=== PATIENT | female | born 1955 | race Asian ===

== ENCOUNTER 2020-06-01 07:44 | Outpatient (REF) | payer MEDICARE, SELFPAY ==
[2020-06-01 11:29] LABS: Estimated Average Glucose 146 mg/dL; Hemoglobin A1c % 6.7 %
[2020-06-01 11:39] LABS: Alanine Aminotransferase 44 U/L (0-31); Albumin Level 4.5 g/dL (3.5-5.0); Alkaline Phosphatase 105 U/L (39-117); Anion Gap 15 (12-20); Aspartate Amino Transferase 24 U/L (5-31); Bilirubin Total 0.3 mg/dL (0.0-1.0); Blood Urea Nitrogen 15 mg/dL (9-16); Calcium 9.4 mg/dL (8.4-10.2); Carbon Dioxide 27 mmol/L (22-29); Chloride 105 mmol/L (96-108); Cholesterol 184 mg/dL; Estimated Glomerular Filt Rate 59; Glucose Fasting 129 mg/dL (60-99); HDL Cholesterol 48 mg/dL; LDL Cholesterol Calculated 110 mg/dl; Potassium 4.4 mmol/l (3.3-5.1); Sodium 143 mmol/L (135-145); Total Protein 7.3 g/dL (6.5-8.0); Triglycerides 131 mg/dL
[2020-06-01 12:01] LABS: Vitamin D 25-OH Total 56.2 ng/mL (>30)
== END 2020-06-01 07:45 | disposition home or self-care (01) ==
LOC: HO.HMGCLDS 07:44
PROVIDERS: PCP Internal Medicine; Visit Provider Internal Medicine
DX: E11.9 Type 2 diabetes mellitus without complications (principal); E78.5 Hyperlipidemia, unspecified; I10 Essential (primary) hypertension; Z12.39 Encounter for other screening for malignant neoplasm of breast; Z86.73 Personal history of transient ischemic attack (TIA), and cerebral infarction without residual deficits
CPT/HCPCS: 36415; 80053; 80061; 82306; 83036

== ENCOUNTER 2020-07-05 08:23 | Outpatient (REF) | payer MEDICARE, SELFPAY ==
--- NOTE | 2020-07-05 08:29 | MM_ITS ---
EXAMINATION: MM SCREENING DIGITAL BREAST TOMOSYNTHESIS, BILATERAL CLINICAL INFORMATION: Screening. Asymptomatic. The lifetime risk of breast cancer based on the Tyrer-Cuzick Model is 5.3%. COMPARISON: Mammography: June 02, 2018 and studies dating back to March 31, 2013 TECHNIQUE: Digital breast tomosynthesis is performed in both the craniocaudal and mediolateral oblique views along with computer-aided detection (CAD). Synthesized 2D images are generated from the tomosynthesis. FINDINGS: There are scattered areas of fibroglandular density (ACR BI-RADS breast composition Category b). There are no significant masses, abnormal calcifications, or other abnormalities. MM/MM tomosynthesis screening BI IMPRESSION: There are no significant changes from prior study. ASSESSMENT: BI-RADS 1: Negative RECOMMENDATION: Routine annual mammography screening. This patient's information was entered into a reminder system with a target due date for their next mammogram.
--- NOTE | 2020-07-05 08:29 | MM_ITS ---
EXAMINATION: BONE DENSITOMETRY CLINICAL INDICATION: Menopause. COMPARISON: Previous BD dated 05/16/2017 and baseline BD dated 01/31/2015. TECHNIQUE: Using a [employer] DXA System (software version: 13.1) manufactured by [employer], dual-energy x-ray absorptiometry was performed of the lumbar spine and left hip. The images are of good technical quality. Summary results are attached. FINDINGS: AP SPINE L1-L4: Current: BMD 1.260 g/cm2, Z-score 2.7, T-score 0.7, normal, 1.8% increase from previous, 4.3% increase from baseline (<5% change is not significant). Prior: BMD 1.238 g/cm2. Baseline: BMD 1.208 g/cm2. LEFT FEMUR, NECK: Current: BMD 0.720 g/cm2, Z-score -0.5, T-score -2.3, osteopenia. Prior: BMD 0.779 g/cm2. Baseline: BMD 0.791 g/cm2. LEFT FEMUR, TOTAL: Current: BMD 0.881 g/cm2, Z-score 0.6, T-score -1.0, normal, 4.6% decrease from previous, 7.3% decrease from baseline (<5% change is not significant). Prior: BMD 0.923 g/cm2. Baseline: BMD 0.950 g/cm2. IDENTIFIED RISK FACTORS: Menopause. HISTORY OF FRACTURE: None listed. MEDICATIONS: Vitamin D. MM/XR DEXA axial skeleton IMPRESSION: 1. DIAGNOSIS: Osteopenia based on the lowest T-score value of -2.3 in the femoral neck applying World Health Organization criteria. 2. 10-YEAR FRACTURE RISK PREDICTION, FRAX: Major osteoporotic fracture (clinical spine, forearm, hip or shoulder) 7.0%. Hip fracture 1.4%. 3. Treatment Recommendations: NOF guidelines recommend consideration for treatment in postmenopausal women and men age 50 and older presenting with the following: -A hip or vertebral (clinical or morphometric) fracture. -T-score less than or equal to -2.5 at the femoral neck or spine after appropriate evaluation to exclude secondary causes. -Low bone mass at the hip or spine and a 10-year fracture probability by FRAX of greater than or equal to 3% for hip fracture or greater than or equal to 20% for major osteoporotic fracture based on the [place] adapted WHO algorithm. 4. Other Recommendations: All treatment decisions require clinical judgment and consideration of individual patient factors, including patient preferences, comorbidities, previous drug use, risk factors not captured in the FRAX model (e.g. frailty, falls, vitamin D deficiency, increased bone turnover, interval significant decline in bone density) and possible under or overestimation of fracture risk by FRAX. Additional medical evaluation for secondary cause of low bone mineral density may be appropriate. FUTURE SCAN RECOMMENDATION: People with diagnosed cases of osteoporosis or at high risk for fracture should have regular bone mineral density tests. For patients eligible for Medicare, routine testing is allowed once every 2 years. The testing frequency can be increased to one year for patients who have rapidly progressing disease, those who are receiving or discontinuing medical therapy to restore bone mass, or have additional risk factors.
== END 2020-07-05 08:24 | disposition home or self-care (01) ==
LOC: HO.MAMMO 08:23
PROVIDERS: PCP Internal Medicine; Visit Provider Internal Medicine
DX: Z12.31 Encounter for screening mammogram for malignant neoplasm of breast (principal); Z13.820 Encounter for screening for osteoporosis; Z78.0 Asymptomatic menopausal state
CPT/HCPCS: 77063; 77067; 77080

== ENCOUNTER 2020-09-12 07:26 | Outpatient (REF) | payer MEDICARE, SELFPAY ==
[2020-09-12 11:46] LABS: Estimated Average Glucose 157 mg/dL; Hemoglobin A1c % 7.1 %
[2020-09-12 12:01] LABS: Creatinine Urine 94.65 mg/dL; Microalbum/Creatinine Ratio Ur 48.6 ug/mg cr
[2020-09-12 12:06] LABS: Alanine Aminotransferase 57 U/L (0-31); Anion Gap 16 (12-20); Aspartate Amino Transferase 31 U/L (5-31); Blood Urea Nitrogen 15 mg/dL (9-16); Calcium 9.6 mg/dL (8.4-10.2); Carbon Dioxide 27 mmol/L (22-29); Chloride 103 mmol/L (96-108); Cholesterol 160 mg/dL; Estimated Glomerular Filt Rate > 60; Glucose Fasting 132 mg/dL (60-99); HDL Cholesterol 49 mg/dL; LDL Cholesterol Calculated 84 mg/dl; Potassium 4.4 mmol/l (3.3-5.1); Sodium 142 mmol/L (135-145); Triglycerides 139 mg/dL
[2020-09-12 12:10] LABS: Vitamin D 25-OH Total 70.5 ng/mL (>30)
== END 2020-09-12 07:27 | disposition home or self-care (01) ==
LOC: HO.HMGCLDS 07:26
PROVIDERS: PCP Internal Medicine; Visit Provider Internal Medicine
DX: I10 Essential (primary) hypertension (principal); M85.852 Other specified disorders of bone density and structure, left thigh; E78.5 Hyperlipidemia, unspecified; E11.9 Type 2 diabetes mellitus without complications
CPT/HCPCS: 36415; 80048; 80061; 82043; 82306; 83036; 84450; 84460

== ENCOUNTER 2020-12-21 07:32 | Outpatient (REF) | payer MEDICARE, SELFPAY ==
[2020-12-21 11:46] LABS: Alanine Aminotransferase 57 U/L (0-31); Aspartate Amino Transferase 28 U/L (5-31); Cholesterol 159 mg/dL; HDL Cholesterol 45 mg/dL; LDL Cholesterol Calculated 84 mg/dl; Triglycerides 150 mg/dL
[2020-12-21 12:24] LABS: Creatinine Urine 25.18 mg/dL; Microalbum/Creatinine Ratio Ur 23.8 ug/mg cr
[2020-12-21 13:10] LABS: Estimated Average Glucose 143 mg/dL; Hemoglobin A1c % 6.6 %
== END 2020-12-21 07:33 | disposition home or self-care (01) ==
LOC: HO.HMGCLDS 07:32
PROVIDERS: PCP Internal Medicine; Visit Provider Internal Medicine
DX: E11.65 Type 2 diabetes mellitus with hyperglycemia (principal); I10 Essential (primary) hypertension; E78.5 Hyperlipidemia, unspecified
CPT/HCPCS: 36415; 80061; 82043; 83036; 84450; 84460

== ENCOUNTER 2021-06-28 07:20 | Outpatient (REF) | payer MEDICARE, SELFPAY ==
[2021-06-28 11:37] LABS: Estimated Average Glucose 140 mg/dL; Hemoglobin A1c % 6.5 %
[2021-06-28 11:52] LABS: Alanine Aminotransferase 37 U/L (0-31); Anion Gap 12 (12-20); Aspartate Amino Transferase 22 U/L (5-31); Blood Urea Nitrogen 10 mg/dL (9-16); Calcium 9.3 mg/dL (8.4-10.2); Carbon Dioxide 27 mmol/L (22-29); Chloride 106 mmol/L (96-108); Cholesterol 156 mg/dL; Estimated Glomerular Filt Rate > 60; Glucose Fasting 124 mg/dL (60-99); HDL Cholesterol 43 mg/dL; LDL Cholesterol Calculated 88 mg/dl; Potassium 4.3 mmol/L (3.3-5.1); Sodium 141 mmol/L (135-145); Triglycerides 129 mg/dL
[2021-06-28 11:59] LABS: Vitamin D 25-OH Total 79.1 ng/mL (>30)
[2021-06-28 12:12] LABS: Creatinine Urine 26.43 mg/dL
== END 2021-06-28 07:21 | disposition home or self-care (01) ==
LOC: HO.HMGCLDS 07:20
PROVIDERS: PCP Internal Medicine; Visit Provider Internal Medicine
DX: E11.9 Type 2 diabetes mellitus without complications (principal); E78.5 Hyperlipidemia, unspecified; I10 Essential (primary) hypertension; M85.852 Other specified disorders of bone density and structure, left thigh; Z78.0 Asymptomatic menopausal state
CPT/HCPCS: 36415; 80048; 80061; 82043; 82306; 83036; 84450; 84460

== ENCOUNTER 2021-07-18 10:06 | Outpatient (REF) | payer MEDICARE, SELFPAY ==
--- NOTE | ~2021-07-18 | MM_ITS ---
EXAMINATION: MM SCREENING DIGITAL BREAST TOMOSYNTHESIS, BILATERAL CLINICAL INFORMATION: Screening. Asymptomatic. The lifetime risk of breast cancer based on the Tyrer-Cuzick Model is 5%. COMPARISON: Mammography: 07/05/2020, 06/02/2018, 05/23/2017, 05/16/2017 03/29/2016 TECHNIQUE: Digital breast tomosynthesis is performed in both the craniocaudal and mediolateral oblique views along with computer-aided detection (CAD). Synthesized 2D images are generated from the tomosynthesis. Additional right MLO view is provided. FINDINGS: There are scattered areas of fibroglandular density (ACR BI-RADS breast composition Category b). Parenchymal pattern is similar to prior studies. There are scattered stable minor asymmetries similar to prior studies. No developing density. No architectural abnormality or abnormal calcifications. The axilla and skin contours are unremarkable. MM/MM tomosynthesis screening BI IMPRESSION: There are no significant changes from prior exams. ASSESSMENT: BI-RADS 2: Benign RECOMMENDATION: Routine annual mammography screening. This patient's information was entered into a reminder system with a target due date for their next mammogram.
== END 2021-07-18 10:07 | disposition home or self-care (01) ==
LOC: HO.MAMMO 10:06
PROVIDERS: Visit Provider Internal Medicine
DX: Z12.31 Encounter for screening mammogram for malignant neoplasm of breast (principal)
CPT/HCPCS: 77063; 77067

== ENCOUNTER 2021-12-10 07:16 | Outpatient (REF) | payer MEDICARE, SELFPAY ==
[2021-12-10 11:09] LABS: MANUAL DIFF FLAG NO
[2021-12-10 11:25] LABS: Basophils Absolute Auto 0.1 X10*3/uL (0.0-0.2); Basophils Percent Auto 1.4 % (0-2); Eosinophils Absolute Auto 0.3 X10*3/uL (0.0-0.4); Eosinophils Percent Auto 3.9 % (0-4); Hematocrit 39.1 % (37.0-47.0); Hemoglobin 13.1 g/dl (12.0-16.0); Imm Gran Abs Auto 0.02 X10*3/uL (0.00-0.03); Imm Gran Pct Auto 0.2 % (0.0-0.4); Lymphocytes Absolute Auto 2.3 X10*3/uL (1.2-4.9); Lymphocytes Percent Auto 28.7 % (20-40); Mean Corpuscular HGB Conc 33.5 g/dl (31.0-35.0); Mean Corpuscular Hemoglobin 30.3 pg (27.0-33.0); Mean Corpuscular Volume 90.3 fL (80.0-98.0); Mean Platelet Volume 10.6 fL (9.4-12.3); Monocytes Absolute Auto 0.6 X10*3/uL (0.1-1.2); Monocytes Percent Auto 7.3 % (2-11); Neutrophils Absolute Auto 4.8 x10*3/uL (2.0-8.3); Neutrophils Percent Auto 58.5 % (45-73); Platelet Count 382 X10*3/uL (160-400); Red Blood Count 4.33 X10*6/uL (4.20-5.50); Red Cell Distribution Width 12.6 % (11.0-16.0); White Blood Count 8.1 X10*3/uL (4.8-10.8)
[2021-12-10 11:36] LABS: Alanine Aminotransferase 40 U/L (0-31); Anion Gap 13 (12-20); Aspartate Amino Transferase 22 U/L (5-31); Blood Urea Nitrogen 14 mg/dL (9-16); Calcium 9.7 mg/dL (8.4-10.2); Carbon Dioxide 27 mmol/L (22-29); Chloride 108 mmol/L (96-108); Cholesterol 157 mg/dL; Estimated Glomerular Filt Rate > 60; Glucose Fasting 122 mg/dL (60-99); HDL Cholesterol 44 mg/dL; LDL Cholesterol Calculated 86 mg/dl; Potassium 4.3 mmol/L (3.3-5.1); Sodium 144 mmol/L (135-145); Triglycerides 136 mg/dL
[2021-12-10 11:59] LABS: Vitamin D 25-OH Total 84.3 ng/mL (>30)
[2021-12-10 12:02] LABS: Estimated Average Glucose 137 mg/dL; Hemoglobin A1c % 6.4 %
[2021-12-10 12:12] LABS: Creatinine Urine 183.96 mg/dL; Microalbum/Creatinine Ratio Ur 23.9 ug/mg cr
== END 2021-12-10 07:17 | disposition home or self-care (01) ==
LOC: HO.HMGCLDS 07:16
PROVIDERS: Visit Provider Internal Medicine
DX: E11.9 Type 2 diabetes mellitus without complications (principal); I10 Essential (primary) hypertension; M85.852 Other specified disorders of bone density and structure, left thigh; E78.5 Hyperlipidemia, unspecified; Z78.0 Asymptomatic menopausal state
CPT/HCPCS: 36415; 80048; 80061; 82043; 82306; 83036; 84450; 84460; 85025

== ENCOUNTER 2022-03-01 07:31 | Outpatient (REF) | payer MEDICARE, SELFPAY ==
[2022-03-01 12:03] LABS: Alanine Aminotransferase 40 U/L (0-31); Anion Gap 14 (12-20); Aspartate Amino Transferase 24 U/L (5-31); Blood Urea Nitrogen 16 mg/dL (9-16); Calcium 9.6 mg/dL (8.4-10.2); Carbon Dioxide 26 mmol/L (22-29); Chloride 108 mmol/L (96-108); Cholesterol 149 mg/dL; Estimated Glomerular Filt Rate 59; Glucose Fasting 131 mg/dL (60-99); HDL Cholesterol 44 mg/dL; LDL Cholesterol Calculated 80 mg/dl; Potassium 4.5 mmol/L (3.3-5.1); Sodium 143 mmol/L (135-145); Triglycerides 127 mg/dL
[2022-03-01 12:09] LABS: Vitamin D 25-OH Total 73.8 ng/mL (>30)
[2022-03-01 12:14] LABS: Estimated Average Glucose 143 mg/dL; Hemoglobin A1C 171.3357 umol/L; Hemoglobin A1c % 6.6 %
== END 2022-03-01 07:32 | disposition home or self-care (01) ==
LOC: HO.HMGCLDS 07:31
PROVIDERS: Visit Provider Internal Medicine
DX: E11.9 Type 2 diabetes mellitus without complications (principal); E78.5 Hyperlipidemia, unspecified; I10 Essential (primary) hypertension; M85.852 Other specified disorders of bone density and structure, left thigh
CPT/HCPCS: 36415; 80048; 80061; 82306; 83036; 84450; 84460

== ENCOUNTER 2022-07-20 07:56 | Outpatient (REF) | payer MEDICARE, SELFPAY ==
[2022-07-20 11:36] LABS: Estimated Average Glucose 151 mg/dL; Hemoglobin A1c % 6.9 %
[2022-07-20 11:58] LABS: Alanine Aminotransferase 72 U/L (0-31); Albumin Level 4.6 g/dL (3.5-5.0); Alkaline Phosphatase 98 U/L (39-117); Anion Gap 13 (12-20); Aspartate Amino Transferase 39 U/L (5-31); Bilirubin Total 0.5 mg/dL (0.0-1.0); Blood Urea Nitrogen 14 mg/dL (9-16); Calcium 9.7 mg/dL (8.4-10.2); Carbon Dioxide 28 mmol/L (22-29); Chloride 104 mmol/L (96-108); Cholesterol 177 mg/dL; Estimated Glomerular Filt Rate > 60; Glucose Fasting 114 mg/dL (60-99); HDL Cholesterol 50 mg/dL; LDL Cholesterol Calculated 103 mg/dl; Sodium 141 mmol/L (135-145); Total Protein 7.6 g/dL (6.5-8.0); Triglycerides 121 mg/dL; Vitamin D 25-OH Total 73.8 ng/mL (>30)
[2022-07-20 12:22] LABS: Creatinine Urine 13.63 mg/dL
== END 2022-07-20 07:57 | disposition home or self-care (01) ==
LOC: HO.HMGCLDS 07:56
PROVIDERS: PCP Internal Medicine; Visit Provider Internal Medicine
DX: E78.5 Hyperlipidemia, unspecified (principal); I10 Essential (primary) hypertension; I65.21 Occlusion and stenosis of right carotid artery; M85.852 Other specified disorders of bone density and structure, left thigh; E11.9 Type 2 diabetes mellitus without complications
CPT/HCPCS: 36415; 80053; 80061; 82043; 82306; 83036

== ENCOUNTER 2022-07-24 09:56 | Outpatient (REF) | payer MEDICARE, SELFPAY ==
--- NOTE | ~2022-07-24 | MM_ITS ---
EXAMINATION: MM SCREENING DIGITAL BREAST TOMOSYNTHESIS, BILATERAL CLINICAL INFORMATION: Screening. Asymptomatic. The lifetime risk of breast cancer based on the Tyrer-Cuzick Model is 5%. COMPARISON: Mammography: 07/18/2021, 07/05/2020, 06/02/2018 TECHNIQUE: Digital breast tomosynthesis is performed in both the craniocaudal and mediolateral oblique views along with computer-aided detection (CAD). Synthesized 2D images are generated from the tomosynthesis. FINDINGS: There are scattered areas of fibroglandular density (ACR BI-RADS breast composition Category b). There are no significant masses, abnormal calcifications, or other abnormalities. Parenchymal pattern is similar to prior studies. Minor asymmetries are similar to prior studies. There is no developing density or architectural abnormality. The axilla and skin contours are unremarkable. MM/MM tomosynthesis screening BI IMPRESSION: No mammographic evidence of malignancy. ASSESSMENT: BI-RADS 2: Benign RECOMMENDATION: Routine annual mammography screening. This patient's information was entered into a reminder system with a target due date for their next mammogram.
== END 2022-07-24 09:57 | disposition home or self-care (01) ==
LOC: HO.MAMMO 09:56
PROVIDERS: PCP Internal Medicine; Visit Provider Internal Medicine
DX: Z12.31 Encounter for screening mammogram for malignant neoplasm of breast (principal)
CPT/HCPCS: 77063; 77067

== ENCOUNTER 2022-11-20 07:18 | Outpatient (REF) | payer MEDICARE, SELFPAY ==
[2022-11-20 12:11] LABS: Creatinine Urine 67.27 mg/dL
[2022-11-20 12:13] LABS: Microalbum/Creatinine Ratio Ur 86.2 ug/mg cr
[2022-11-20 12:53] LABS: Estimated Average Glucose 151 mg/dL; Hemoglobin A1c % 6.9 %
[2022-11-20 12:57] LABS: Alanine Aminotransferase 43 U/L (0-31); Albumin Level 4.4 g/dL (3.5-5.0); Alkaline Phosphatase 88 U/L (39-117); Anion Gap 14 (12-20); Aspartate Amino Transferase 30 U/L (5-31); Bilirubin Total 0.9 mg/dL (0.0-1.0); Blood Urea Nitrogen 14 mg/dL (9-16); Calcium 9.3 mg/dL (8.4-10.2); Carbon Dioxide 27 mmol/L (22-29); Chloride 105 mmol/L (96-108); Cholesterol 173 mg/dL; Estimated Glomerular Filt Rate > 60; Glucose Fasting 141 mg/dL (60-99); HDL Cholesterol 45 mg/dL; LDL Cholesterol Calculated 95 mg/dl; Potassium 4.3 mmol/L (3.3-5.1); Sodium 142 mmol/L (135-145); Total Protein 7.2 g/dL (6.5-8.0); Triglycerides 169 mg/dL
[2022-11-20 13:21] LABS: Vitamin D 25-OH Total 86.2 ng/mL (>30)
== END 2022-11-20 07:19 | disposition home or self-care (01) ==
LOC: HO.HMGCLDS 07:18
PROVIDERS: PCP Internal Medicine; Visit Provider Internal Medicine
DX: E11.29 Type 2 diabetes mellitus with other diabetic kidney complication (principal); E78.5 Hyperlipidemia, unspecified; I10 Essential (primary) hypertension; M85.852 Other specified disorders of bone density and structure, left thigh; N95.9 Unspecified menopausal and perimenopausal disorder; R80.9 Proteinuria, unspecified; Z86.73 Personal history of transient ischemic attack (TIA), and cerebral infarction without residual deficits
CPT/HCPCS: 36415; 80053; 80061; 82043; 82306; 83036

== ENCOUNTER 2023-02-27 08:18 | Outpatient (REF) | payer MEDICARE, SELFPAY ==
[2023-02-27 11:30] LABS: Estimated Average Glucose 131 mg/dL; Hemoglobin A1c % 6.2 %
[2023-02-27 11:35] LABS: Alanine Aminotransferase 43 U/L (0-31); Anion Gap 11 (12-20); Aspartate Amino Transferase 25 U/L (5-31); Blood Urea Nitrogen 15 mg/dL (9-16); Calcium 9.4 mg/dL (8.4-10.2); Carbon Dioxide 27 mmol/L (22-29); Chloride 107 mmol/L (96-108); Cholesterol 142 mg/dL; Estimated Glomerular Filt Rate > 60; Glucose Fasting 119 mg/dL (60-99); HDL Cholesterol 40 mg/dL; LDL Cholesterol Calculated 80 mg/dl; Potassium 4.2 mmol/L (3.3-5.1); Sodium 141 mmol/L (135-145); Triglycerides 110 mg/dL
== END 2023-02-27 08:19 | disposition home or self-care (01) ==
LOC: HO.HMGCLDS 08:18
PROVIDERS: PCP Internal Medicine; Visit Provider Internal Medicine
DX: E11.29 Type 2 diabetes mellitus with other diabetic kidney complication (principal); E78.5 Hyperlipidemia, unspecified; I10 Essential (primary) hypertension; I65.21 Occlusion and stenosis of right carotid artery; R80.9 Proteinuria, unspecified; Z86.73 Personal history of transient ischemic attack (TIA), and cerebral infarction without residual deficits
CPT/HCPCS: 36415; 80048; 80061; 83036; 84450; 84460

== ENCOUNTER 2023-03-17 15:00 | Outpatient (RCR) | payer MEDICARE, SELFPAY ==
[2023-03-11 10:01] VITALS: BP 134/61; PULSE 81
--- NOTE | 2023-03-11 10:56 | MHC.PT.EP ---
[facility] [place] Office [place] Office [place] Office [address] Jamshid Pinzon [address] [phone] F: [phone] F: [phone] F: [phone] F: [phone] Physical Therapy Plan of Care Date of Evaluation: Date of Surgery: Diagnosis: Epidemic vertigo Assessment: 68 y/o female referred to PT with epidemic vertigo. Dizziness described as spinning that last a few seconds with rolling in bed, bending, and showering. She does also report occasional lightheadedness and feels offbalance. Examination shows normal oculomotor, (-) VBI, and (+) for L upbeating torsional nystagmus with sx of dizziness. Treated pt with Mariah crowderever x2 and negative on re-test. Sx consistent with BPPV. Recommend PT 2x/week for 4 weeks to address impairments, implement HEP, and optimize functional mobility. Frequency and Duration: The patient will be seen 2x/weeks for 4 weeks Short Term Goals: Will reassess all canals and balance Detention Goals: Pt will be (-) for nystagmus of reports of vertigo in all diagnostic directions B to resolutions of BPPV in 4 weeks Tolerate position changes without complaints vertigo to improve safety and return to pre-onset level Pt to be able to functionally move in all planes without provocation of dizziness and return to PLOF in 4 weeks Pt to be educated on sx and indications to return to therapy when needed in 4 weeks Treatment Plan: Modalities to reduce pain, spasms and effusion. Manual therapy to restore motion and function. Therapeutic exercise to improve strength and flexibility. Neuromuscular re-education for posture and balance. Therapeutic activities to return to functional activities of daily living. Electronically signed by: Saida Trivedi PT Please sign and return to therapist. Thank you for your referral.
--- NOTE | 2023-04-22 08:48 | MHC.PT.DC ---
[facility] [place] Office [place] Office [place] Office [address] Jamshid Pinzon [address] [phone] F: [phone] F: [phone] F: [phone] F: [phone] Physical Therapy Discharge Report Diagnosis: Epidemic vertigo Date of Surgery: Date of Evaluation: 03/11/23 Date of Discharge: 04/22/23 Treatments to Date: 3 Cancellations to Date: 0 No Shows to Date: 0 Discharge Status: Achieved Goals Improved Function Discharge Summary: Paula arrived stating she is feeling good. She denies having any dizziness. Re-assessed her for BPPV in all positions and she was negative for nystagmus and vertigo. She does not present with any symptoms of vestibular hypofunction. No PT indicated at this time. She was advised to return to PT in case of return of symptoms. Electronically signed by: Saida Trivedi PT Please sign and return to therapist. Thank you for your referral.
== END 2023-04-22 08:48 | disposition home or self-care (01) ==
LOC: HO.PT 15:00
PROVIDERS: PCP Internal Medicine; Visit Provider Internal Medicine
DX: A88.1 Epidemic vertigo (principal)
CPT/HCPCS: 95992; 97112; 97161; 97162

== ENCOUNTER 2023-07-29 06:17 | Outpatient (REF) | payer MEDICARE, SELFPAY ==
--- NOTE | ~2023-07-29 | MM_ITS ---
EXAMINATION: BONE DENSITOMETRY CLINICAL INDICATION: Other specified disorders of bone density and structure, left thigh. COMPARISON: Previous BD dated 07/05/2020 and baseline BD dated 01/31/2015. TECHNIQUE: Using a [employer] DXA System (software version: 13.1) manufactured by [employer], dual-energy x-ray absorptiometry was performed of the lumbar spine and left hip. The images are of good technical quality. Summary results are attached. FINDINGS: AP SPINE L1-L4: Current: BMD 1.305 g/cm2, Z-score 3.1, T-score 1.0, normal, 3.6% increase from previous, 8.0% increase from baseline (<5% change is not significant). Prior: BMD 1.260 g/cm2. Baseline: BMD 1.208 g/cm2. LEFT FEMUR, NECK: Current: BMD 0.800 g/cm2, Z-score 0.2, T-score -1.7, osteopenia. Prior: BMD 0.720 g/cm2. Baseline: BMD 0.791 g/cm2. LEFT FEMUR, TOTAL: Current: BMD 0.892 g/cm2, Z-score 0.8, T-score -0.9, normal, 1.2% increase from previous, 6.1% decrease from baseline (<5% change is not significant). Prior: BMD 0.881 g/cm2. Baseline: BMD 0.950 g/cm2. IDENTIFIED RISK FACTORS: Menopause. HISTORY OF FRACTURE: None listed. MEDICATIONS: Calcium supplement and/or multivitamin. Vitamin D. MM/XR DEXA axial skeleton IMPRESSION: 1. DIAGNOSIS: Osteopenia based on the lowest T-score value of -1.7 in the femoral neck applying World Health Organization criteria. 2. 10-YEAR FRACTURE RISK PREDICTION, FRAX: Major osteoporotic fracture (clinical spine, forearm, hip or shoulder) 5.8%. Hip fracture 1.0%. 3. Treatment Recommendations: NOF guidelines recommend consideration for treatment in postmenopausal women and men age 50 and older presenting with the following: -A hip or vertebral (clinical or morphometric) fracture. -T-score less than or equal to -2.5 at the femoral neck or spine after appropriate evaluation to exclude secondary causes. -Low bone mass at the hip or spine and a 10-year fracture probability by FRAX of greater than or equal to 3% for hip fracture or greater than or equal to 20% for major osteoporotic fracture based on the [place] adapted WHO algorithm. 4. Other Recommendations: All treatment decisions require clinical judgment and consideration of individual patient factors, including patient preferences, comorbidities, previous drug use, risk factors not captured in the FRAX model (e.g. frailty, falls, vitamin D deficiency, increased bone turnover, interval significant decline in bone density) and possible under or overestimation of fracture risk by FRAX. Additional medical evaluation for secondary cause of low bone mineral density may be appropriate. FUTURE SCAN RECOMMENDATION: People with diagnosed cases of osteoporosis or at high risk for fracture should have regular bone mineral density tests. For patients eligible for Medicare, routine testing is allowed once every 2 years. The testing frequency can be increased to one year for patients who have rapidly progressing disease, those who are receiving or discontinuing medical therapy to restore bone mass, or have additional risk factors.
[2023-07-29 11:39] LABS: Alanine Aminotransferase 40 U/L (0-31); Anion Gap 11 (12-20); Aspartate Amino Transferase 30 U/L (5-31); Blood Urea Nitrogen 13 mg/dL (9-16); Calcium 8.9 mg/dL (8.4-10.2); Carbon Dioxide 27 mmol/L (22-29); Chloride 108 mmol/L (96-108); Cholesterol 128 mg/dL (<200); Estimated Glomerular Filt Rate > 60; Glucose Fasting 132 mg/dL (60-99); HDL Cholesterol 39 mg/dL (>40); LDL Cholesterol Calculated 70 mg/dL (<100); Potassium 3.7 mmol/L (3.3-5.1); Sodium 142 mmol/L (135-145); Triglycerides 95 mg/dL (<150)
[2023-07-29 11:44] LABS: Estimated Average Glucose 143 mg/dL; Hemoglobin A1c % 6.6 % (<6.0)
== END 2023-07-29 06:18 | disposition home or self-care (01) ==
LOC: HO.MAMMO 06:17
PROVIDERS: PCP Internal Medicine; Visit Provider Internal Medicine
DX: E78.5 Hyperlipidemia, unspecified (principal); I10 Essential (primary) hypertension; E11.29 Type 2 diabetes mellitus with other diabetic kidney complication; R80.9 Proteinuria, unspecified; M85.852 Other specified disorders of bone density and structure, left thigh; Z78.0 Asymptomatic menopausal state; Z12.31 Encounter for screening mammogram for malignant neoplasm of breast
CPT/HCPCS: 36415; 77063; 77067; 77080; 80048; 80061; 83036; 84450; 84460

== ENCOUNTER → 2023-07-29 13:00 | Outpatient (BNV) | payer MEDICARE, SELFPAY | PROVIDERS: PCP Internal Medicine; Visit Provider Radiology Diagnostic Radiology | DX: Z12.31 Encounter for screening mammogram for malignant neoplasm of breast (principal) | CPT/HCPCS: 77063; 77067 ==

== ENCOUNTER 2023-07-31 10:40 | Outpatient (AMB) | payer MEDICARE, SELFPAY ==
[2023-07-31 10:54] VITALS: BP 132/70; PULSE 82; O2SAT 98; BMI 23.2
--- NOTE | 2023-07-31 10:54 | A.OFFPC_ITS ---
Vital Signs 07/31/23 10:54 Height 4 ft 11 in Weight 115 lb 2 oz BMI 23.2 BP 132/70 Blood Pressure Location Rt brachial Position Sitting Pulse 82 Pulse Source Pulse Oximeter Pulse Oximetry (%) 98 Oxygen Delivery Method Room Air Intake Visit Reasons: follow up DM, HTN, lipids Intake Note: Pt is here to follow up for her lab results Allergies metronidazole [From FLAGYL] Allergy (Mild, Verified 07/31/23 11:27) METALLIC TASTE/RASH Sulfa (Sulfonamide Antibiotics) [SULFA (SULFONAMIDE ANTIBIOTICS)] Allergy (Mild, Verified 07/31/23 11:27) RASH, rash, SOB Medication List - Last Reconciled 07/31/23 by Татьяна Mancuso MD amlodipine 5 mg PO DAILY 90 days atorvastatin 80 mg PO DAILY cholecalciferol (vitamin D3) 50 mcg PO DAILY fluticasone propionate 50 mcg/actuation (Flonase Allergy Relief) 1 spray intranasal DAILY PRN losartan 25 mg PO DAILY 90 days metformin take 1000 mg ( 2 tabs) in am and 500 mg (1 tab) in pm with meals 3 months multivitamin 1 tab PO DAILY mupirocin 2% 1 appl topical BID 5 days Tobacco use date assessed: 07/31/23 Fall risk assessment: No Falls in past year Last assessed Fall Risk: 07/31/23 Dental Screening Dental Screen Date: 07/31/23 Did you have a dental visit in the last 12 months?: Yes Did you have a dental problem in the last 6 months where you did not have access to dental care?: No Was dental information given to patient?: Patient has dentist HPI follow up DM, HTN, lipids HPI Details 68-year-old lady with diabetes mellitus, hyperlipidemia hypertension, here today for follow-up. She has been taking her medications as directed, but admits to not following recommended diet. Has been eating a lot of foods and sweets lately. Hemoglobin A1c today is at 6.6% higher than last check, but lipids are within normal limits and blood pressure stable and controlled on present treatment. She has an appointment for her diabetes retinopathy is check with Dr. Mora in September 2023. [facility] Medical History (Updated 07/31/23 @ 12:44 by Татьяна Mancuso MD) Positional lightheadedness Postoperative keloid scar Type 2 diabetes mellitus with microalbuminuria, without long-term current use of insulin Stenosis of right carotid artery Hypertension History of CVA (cerebrovascular accident) Osteopenia of left hip Dyslipidemia Cyst of right breast Surgical History History of cholecystectomy History of dilation and curettage Family History Father No problems noted. Mother No problems noted. Social History Housing: House Alcohol intake: current Patient Tobacco Use Status: Former Tobacco user Quit Date: 2012 e-Cigarette/Vaping Use: Never Used Second Hand Smoke Exposure: No Current occupational status: retired Cognitive needs: No Hearing needs: No Vision needs: Yes Questionnaire PHQ-9 Over the last 2 weeks, how often have you been bothered by any of the following problems? 1. Little interest or pleasure in doing things: not at all 2. Feeling down, depressed, or hopeless: not at all 3. Trouble falling or staying asleep, or sleeping too much: not at all 4. Feeling tired or having little energy: not at all 5. Poor appetite or overeating: not at all 6. Feeling bad about yourself - or that you are a failure or have let yourself or your family down: not at all 7. Trouble concentrating on things, such as reading the newspaper or watching television: not at all 8. Moving or speaking so slowly that other people could have noticed. Or the opposite - being so fidgety or restless that you have been moving around a lot more than usual: not at all 9. Thoughts that you would be better off or of hurting yourself in some way: not at all Total score: 0 Depression Screening Interpretation: Negative Depression Screening Done: Yes 40689 - PHQ-9 Billing: Yes Source: Developed by Drs. Fuentes [place], Miriam Wiley, Jr Joseph and colleagues, with an educational sylvia from [employer]. Thrive Questionnaire Date Thrive assessed: 07/31/23 I am a: Patient What is your living situation today?: I have a steady place to live Within the past 12 months, did the food you bought not last and you didn't have the money to get more?: Never true Within the past 12 months, did you worry whether your food would run out before you got money to buy more?: Never true Do you have trouble paying for medicines?: No Do you have trouble getting transportation to medical appointments?: No Do you have trouble paying your heating and electricity bill?: No Do you have trouble taking care of your child, family member or friend?: No Do you have trouble with day-to-day activities such as bathing, preparing meals, shopping, managing finances, etc.?: No Are you currently unemployed and looking for a job?: No Are you interested in more education?: No TOÑA-7 AMB Questionnaire TOÑA-7 Date TOÑA - 7 assessed: 07/31/23 Feeling nervous, anxious, or on edge: 0 = Not at all Not being able to stop or control worryin = Not at all Worrying too much about different things: 0 = Not at all Trouble relaxin = Not at all Being so restless that it is hard to sit still: 0 = Not at all Becoming easily annoyed or irritable: 0 = Not at all Feeling afraid as if something awful might happen: 0 = Not at all Total TOÑA-7 score (0-4 normal; 5-9 mild; 10-14 moderate; 15-21 severe): 0 Source: Developed by Drs. Fuentes [place], Miriam Wiley, Jr Joseph and colleagues, with an educational slyvia from [employer]. TOÑA-7 Assessment Billing TOÑA-7 Assessment Tool: TOÑA-7 Assessment 13912 Review of Systems Const Denies body aches, Denies fatigue, Denies fever(s), Denies headache(s) and Denies weakness Eyes Details: Up-to-date with her diabetes retinopathy exam, done August 2022 Denies change in vision ENT Denies dizziness, Denies headache(s), Denies nasal congestion, Denies nasal discharge and Denies sore throat Card Denies chest pain, Denies lightheadedness, Denies palpitations and Denies dyspnea Resp Denies chest congestion, Denies cough, Denies dyspnea and Denies wheezing GI Denies abdominal pain, Denies change in bowel habits and Denies heartburn Denies urinary frequency, Denies dysuria and Denies urinary urgency Musc Reports no additional complaints Neuro Denies dizziness, Denies headache(s) and Denies weakness Psych Reports no additional complaints Endo Denies fatigue, Denies polydipsia, Denies polyuria and Denies palpitations Aller/Immun Denies seasonal rhinorrhea and Denies wheezing Physical exam (Primary Care) Vital Signs: Last Vital Signs Pulse 82 07/31/23 10:54 BP 132/70 07/31/23 10:54 Pulse Ox 98 07/31/23 10:54 Oxygen Delivery Method Room Air 07/31/23 10:54 BMI result Body Mass Index 23.2 Tobacco/Smoking Status: Tobacco use Status Tobacco use date assessed 07/31/23 07/31/23 10:59 Patient Tobacco Use Status Former Tobacco user 07/31/23 10:55 e-Cigarette/Vaping Use Never Used 07/31/23 10:55 PHQ-9: PHQ-9 Score PHQ-9: Total score 0 07/31/23 12:45 Depression Screening Interpretation: Negative Thrive Assessment: Date of Thrive Assessment Date Thrive assessed 07/31/23 07/31/23 11:45 Const General: comfortable and no acute distress Nutritional Appearance: average body habitus Orientation/consciousness: patient oriented x3 HENMT Head: Yes normocephalic and Yes atraumatic Ears: hearing grossly normal bilaterally and external ears normal General nose exam: Normal external nose present Face and sinus: Yes face symmetric Mouth: Normal oral and palatal mucosa present, oropharynx normal and moist mucous membranes Eyes General: appearance normal, both eyes and all related structures Neck Neck: Yes full ROM, Yes no lymphadenopathy and Yes supple Chest Chest palpation & inspection: other (Large keloid noted on lower end of sternun) Resp Effort & Inspection: normal respiratory effort and able to speak in complete sentences Auscultation: clear to auscultation bilaterally Cardio Rate: regular rate Rhythm: regular rhythm Heart sounds: S1 normal heart sound present and S2 normal heart sound present GI Inspection: Yes normal to inspection Palpation (GI): Soft to palpation, nontender, no guarding and no masses Auscultation: normal bowel sounds General: Yes no CVA tenderness Back/Spine/Pelvis Back: no CVA tenderness and No back tenderness Skin Other: keloid on lower part of sternum Lesions: other (Large keloid noted on lower end of sternum) Neuro General: patient oriented x3, gait normal, tone normal, moves all extremities, Normal light touch and pain sensation, no focal motor deficits and CN's II-XI intact bilaterally Cognition (Neuro): normal cognition Extrem General: Yes full ROM, Yes no joint enlargement, Yes no clubbing, cyanosis or edema and Yes normal gait Psych Appearance: grossly normal and well kempt Mental Status: mental status grossly normal Speech and movement: Normal speech and movement present Affect: normal affect Attitude: cooperative Thought process: Normal thought process present Thought content: Normal thought content present Results Reviewed Results Reviewed: PEC : [id number] TREV: 07/29/23 STATUS: COMP REQ : [id number] RECD: 07/29/[address]: Татьяна Mancuso MD COMP: 07/29/23 ENTERED: 07/29/[address]: ORDERED: Met Prof Fast, AST, ALT, Lipid Panel Test Result Flag Reference Site Sodium 142 135-145 mmol/L Potassium 3.7 3.3-5.1 mmol/L CL 108 96-108 mmol/L CO2 27 22-29 mmol/L Gap 11 L 12-20 BUN 13 9-16 mg/dL Creat 0.82 0.5-1.4 mg/dL EGFR > 60 NOTE: For -[place] individuals, multiply the result by 1.210. Chronic Kidney Disease: Estimated GFR < 60 mL/min/1.73m2 Severe Kidney Disease: Estimated GFR < 15 mL/min/1.73m2 FBS 132 H 60-99 mg/dL A fasting glucose of 126 mg/dl or greater on more than one occasion is considered diagnostic of diabetes. CA 8.9 8.4-10.2 mg/dL AST (GOT) 30 5-31 U/L ALT (GPT) 40 H 0-31 U/L Triglyceride 95 <150 mg/dL Desirable Triglyceride: less than 150 mg/dL Borderline High Triglyceride 150-199 mg/dL High Triglyceride: 200-499 mg/dL Very High Triglyceride: greater than or equal to 5OO mg/dL Cholesterol 128 <200 mg/dL Desirable Cholesterol: less than 200 mg/dL Borderline High Cholesterol: 200-239 mg/dL High Cholesterol: greater than 239 mg/dL LDL Calculated 70 <100 mg/dL Desirable LDL: less than 100 mg/dL Near Optimal/Above Optimal LDL: 110-129 mg/dL Borderline High LDL: 130-159 mg/dL High LDL: 160-189 mg/dL Very High LDL: greater than or equal to 190 mg/dL HDL 39 L >40 mg/dL Desirable HDL: greater than 40 mg/dL Note: This HDL assay may give artificially low results in patients with liver disease. Laboratory Tests 07/29/23 06:33 Estimat Average Glucose 143 Hemoglobin A1c % 6.6 H Assessment and Plan Assessment & Plan (1) Type 2 diabetes mellitus with microalbuminuria, without long-term current use of insulin: Code(s): E11.29 - Type 2 diabetes mellitus with other diabetic kidney complication; R80.9 - Proteinuria, unspecified Plan: Recent lab results reviewed with patient, with sugar and hemoglobin A1c higher than last check at 6.6%. Continue with metformin a 1000 mg in the morning and 500 mg at night with supper, continue to check fasting blood sugar at home, maintain log and bring to next appointment for review. Reinforced diabetic diet and regular exercise with patient. Counseled regarding importance of yearly diabetes retinopathy screening, has an appointment with Dr. Mora already scheduled for September 2023. Patient advised to inspect feet daily, for any signs of injury, callus or infection. Compliance with diet and regular exercise again stressed. Blood pressure goal is less than 130/80, goal LDL is less than 100 and goal hemoglobin A1c is less than 7% follow-up appointment made in December 2023, after fasting labs done. (2) Dyslipidemia: Code(s): E78.5 - Hyperlipidemia, unspecified Plan: Reviewed recent fasting lipid profile with patient with levels within normal limit . Continue with atorvastatin 80 mg daily , in addition to adherence to low-cholesterol diet and regular exercise, at least 30 minutes 3 to 4 times a week. Advised patient to make healthy food choices, eat more fruits, vegetables, whole grains, wild caught fish and low-fat dairy. Limit amount of meat and fried or fatty food products, as well as processed foods and fast foods. Follow-up scheduled with repeat fasting lipid panel in December 2023. (3) Hypertension: Code(s): I10 - Essential (primary) hypertension Qualifiers: Hypertension type: primary hypertension Qualified Code(s): I10 - Essential (primary) hypertension Plan: Blood pressure at goal of less than 130/80. Continue with losartan and amlodipine. Reinforced importance of following a low sodium diet, getting regular exercise, and lowering stress levels. Medications: Refilled amlodipine 5 mg PO DAILY 90 tabs 3RF 90 days I10 - Essential (primary) hypertension atorvastatin 80 mg PO DAILY 90 tabs 3RF losartan 25 mg PO DAILY 90 tabs 3RF 90 days I10 - Essential (primary) hypertension metformin take 1000 mg ( 2 tabs) in am and 500 mg (1 tab) in pm with meals 270 tabs 3RF 3 months E11.65 - Type 2 diabetes mellitus with hyperglycemia Coding Level of Care Code Est Pt Level 4 (67212) Diagnoses Type 2 diabetes mellitus with microalbuminuria, without long-term current use of insulin E11.29; R80.9 Dyslipidemia E78.5 Primary hypertension I10 Hypertension type: primary hypertension Additional Codes TOÑA-7 Assessment Billing - TOÑA-7 Assessment Tool: TOÑA-7 Assessment 50785 ([id number])
== END 2023-07-31 11:42 | disposition home or self-care (01) ==
PROVIDERS: PCP Internal Medicine; Visit Provider Internal Medicine
DX: E11.29 Type 2 diabetes mellitus with other diabetic kidney complication (principal); R80.9 Proteinuria, unspecified; E78.5 Hyperlipidemia, unspecified; I10 Essential (primary) hypertension
CPT/HCPCS: 99214

== ENCOUNTER 2023-10-23 08:03 | Outpatient (AMB) | payer MEDICARE, SELFPAY ==
--- NOTE | 2023-10-23 08:23 | AM.OFFWIN_ITS ---
Intake Vital Signs 3 10/23/23 08:24 Height 4 ft 11 in Weight 117 lb BMI 23.6 BP 136/72 Blood Pressure Location Lt brachial Position Sitting Pulse 76 Pulse Source Pulse Oximeter Temp 98.9 F Temp Source Oral Pulse Oximetry (%) 100 Oxygen Delivery Method Room Air Intake Visit Reasons: EP LT Leg pain Intake Note: pt is here for co left left leg pain, denies injury Patient Tobacco Use Status: Former Tobacco user Quit Date: 2012 Allergies metronidazole [From FLAGYL] Allergy (Mild, Verified 10/23/23 08:23) METALLIC TASTE/RASH Sulfa (Sulfonamide Antibiotics) [SULFA (SULFONAMIDE ANTIBIOTICS)] Allergy (Mild, Verified 10/23/23 08:23) RASH, rash, SOB Do you need a note to return to daycare/school/sports/work: No HPI EP LT Leg pain 2 HPI0 Details This is a 68-year-old female patient who presents today with a 2-3 day history of left buttock and leg pain. She reports that she has a constant aching and shooting pain in her left buttock, which radiates down her posterior thigh and extends to her left calf. She denies any injury or inciting event to this. She states symptoms are worse with standing and with movement. She is also feeling some leg cramps and muscle spasms. Denies any redness or swelling of the leg. Denies any leg weakness or numbness. 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 Mother No problems noted. Social History Housing: House Alcohol intake: current Patient Tobacco Use Status: Former Tobacco user Quit Date: 2012 e-Cigarette/Vaping Use: Never Used Second Hand Smoke Exposure: No Current occupational status: retired Cognitive needs: No Hearing needs: No Vision needs: Yes Review of Systems Const All systems reviewed & are unremarkable except as noted in HPI and below Physical Exam Vital Signs: Last Vital Signs Temp 98.9 F 10/23/23 08:24 Pulse 76 10/23/23 08:24 BP 136/72 10/23/23 08:24 Pulse Ox 100 10/23/23 08:24 Oxygen Delivery Method Room Air 10/23/23 08:24 BMI result Body Mass Index 23.6 Const General: cooperative, healthy appearing, comfortable and no acute distress HEENT Head: Yes normal to inspection Resp Effort & Inspection: normal respiratory effort Auscultation: clear to auscultation bilaterally Cardio Palpation: normal PMI Rate: regular rate Rhythm: regular rhythm General: Yes no CVA tenderness Back/Spine/Pelvis Back: no CVA tenderness Cervical Spine: normal cervical lordosis and cervical ROM normal Thoracic/Lumbar Spine: thoracic and lumbar spine normal to inspection, thoraco- lumbar ROM normal and straight leg raise negative bilaterally Pelvis: no pain with anterior-posterior compression and no pain with lateral compression Skin General skin exam: no rashes or lesions noted Neuro General: gait normal, moves all extremities and Normal light touch and pain sensation Extrem Left lower extremity: normal to inspection, full ROM, normal capillary refill, no joint enlargement, hip/thigh Details: normal to inspection and normal ROM, knee Details: normal to inspection and normal ROM and lower leg Details: normal to inspection and no edema Upper/lower leg/hip images: 2 1. pain/spasms Psych Appearance: grossly normal Mental Status: mental status grossly normal Speech and movement: Normal speech and movement present Assessment & Plan Assessment & Plan (1) Left lumbar radiculitis: Code(s): M54.16 - Radiculopathy, lumbar region Plan: Hip and SIJ exams are normal. Symptoms could represent a left lumbar radiculopathy vs. muscular strain/spasms. I am going to start her on antiinflammatories and and a muscle relaxer at HS x1 week to see if this provides her any benefit. We reviewed indications, use, possible side effects of these We also discussed heat/ice application and trying some foam rolling at home. If she does not improve with treatment her symptoms worsening/new symptoms develop, she can return to the clinic for further evaluation or follow-up with PCP Dr. Mancuso. She agrees to plan. (2) Muscle spasm of left lower extremity: Code(s): M62.838 - Other muscle spasm Plan: As above. Medications: New 2 meloxicam 7.5 mg PO DAILY 7 days 7 tabs 0RF M54.16 - Radiculopathy, lumbar region cyclobenzaprine 10 mg PO BEDTIME 7 days PRN 7 tabs 0RF muscle spasm M62.838 - Other muscle spasm Coding Level of Care Code Est Pt Level 3 (53473) Diagnoses Left lumbar radiculitis M54.16 Muscle spasm of left lower extremity M62.838
[2023-10-23 08:24] VITALS: BP 136/72; PULSE 76; TEMP 37.2; O2SAT 100; BMI 23.6
== END 2023-10-23 08:57 | disposition home or self-care (01) ==
PROVIDERS: PCP Internal Medicine; Visit Provider Nurse Practitioner Family
DX: M54.16 Radiculopathy, lumbar region (principal); M62.838 Other muscle spasm
CPT/HCPCS: 99213

== ENCOUNTER 2023-11-04 08:01 | Outpatient (AMB) | payer MEDICARE, SELFPAY ==
--- NOTE | 2023-11-04 08:05 | MHC.OFFWIV ---
Intake Vital Signs 11/04/23 08:10 Height 4 ft 11 in Weight 117 lb BMI 23.6 BP 140/72 H Blood Pressure Location Lt brachial Position Sitting Pulse 75 Pulse Source Pulse Oximeter Temp 97.8 F Temp Source Oral Pulse Oximetry (%) 99 Intake Visit Reasons: EP LT leg Pain Intake Note: pt is here for leg pain, completed medication course on friday and states pain came right back Patient Tobacco Use Status: Former Tobacco user Quit Date: 2012 Allergies metronidazole [From FLAGYL] Allergy (Mild, Verified 11/04/23 08:10) METALLIC TASTE/RASH Sulfa (Sulfonamide Antibiotics) [SULFA (SULFONAMIDE ANTIBIOTICS)] Allergy (Mild, Verified 11/04/23 08:10) RASH, rash, SOB Do you need a note to return to daycare/school/sports/work: No HPI EP LT leg Pain HPI Details 68-year-old female presents to the office for a sick visit. Patient reports her left leg pain is returning. She was seen in the walk-in a few weeks ago and given muscle relaxant and anti-inflammatory. Pain subsided when she was taking the medications. Two days after she stopped her completed the dose, her pain symptoms have started again. No new falls or injuries. Pain is predominantly behind her left thigh posteriorly and radiating to the knee. Able to walk without a limp. Pain is worse when she stands up from a sitting position. 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 Mother No problems noted. Social History Housing: House Alcohol intake: current Patient Tobacco Use Status: Former Tobacco user Quit Date: 2012 e-Cigarette/Vaping Use: Never Used Second Hand Smoke Exposure: No Current occupational status: retired Cognitive needs: No Hearing needs: No Vision needs: Yes Physical Exam Vital Signs: Last Vital Signs Temp 97.8 F 11/04/23 08:10 Pulse 75 11/04/23 08:10 BP 140/72 H 11/04/23 08:10 Pulse Ox 99 11/04/23 08:10 BMI result Body Mass Index 23.6 Extrem Other: Good vascular pulses on the left side. Left hip: Full range of internal and external rotation, flexion and extension at the hip. Minimal discomfort on palpation of the left quadriceps Assessment & Plan Assessment & Plan (1) Leg pain, left: Code(s): M79.605 - Pain in left leg Plan: X-ray images of the femur were personally reviewed by me. Muscle relaxant and anti-inflammatory called in. Physical therapy ordered. If symptoms persist she needs to make an appointment with her PCP for further workup. Orders: Orders XR femur LT 2V Today M79.605 - Pain in left leg Medications: New meloxicam 15 mg PO DAILY 14 tabs 0RF Changed From cyclobenzaprine 10 mg PO BEDTIME 7 days PRN 7 tabs 0RF muscle spasm M62.838 - Other muscle spasm To cyclobenzaprine 10 mg PO BEDTIME 14 days PRN 14 tabs 0RF muscle spasm M62.838 - Other muscle spasm Coding Level of Care Code Est Pt Level 4 (30126) Diagnoses Leg pain, left M79.605
[2023-11-04 08:10] VITALS: BP 140/72; PULSE 75; TEMP 36.6; O2SAT 99; BMI 23.6
== END 2023-11-04 09:00 | disposition home or self-care (01) ==
PROVIDERS: PCP Internal Medicine; Visit Provider Internal Medicine
DX: M79.605 Pain in left leg (principal)
CPT/HCPCS: 99214

== ENCOUNTER 2023-11-04 08:24 | Outpatient (REF) | payer MEDICARE, SELFPAY ==
--- NOTE | ~2023-11-04 | XR_ITS ---
EXAMINATION: XR FEMUR, LEFT CLINICAL INFORMATION: Pain. COMPARISON: None available. TECHNIQUE: AP and lateral views of the left femur were obtained. FINDINGS: The visualized hip joint and the knee joint appears unremarkable. There is no fracture or bony abnormality seen involving the left femur. XR/XR femur LT 2V IMPRESSION: Unremarkable left femur exam.
== END 2023-11-04 08:25 | disposition home or self-care (01) ==
LOC: HO.HMGCX 08:24
PROVIDERS: PCP Internal Medicine; Visit Provider Internal Medicine
DX: M79.605 Pain in left leg (principal)
CPT/HCPCS: 73552

== ENCOUNTER 2023-11-14 08:03 | Outpatient (AMB) | payer MEDICARE, SELFPAY ==
[2023-11-14 08:09] VITALS: BP 142/72; PULSE 80; O2SAT 98; BMI 22.8
--- NOTE | 2023-11-14 08:09 | MHC.PC.OV ---
Vital Signs 11/14/23 08:09 Height 4 ft 11 in Weight 113 lb BMI 22.8 BP 142/72 H Blood Pressure Location Lt brachial Position Sitting Pulse 80 Pulse Source Pulse Oximeter Pulse Oximetry (%) 98 Oxygen Delivery Method Room Air Intake Visit Reasons: left leg pain Intake Note: Pt is here today c/o on going left leg pain: was seen several at the walkin with no improvement: no injury noted Allergies metronidazole [From FLAGYL] Allergy (Mild, Verified 11/14/23 09:01) METALLIC TASTE/RASH Sulfa (Sulfonamide Antibiotics) [SULFA (SULFONAMIDE ANTIBIOTICS)] Allergy (Mild, Verified 11/14/23 09:01) RASH, rash, SOB Medication List - Last Reconciled 11/14/23 by Татьяна Mancuso MD amlodipine 5 mg PO DAILY 90 days atorvastatin 80 mg PO DAILY cholecalciferol (vitamin D3) 50 mcg PO DAILY cyclobenzaprine 10 mg PO BEDTIME PRN 14 days fluticasone propionate 50 mcg/actuation (Flonase Allergy Relief) 1 spray intranasal DAILY PRN losartan 25 mg PO DAILY 90 days meloxicam 15 mg PO DAILY metformin take 1000 mg ( 2 tabs) in am and 500 mg (1 tab) in pm with meals 3 months multivitamin 1 tab PO DAILY mupirocin 2% 1 appl topical BID 5 days Tobacco use date assessed: 11/14/23 Fall risk assessment: No Falls in past year Last assessed Fall Risk: 11/14/23 Dental Screening Dental Screen Date: 11/14/23 Did you have a dental visit in the last 12 months?: Yes Did you have a dental problem in the last 6 months where you did not have access to dental care?: No Was dental information given to patient?: Patient has dentist HPI left leg pain HPI Details 68-year-old lady here today complaining of persistent pain and swelling behind left knee joint. This has been present now for the last 3 weeks. She was seen at the walk-in clinic x-rays done of the left knee which did not show any abnormality, was placed on meloxicam came and cyclobenzaprine which has not been helping [facility] Medical History Positional lightheadedness Postoperative keloid scar Type 2 diabetes mellitus with microalbuminuria, without long-term current use of insulin Stenosis of right carotid artery Hypertension History of CVA (cerebrovascular accident) Osteopenia of left hip Dyslipidemia Cyst of right breast Surgical History History of cholecystectomy History of dilation and curettage Family History Father No problems noted. Mother No problems noted. Social History Housing: House Alcohol intake: current Patient Tobacco Use Status: Former Tobacco user Quit Date: 2012 e-Cigarette/Vaping Use: Never Used Second Hand Smoke Exposure: No Current occupational status: retired Cognitive needs: No Hearing needs: No Vision needs: Yes Questionnaire Thrive Questionnaire Date Thrive assessed: 11/14/23 I am a: Patient What is your living situation today?: I have a steady place to live Within the past 12 months, did the food you bought not last and you didn't have the money to get more?: Never true Within the past 12 months, did you worry whether your food would run out before you got money to buy more?: Never true Do you have trouble paying for medicines?: No Do you have trouble getting transportation to medical appointments?: No Do you have trouble paying your heating and electricity bill?: No Do you have trouble taking care of your child, family member or friend?: No Do you have trouble with day-to-day activities such as bathing, preparing meals, shopping, managing finances, etc.?: No Are you currently unemployed and looking for a job?: No Are you interested in more education?: No THRIVE Score: 0 TOÑA-7 AMB Questionnaire TOÑA-7 Date TOÑA - 7 assessed: 07/31/23 Source: Developed by Drs. Fuentes [place], Miriam Wiley, Jr Joseph and colleagues, with an educational sylvia from [employer]. Review of Systems Const All systems reviewed & are unremarkable except as noted in HPI and below Reports no additional complaints Physical exam (Primary Care) Vital Signs: Last Vital Signs Pulse 80 11/14/23 08:09 BP 142/72 H 11/14/23 08:09 Pulse Ox 98 11/14/23 08:09 Oxygen Delivery Method Room Air 03/15/24 08:09 BMI result Body Mass Index 22.8 Tobacco/Smoking Status: Tobacco use Status Tobacco use date assessed 11/14/23 11/14/23 08:13 Patient Tobacco Use Status Former Tobacco user 11/14/23 08:11 e-Cigarette/Vaping Use Never Used 11/14/23 08:11 Thrive Assessment: Date of Thrive Assessment Date Thrive assessed 11/14/23 11/14/23 08:14 Const Other: Alert oriented x3, no acute distress noted ambulatory normal gait, in room Orientation/consciousness: patient oriented x3 Skin General skin exam: no rashes or lesions noted Neuro General: patient oriented x3, tone normal, moves all extremities, Normal light touch and pain sensation and no focal motor deficits Extrem Other: Soft tender fluctuant mass on left popliteal fossa, less prominent when flexing knee joint, no varicosities noted, no calf tenderness Assessment and Plan Assessment & Plan (1) Palpable mass of soft tissue of knee: Code(s): M79.89 - Other specified soft tissue disorders Plan: Likely popliteal cyst or Enriquez's cyst, ultrasound of soft tissue left knee ordered stat. Discontinue meloxicam and cyclobenzaprine as it has not really been helping, advised to try massaging Aleve gel or diclofenac gel to affected area to 2 3 times a day as needed, patient already has an appointment for physical therapy on the 19 of November Orders: Orders US extremity nonvascular Today M79.89 - Other specified soft tissue disorders Coding Level of Care Code Est Pt Level 3 (15027) Diagnoses Palpable mass of soft tissue of knee M79.89
== END 2023-11-14 11:11 | disposition home or self-care (01) ==
PROVIDERS: PCP Internal Medicine; Visit Provider Internal Medicine
DX: M79.89 Other specified soft tissue disorders (principal)
CPT/HCPCS: 99213

== ENCOUNTER 2023-11-14 14:13 | Outpatient (REF) | payer MEDICARE, SELFPAY ==
--- NOTE | ~2023-11-14 | US_ITS ---
EXAMINATION: Ultrasound of left popliteal fossa CLINICAL INFORMATION: Pain in the left popliteal fossa region to 3 weeks. No history of injury. COMPARISON: Ultrasound of the right popliteal fossa for comparison TECHNIQUE: Targeted grayscale ultrasound of the left popliteal fossa. Color Doppler exam used. Right popliteal fossa scan for comparison. FINDINGS: No focal abnormality. No popliteal fossa cyst or fluid collections. No evidence of inflammation or hyperemia on color Doppler. The popliteal artery is patent. The popliteal vein is patent and compressible. US/US extremity nonvascular murry IMPRESSION: Unremarkable examination.
== END 2023-11-14 14:14 | disposition home or self-care (01) ==
LOC: HO.HMGCX 14:13
PROVIDERS: PCP Internal Medicine; Visit Provider Internal Medicine
DX: M79.89 Other specified soft tissue disorders (principal)
CPT/HCPCS: 76882

== ENCOUNTER 2023-12-04 11:00 | Outpatient (RCR) | payer MEDICARE, SELFPAY ==
--- NOTE | 2023-11-20 11:42 | MHC.PT.EP ---
[facility] [place] Office [place] Office [place] Office [address] Jamshid Pinzon [address] [phone] F: [phone] F: [phone] F: [phone] F: [phone] Physical Therapy Plan of Care Date of Evaluation: 11/20/23 Date of Surgery: n/a Diagnosis: pain in L leg Assessment: Patient is a 68 year old female presenting to PT with complaints of pain in her L leg. Pt reports onset of pain began about 1 month ago due to insidious onset. She presents today with impairments in pain, lumbar ROM, core strength, hip strength, posture, gait mechanics. Pt's current occupation is none, with baseline physical activities including ambulating, standing, transfers, ADLs. 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 Clinical presentation today is most consistent with signs and sx associated with L leg pain with possible contribution from her low back and pt will benefit from skilled PT 2 week x 4 weeks to address the following problems and impairments noted upon evaluation: pain, lumbar ROM, core strength, hip strength, posture, gait mechanics. These problems limit the patient with the following functional activities: ambulating, standing, transfers, ADLs. The prescribed treatment plan of care is medically necessary. Co-morbidities of osteopenia, hx CVA 2012, T2DM were identified and taken into considerations of plan of care. Pt was educated on HEP, role of PT, prognosis, POC. Frequency and Duration: The patient will be seen 2 x week x 4 weeks Short Term Goals: Pt will demonstrate centralization of pain in 2 weeks. Pt will demonstrate ability to move through lumbar ROM in available range with min to no pain in 2 weeks. Pt will demonstrate improved hip MMT strength by 1/3 grade in 2 weeks for improved lumbopelvic stability. Intermediate Goals: Pt will demonstrate improved LEFI score by 9 points in 4 weeks for improved functional mobility. Pt will demonstrate ability to perform STS transfer with min to no pain in 4 weeks for return to PLOF. Pt will demonstrate ability to stand and ambulate with min to no pain and no AD in 4 weeks for return to PLOF. Treatment Plan: Modalities to reduce pain, spasms and effusion. Manual therapy to restore motion and function. Therapeutic exercise to improve strength and flexibility. Neuromuscular re-education for posture and balance. Therapeutic activities to return to functional activities of daily living. Electronically signed by: Isabel Ly PT, DPT, ATC Please sign and return to therapist. Thank you for your referral.
--- NOTE | 2023-12-09 13:16 | MHC.PT.DC ---
[facility] [place] Office [place] Office [place] Office [address] Jamshid Pinzon [address] [phone] F: [phone] F: [phone] F: [phone] F: [phone] Physical Therapy Discharge Report Diagnosis: pain in L leg Date of Surgery: n/a Date of Evaluation: 11/20/23 Date of Discharge: 12/09/23 Treatments to Date: 5 Cancellations to Date: 4 No Shows to Date: 0 Discharge Status: Physician Discontinued Tx Discharge Summary: Pt spouse notified clinic that her PCP instructed her to stop PT at this time while she undergoes further testing. Therefore pt to be d/c. Electronically signed by: Isabel Ly PT, DPT, ATC Please sign and return to therapist. Thank you for your referral.
== END 2023-12-09 13:16 | disposition home or self-care (01) ==
LOC: HO.PTCHIC 11:00
PROVIDERS: PCP Internal Medicine; Visit Provider Internal Medicine
DX: M79.605 Pain in left leg (principal)
CPT/HCPCS: 97110; 97161

== ENCOUNTER 2023-12-05 06:53 | Outpatient (REF) | payer MEDICARE, SELFPAY ==
[2023-12-05 10:55] LABS: Estimated Average Glucose 128 mg/dL; Hemoglobin A1c % 6.1 % (<6.0)
[2023-12-05 11:12] LABS: Alanine Aminotransferase 64 U/L (0-31); Anion Gap 10 (12-20); Aspartate Amino Transferase 40 U/L (5-31); Blood Urea Nitrogen 15 mg/dL (9-16); Carbon Dioxide 27 mmol/L (22-29); Chloride 109 mmol/L (96-108); Cholesterol 127 mg/dL (<200); Estimated Glomerular Filt Rate > 60; Glucose Fasting 117 mg/dL (60-99); HDL Cholesterol 46 mg/dL (>40); LDL Cholesterol Calculated 67 mg/dL (<100); Potassium 3.5 mmol/L (3.3-5.1); Sodium 142 mmol/L (135-145); Triglycerides 72 mg/dL (<150)
[2023-12-05 11:29] LABS: Vitamin D 25-OH Total 90.1 ng/mL (>30)
== END 2023-12-05 06:54 | disposition home or self-care (01) ==
LOC: HO.HMGCLDS 06:53
PROVIDERS: PCP Internal Medicine; Visit Provider Internal Medicine
DX: Z86.73 Personal history of transient ischemic attack (TIA), and cerebral infarction without residual deficits (principal)
CPT/HCPCS: 36415; 80048; 80061; 82306; 83036; 84450; 84460

== ENCOUNTER 2023-12-09 10:42 | Outpatient (AMB) | payer MEDICARE, SELFPAY ==
[2023-12-09 10:59] VITALS: BP 138/62; PULSE 84; O2SAT 99; BMI 22.6
--- NOTE | 2023-12-09 10:59 | A.OFFPC_ITS ---
Vital Signs 12/09/23 10:59 Height 4 ft 11 in Weight 112 lb BMI 22.6 BP 138/62 Blood Pressure Location Lt brachial Position Sitting Pulse 84 Pulse Source Pulse Oximeter Pulse Oximetry (%) 99 Oxygen Delivery Method Room Air Intake Visit Reasons: 4 month fu dm , lipids Intake Note: Pt is here today for her 4 mo. f/u DM and lipids Allergies metronidazole [From FLAGYL] Allergy (Mild, Verified 12/10/23 02:05) METALLIC TASTE/RASH Sulfa (Sulfonamide Antibiotics) [SULFA (SULFONAMIDE ANTIBIOTICS)] Allergy (Mild, Verified 12/10/23 02:05) RASH, rash, SOB Medication List - Last Reconciled 12/10/23 by Татьяна Mancuso MD acetaminophen ER (Tylenol Arthritis Pain) 650 mg PO Q12H amlodipine 5 mg PO DAILY 90 days atorvastatin 80 mg PO Q2D 3 months cholecalciferol (vitamin D3) 50 mcg PO DAILY fluticasone propionate 50 mcg/actuation (Flonase Allergy Relief) 1 spray intranasal DAILY PRN losartan 25 mg PO DAILY 90 days metformin take 1000 mg ( 2 tabs) in am and 500 mg (1 tab) in pm with meals 3 months multivitamin 1 tab PO DAILY mupirocin 2% 1 appl topical BID 5 days Tobacco use date assessed: 12/09/23 Fall risk assessment: No Falls in past year Last assessed Fall Risk: 12/09/23 Dental Screening Dental Screen Date: 12/09/23 Did you have a dental visit in the last 12 months?: Yes Did you have a dental problem in the last 6 months where you did not have access to dental care?: No Was dental information given to patient?: Patient has dentist HPI 4 month fu dm , lipids HPI Details 68-year-old lady here today for follow-u p on her diabetes mellitus, hyperlipidemia and hypertension. She has been compliant with taking her medications and has been following recommended diet. Latest labs showed improved controlling her diabetes mellitus, lipids are within normal limits, blood pressure stable controlled today on present medication. It is noted however that there has been elevation in her liver enzymes as compared to last check. She however has not been able to exercise much due to continuing pain in her left lower leg and behind her left knee. She had an x-ray of her left leg and ultrasound of left popliteal fossa which did not demonstrate any abnormality. Has been seen by physical therapy with no improvement. Still complaining of pain behind her left knee is radiating down left lower leg and sometimes in the back of her left thigh. No improvement with NSAIDs or Tylenol arthritis. [facility] Medical History (Updated 12/10/23 @ 02:04 by Татьяна Mancuso MD) Pain in left lower leg Popliteal pain Positional lightheadedness Postoperative keloid scar Type 2 diabetes mellitus with microalbuminuria, without long-term current use of insulin Stenosis of right carotid artery Hypertension History of CVA (cerebrovascular accident) Osteopenia of left hip Dyslipidemia Cyst of right breast Surgical History History of cholecystectomy History of dilation and curettage Family History Father No problems noted. Mother No problems noted. Social History Housing: House Alcohol intake: current Patient Tobacco Use Status: Former Tobacco user Quit Date: 2012 e-Cigarette/Vaping Use: Never Used Second Hand Smoke Exposure: No Current occupational status: retired Cognitive needs: No Hearing needs: No Vision needs: Yes Questionnaire Thrive Questionnaire Date Thrive assessed: 11/14/23 TOÑA-7 AMB Questionnaire TOÑA-7 Date TOÑA - 7 assessed: 07/31/23 Source: Developed by Drs. Fuentes [place], Miriam Wiley, Jr Joseph and colleagues, with an educational sylvia from [employer]. Review of Systems Const Denies fatigue, Denies fever(s), Denies headache(s) and Denies weakness Eyes Denies change in vision ENT Denies dizziness, Denies headache(s), Denies nasal congestion, Denies nasal discharge and Denies sore throat Card Denies chest pain, Denies lightheadedness, Denies palpitations and Denies dyspnea Resp Denies chest congestion, Denies cough, Denies dyspnea and Denies wheezing GI Denies abdominal pain, Denies change in bowel habits and Denies heartburn Denies urinary frequency, Denies dysuria and Denies urinary urgency Musc Reports as per HPI Skin/Breast Denies breast pain, Denies breast mass and Denies rash Neuro Denies dizziness, Denies headache(s) and Denies weakness Psych Reports no additional complaints Endo Denies fatigue, Denies polydipsia, Denies polyuria and Denies palpitations Dewey/Lymph Reports no additional complaints Aller/Immun Denies seasonal rhinorrhea and Denies wheezing Physical exam (Primary Care) Vital Signs: Last Vital Signs Pulse 84 12/09/23 10:59 BP 138/62 12/09/23 10:59 Pulse Ox 99 12/09/23 10:59 Oxygen Delivery Method Room Air 12/09/23 10:59 BMI result Body Mass Index 22.6 Tobacco/Smoking Status: Tobacco use Status Tobacco use date assessed 12/09/23 12/09/23 11:22 Patient Tobacco Use Status Former Tobacco user 12/09/23 11:01 e-Cigarette/Vaping Use Never Used 12/09/23 11:01 Thrive Assessment: Date of Thrive Assessment Date Thrive assessed 11/14/23 12/09/23 11:01 Const Other: Alert oriented x3, no acute distress noted ambulatory normal gait, in room Orientation/consciousness: patient oriented x3 HENMT Mouth: Normal oral and palatal mucosa present and moist mucous membranes Eyes General: appearance normal, both eyes and all related structures Neck Neck: Yes full ROM and Yes no lymphadenopathy Thyroid: Thyroid normal (Nonpalpable) Resp Auscultation: clear to auscultation bilaterally Cardio Other: S1-S2 present regular rate and rhythm GI Palpation (GI): Soft to palpation, nontender, no guarding and no masses Auscultation: normal bowel sounds General: Yes no CVA tenderness Back/Spine/Pelvis Back: no CVA tenderness and No back tenderness Skin General skin exam: no rashes or lesions noted Neuro General: patient oriented x3, tone normal, moves all extremities, Normal light touch and pain sensation and no focal motor deficits Extrem Other: Soft tender fluctuant mass on left popliteal fossa, less prominent when flexing knee joint, no varicosities noted, tenderness on palpation of left calf no swelling seen Results Reviewed Results Reviewed: Name: Paula Lira Age/Sex: 68/F : 1955 Unit#: [id number] Attend Dr: Татьяна Mancuso MD Re12/05/23 Status: DEP REF Location: [facility] Disch: SPEC : [id number] TREV: 12/05/23 STATUS: COMP REQ : [id number] RECD: 12/05/[address]: Татьяна Mancuso MD COMP: 12/05/23 ENTERED: 12/05/[address] [facility] [address]: ORDERED: Met Prof Fast, AST, ALT, Lipid Panel, Vitamin D 25-OH Test Result Flag Reference Sodium 142 135-145 mmol/L Potassium 3.5 3.3-5.1 mmol/L CL 109 H 96-108 mmol/L CO2 27 22-29 mmol/L Gap 10 L 12-20 BUN 15 9-16 mg/dL Creat 0.75 0.5-1.4 mg/dL EGFR > 60 NOTE: For -[place] Citizen individuals, multiply the result by 1.210. Chronic Kidney Disease: Estimated GFR < 60 mL/min/1.73m2 Severe Kidney Disease: Estimated GFR < 15 mL/min/1.73m2 FBS 117 H 60-99 mg/dL A fasting glucose from 100-125 mg/dl is considered impaired (pre-diabetes). CA 9.0 8.4-10.2 mg/dL AST (GOT) 40 H 5-31 U/L ALT (GPT) 64 H 0-31 U/L Triglyceride 72 <150 mg/dL Desirable Triglyceride: less than 150 mg/dL Borderline High Triglyceride 150-199 mg/dL High Triglyceride: 200-499 mg/dL Very High Triglyceride: greater than or equal to 5OO mg/dL Cholesterol 127 <200 mg/dL Desirable Cholesterol: less than 200 mg/dL Borderline High Cholesterol: 200-239 mg/dL High Cholesterol: greater than 239 mg/dL LDL Calculated 67 <100 mg/dL Desirable LDL: less than 100 mg/dL Near Optimal/Above Optimal LDL: 110-129 mg/dL Borderline High LDL: 130-159 mg/dL High LDL: 160-189 mg/dL Very High LDL: greater than or equal to 190 mg/dL HDL 46 >40 mg/dL Desirable HDL: greater than 40 mg/dL Note: This HDL assay may give artificially low results in patients with liver disease. Vit D 25-OH Tot 90.1 >30 ng/mL Health Based Reference Values* < 20 ng/mL Deficient 20-30 ng/mL Insufficient Name: Paula Lira Age/Sex: 68/F : 1955 Unit#: [id number] Attend Dr: Татьяна Mancuso MD Re12/05/23 Status: DEP [facility] Disch: SPEC : [id number] TREV: 12/05/23 STATUS: COMP REQ : [id number] RECD: 12/05/23-[address]: Татьяна Mancuso MD COMP: 12/05/23 ENTERED: 12/05/[address]: ORDERED: Hgb A1c Test Result Flag Reference A1c % 6.1 H <6.0 % Hemoglobin A1C Reference Range Adults: 4.8 - 6.0 % Non diabetic: < 6.0 % Goal: < 7.0 % Additional Action Suggested: > 8.0 % Note: Hemoglobin A1c results are invalid for patients with abnormal amounts of HbF. Blood transfusions may impact the HbA1c concentration in the patient sample. Est. Avg. Gluc 128 mg/dL eAG = Estimated average glucose which is %A1C expressed as average glucose, using the formula of the Z3C-Wvmvhld Average Glucose study (ADAG), Diabetes Care, Vol.31,#8, 2007 > 30 ng/mL Sufficient Assessment and Plan Assessment & Plan (1) Dyslipidemia: Code(s): E78.5 - Hyperlipidemia, unspecified Plan: Will decrease atorvastatin dosing to 80 mg every other day. Continue with adherence to healthy eating habits and getting regular exercise, recheck fasting lipids again in May 2020 (2) Hypertension: Code(s): I10 - Essential (primary) hypertension Qualifiers: Hypertension type: primary hypertension Qualified Code(s): I10 - Essential (primary) hypertension Plan: Blood pressure stable controlled on present treatment continue amlodipine 5 mg daily together with losartan 25 mg daily (3) Type 2 diabetes mellitus with microalbuminuria, without long-term current use of insulin: Code(s): E11.29 - Type 2 diabetes mellitus with other diabetic kidney complication; R80.9 - Proteinuria, unspecified Plan: Improvement in control of diabetes mellitus noted with hemoglobin A1c now at 6.1% continue with metformin in addition to adherence to healthy eating habits and regular exercise, patient up-to-date with her diabetes retinopathy screening and up-to-date with all her vaccinations. (4) Popliteal pain: Code(s): M79.609 - Pain in unspecified limb Plan: No popliteal cyst seen on ultrasound, ordered venous ultrasound to check for presence of DVT (5) Pain of left lower extremity: Code(s): M79.605 - Pain in left leg Plan: With ultrasound ordered of lower extremity on left to rule out DVT. No improvement with physical therapy Orders: Orders Basic Metabolic Panel Fasting 3 Months E11. - Type 2 diabetes mellitus with other diabetic kidney complication, E78.5 - Hyperlipidemia, unspecified, I10 - Essential (primary) hypertension, M85.852 - Other specified disorders of bone density and structure, left thigh, R80.9 - Proteinuria, unspecified, Z86.73 - Personal history of transient ischemic attack (TIA), and cerebral infarction without residual deficits Aspartate Amino Transferase 3 Months E11. - Type 2 diabetes mellitus with other diabetic kidney complication, E78.5 - Hyperlipidemia, unspecified, I10 - Essential (primary) hypertension, M85.852 - Other specified disorders of bone density and structure, left thigh, R80.9 - Proteinuria, unspecified, Z86.73 - Personal history of transient ischemic attack (TIA), and cerebral infarction without residual deficits Microalbumin, Random (w Creat) 3 Months E11. - Type 2 diabetes mellitus with other diabetic kidney complication, E78.5 - Hyperlipidemia, unspecified, I10 - Essential (primary) hypertension, M85.852 - Other specified disorders of bone density and structure, left thigh, R80.9 - Proteinuria, unspecified, Z86.73 - Personal history of transient ischemic attack (TIA), and cerebral infarction without residual deficits US venous duplex LE LT 12/09/23 M79.605 - Pain in left leg, M79.609 - Pain in unspecified limb Hemoglobin A1c 3 Months E11. - Type 2 diabetes mellitus with other diabetic kidney complication, E78.5 - Hyperlipidemia, unspecified, I10 - Essential (primary) hypertension, M85.852 - Other specified disorders of bone density and structure, left thigh, R80.9 - Proteinuria, unspecified, Z86.73 - Personal history of transient ischemic attack (TIA), and cerebral infarction without residual deficits Alanine Aminotransferase 3 Months E11.29 - Type 2 diabetes mellitus with other diabetic kidney complication, E78.5 - Hyperlipidemia, unspecified, I10 - Essential (primary) hypertension, M85.852 - Other specified disorders of bone density and structure, left thigh, R80.9 - Proteinuria, unspecified, Z86.73 - Personal history of transient ischemic attack (TIA), and cerebral infarction without residual deficits Lipid Panel 3 Months E11.29 - Type 2 diabetes mellitus with other diabetic kidney complication, E78.5 - Hyperlipidemia, unspecified, I10 - Essential (primary) hypertension, M85.852 - Other specified disorders of bone density and structure, left thigh, R80.9 - Proteinuria, unspecified, Z86.73 - Personal history of transient ischemic attack (TIA), and cerebral infarction without residual deficits Medications: Changed From atorvastatin 80 mg PO DAILY 90 tabs 3RF To atorvastatin 80 mg PO Q2D 3 months 45 tabs 3RF Coding Level of Care Code Est Pt Level 4 (41783) Diagnoses Dyslipidemia E78.5 Primary hypertension I10 Hypertension type: primary hypertension Type 2 diabetes mellitus with microalbuminuria, without long-term current use of insulin E11.29; R80.9 Popliteal pain M79.609 Pain of left lower extremity M79.605
== END 2023-12-09 12:05 | disposition home or self-care (01) ==
PROVIDERS: PCP Internal Medicine; Visit Provider Internal Medicine
DX: E78.5 Hyperlipidemia, unspecified (principal); I10 Essential (primary) hypertension; E11.29 Type 2 diabetes mellitus with other diabetic kidney complication; R80.9 Proteinuria, unspecified; M79.609 Pain in unspecified limb; M79.605 Pain in left leg
CPT/HCPCS: 99214

== ENCOUNTER 2023-12-09 12:56 | Outpatient (REF) | payer MEDICARE, SELFPAY ==
--- NOTE | ~2023-12-09 | US_ITS ---
EXAMINATION: US VENOUS ULTRASOUND WITH DOPPLER LOWER EXTREMITY, LEFT CLINICAL INFORMATION: Left leg pain in the popliteal area extending into the calf COMPARISON: None available. TECHNIQUE: Ultrasound of the deep veins is performed from the hip to the calf with compression sonography and color and pulse Doppler assessment. Spectral analysis with color-flow imaging is performed. FINDINGS: There is normal venous compression and respiratory variation and augmented flow. The visualized common femoral vein, superficial femoral vein, profunda femoral vein, popliteal vein, and the trifurcation region shows no evidence of deep venous thrombosis. There is no significant popliteal fossa cyst. US/US venous duplex LE IMPRESSION: No DVT demonstrated in the left lower extremity.
== END 2023-12-09 12:57 | disposition home or self-care (01) ==
LOC: HO.HMGCX 12:56
PROVIDERS: PCP Internal Medicine; Visit Provider Internal Medicine
DX: M79.605 Pain in left leg (principal)
CPT/HCPCS: 93971

== ENCOUNTER 2024-02-02 12:26 | Outpatient (AMB) | payer MEDICARE, SELFPAY ==
--- NOTE | 2024-02-02 12:32 | A.OFFVIS_ITS ---
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 Patient reports that she has had at the base of the glute that radiates down the leg. This pain has been present since about October. She has increased pain with banding/stooping, prolonged sitting. Her pain is felt all the time with no relieving factors. She has done Physical Therapy at [facility] in [place]. 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 She states she has constant pain at the base of her glute that radiates down to her ankle. Her pain is aggravated with bending, stooping and prolonged sitting. She denies any numbness, tingling, or pain with laying on sides. She has tried physical therapy at [facility] in [place] without benefits. She reports she was in [facility] for 5 weeks where she was seen by her MD sister who prescribed her pregabalin which provided her more relief than Tylenol. [facility] Medical History Pain in left lower leg Popliteal pain Positional lightheadedness Postoperative keloid scar Type 2 diabetes mellitus with microalbuminuria, without long-term current use of insulin Stenosis of right carotid artery Hypertension History of CVA (cerebrovascular accident) Osteopenia of left hip Dyslipidemia Cyst of right breast Surgical History History of cholecystectomy History of dilation and curettage Family History Father No problems noted. Mother No problems noted. Social History Housing: House Alcohol intake: current Patient Tobacco Use Status: Former Tobacco user e-Cigarette/Vaping Use: Never Used Second Hand Smoke Exposure: No Current occupational status: retired Cognitive needs: No Hearing needs: No Vision needs: Yes Review of Systems Const All systems reviewed & are unremarkable except as noted in HPI and below Physical Exam Vital Signs: BMI result Body Mass Index 22.6 Const General: cooperative, healthy appearing, comfortable, no acute distress, well developed and alert Orientation/consciousness: patient oriented x3 HEENT Head: Yes normal to inspection, Yes normocephalic and Yes atraumatic Eyes General: appearance normal, both eyes and all related structures Resp Effort & Inspection: normal respiratory effort and able to speak in complete sentences Cardio Rate: regular rate Peripheral pulses: Peripheral pulses 2+ throughout GI Palpation (GI): Soft to palpation Skin Lesions: no lesions Rashes: no rashes Neuro General: patient oriented x3 Extrem Other: Left hip: Normal to inspection. No pain with ROM of the hip. She does have pain along the piriformis which is worse with MICHEAL. Positive tenderness along the SI joint, Positive SLR. NVI. Assessment & Plan Assessment & Plan (1) Piriformis syndrome of left side: Code(s): G57.02 - Lesion of sciatic nerve, left lower limb Category: Medical Plan We discussed options which include PT, NSAIDs and injections. The patient will defer on the injection today and proceed with PT and NSAIDs. If symptoms persist, the patient will contact me for an injection, otherwise, PRN. Orders: Orders PT Evaluation and Treatment Today G57.02 - Lesion of sciatic nerve, left lower limb Medications: New celecoxib (Celebrex) 200 mg PO BID 60 caps 3RF 30 days Patient Instructions: Scribed for Andi Huntley PA-C, by Liborio Still program medical director, on 02/02/2024 at 12:30 PM EST.? I, Andi Huntley PA-C, have personally reviewed and agree with the information entered by the scribe. Coding Level of Care Code New Pt Level 3 (17410) Diagnoses Piriformis syndrome of left side G57.02
[2024-02-02 12:33] VITALS: BMI 22.6
== END 2024-02-02 13:27 | disposition home or self-care (01) ==
PROVIDERS: PCP Internal Medicine; Visit Provider Physician Assistant
DX: G57.02 Lesion of sciatic nerve, left lower limb (principal)
CPT/HCPCS: 99204

== ENCOUNTER → 2024-02-02 12:26 | Outpatient (BNVA) | payer MEDICARE, SELFPAY | PROVIDERS: PCP Internal Medicine; Visit Provider Physician Assistant | DX: G57.02 Lesion of sciatic nerve, left lower limb (principal) | CPT/HCPCS: 99202 ==

== ENCOUNTER 2024-03-29 09:00 | Outpatient (RCR) | payer MEDICARE, SELFPAY ==
--- NOTE | 2024-03-29 10:32 | MHC.PT.DC ---
[facility] [place] Office [place] Office [place] Office [address] Jamshid Pinzon [address] [phone] F: [phone] F: [phone] F: [phone] F: [phone] Physical Therapy Discharge Report Diagnosis: Legion of L sciatic nerve. Date of Surgery: Date of Evaluation: 02/24/24 Date of Discharge: 03/29/24 Treatments to Date: 8 Cancellations to Date: No Shows to Date: Discharge Status: Achieved Goals Improved Function Independent with HEP Discharge Summary: Paula has been a motivated participant in her therapy with good home program compliance. We are in agreement with DC today as they have met most of their therapeutic goals, improved of their initial symptoms, and are independent with their home program for self management. All goals were met with the exception of L LE radicular sx abolished as she persists with 1/10 radicular centralized to L glute. Shirley outcome measure improved from 42% to 8% which is a significant improvement in her function. Electronically signed by: Romel Hardin PT. Please sign and return to therapist. Thank you for your referral.
== END 2024-03-29 10:31 | disposition home or self-care (01) ==
LOC: HO.PT 09:00
PROVIDERS: PCP Internal Medicine; Visit Provider Physician Assistant
DX: G57.02 Lesion of sciatic nerve, left lower limb (principal)
CPT/HCPCS: 97014; 97110; 97140; 97161

== ENCOUNTER 2024-05-20 07:15 | Outpatient (REF) | payer MEDICARE, SELFPAY ==
[2024-05-20 10:37] LABS: Estimated Average Glucose 143 mg/dL; Hemoglobin A1c % 6.6 % (<6.0)
[2024-05-20 10:44] LABS: Alanine Aminotransferase 63 U/L (0-31); Anion Gap 10 (12-20); Aspartate Amino Transferase 48 U/L (5-31); Blood Urea Nitrogen 11 mg/dL (9-16); Calcium 8.9 mg/dL (8.4-10.2); Carbon Dioxide 28 mmol/L (22-29); Chloride 107 mmol/L (96-108); Cholesterol 179 mg/dL (<200); Estimated Glomerular Filt Rate > 60; Glucose Fasting 124 mg/dL (60-99); HDL Cholesterol 44 mg/dL (>40); LDL Cholesterol Calculated 101 mg/dL (<100); Potassium 3.4 mmol/L (3.3-5.1); Sodium 142 mmol/L (135-145); Triglycerides 172 mg/dL (<150)
[2024-05-20 10:58] LABS: Creatinine Urine 129.43 mg/dL; Microalbum/Creatinine Ratio Ur 30.1 ug/mg cr (<30)
== END 2024-05-20 07:16 | disposition home or self-care (01) ==
LOC: HO.HMGCLDS 07:15
PROVIDERS: PCP Internal Medicine; Visit Provider Internal Medicine
DX: E78.5 Hyperlipidemia, unspecified (principal); M85.852 Other specified disorders of bone density and structure, left thigh; I10 Essential (primary) hypertension; R80.9 Proteinuria, unspecified; E11.29 Type 2 diabetes mellitus with other diabetic kidney complication; Z86.73 Personal history of transient ischemic attack (TIA), and cerebral infarction without residual deficits
CPT/HCPCS: 36415; 80048; 80061; 82043; 82570; 83036; 84450; 84460

== ENCOUNTER 2024-05-24 11:46 | Outpatient (AMB) | payer MEDICARE, SELFPAY ==
--- NOTE | 2024-05-24 12:16 | MHC.PC.OV ---
Vital Signs 05/24/24 12:17 Height 4 ft 11 in Weight 113 lb BMI 22.8 BP 118/60 Blood Pressure Location Rt brachial Position Sitting Pulse 77 Pulse Source Pulse Oximeter Pulse Oximetry (%) 98 Oxygen Delivery Method Room Air Intake Visit Reasons: 5 month fu dm , lipids Intake Note: Pt is here today for her 5 mo. DM and lipids Allergies metronidazole [From FLAGYL] Allergy (Mild, Verified 05/24/24 12:36) METALLIC TASTE/RASH Sulfa (Sulfonamide Antibiotics) [SULFA (SULFONAMIDE ANTIBIOTICS)] Allergy (Mild, Verified 05/24/24 12:36) RASH, rash, SOB Medication List - Last Reconciled 05/24/24 by Татьяна Mancuso MD acetaminophen ER (Tylenol Arthritis Pain) 650 mg PO Q12H amlodipine 5 mg PO DAILY 90 days atorvastatin 80 mg PO Q2D 3 months cholecalciferol (vitamin D3) 50 mcg PO DAILY fluticasone propionate 50 mcg/actuation (Flonase Allergy Relief) 1 spray intranasal DAILY PRN losartan 25 mg PO DAILY 90 days metformin take 1000 mg ( 2 tabs) in am and 500 mg (1 tab) in pm with meals 3 months multivitamin 1 tab PO DAILY mupirocin 2% 1 appl topical BID 5 days Tobacco use date assessed: 05/24/24 Fall risk assessment: No Falls in past year Last assessed Fall Risk: 05/24/24 Dental Screening Dental Screen Date: 05/24/24 Did you have a dental visit in the last 12 months?: Yes Did you have a dental problem in the last 6 months where you did not have access to dental care?: Yes Was dental information given to patient?: Patient has dentist HPI 5 month fu dm , lipids HPI Details 69-year-old lady here today for follow-up on her diabetes mellitus and hyperlipidemia,. Has been compliant with her medications but just get back from vacation and states that she has been off her diet. Latest fasting labs showed higher cholesterol levels and hemoglobin A1c as compared to previous check. 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 Mother No problems noted. Social History Housing: House Alcohol intake: current Patient Tobacco Use Status: Former Tobacco user e-Cigarette/Vaping Use: Never Used Second Hand Smoke Exposure: No Current occupational status: retired Cognitive needs: No Hearing needs: No Vision needs: Yes Questionnaire PHQ-9 Over the last 2 weeks, how often have you been bothered by any of the following problems? 1. Little interest or pleasure in doing things: not at all 2. Feeling down, depressed, or hopeless: not at all 3. Trouble falling or staying asleep, or sleeping too much: not at all 4. Feeling tired or having little energy: not at all 5. Poor appetite or overeating: not at all 6. Feeling bad about yourself - or that you are a failure or have let yourself or your family down: not at all 7. Trouble concentrating on things, such as reading the newspaper or watching television: not at all 8. Moving or speaking so slowly that other people could have noticed. Or the opposite - being so fidgety or restless that you have been moving around a lot more than usual: not at all 9. Thoughts that you would be better off or of hurting yourself in some way: not at all Total score: 0 Depression Screening Interpretation: Negative Depression Screening Done: Yes 87419 - PHQ-9 Billing: Yes Source: Developed by Drs. Fuentes Boston, Miriam Wiley, Jr Joseph and colleagues, with an educational sylvia from [employer]. Thrive Questionnaire Date Thrive assessed: 05/24/24 I am a: Patient What is your living situation today?: I have a steady place to live Within the past 12 months, did the food you bought not last and you didn't have the money to get more?: Never true Within the past 12 months, did you worry whether your food would run out before you got money to buy more?: Never true Do you have trouble paying for medicines?: No Do you have trouble getting transportation to medical appointments?: No Do you have trouble paying your heating and electricity bill?: No Do you have trouble taking care of your child, family member or friend?: No Do you have trouble with day-to-day activities such as bathing, preparing meals, shopping, managing finances, etc.?: No Are you interested in more education?: No Please select the resources that you would like help with: None Currently or been in a relationship where the following occur: No concerns reported THRIVE Score: 0 AUDIT C Alcohol Use Questionnaire (AUDIT-C) 1. How often do you have a drink containing alcohol?: Monthly or less 3. How often do you have six or more drinks on one occasion?: Never Total Score: 1 TOÑA-7 AMB Questionnaire TOÑA-7 Date TOÑA - 7 assessed: 05/24/24 Feeling nervous, anxious, or on edge: 0 = Not at all Not being able to stop or control worryin = Not at all Worrying too much about different things: 0 = Not at all Trouble relaxin = Not at all Being so restless that it is hard to sit still: 0 = Not at all Becoming easily annoyed or irritable: 0 = Not at all Feeling afraid as if something awful might happen: 0 = Not at all Total TOÑA-7 score (0-4 normal; 5-9 mild; 10-14 moderate; 15-21 severe): 0 Source: Developed by Drs. Fuentes Boston, Miriam Wiley, Jr Joseph and colleagues, with an educational sylvia from [employer]. TOÑA-7 Assessment Billing TOÑA-7 Assessment Tool: TOÑA-7 Assessment 17172 Review of Systems Const Denies fatigue, Denies fever(s), Denies headache(s) and Denies weakness Eyes Denies change in vision ENT Denies dizziness, Denies headache(s), Denies nasal congestion, Denies nasal discharge and Denies sore throat Card Denies chest pain, Denies lightheadedness, Denies palpitations and Denies dyspnea Resp Denies chest congestion, Denies cough, Denies dyspnea and Denies wheezing GI Denies abdominal pain, Denies change in bowel habits and Denies heartburn Denies urinary frequency, Denies dysuria and Denies urinary urgency Musc Reports as per HPI Skin/Breast Denies breast pain, Denies breast mass and Denies rash Neuro Denies dizziness, Denies headache(s) and Denies weakness Psych Reports no additional complaints Endo Denies fatigue, Denies polydipsia, Denies polyuria and Denies palpitations Dewey/Lymph Reports no additional complaints Aller/Immun Denies seasonal rhinorrhea and Denies wheezing Physical exam (Primary Care) Vital Signs: Last Vital Signs Pulse 77 05/24/24 12:17 BP 118/60 05/24/24 12:17 Pulse Ox 98 05/24/24 12:17 Oxygen Delivery Method Room Air 05/24/24 12:17 BMI result Body Mass Index 22.8 Tobacco/Smoking Status: Tobacco use Status Tobacco use date assessed 05/24/24 05/24/24 12:21 Patient Tobacco Use Status Former Tobacco user 05/24/24 12:17 e-Cigarette/Vaping Use Never Used 05/24/24 12:17 Depression Screening Interpretation: Negative Thrive Assessment: Date of Thrive Assessment Date Thrive assessed 05/24/24 05/24/24 12:21 Currently or been in a relationship where the following occur: No concerns reported Const Other: Alert oriented x3, no acute distress noted ambulatory normal gait, in room Orientation/consciousness: patient oriented x3 HENMT Mouth: Normal oral and palatal mucosa present and moist mucous membranes Eyes General: appearance normal, both eyes and all related structures Neck Neck: Yes full ROM and Yes no lymphadenopathy Thyroid: Thyroid normal (Nonpalpable) Resp Auscultation: clear to auscultation bilaterally Cardio Other: S1-S2 present regular rate and rhythm GI Palpation (GI): Soft to palpation, nontender, no guarding and no masses Auscultation: normal bowel sounds General: Yes no CVA tenderness Back/Spine/Pelvis Back: no CVA tenderness and No back tenderness Skin General skin exam: no rashes or lesions noted Neuro General: patient oriented x3, tone normal, moves all extremities, Normal light touch and pain sensation and no focal motor deficits Results Reviewed Results Reviewed: jana: Paula Lira Age/Sex: 69/F : 1955 Unit#: [id number] Attend Dr: Татьяна Mancuso MD Re05/20/24 Status: DEP REF Location: [facility] Disch: SPEC : [id number] TREV: 05/20/24 STATUS: COMP REQ : [id number] RECD: 05/20/24-[address]: Татьяна Mancuso MD COMP: 05/20/24-1044 ENTERED: 05/20/[address] [facility] DR: ORDERED: Met Prof Fast, AST, ALT, Lipid Panel Test Result Flag Reference Sodium 142 135-145 mmol/L Potassium 3.4 3.3-5.1 mmol/L CL 107 96-108 mmol/L CO2 28 22-29 mmol/L Gap 10 L 12-20 BUN 11 9-16 mg/dL Creat 0.70 0.5-1.4 mg/dL EGFR > 60 NOTE: For -Malian individuals, multiply the result by 1.210. Chronic Kidney Disease: Estimated GFR < 60 mL/min/1.73m2 Severe Kidney Disease: Estimated GFR < 15 mL/min/1.73m2 FBS 124 H 60-99 mg/dL A fasting glucose from 100-125 mg/dl is considered impaired (pre-diabetes). CA 8.9 8.4-10.2 mg/dL AST (GOT) 48 H 5-31 U/L ALT (GPT) 63 H 0-31 U/L Triglyceride 172 H <150 mg/dL Desirable Triglyceride: less than 150 mg/dL Borderline High Triglyceride 150-199 mg/dL High Triglyceride: 200-499 mg/dL Very High Triglyceride: greater than or equal to 5OO mg/dL Cholesterol 179 <200 mg/dL Desirable Cholesterol: less than 200 mg/dL Borderline High Cholesterol: 200-239 mg/dL High Cholesterol: greater than 239 mg/dL LDL Calculated 101 H <100 mg/dL Desirable LDL: less than 100 mg/dL Near Optimal/Above Optimal LDL: 110-129 mg/dL Borderline High LDL: 130-159 mg/dL High LDL: 160-189 mg/dL Very High LDL: greater than or equal to 190 mg/dL HDL 44 >40 mg/dL Desirable HDL: greater than 40 mg/dL Note: This HDL assay may give artificially low results in patients with liver disease. Assessment and Plan Assessment & Plan (1) Hypertension: Code(s): I10 - Essential (primary) hypertension Qualifiers: Hypertension type: primary hypertension Qualified Code(s): I10 - Essential (primary) hypertension Plan: Blood pressure stable and controlled on present treatment continued on losartan 25 mg daily and amlodipine 5 mg daily (2) Dyslipidemia: Code(s): E78.5 - Hyperlipidemia, unspecified Plan: Reviewed recent fasting lipid profile with patient with lipid levels higher than last check will continue on atorvastatin 80 mg every other day and adherence to low-cholesterol diet and regular exercise, at least 30 minutes 3 to 4 times a week. Advised patient to make healthy food choices, eat more fruits, vegetables, whole grains, wild caught fish and low-fat dairy. Limit amount of meat and fried or fatty food products, as well as processed foods and fast foods. Follow-up scheduled with repeat fasting lipid panel in 6 months. (3) Type 2 diabetes mellitus with microalbuminuria, without long-term current use of insulin: Code(s): E11.29 - Type 2 diabetes mellitus with other diabetic kidney complication; R80.9 - Proteinuria, unspecified Plan: Diabetes control slipping, will continue on current medications with metformin at the same dose, and stressed importance of adhering to her recommended diet and getting regular exercise, will see her back for follow-up in 6 months after fasting labs done Orders: Orders Microalbumin, Random (w Creat) 10/30/24.29 - Type 2 diabetes mellitus with other diabetic kidney complication, E78.5 - Hyperlipidemia, unspecified, I10 - Essential (primary) hypertension, M85.852 - Other specified disorders of bone density and structure, left thigh, R80.9 - Proteinuria, unspecified Lipid Panel 10/30/24 E11.29 - Type 2 diabetes mellitus with other diabetic kidney complication, E78.5 - Hyperlipidemia, unspecified, I10 - Essential (primary) hypertension, M85.852 - Other specified disorders of bone density and structure, left thigh, R80.9 - Proteinuria, unspecified Hemoglobin A1c 10/30/24 E11.29 - Type 2 diabetes mellitus with other diabetic kidney complication, E78.5 - Hyperlipidemia, unspecified, I10 - Essential (primary) hypertension, M85.852 - Other specified disorders of bone density and structure, left thigh, R80.9 - Proteinuria, unspecified Basic Metabolic Panel Fasting 10/30/24 E11.29 - Type 2 diabetes mellitus with other diabetic kidney complication, E78.5 - Hyperlipidemia, unspecified, I10 - Essential (primary) hypertension, M85.852 - Other specified disorders of bone density and structure, left thigh, R80.9 - Proteinuria, unspecified Aspartate Amino Transferase 10/30/24 E11.29 - Type 2 diabetes mellitus with other diabetic kidney complication, E78.5 - Hyperlipidemia, unspecified, I10 - Essential (primary) hypertension, M85.852 - Other specified disorders of bone density and structure, left thigh, R80.9 - Proteinuria, unspecified Alanine Aminotransferase 10/30/24 E11.29 - Type 2 diabetes mellitus with other diabetic kidney complication, E78.5 - Hyperlipidemia, unspecified, I10 - Essential (primary) hypertension, M85.852 - Other specified disorders of bone density and structure, left thigh, R80.9 - Proteinuria, unspecified Vitamin D 25-OH Total 10/30/24 E11.29 - Type 2 diabetes mellitus with other diabetic kidney complication, E78.5 - Hyperlipidemia, unspecified, I10 - Essential (primary) hypertension, M85.852 - Other specified disorders of bone density and structure, left thigh, R80.9 - Proteinuria, unspecified Coding Level of Care Code Est Pt Level 4 (87729) Complex EM visit Add On G2211 Diagnoses Primary hypertension I10 Hypertension type: primary hypertension Dyslipidemia E78.5 Type 2 diabetes mellitus with microalbuminuria, without long-term current use of insulin ; R80.9 Additional Codes TOÑA-7 Assessment Billing - TOÑA-7 Assessment Tool: TOÑA-7 Assessment 67383 ([id number])
[2024-05-24 12:17] VITALS: BP 118/60; PULSE 77; O2SAT 98; BMI 22.8
== END 2024-05-24 12:53 | disposition home or self-care (01) ==
PROVIDERS: PCP Internal Medicine; Visit Provider Internal Medicine
DX: I10 Essential (primary) hypertension (principal); E78.5 Hyperlipidemia, unspecified; E11.29 Type 2 diabetes mellitus with other diabetic kidney complication; R80.9 Proteinuria, unspecified

== ENCOUNTER → 2024-05-24 11:46 | Outpatient (BNVA) | payer MEDICARE, SELFPAY | PROVIDERS: PCP Internal Medicine; Visit Provider Internal Medicine | DX: I10 Essential (primary) hypertension (principal); E78.5 Hyperlipidemia, unspecified; R80.9 Proteinuria, unspecified | CPT/HCPCS: 96127; 99212 ==

== ENCOUNTER 2024-08-03 12:27 | Outpatient (REF) | payer MEDICARE, SELFPAY ==
--- NOTE | ~2024-08-03 | MM_ITS ---
EXAMINATION: MM SCREENING DIGITAL BREAST TOMOSYNTHESIS, BILATERAL CLINICAL INFORMATION: Screening. Asymptomatic. COMPARISON: Mammography: Comparison is made with available priors TECHNIQUE: Digital breast mammography with tomosynthesis is performed in both the craniocaudal and mediolateral oblique views along with computer-aided detection (CAD). FINDINGS: There are scattered areas of fibroglandular density (ACR BI-RADS breast composition Category b). There are no significant masses, abnormal calcifications, or other abnormalities. MM/MM tomosynthesis screening BI IMPRESSION: No mammographic evidence of malignancy. ASSESSMENT: BI-RADS BI-RADS 1 - Negative RECOMMENDATION: Routine annual mammography screening. 1 year F/U This examination should not preclude the clinical evaluation of a suspicious palpable abnormality. This patient's information was entered into a reminder system with a target due date for their next mammogram. Electronically signed by: Kori Vasques DO 08/09/2024 05:25 PM DANG
== END 2024-08-03 12:28 | disposition home or self-care (01) ==
LOC: HO.MAMMO 12:27
PROVIDERS: PCP Internal Medicine; Visit Provider Internal Medicine
DX: Z12.31 Encounter for screening mammogram for malignant neoplasm of breast (principal)
CPT/HCPCS: 77063; 77067

== ENCOUNTER → 2024-08-03 12:30 | Outpatient (BNV) | payer MEDICARE, SELFPAY | PROVIDERS: PCP Internal Medicine; Visit Provider Internal Medicine | DX: Z12.31 Encounter for screening mammogram for malignant neoplasm of breast (principal) | CPT/HCPCS: 77063; 77067 ==

== ENCOUNTER 2024-10-17 01:24 | Emergency (ER) | payer MEDICARE, SELFPAY ==
--- NOTE | 2024-10-17 | ECG_ITS ---
Test Reason : SOB Blood Pressure : */* mmHG Vent. Rate : 93 BPM Atrial Rate : 93 BPM P-R Int : 146 ms QRS Dur : 66 ms QT Int : 346 ms P-R-T Axes : 46 27 41 degrees QTcB Int : 430 ms Normal sinus rhythm Nonspecific T wave abnormality Abnormal ECG When compared with ECG of 22-Mar-2013 12:44, No significant change was found Referred By: Tomas Bar Electronically Signed By: DARRION AREVALO MD
--- NOTE | ~2024-10-17 | XR_ITS ---
CLINICAL HISTORY: SOB CHEST X-RAY FRONTAL AND LATERAL VIEWS COMPARISON: None. FINDINGS: Frontal and lateral views of the chest were performed. Lateral view is limited. Cardiac size is within normal limits. No focal infiltrate or consolidation. No pleural effusion or pneumothorax. IMPRESSION: 1. No acute disease. This document has been electronically signed by: Nakul Oneil M.D. on 10/17/2024 03:05:31
[2024-10-17 01:41] VITALS: BP 166/80; BP 167/73; PULSE 87; PULSE 98; RESP 20; TEMP 36.2; O2SAT 94; O2SAT 98; BMI 21.1
--- NOTE | 2024-10-17 01:49 | ED.SOB ---
HPI - SOB/Dyspnea General Chief Complaint: Dyspnea Stated Complaint: SOB, WEAKNESS Time Seen by Provider: 10/17/24 01:48 Source: patient Mode of arrival: ambulatory Limitations: no limitations History of Present Illness HPI Narrative: Patient woke up from sleep with increased shortness of breath now feeling much better no chest pain no calf pain no palpitation chest pain no fever no chills no history of asthma Related Data Home Medications ?Medication ?Instructions ?Recorded ?Confirmed multivitamin 1 tab PO DAILY 06/03/20 11/29/22 cholecalciferol (vitamin D3) 50 50 mcg PO DAILY 06/05/20 11/29/22 mcg (2,000 unit) capsule fluticasone propionate 50 1 spray intranasal DAILY PRN 07/02/21 11/29/22 mcg/actuation nasal spray,suspension (Flonase Allergy Relief) acetaminophen 650 mg 650 mg PO Q12H 12/09/23 tablet,extended release (Tylenol Arthritis Pain) Previous Rx's ?Medication ?Instructions ?Recorded mupirocin 2 % topical ointment 1 appl topical BID 5 days #15 grams 07/02/21 atorvastatin 80 mg tablet 80 mg PO Q2D 3 months #45 tabs 12/09/23 amlodipine 5 mg tablet 5 mg PO DAILY 90 days #90 tabs 09/02/24 metformin 500 mg tablet See Rx Instructions PO BID 3 09/02/24 months #270 tabs losartan 25 mg tablet 25 mg PO DAILY 90 days #90 tabs 10/13/24 Allergies Allergy/AdvReac Type Severity Reaction Status Date / Time metronidazole [From FLAGYL] Allergy Mild METALLIC Verified 10/17/24 01:42 TASTE/RASH Sulfa (Sulfonamide Allergy Mild RASH, Verified 10/17/24 01:42 Antibiotics) rash, SOB [SULFA (SULFONAMIDE ANTIBIOTICS)] Review of Systems Review of Systems: Yes all other systems are reviewed and are negative PMFSH Past Medical History Medical History Pain in left lower leg Popliteal pain Positional lightheadedness 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 Mother No problems noted. Social History Social History Housing: House Alcohol intake: current Patient Tobacco Use Status: Former Tobacco user e-Cigarette/Vaping Use: Never Used Second Hand Smoke Exposure: No Use of substances other than those prescribed or required for medical reasons: No Advance Directives: Yes Advance Directives on File: Yes Advance Directives Date on File: 11/29/22 Current occupational status: retired Cognitive needs: No Hearing needs: No Vision needs: Yes Physical Exam Vital Signs: Vital Signs: Last Vital Signs Temp 97.9 F 10/17/24 03:37 Pulse 89 10/17/24 03:37 Resp 18 10/17/24 03:37 BP 131/51 L 10/17/24 03:37 Pulse Ox 97 10/17/24 03:37 O2 Del Method Room Air 10/17/24 03:37 BMI result Body Mass Index 21.1 Appearance: Alert. Oriented X3. No acute distress. Eyes: PERRLA, No Nystagmus ENT: Pharynx normal. Oral Mucosa moist Neck: Normal inspection. Neck supple. CVS: Normal heart rate and rhythm. Pulses normal. Respiratory: No respiratory distress. Equal air entry bilateral, no wheezing/rales/rhonchi Abdomen: Soft and nontender. Bowel sounds are present, no mass palpable, no CVA tenderness Skin: Skin warm and dry. Normal skin color. Normal skin turgor. Extremities: No lower extremity edema. No calf tenderness Neuro: Oriented X 3. No motor deficit. No sensory deficit.No cerebellar signs , cranial nerves II-XII intact Medical Decision Making Medical Decision Making MDM Narrative: Patient with acute shortness a breath likely anxiety lungs are clear saturating 100% at room air no chest pain Differential Diagnosis Differential Diagnoses: The differential diagnosis associated with the presentation includes Viral syndrome/CHF/bronchitis/anxiety Lab Data [facility] Lab Attestation statement: I reviewed the patient's lab results. 10/17/24 01:56 10/17/24 02:16 Labs: Lab Results 10/17/24 10/17/24 10/17/24 Range/Units 01:56 02:16 02:20 WBC 7.9 (4.8-10.8) X10*3/uL RBC 4.34 (4.20-5.50) X10*6/uL Hgb 12.9 (12.0-16.0) g/dl Hct 37.6 (37.0-47.0) % MCV 86.6 (80.0-98.0) fL MCH 29.7 (27.0-33.0) pg MCHC 34.3 (31.0-35.0) g/dl RDW 12.3 (11.0-16.0) % Plt Count 373 (160-400) X10*3/uL MPV 9.8 (9.4-12.3) fL Immature Gran % (Auto) 0.3 (0.0-0.4) % Neut % (Auto) 59.5 (45-73) % Lymph % (Auto) 25.3 (20-40) % [place] % (Auto) 7.8 (2-11) % Eos % (Auto) 6.1 H (0-4) % Baso % (Auto) 1.0 (0-2) % Lymph # (Auto) 2.0 (1.2-4.9) X10*3/uL [place] # (Auto) 0.6 (0.1-1.2) X10*3/uL Eos # (Auto) 0.5 H (0.0-0.4) X10*3/uL Baso # (Auto) 0.1 (0.0-0.2) X10*3/uL Abs Immat Gran (auto) 0.02 (0.00-0.03) X10*3/uL Absolute Neuts (auto) 4.7 (2.0-8.3) x10*3/uL Absolute Nucleated RBC 0.000 (0.0-0.012) X10*3/uL Nucleated RBC % (auto) 0.0 (0.0-0.2) /100WBC PT 9.7 L (10.9-12.4) SEC INR 0.8 L (0.9-1.1) APTT 31.8 (26.0-36.8) SEC D-Dimer High Sensitivty 151 NG/ML Sodium 143 (135-145) mmol/L Potassium 3.4 (3.3-5.1) mmol/L Chloride 106 (96-108) mmol/L Carbon Dioxide 24 (22-29) mmol/L Anion Gap 16 (12-20) BUN 10 (9-16) mg/dL Creatinine 0.66 (0.5-1.4) mg/dL Estim Creat Clear Calc 65.5 Estimated GFR > 60 Random Glucose 155 H (60-115) mg/dL Calcium 9.4 (8.4-10.2) mg/dL Total Bilirubin 0.4 (0.0-1.0) mg/dL AST 96 H (5-31) U/L ALT 130 H (0-31) U/L Alkaline Phosphatase 85 (39-117) U/L Troponin I High Sens 9.4 (<3.5-17.0) ng/L B-Natriuretic Peptide < 10 (<100) pg/mL Total Protein 7.5 (6.5-8.0) g/dL Albumin 4.1 (3.5-5.0) g/dL Influenza Type A (PCR) NEGATIVE (Negative) Influenza Type B (PCR) NEGATIVE (Negative) RSV RNA Qual (PCR) NEGATIVE (Negative) SARS-CoV-2 RNA (RT-PCR) NEGATIVE (Negative) Independent Interpretation I performed an independent interpretation of an: EKG Interpretation: Normal sinus rhythm heart rate 93 beats per minute normal interval normal axis no acute ST-T no acute ischemia Radiology Impression Discussion of test interpretation with radiology: I have reviewed the radiologist's reading. Radiologist Impression: NAD Discharge Plan Discharge Clinical Impression: Acute dyspnea Patient Disposition: Home, Self-Care Instructions: Dyspnea (ED), Anxiety (ED) Additional Instructions: Likely you had a anxiety attack Your blood workup chest x-ray negative Prescriptions: No Action metformin 500 mg tablet See Rx Instructions PO BID 90 Days Qty: 270 1RF Rx Instructions: take 1000 mg ( 2 tabs) in am and 500 mg (1 tab) in pm with meals amlodipine 5 mg tablet 5 mg PO DAILY 90 Days Qty: 90 1RF losartan 25 mg tablet 25 mg PO DAILY 90 Days Qty: 90 3RF multivitamin Tablet 1 tab PO DAILY cholecalciferol (vitamin D3) 50 mcg (2,000 unit) capsule 50 mcg PO DAILY fluticasone propionate [Flonase Allergy Relief] 50 mcg/actuation spray,suspension 1 spray intranasal DAILY PRN Rx Instructions: administer into each nostril mupirocin 2 % ointment 1 appl topical BID 5 Days Qty: 15 0RF acetaminophen [Tylenol Arthritis Pain] 650 mg tablet extended release 650 mg PO Q12H atorvastatin 80 mg tablet 80 mg PO Q2D 90 Days Qty: 45 3RF Interventions: ED Discharge Assessment Last Done: 10/17/24 03:37 Discharge Date/Time: 10/17/24 03:52 Print Language: Guamanian
[2024-10-17 02:00] LABS: MANUAL DIFF FLAG NO
[2024-10-17 02:02] LABS: Basophils Absolute Auto 0.1 X10*3/uL (0.0-0.2); Eosinophils Absolute Auto 0.5 X10*3/uL (0.0-0.4); Eosinophils Percent Auto 6.1 % (0-4); Hematocrit 37.6 % (37.0-47.0); Hemoglobin 12.9 g/dl (12.0-16.0); Imm Gran Abs Auto 0.02 X10*3/uL (0.00-0.03); Imm Gran Pct Auto 0.3 % (0.0-0.4); Lymphocytes Percent Auto 25.3 % (20-40); Mean Corpuscular HGB Conc 34.3 g/dl (31.0-35.0); Mean Corpuscular Hemoglobin 29.7 pg (27.0-33.0); Mean Corpuscular Volume 86.6 fL (80.0-98.0); Mean Platelet Volume 9.8 fL (9.4-12.3); Monocytes Absolute Auto 0.6 X10*3/uL (0.1-1.2); Monocytes Percent Auto 7.8 % (2-11); Neutrophils Absolute Auto 4.7 x10*3/uL (2.0-8.3); Neutrophils Percent Auto 59.5 % (45-73); Platelet Count 373 X10*3/uL (160-400); Red Blood Count 4.34 X10*6/uL (4.20-5.50); Red Cell Distribution Width 12.3 % (11.0-16.0); White Blood Count 7.9 X10*3/uL (4.8-10.8)
[2024-10-17 02:22] LABS: B Type Natriuretic Peptide < 10 pg/mL (<100)
[2024-10-17 02:31] LABS: INTERNATIONAL NORM RATIO 0.8 (0.9-1.1); Prothrombin Time 9.7 SEC (10.9-12.4)
[2024-10-17 02:33] LABS: D Dimer High Sensitivity 151 NG/ML; Partial Thromboplastin Time 31.8 SEC (26.0-36.8)
[2024-10-17 02:39] LABS: Influenza A PCR NEGATIVE (Negative); Influenza B PCR NEGATIVE (Negative); Resp Syncy Virus RNA Qual PCR NEGATIVE (Negative); SARS COV2 PCR INHOUSE NEGATIVE (Negative)
[2024-10-17 02:46] LABS: Alanine Aminotransferase 130 U/L (0-31); Albumin Level 4.1 g/dL (3.5-5.0); Anion Gap 16 (12-20); Aspartate Amino Transferase 96 U/L (5-31); Bilirubin Total 0.4 mg/dL (0.0-1.0); Blood Urea Nitrogen 10 mg/dL (9-16); Calcium 9.4 mg/dL (8.4-10.2); Carbon Dioxide 24 mmol/L (22-29); Chloride 106 mmol/L (96-108); Creatinine Clr Calc Pharmacy 65.5; Estimated Glomerular Filt Rate > 60; Glucose Random 155 mg/dL (60-115); Potassium 3.4 mmol/L (3.3-5.1); Sodium 143 mmol/L (135-145); Total Protein 7.5 g/dL (6.5-8.0)
[2024-10-17 02:47] LABS: Troponin-I High Sensitivity 9.4 ng/L (<3.5-17.0)
[2024-10-17 02:53] LABS: Alkaline Phosphatase 85 U/L (39-117)
[2024-10-17 03:25] VITALS: BP 131/51; PULSE 89; RESP 18; TEMP 36.6; O2SAT 97
[2024-10-17 03:37] VITALS: BP 131/51; PULSE 89; RESP 18; TEMP 36.6; O2SAT 97
== END 2024-10-17 03:52 | disposition home or self-care (01) ==
PROVIDERS: Emergency Provider Internal Medicine; PCP Internal Medicine
DX: R06.02 Shortness of breath (principal); R53.1 Weakness; R94.31 Abnormal electrocardiogram [ECG] [EKG]; Z79.899 Other long term (current) drug therapy; Z03.818 Encounter for observation for suspected exposure to other biological agents ruled out
CPT/HCPCS: 0241U; 36415; 71046; 80053; 83880; 84484; 85025; 85379; 85610; 85730; 93005; 99283; 99284

== ENCOUNTER → 2024-10-17 02:08 | Outpatient (BNV) | payer MEDICARE, SELFPAY | PROVIDERS: Emergency Provider Internal Medicine; PCP Internal Medicine; Visit Provider Internal Medicine Cardiovascular Disease | DX: R94.31 Abnormal electrocardiogram [ECG] [EKG] (principal); R06.02 Shortness of breath | CPT/HCPCS: 93010 ==

== ENCOUNTER → 2024-10-17 02:20 | Outpatient (BNV) | payer MEDICARE, SELFPAY | PROVIDERS: Emergency Provider Internal Medicine; PCP Internal Medicine; Visit Provider Radiology Diagnostic Radiology | DX: R06.02 Shortness of breath (principal) | CPT/HCPCS: 71046 ==

== ENCOUNTER 2024-11-27 08:10 | Outpatient (REF) | payer MEDICARE, SELFPAY ==
[2024-11-27 12:00] LABS: Estimated Average Glucose 143 mg/dL; Hemoglobin A1c % 6.6 % (<6.0); Total Hemoglobin (HGBA1C) 3428.1455 umol/L
[2024-11-27 12:06] LABS: Alanine Aminotransferase 159 U/L (0-31); Anion Gap 13 (12-20); Aspartate Amino Transferase 115 U/L (5-31); Blood Urea Nitrogen 11 mg/dL (9-16); Calcium 9.5 mg/dL (8.4-10.2); Carbon Dioxide 28 mmol/L (22-29); Chloride 107 mmol/L (96-108); Cholesterol 162 mg/dL (<200); Estimated Glomerular Filt Rate > 60; Glucose Fasting 113 mg/dL (60-99); HDL Cholesterol 48 mg/dL (>40); LDL Cholesterol Calculated 85 mg/dL (<100); Potassium 4.3 mmol/L (3.3-5.1); Sodium 144 mmol/L (135-145); Triglycerides 146 mg/dL (<150)
[2024-11-27 12:10] LABS: Creatinine Urine 38.05 mg/dL; Microalbum/Creatinine Ratio Ur 52.5 ug/mg cr (<30)
[2024-11-27 12:25] LABS: Vitamin D 25-OH Total 71.8 ng/mL (>30)
== END 2024-11-27 08:11 | disposition home or self-care (01) ==
LOC: HO.HMGCLDS 08:10
PROVIDERS: PCP Internal Medicine; Visit Provider Internal Medicine
DX: E11.29 Type 2 diabetes mellitus with other diabetic kidney complication (principal); R80.9 Proteinuria, unspecified; I10 Essential (primary) hypertension; M85.852 Other specified disorders of bone density and structure, left thigh; E78.5 Hyperlipidemia, unspecified
CPT/HCPCS: 36415; 80048; 80061; 82043; 82306; 82570; 83036; 84450; 84460

== ENCOUNTER 2024-12-02 09:40 | Outpatient (AMB) | payer MEDICARE, SELFPAY ==
--- NOTE | 2024-12-02 09:58 | A.OFFPC_ITS ---
Vital Signs 12/02/24 09:59 Height 5 ft 3 in Weight 107 lb BMI 19.0 BP 130/64 Blood Pressure Location Rt brachial Position Sitting Respiration 15 Pulse 81 Pulse Source Pulse Oximeter Temp 98.0 F Temp Source Oral Pulse Oximetry (%) 99 Oxygen Delivery Method Room Air Intake Visit Reasons: Annual PE/Overdue Intake Note: Pt is here today for her PE: Last mammogram 08/03/24, bone denisty scan 07/29/23, colonoscopy 07/29/15 Allergies metronidazole [From FLAGYL] Allergy (Mild, Verified 12/06/24 01:15) METALLIC TASTE/RASH Sulfa (Sulfonamide Antibiotics) [SULFA (SULFONAMIDE ANTIBIOTICS)] Allergy (Mild, Verified 12/06/24 01:15) RASH, rash, SOB Medication List - Last Reconciled 12/02/24 by Татьяна Mancuso MD acetaminophen ER (Tylenol Arthritis Pain) 650 mg PO Q12H amlodipine 5 mg PO DAILY 90 days atorvastatin 80 mg PO Q2D 3 months cholecalciferol (vitamin D3) 50 mcg PO DAILY fluticasone propionate 50 mcg/actuation (Flonase Allergy Relief) 1 spray intranasal DAILY PRN losartan 25 mg PO DAILY 90 days metformin take 1000 mg ( 2 tabs) in am and 500 mg (1 tab) in pm with meals 3 months multivitamin 1 tab PO DAILY mupirocin 2% 1 appl topical BID 5 days Tobacco use date assessed: 12/02/24 Fall risk assessment: No Falls in past year Last assessed Fall Risk: 12/02/24 Dental Screening Dental Screen Date: 12/02/24 Did you have a dental visit in the last 12 months?: Yes Did you have a dental problem in the last 6 months where you did not have access to dental care?: No Was dental information given to patient?: Patient has dentist HPI Annual PE/Overdue HPI Details 69-year-old lady with history of diabete s mellitus, hypertension, dyslipidemia and history of CVA received will deficits, osteopenia of left hip, and right carotid artery stenosis, here today for her physical exam. She is up-to-date with her breast cancer screening, done 08/03/2024 with negative findings, last bone density scan was done 07/29/2023 which showed presence of osteopenia in left hip, due for recheck later this year. Last colonoscopy was done 07/29/2015 with normal findings, due again this year. She has been compliant with taking her medications, feels well with no complaints at present time. 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 Mother No problems noted. Social History Housing: House Alcohol intake: current Patient Tobacco Use Status: Former Tobacco user e-Cigarette/Vaping Use: Never Used Second Hand Smoke Exposure: No Advance Directives Date on File: 11/29/22 Current occupational status: retired Cognitive needs: No Hearing needs: No Vision needs: Yes Questionnaire PHQ-9 Over the last 2 weeks, how often have you been bothered by any of the following problems? 1. Little interest or pleasure in doing things: not at all 2. Feeling down, depressed, or hopeless: not at all 3. Trouble falling or staying asleep, or sleeping too much: not at all 4. Feeling tired or having little energy: not at all 5. Poor appetite or overeating: not at all 6. Feeling bad about yourself - or that you are a failure or have let yourself or your family down: not at all 7. Trouble concentrating on things, such as reading the newspaper or watching television: not at all 8. Moving or speaking so slowly that other people could have noticed. Or the opposite - being so fidgety or restless that you have been moving around a lot more than usual: not at all 9. Thoughts that you would be better off or of hurting yourself in some way: not at all Total score: 0 Depression Screening Interpretation: Negative Depression Screening Done: Yes 76817 - PHQ-9 Billing: Yes Source: Developed by Bernard Plataet B.W. Saurabh, Jr Joseph and colleagues, with an educational sylvia from [employer]. Thrive Questionnaire Date Thrive assessed: 12/02/24 I am a: Patient What is your living situation today?: I have a steady place to live Within the past 12 months, did the food you bought not last and you didn't have the money to get more?: Never true Within the past 12 months, did you worry whether your food would run out before you got money to buy more?: Often true Do you have trouble paying for medicines?: No Do you have trouble getting transportation to medical appointments?: No Do you have trouble paying your heating and electricity bill?: No Do you have trouble taking care of your child, family member or friend?: No Do you have trouble with day-to-day activities such as bathing, preparing meals, shopping, managing finances, etc.?: No Are you currently unemployed and looking for a job?: No Are you interested in more education?: No Please select the resources that you would like help with: None Currently or been in a relationship where the following occur: No concerns reported THRIVE Score: 1 AUDIT C Alcohol Use Questionnaire (AUDIT-C) 1. How often do you have a drink containing alcohol?: Never 2. How many drinks containing alcohol do you have on a typical day when you are drinking?: 1 or 2 3. How often do you have six or more drinks on one occasion?: Never Total Score: 0 TOÑA-7 AMB Questionnaire TOÑA-7 Date TOÑA - 7 assessed: 12/02/24 Feeling nervous, anxious, or on edge: 0 = Not at all Not being able to stop or control worryin = Not at all Worrying too much about different things: 0 = Not at all Trouble relaxin = Not at all Being so restless that it is hard to sit still: 0 = Not at all Becoming easily annoyed or irritable: 0 = Not at all Feeling afraid as if something awful might happen: 0 = Not at all Total TOÑA-7 score (0-4 normal; 5-9 mild; 10-14 moderate; 15-21 severe): 0 Source: Developed by Drs. Fuentes Boston, Miriam Wiley, Jr Joseph and colleagues, with an educational sylvia from [employer]. TOÑA-7 Assessment Billing TOÑA-7 Assessment Tool: TOÑA-7 Assessment 14672 Review of Systems Const Denies fatigue, Denies fever(s), Denies headache(s) and Denies weakness Eyes Denies change in vision ENT Denies dizziness, Denies headache(s), Denies nasal congestion, Denies nasal discharge and Denies sore throat Card Denies chest pain, Denies lightheadedness, Denies palpitations and Denies dyspnea Resp Denies chest congestion, Denies cough, Denies dyspnea and Denies wheezing GI Denies abdominal pain, Denies change in bowel habits and Denies heartburn Denies urinary frequency, Denies dysuria and Denies urinary urgency Musc Reports as per HPI Skin/Breast Denies breast pain, Denies breast mass and Denies rash Neuro Denies dizziness, Denies headache(s) and Denies weakness Psych Reports no additional complaints Endo Denies fatigue, Denies polydipsia, Denies polyuria and Denies palpitations Dewey/Lymph Reports no additional complaints Aller/Immun Denies seasonal rhinorrhea and Denies wheezing Physical exam (Primary Care) Vital Signs: Last Vital Signs Temp 98.0 F 12/02/24 09:59 Pulse 81 12/02/24 09:59 Resp 15 12/02/24 09:59 BP 130/64 12/02/24 09:59 Pulse Ox 99 12/02/24 09:59 Oxygen Delivery Method Room Air 12/02/24 09:59 BMI result Body Mass Index 19.0 Tobacco/Smoking Status: Tobacco use Status Tobacco use date assessed 12/02/24 12/02/24 10:16 Patient Tobacco Use Status Former Tobacco user 12/02/24 09:59 e-Cigarette/Vaping Use Never Used 12/02/24 09:59 PHQ-9: PHQ-9 Score PHQ-9: Total score 0 12/06/24 01:22 Depression Screening Interpretation: Negative Thrive Assessment: Date of Thrive Assessment Date Thrive assessed 12/02/24 12/02/24 10:16 Currently or been in a relationship where the following occur: No concerns reported Const Other: Alert oriented x3, no acute distress noted ambulatory normal gait Orientation/consciousness: patient oriented x3 HENMT Mouth: Normal oral and palatal mucosa present and moist mucous membranes Eyes General: appearance normal, both eyes and all related structures Neck Neck: Yes full ROM and Yes no lymphadenopathy Thyroid: Thyroid normal (Nonpalpable) Chest Chest palpation & inspection: normal inspection of the chest Breast/axilla palpation: normal palpation of the breasts Resp Auscultation: clear to auscultation bilaterally Cardio Other: S1-S2 present regular rate and rhythm GI Palpation (GI): Soft to palpation, nontender, no guarding and no masses Auscultation: normal bowel sounds General: Yes no CVA tenderness Back/Spine/Pelvis Back: no CVA tenderness and No back tenderness Skin General skin exam: no rashes or lesions noted Neuro General: patient oriented x3, tone normal, moves all extremities, Normal light touch and pain sensation and no focal motor deficits Extrem General: Yes full ROM, Yes no joint enlargement, Yes no clubbing, cyanosis or edema, Yes no pedal edema, Yes no calf tenderness and Yes normal gait Psych Appearance: grossly normal and well kempt Mental Status: mental status grossly normal Speech and movement: Normal speech and movement present Affect: normal affect Results Reviewed Results Reviewed: Name: Paula Lira Age/Sex: 69/F : 1955 Unit#: [id number] Attend Dr: Tomas Bar MD Re10/17/24 Status: DEP ER Location: [facility] Disch: SPEC : [id number] TREV: 10/17/24 STATUS: COMP REQ : [id number] RECD: 10/17/[address]: Tomas Bar MD COMP: 10/17/24 ENTERED: 10/17/24 [facility] DR: ORDERED: CBC Auto Diff Test Result Flag Reference WBC 7.9 4.8-10.8 X10*3/uL RBC 4.34 4.20-5.50 X10*6/uL HGB 12.9 12.0-16.0 g/dl HCT 37.6 37.0-47.0 % MCV 86.6 80.0-98.0 fL MCH 29.7 27.0-33.0 pg MCHC 34.3 31.0-35.0 g/dl RDW 12.3 11.0-16.0 % PLT 373 160-400 X10*3/uL MPV 9.8 9.4-12.3 fL Neut Pct Auto 59.5 45-73 % ImGran Pct Auto 0.3 0.0-0.4 % Lymp Pct Auto 25.3 20-40 % Coke Pct Auto 7.8 2-11 % Eos Pct Auto 6.1 H 0-4 % Baso Pct Auto 1.0 0-2 % NRBC Pct Auto 0.0 0.0-0.2 /100WBC ANC Neut Abs # 4.7 2.0-8.3 x10*3/uL ImGran Abs Auto 0.02 0.00-0.03 X10*3/uL Lymph Abs Auto 2.0 1.2-4.9 X10*3/uL Coke Abs Auto 0.6 0.1-1.2 X10*3/uL Eos Abs Auto 0.5 H 0.0-0.4 X10*3/uL Baso Abs Auto 0.1 0.0-0.2 X10*3/uL NRBC Abs Auto 0.000 0.0-0.012 X10*3/uL Name: Paula Lira Age/Sex: 69/F : 1955 Unit#: [id number] Attend Dr: Татьяна Mancuso MD Re11/27/24 Status: DEP REF Location: [facility] Disch: SPEC : [id number] TREV: 11/27/24 STATUS: COMP REQ : [id number] RECD: 11/27/24-[address]: Татьяна Mancuso MD COMP: 11/27/24-5 ENTERED: 11/27/24-0839 [facility] DR: ORDERED: Met Prof Fast, AST, ALT, Lipid Panel, Vitamin D 25-OH Test Result Flag Reference Sodium 144 135-145 mmol/L Potassium 4.3 # 3.3-5.1 mmol/L CL 107 96-108 mmol/L CO2 28 22-29 mmol/L Gap 13 12-20 BUN 11 9-16 mg/dL Creat 0.65 0.5-1.4 mg/dL eGFR > 60 Chronic Kidney Disease: Estimated GFR < 60 mL/min/1.73m2 Severe Kidney Disease: Estimated GFR < 15 mL/min/1.73m 2 FBS 113 H 60-99 mg/dL A fasting glucose from 100-125 mg/dl is considered impaired (pre-diabetes). CA 9.5 8.4-10.2 mg/dL AST (GOT) 115 H 5-31 U/L ALT (GPT) 159 H 0-31 U/L Triglyceride 146 <150 mg/dL Desirable Triglyceride: less than 150 mg/dL Borderline High Triglyceride 150-199 mg/dL High Triglyceride: 200-499 mg/dL Very High Triglyceride: greater than or equal to 5OO mg/dL Cholesterol 162 <200 mg/dL Desirable Cholesterol: less than 200 mg/dL Borderline High Cholesterol: 200-239 mg/dL High Cholesterol: greater than 239 mg/dL LDL Calculated 85 <100 mg/dL Desirable LDL: less than 100 mg/dL Near Optimal/Above Optimal LDL: 110-129 mg/dL Borderline High LDL: 130-159 mg/dL High LDL: 160-189 mg/dL Very High LDL: greater than or equal to 190 mg/dL HDL 48 >40 mg/dL Desirable HDL: greater than 40 mg/dL Note: This HDL assay may give artificially low results in patients with liver disease. Vitamin D 25-OH 71.8 >30 ng/mL Health Based Reference Values* < 20 ng/mL Deficient 20-30 ng/mL Insufficient > 30 ng/mL Sufficient Laboratory Tests 11/27/24 08:43 Estimat Average Glucose 143 Hemoglobin A1c % 6.6 H Laboratory Tests 11/27/24 08:43 Urine Creatinine 38.05 Urine Microalbumin 20.0 Microalb/Creat Ratio 52.5 H Coding Level of Care Code Est Pt Prev Care >65y(83414) Diagnoses Annual visit for general adult medical examination with abnormal findings Z00.01 Osteopenia of left hip M85.852 Dyslipidemia E78.5 Primary hypertension I10 Hypertension type: primary hypertension Type 2 diabetes mellitus with microalbuminuria, without long-term current use of insulin E11.29; R80.9 Stenosis of right carotid artery I65.21 Additional Codes TOÑA-7 Assessment Billing - TOÑA-7 Assessment Tool: TOÑA-7 Assessment 08761 ([id number]) PHQ-9 - 22052 - PHQ-9 Billing: Yes ([id number]) Assessment & Plan Assessment & Plan (1) Annual visit for general adult medical examination with abnormal findings: Code(s): Z00.01 - Encounter for general adult medical examination with abnormal findings Plan: Recent fasting lab results reviewed with patient.. Continue with regular dental visit every 6 months and regular eye exams,every year. Take adequate calcium in diet and vitamin-D 3 at 2000 IU per cap once a day, in addition to weight- bearing exercises to help maintain good muscle tone and weight control. Instructed to do self-breast exam, and continue with yearly mammogram. Repeat bone density ordered to be scheduled together with screening mammogram. Up-to-date with her vaccinations, due for her 2nd dose of Shingrix vaccine. Last colonoscopy was done [place] [address] Gaitan, due for recheck, referral ordered (2) Osteopenia of left hip: Code(s): M85.852 - Other specified disorders of bone density and structure, left thigh Category: Medical Plan: Stressed importance of doing regular weight-bearing exercise, take adequate calcium from dietary sources and continue vitamin D3 supplements. Bone density scan ordered for this year, to be scheduled together with screening mammogram (3) Dyslipidemia: Code(s): E78.5 - Hyperlipidemia, unspecified Category: Medical Plan: Reviewed recent fasting lipid profile with patient with levels within normal limits . Continue atorvastatin but decrease dose to every other day , in addition to adherence to low-cholesterol diet and regular exercise, at least 30 minutes 3 to 4 times a week. Advised patient to make healthy food choices, eat more fruits, vegetables, whole grains, wild caught fish and low-fat dairy. Limit amount of meat and fried or fatty food products, as well as processed foods and fast foods. Follow-up scheduled with repeat fasting lipid panel in 3 months. (4) Hypertension: Code(s): I10 - Essential (primary) hypertension Category: Medical Qualifiers: Hypertension type: primary hypertension Qualified Code(s): I10 - Essential (primary) hypertension Plan: Blood pressure at goal of less than 130/80. Continue with current medication. Reinforced importance of following a low sodium diet, getting regular exercise, and lowering stress levels. (5) Type 2 diabetes mellitus with microalbuminuria, without long-term current use of insulin: Code(s): E11.29 - Type 2 diabetes mellitus with other diabetic kidney complication; R80.9 - Proteinuria, unspecified Category: Medical Plan: Diabetes mellitus controlled, with hemoglobin A1c at 6.6%, continue with metformin (6) Stenosis of right carotid artery: Code(s): I65.21 - Occlusion and stenosis of right carotid artery Category: Medical Plan: Continue atorvastatin and ensure good blood pressure diabetes control Orders: Orders Hemoglobin A1c 03/01/25 E11.29 - Type 2 diabetes mellitus with other diabetic kidney complication, E78.5 - Hyperlipidemia, unspecified, I10 - Essential (primary) hypertension, R80.9 - Proteinuria, unspecified, Z00.01 - Encounter for general adult medical examination with abnormal findings, Z71.89 - Other specified counseling, Z86.73 - Personal history of transient ischemic attack (TIA), and cerebral infarction without residual deficits Creatine Kinase Total 03/01/25 E11.29 - Type 2 diabetes mellitus with other diabetic kidney complication, E78.5 - Hyperlipidemia, unspecified, I10 - Essential (primary) hypertension, R80.9 - Proteinuria, unspecified, Z00.01 - Encounter for general adult medical examination with abnormal findings, Z71.89 - Other specified counseling, Z86.73 - Personal history of transient ischemic attack (TIA), and cerebral infarction without residual deficits MM tomosynthesis screening BI 12/02/24 M85.852 - Other specified disorders of bone density and structure, left thigh, Z12.31 - Encounter for screening mammogram for malignant neoplasm of breast, Z78.0 - Asymptomatic menopausal state XR DEXA axial skeleton 12/02/24 M85.852 - Other specified disorders of bone density and structure, left thigh, Z12.31 - Encounter for screening mammogram for malignant neoplasm of breast, Z78.0 - Asymptomatic menopausal state Lipid Panel 03/01/25 E11.29 - Type 2 diabetes mellitus with other diabetic kidney complication, E78.5 - Hyperlipidemia, unspecified, I10 - Essential (primary) hypertension, R80.9 - Proteinuria, unspecified, Z00.01 - Encounter for general adult medical examination with abnormal findings, Z71.89 - Other specif ied counseling, Z86.73 - Personal history of transient ischemic attack (TIA), and cerebral infarction without residual deficits Comprehensive [place]. Panel Fast 03/01/25 E11.29 - Type 2 diabetes mellitus with other diabetic kidney complication, E78.5 - Hyperlipidemia, unspecified, I10 - Essential (primary) hypertension, R80.9 - Proteinuria, unspecified, Z00.01 - Encounter for general adult medical examination with abnormal findings, Z71.89 - Other specified counseling, Z86.73 - Personal history of transient ischemic attack (TIA), and cerebral infarction without residual deficits Referrals Gastroenterology Referral Z12.11 - Encounter for screening for malignant neoplasm of colon Medications: New cephalexin 500 mg PO Q12H 7 days 14 caps 0RF mupirocin 2% 1 appl topical TID 5 days 15 grams 0RF Changed From atorvastatin 80 mg PO Q2D 3 months 45 tabs 3RF To atorvastatin 80 mg (2 x 40 mg) PO Q2D 3 months 90 tabs 3RF
[2024-12-02 09:59] VITALS: BP 130/64; PULSE 81; RESP 15; TEMP 36.7; O2SAT 99; BMI 19.0
--- OUTSIDE RECORDS SUMMARY | 2024-12-02 10:09 | XMS_ITS | Encounter Summary ---
Author Organization [employer] Address [address] [place] [address] [address] [place] [address] Care Team Providers Care Real Estate Attorney Name Role Phone Unavailable Primary Care Provider Unavailabl e Encounter Details Date Type Department Care Team (Latest Contact Info) Description 04/19/2021 Abstract [facility] CONVERSIONS Dental, Provider, DDS Social History Tobacco Use Types Packs/Day Years Used Date Smoking Tobacco: Never Assessed Comments Unknown Sex and Gender Information Value Date Recorded Sex Assigned at Female 07/01/2022 10:35 AM EDT Legal Sex Female 10:35 AM EDT Gender Identity Female 07/01/2022 10:35 AM EDT Sexual Orientation Straight 07/01/2022 10 :35 AM EDT documented as of this encounter Plan of Treatment Not on file documented as of this encounter Visit Diagnoses Not on filedocumented in this encounter
--- OUTSIDE RECORDS SUMMARY | 2024-12-02 10:09 | XMS_ITS | Clinical Summary ---
Author Organization [employer] Address [address] [place] [address] [address] [place] [address] Care Team Providers Care Style Advisor Name Role Phone Unavailable Primary Care Provider Unavailabl e Social History Tobacco Use Types Packs/Day Years Used Date Smoking Tobacco: Never Assessed Comments Unknown Sex and Gender Information Value Date Recorded Sex Assigned at Female 07/01/2022 10:35 AM EDT Legal Sex Female 10:35 AM EDT Gender Identity Female 07/01/2022 10:35 AM EDT Sexual Orientation Straight 07/01/2022 10 :35 AM EDT Plan of Treatment Health Maintenance Due Date Last Done Comments CT Colonography 1955 Colonoscopy 1955 Colorectal Cancer Screening 1955 Depression Screening 1955 FIT DNA/Cologuard 1955 FIT 1955 FOBT 1955 Sigmoidoscopy 1955 Alcohol/Substance Use Screening 1966 Tobacco Screening 1966 DTaP/Tdap/Td Vaccines (1 - Tdap) 1973 Mammogram 1994 Pneumococcal Vaccine: 50+ Ye ars (1 of 1 - PCV) 01/27/2004 Zoster Vaccines (1 of 2) 01/27/2004 COVID-19 Vaccine ( - 2023-2 5 season) 2024 Influenza Vaccine (#1) 2024 RSV Patients and Pa tients Aged 60 years or older (1 - 1-dose 75+ series) 2029 HIB Vaccines Aged Out No longer eligi ble based on patient's age to complete this topic HPV Vaccines Aged Out No longer eligi ble based on patient's age to complete this topic Hepatitis A Vaccines Aged Out No long er eligible based on patient's age to complete this topic Hepatitis B Vaccines Aged Out No long er eligible based on patient's age to complete this topic IPV Vaccines Aged Out No longer eligi ble based on patient's age to complete this topic Meningococcal Vaccine Aged Out No reagan sukhdeep eligible based on patient's age to complete this topic RSV under 20 months Aged Out No longe r eligible based on patient's age to complete this topic Rotavirus Vaccines Aged Out No longer eligible based on patient's age to complete this topic
--- OUTSIDE RECORDS SUMMARY | 2024-12-02 10:09 | XMS_ITS | Encounter Summary ---
Author Organization [employer] Address [address] [place] [address] [address] [place] [address] Care Team Providers Care Electrical Assembly Supervisor Name Role Phone Unavailable Primary Care Provider Unavailabl e Encounter Details Date Type Department Care Team (Latest Contact Info) Description 06/22/2019 Abstract [facility] CONVERSIONS Dental, Provider, DDS Social [...]
== END 2024-12-02 10:51 | disposition home or self-care (01) ==
LOC: HO.HMCC 09:41
PROVIDERS: PCP Internal Medicine; Visit Provider Internal Medicine
DX: Z00.01 Encounter for general adult medical examination with abnormal findings (principal); M85.852 Other specified disorders of bone density and structure, left thigh; E78.5 Hyperlipidemia, unspecified; I10 Essential (primary) hypertension; E11.29 Type 2 diabetes mellitus with other diabetic kidney complication; R80.9 Proteinuria, unspecified; I65.21 Occlusion and stenosis of right carotid artery

== ENCOUNTER → 2024-12-02 09:40 | Outpatient (BNVA) | payer MEDICARE, SELFPAY | PROVIDERS: PCP Internal Medicine; Visit Provider Internal Medicine | DX: Z00.01 Encounter for general adult medical examination with abnormal findings (principal); E11.29 Type 2 diabetes mellitus with other diabetic kidney complication; I10 Essential (primary) hypertension; E78.5 Hyperlipidemia, unspecified; M85.852 Other specified disorders of bone density and structure, left thigh; R80.9 Proteinuria, unspecified; I65.21 Occlusion and stenosis of right carotid artery; Z78.0 Asymptomatic menopausal state; Z86.73 Personal history of transient ischemic attack (TIA), and cerebral infarction without residual deficits | CPT/HCPCS: 96127; 99397 ==

== ENCOUNTER 2024-12-05 09:45 | Emergency (ER) | payer MEDICARE, SELFPAY ==
--- NOTE | ~2024-12-05 | CT_ITS ---
CLINICAL HISTORY: Fall and head injury CT head without contrast Comparison: None Findings: No acute hemorrhage. Basal ganglia calcifications. No extra-axial fluid collection. No hydrocephalus, mass-effect or herniation. Cooley-white differentiation is maintained. There is patchy hypoattenuation of the periventricular and deep white matter, which is most likely the sequela of mild chronic small vessel ischemic disease. No acute orbital pathology. Nasal soft tissue swelling which extends into the right frontal scalp at the midline. No fracture. The visualized paranasal sinuses are predominantly clear. The mastoid air cells are clear. Impression: No acute intracranial findings. This document has been electronically signed by: Karin Shea MD on 12/05/2024 12:51:01
--- NOTE | ~2024-12-05 | CT_ITS ---
CLINICAL HISTORY: Fall, nasal bleed CT maxillofacial without contrast Comparison: None Findings: No acute fracture or dislocation. No acute orbital or intracranial findings. Clear paranasal sinuses and mastoid air cells. Nasal and superior nasal soft tissue swelling which extends into the frontal scalp predominantly to the right of midline. Impression: No fracture. This document has been electronically signed by: Karin Shea MD on 12/05/2024 12:55:38
[2024-12-05 09:47] VITALS: BP 175/71; PULSE 94; RESP 16; TEMP 37.2; O2SAT 98; BMI 22.4
--- OUTSIDE RECORDS SUMMARY | 2024-12-05 10:41 | XMS_ITS | Clinical Summary ---
Author Organization [employer] Address [address] [place] [address] [address] [place] [address] Care Team Providers Care Social Services Specialist Name Role Phone Unavailable Primary Care Provider [...]
--- OUTSIDE RECORDS SUMMARY | 2024-12-05 10:41 | XMS_ITS | Encounter Summary ---
Author Organization [employer] Address [address] [place] [address] [address] [place] [address] Care Team Providers Care Vamp Seamer Name Role Phone Unavailable Primary Care Provider Unavailabl e Encounter Details Date Type Department Care Team (Latest Contact Info) Description 04/19/2021 Abstract [facility] CONVERSIONS Dental, Provider, DDS Social History Tobacco [...]
--- OUTSIDE RECORDS SUMMARY | 2024-12-05 10:41 | XMS_ITS | Encounter Summary ---
Author Organization [employer] Address [address] [place] [address] [address] [place] [address] Care Team Providers Care Radiology Nurse Name Role Phone Unavailable Primary Care Provider Unavailabl e Encounter Details Date Type Department Care Team (Latest Contact Info) Description 06/22/2019 Abstract [facility] CONVERSIONS Dental, Provider, DDS Social History [...]
--- NOTE | 2024-12-05 10:46 | ED_ITS ---
HPI - Head Injury General Chief complaint: Wound/Laceration Stated complaint: face injury Time Seen by Provider: 12/05/24 10:39 Source: patient Mode of arrival: ambulatory Limitations: no limitations History of Present Illness ED Provider: DR. Hernandez HPI Narrative: 69-year-old female walked into the emergency department for evaluation after had a mechanical fall this morning at 09:00. Patient was squatting looking for something in her cabinet when she slipped and fell forward landing on her face hitting her nose in the cabinet door, no LOC, no nausea, no vomiting, no blurry vision, no neck pain. Declined taking anticoagulation. Related Data Home Medications ?Medication ?Instructions ?Recorded ?Confirmed multivitamin 1 tab PO DAILY 06/03/20 11/29/22 cholecalciferol (vitamin D3) 50 50 mcg PO DAILY 06/05/20 11/29/22 mcg (2,000 unit) capsule fluticasone propionate 50 1 spray intranasal DAILY PRN 07/02/21 11/29/22 mcg/actuation nasal spray,suspension (Flonase Allergy Relief) acetaminophen 650 mg 650 mg PO Q12H 12/09/23 tablet,extended release (Tylenol Arthritis Pain) Previous Rx's ?Medication ?Instructions ?Recorded mupirocin 2 % topical ointment 1 appl topical BID 5 days #15 grams 07/02/21 amlodipine 5 mg tablet 5 mg PO DAILY 90 days #90 tabs 09/02/24 metformin 500 mg tablet See Rx Instructions PO BID 3 09/02/24 months #270 tabs losartan 25 mg tablet 25 mg PO DAILY 90 days #90 tabs 10/13/24 atorvastatin 40 mg tablet 80 mg (2 x 40 mg) PO Q2D 3 months 12/02/24 #90 tabs cephalexin 500 mg capsule 500 mg PO Q12H 7 days #14 caps 12/02/24 mupirocin 2 % topical ointment 1 appl topical TID 5 days #15 grams 12/02/24 Allergies Allergy/AdvReac Type Severity Reaction Status Date / Time metronidazole [From FLAGYL] Allergy Mild METALLIC Verified 12/05/24 09:50 TASTE/RASH Sulfa (Sulfonamide Allergy Mild RASH, Verified 12/05/24 09:50 Antibiotics) rash, SOB [SULFA (SULFONAMIDE ANTIBIOTICS)] Review of Systems Review of Systems: All other systems are reviewed and are negative Constitutional: Reports as per HPI and Reports no additional constitutional complaints Eyes: Reports as per HPI and Reports no additional eye complaints Reports system reviewed and no additional complaints, except as documented Cardiovascular: Reports as per HPI and Reports no additional cardiovascular complaints Respiratory: Reports as per HPI and Reports no additional respiratory complaints Gastrointestinal: Reports as per HPI and Reports no additional gastrointestinal complaints Genitourinary: Reports no additional female genitourinary complaints Musculoskeletal: Reports no additional musculoskeletal complaints Skin/Breast: Reports system reviewed and no additional complaints, except as docu Psychiatric: Reports no additional psychiatric complaints Endocrine: Reports no additional endocrine complaints Hematologic/Lymphatic: Reports no additional hematologic/lymphatic complaints Allergic/Immunologic: Reports no additional allergic/immunologic complaints Reports system reviewed and no additional complaints, except as documented and Reports Abnormal speech present [facility] Past Medical History Medical History Pain in left lower leg Popliteal pain Positional lightheadedness 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 Mother No problems noted. Social History Social History Housing: House Alcohol intake: current Patient Tobacco Use Status: Former Tobacco user e-Cigarette/Vaping Use: Never Used Second Hand Smoke Exposure: No Advance Directives: Yes Advance Directives on File: Yes Advance Directives Date on File: 11/29/22 Current occupational status: retired Cognitive needs: No Hearing needs: No Vision needs: Yes Physical Exam Vital Signs: Vital Signs: Last Vital Signs Temp 99.2 F 12/05/24 12:56 Pulse 94 12/05/24 12:56 Resp 16 12/05/24 12:56 BP 139/64 12/05/24 12:56 Pulse Ox 100 12/05/24 12:56 O2 Del Method Room Air 12/05/24 12:56 BMI result Body Mass Index 22.4 Vital signs have been reviewed and appear to be correct. Blood pressure elevated. Heart rate normal. Respiratory rate normal. Temperature normal. Oxygen saturation normal. Appearance: Alert. Oriented X3. No acute distress. GCS 15. Head: Normal external exam. Normocephalic. Atraumatic. No Kapoor signs noted. No raccoon eyes noted. Face: A small 1 cm laceration on the nose bridge, no active bleed, no septal hematoma. Eyes: PERRLA. EOMI. Conjunctiva and sclera normal. Eyelids normal. ENT: TM's Normal. Pharynx normal. Uvula midline. Moist mucous membranes. No trismus noted. No drooling noted. No muffled voice noted. Neck: Normal inspection. Neck supple. FROM. No adenopathy. Thyroid Normal. No meningeal signs. No neck mass noted. CVS: Normal heart rate and rhythm. Heart sound normal. No murmurs noted. Pulses normal throughout. Respiratory: No respiratory distress. Painless inspiration. Breath sounds normal. No wheezes/rales/rhonchi noted. Chest nontender. No accessory muscle usage noted or decreased air movement noted. Abdomen: Soft and nontender. Bowel sounds normal in all 4 quadrants. No distention noted. No organomegaly noted. No visible injury noted. Back: No CVA tenderness. Full range of motion noted. Skin: Skin warm and dry. Normal skin color. Normal skin turgor. No rashes/lesions/lacerations noted. Extremities: No lower extremity edema. Extremities exhibit normal range of motion. Extremities nontender. Neuro: Oriented X 3. Cranial nerve exam: II-XII are grossly intact No motor deficit. No sensory deficit. Reflexes normal. Course Reevaluation(s) Reevaluation #1: S/p mechanical fall with small laceration on the nose, no LOC, patient is not on any anticoagulation. Time: 13:31 Medications Administered Discontinued Medications Generic Name Dose Route Start Last Admin Trade Name Freq PRN Reason Stop Dose Admin Diphtheria/Tetanus/Acell Pertussis 0.5 ml 12/05/24 10:44 12/05/24 11:07 Diphth,Pertus(Acell),Tet Adult 0.5 Ml Syringe IM 12/05/24 10:45 0.5 ml .ONCE ONE Administration Medical Decision Making Differential Diagnosis Differential Diagnoses: The differential diagnosis associated with the presentation includes (Intracranial bleed, facial bone fracture, extremity injury, chest injury, abdominal injury, on anticoagulation, tetanus booster.) Admission/Observation Consideration of admission/observation: Escalation of care including admission/observation considered Independent Interpretation I performed an independent interpretation of an: CT Scan (Head/face: No acute pathology.) Radiology Impression Discussion of test interpretation with radiology: I have reviewed the radiologist's reading. Procedures Laceration Laceration 1: Site: face (On the nasal bridge) Size (cm): 1 Description: linear Depth: simple, single layer Skin layer closed with: other (Dermabond) Technique: simple, interrupted Discharge Plan Discharge Clinical Impression: Accident due to mechanical fall without injury, Contusion of nose, Laceration of nose, Laceration of skin of face Patient Disposition: Home, Self-Care Instructions: Skin Adhesive Care (ED) Prescriptions: No Action metformin 500 mg tablet See Rx Instructions PO BID 90 Days Qty: 270 1RF Rx Instructions: take 1000 mg ( 2 tabs) in am and 500 mg (1 tab) in pm with meals amlodipine 5 mg tablet 5 mg PO DAILY 90 Days Qty: 90 1RF losartan 25 mg tablet 25 mg PO DAILY 90 Days Qty: 90 3RF multivitamin Tablet 1 tab PO DAILY cholecalciferol (vitamin D3) 50 mcg (2,000 unit) capsule 50 mcg PO DAILY fluticasone propionate [Flonase Allergy Relief] 50 mcg/actuation spray,suspension 1 spray intranasal DAILY PRN Rx Instructions: administer into each nostril mupirocin 2 % ointment 1 appl topical BID 5 Days Qty: 15 0RF acetaminophen [Tylenol Arthritis Pain] 650 mg tablet extended release 650 mg PO Q12H atorvastatin 40 mg tablet 80 mg PO Q2D 90 Days Qty: 90 3RF cephalexin 500 mg capsule 500 mg PO Q12H 7 Days Qty: 14 0RF mupirocin 2 % ointment 1 appl topical TID 5 Days Qty: 15 0RF Referrals: Татьяна Mancuso MD [Primary Care Provider] - Print Language: Turkmen
[2024-12-05] MEDS: Diphth,Pertus(ACell),Tet Adult 0.5 ML SYRINGE IM (11:07)
[2024-12-05 12:56] VITALS: BP 139/64; PULSE 94; RESP 16; TEMP 37.3; O2SAT 100
[2024-12-05 13:46] VITALS: BP 132/77; PULSE 87; RESP 16; TEMP 36.7; O2SAT 100
== END 2024-12-05 13:47 | disposition home or self-care (01) ==
PROVIDERS: Emergency Provider Emergency Medicine; PCP Internal Medicine
DX: S01.21XA Laceration without foreign body of nose, initial encounter (principal); S01.81XA Laceration without foreign body of other part of head, initial encounter; S00.33XA Contusion of nose, initial encounter; W19.XXXA Unspecified fall, initial encounter; Y93.89 Activity, other specified; Y92.019 Unspecified place in single-family (private) house as the place of occurrence of the external cause; Y99.9 Unspecified external cause status; Z23 Encounter for immunization
CPT/HCPCS: 12011; 70450; 70486; 90471; 90715; 99283; 99284

== ENCOUNTER → 2024-12-05 10:44 | Outpatient (BNV) | payer MEDICARE, SELFPAY | PROVIDERS: Emergency Provider Emergency Medicine; PCP Internal Medicine; Visit Provider Radiology Diagnostic Radiology | DX: R04.0 Epistaxis (principal); S09.90XA Unspecified injury of head, initial encounter; W19.XXXA Unspecified fall, initial encounter | CPT/HCPCS: 70450; 70486 ==

== ENCOUNTER 2025-03-10 07:49 | Outpatient (REF) | payer MEDICARE, SELFPAY ==
--- OUTSIDE RECORDS SUMMARY | 2025-03-10 07:51 | XMS_ITS | Patient Health Record ---
Author Organization [facility] Address [address] [place] [phone] Care Team Providers Care Lead Web Application Developer Name Role Phone Jamee MARTINEZ, Татьяна Primary Care Provider Jean Pierre Montiel Jr Unavailable [phone] Allergies Allergen (clinical drug ingredient) Drug/Non Drug Allergy documented on EMR Reaction Allergy Type Onset Date Status Pollen (e.g. tree, grass) Unknown Allergy Active Sulfa Unknown Drug Allergy Active metronidazole Flagyl Unknown Drug Allergy Act emanuel Reason For Referral No Information Medications Medication SIG (Take, Route, Frequency, Duration) Notes Start Date End Date Status Losartan Potassium 25 MG Oral for 90 Days Active metFORMIN HCl 500 MG TAKE 2 TABLETS BY M OUTH EVERY MORNING WITH BREAKFAST & 1 TABLET EVERY EVENING WITH DINNER Oral for 90 Days Active Atorvastatin Calcium 20 MG 1 tablet Oral ly Once a day Active amLODIPine Besylate 5 MG 1 tablet Orally Once a day Active Multi Vitamin/Minerals 1 1 Orally qd Active Fluticasone Propionate 50 MCG/ACT 1 spray in each nostril Nasally Once a day Active Vitamin D3 50 MCG (1999) 1 capsule Or ally Once a day Active Vitamin B Complex - as directed Orally Active Problems Problem Type SNOMED Code ICD Code Onset Dates Problem Status W/U Status Risk Notes Problem Already on aspirin (506852644) Long-term (current) use of aspirin (V58.66) Active confirmed Problem Colon cancer screening (425682037) Colon cancer screening (V76.51) Active confirmed Problem 035713549 retirement current use of aspirin (Z79.82) Active confirmed Problem Screening for malignant neoplasm of colon (869305625) Encounter for screening for malignant neoplasm of colon (Z12.11) Active confirmed Problem Long-term current use of drug therapy (659869041) High risk medications (not anticoagulants) long-term use (Z79.899) Active confirmed Vital Signs Blood pressure diastolic 77 mm Hg 03/03/2025 Height 58 in 03/03/2025 Blood pressure systolic 111 mm Hg 03/03/2025 Weight 104 lbs 03/03/2025 BMI 21.73 kg/m2 03/03/2025 Encounters Encounter Location Date Provider Diagnosis [facility] [address] [place] [phone] 03/03/2025 Jean Pierre Gaitan Jr Encounter for screening for malignant neoplasm of colon Z12.11 and High risk medications (not anticoagulants) long-term use Z79.899 [facility] [address] [facility] [address] [place] [phone] 03/07/2025 Jean Pierre Gaitan Jr Assessments Encounter Date Diagnosis (ICD Code) Assessment Notes Treatment Notes Treatment Clinical Notes Section Notes 03/03/2025 Encounter for screening for malignant neoplasm of colon (ICD-10 - Z12.11) We discussed colonoscopy today. We discussed risks and benefits of the procedure today. She understands these and agrees to proceed. She is advised to stop metformin the day before the procedure. 03/03/2025 High risk medications (not anticoagulants) long-term use (ICD-10 - Z79.899) We discussed colonoscopy today. We discussed risks and benefits of the procedure today. She understands these and agrees to proceed. She is advised to stop metformin the day before the procedure. Plan Of Treatment Future Test Test Name Order Date COLONOSCOPY 07/07/2013 COLONOSCOPY 06/02/2015 COLONOSCOPY 03/03/2025 Next Appt Details Provider Name:Jean Pierre vora Jr, 05/17/2025 10:10:00 AM, [address] [facility] , [place], [place], [id number], Insurance Providers Payer Name Payer Address Payer Phone Subscriber Number Group Number Insured Name Patient Relationship to Insured Coverage Start Date Coverage End Date [employer] [address] [place] [address] [phone] [id number] ANDRÉS HUMPHREYS Self - patient is the insured Medical (General) History Medical History History ICD Code CVA in 03/2013--residual weak ness in left side-70% right carotid artery stenosis, Now less than 50% (03/25) and off dual antiplatelet therapy hypertension diabetes II elevated Cholesterol Difficult intubation sciatica Colonoscopy 07/16, unremarkable colon po lyp, 10-year follow-up Surgical History Surgery Date(Month/Year) cyst removal-on right breast D & [facility]
--- OUTSIDE RECORDS SUMMARY | 2025-03-10 07:51 | XMS_ITS | Encounter Summary ---
Author Organization [employer] Address [address] [place] [address] [address] [place] [address] Care Team Providers Care Rayon Tester Name Role Phone Unavailable Primary Care Provider Unavailabl e Encounter Details Date Type Department Care Team (Latest Contact Info) Description 04/19/2021 Abstract [facility] CONVERSIONS Dental, Provider, DDS Social History Tobacco [...]
[2025-03-10 10:53] LABS: Hemoglobin A1C 176.0003 umol/L; Total Hemoglobin (HGBA1C) 3595.2061 umol/L
[2025-03-10 10:59] LABS: Alanine Aminotransferase 169 U/L (0-31); Albumin Level 4.4 g/dL (3.5-5.0); Alkaline Phosphatase 73 U/L (39-117); Anion Gap 12 (12-20); Aspartate Amino Transferase 101 U/L (5-31); Blood Urea Nitrogen 19 mg/dL (9-16); Calcium 9.6 mg/dL (8.4-10.2); Carbon Dioxide 28 mmol/L (22-29); Chloride 105 mmol/L (96-108); Cholesterol 209 mg/dL (<200); Estimated Glomerular Filt Rate > 60; HDL Cholesterol 58 mg/dL (>40); Potassium 4.0 mmol/L (3.3-5.1); Sodium 141 mmol/L (135-145); Total Protein 7.4 g/dL (6.5-8.0); Triglycerides 183 mg/dL (<150)
== END 2025-03-10 07:50 | disposition home or self-care (01) ==
LOC: HO.HMGCLDS 07:49
PROVIDERS: PCP Internal Medicine; Visit Provider Internal Medicine
DX: Z00.01 Encounter for general adult medical examination with abnormal findings (principal); R80.9 Proteinuria, unspecified; Z86.73 Personal history of transient ischemic attack (TIA), and cerebral infarction without residual deficits; E78.5 Hyperlipidemia, unspecified; Z71.89 Other specified counseling; E11.29 Type 2 diabetes mellitus with other diabetic kidney complication; I10 Essential (primary) hypertension
CPT/HCPCS: 36415; 80053; 80061; 82550; 83036

== ENCOUNTER 2025-03-16 09:10 | Outpatient (AMB) | payer MEDICARE, SELFPAY ==
--- OUTSIDE RECORDS SUMMARY | 2025-03-16 09:28 | XMS_ITS | Patient Health Record ---
Author Organization [facility] Address [address] [place] [phone] Care Team Providers Care Fitting Room Inspector Name Role Phone Jamee MARTINEZ, Татьяна Primary Care Provider Jean Pierre Montiel Jr Unavailable Allergies Allergen (clinical drug ingredient) Drug/Non Drug [...] Status Risk Notes Problem Already on aspirin (063802413) Long-term (current) use of aspirin (V58.66) Active confirmed Problem Colon cancer screening (515103044) Colon cancer screening (V76.51) Active confirmed Problem 134082539 [facility] current use of aspirin (Z79.82) Active confirmed Problem Screening for malignant neoplasm of colon (629082348) Encounter for screening for malignant neoplasm of colon (Z12.11) Active confirmed Problem Long-term current use of drug therapy (728155330) High risk medications (not anticoagulants) long-term use (Z79.899) Active confirmed Vital Signs Blood pressure diastolic 77 mm Hg 03/03/2025 Height 58 in 03/03/2025 Blood pressure systolic 111 mm Hg 03/03/2025 Weight 104 lbs 03/03/2025 BMI 21.73 kg/m2 03/03/2025 Encounters Encounter Location Date Provider Diagnosis [facility] [address] [place] [phone] 03/03/2025 Jean Pierre Gaitan Jr Encounter for screening for malignant neoplasm of colon Z12.11 and High risk medications (not anticoagulants) long-term use Z79.899 [facility] [address] [facility] [address] [place] [phone] 03/07/2025 Jean Pierre Gaitan Jr Assessments Encounter [...] Pierre vora Jr, 05/17/2025 10:10:00 AM, [address] [facility] , [place], [place], [phone], Insurance Providers Payer Name Payer Address Payer Phone Subscriber Number Group Number Insured Name Patient Relationship to Insured Coverage Start Date Coverage End Date [facility] [address] [place] [address] [phone] [id number] ANDRÉS HUMPHREYS Self - patient is the [...]
--- OUTSIDE RECORDS SUMMARY | 2025-03-16 09:28 | XMS_ITS | Encounter Summary ---
Author Organization [employer] Address [address] [place] [address] [address] [place] [address] Care Team Providers Care Oil Developer Name Role Phone Unavailable Primary Care Provider Unavailabl e Encounter Details Date Type Department Care Team (Latest Contact Info) Description 04/19/2021 Abstract [facility] CONVERSIONS Dental, Provider, DDS Social History [...]
--- NOTE | 2025-03-16 09:34 | A.OFFPC_ITS ---
Vital Signs 03/16/25 09:35 Height 4 ft 11 in Weight 104 lb BMI 21.0 BP 144/70 H Blood Pressure Location Lt brachial Position Sitting Respiration 16 Pulse 95 Pulse Source Pulse Oximeter Temp 98.2 F Temp Source Oral Pulse Oximetry (%) 99 Oxygen Delivery Method Room Air Intake Visit Reasons: 4 months f/up Intake Note: Pt is here today for her 4mo. f/u Allergies metronidazole (From FLAGYL) Allergy (Mild, Verified 03/16/25 11:10) METALLIC TASTE/RASH Sulfa (Sulfonamide Antibiotics) (SULFA (SULFONAMIDE ANTIBIOTICS)) Allergy (Mild, Verified 03/16/25 11:10) RASH, rash, SOB Medication List - Last Reconciled 03/16/25 by Татьяна Mancuso MD amlodipine 5 mg PO DAILY 90 days cholecalciferol (vitamin D3) 50 mcg PO DAILY fluticasone propionate 50 mcg/actuation (Flonase Allergy Relief) 1 spray intranasal DAILY PRN losartan 25 mg PO DAILY 90 days metformin 500 mg PO QPM multivitamin 1 tab PO DAILY mupirocin 2% 1 appl topical TID 5 days Tobacco use date assessed: 03/16/25 Fall risk assessment: 1 Fall in past year Last assessed Fall Risk: 03/16/25 Dental Screening Dental Screen Date: 03/16/25 Did you have a dental visit in the last 12 months?: Yes Did you have a dental problem in the last 6 months where you did not have access to dental care?: No Was dental information given to patient?: Patient has dentist HPI 4 months f/up HPI Details 70-year-old lady with history of diabete s mellitus, hypertension, dyslipidemia and history of CVA without residual deficits, here today for follow-up. She has been compliant progressive weakness in arms and legs with the last 3 months, now having difficulty even to comb her hair, has a hard time getting in and out of the car, or climbing stairs, unable to lift anything more than 5 lb, and complaining of muscle aches mainly in her thighs and upper arms. She is currently on atorvastatin but dose was decreased from 80-20 mg daily. Currently on metformin but patient decrease dose to just 500 mg at night with supper. Her latest fasting labs showed hemoglobin A1c at 6.6% with fasting lipids showing LDL cholesterol at 115 and elevated triglycerides, elevated liver enzyme, urine microalbuminuria above normal and marked elevation in her total CK at 4380. Her electrolytes and renal function are within normal limits She is also complaining of a nonhealing abscess on medial aspect of right buttock. She states that it initially improved with taking cephalexin and applying mupirocin cream , but now has recurrent. Complaining of pain when sitting or with passing a bowel movement. 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 Mother No problems noted. Social History Housing: House Alcohol intake: current Patient Tobacco Use Status: Former Tobacco user Smoked in Last 30 Days: No e-Cigarette/Vaping Use: Never Used Second Hand Smoke Exposure: No Use of substances other than those prescribed or required for medical reasons: No Advance Directives: Yes Advance Directives on File: Yes Advance Directives Date on File: 11/29/22 Do you have a plan to hurt others: No Plan Current occupational status: retired Cognitive needs: No Hearing needs: No Vision needs: Yes Questionnaire PHQ-9 Over the last 2 weeks, how often have you been bothered by any of the following problems? Depression Screening Interpretation: Negative Depression Screening Done: Yes Source: Developed by Drs. Fuentes Boston, Miriam Wiley, Jr Joseph and colleagues, with an educational sylvia from [employer]. Thrive Questionnaire Date Thrive assessed: 12/02/24 I am a: Patient What is your living situation today?: I have a steady place to live Within the past 12 months, did the food you bought not last and you didn't have the money to get more?: Never true Within the past 12 months, did you worry whether your food would run out before you got money to buy more?: Often true Do you have trouble paying for medicines?: No Do you have trouble getting transportation to medical appointments?: No Do you have trouble paying your heating and electricity bill?: No Do you have trouble taking care of your child, family member or friend?: No Do you have trouble with day-to-day activities such as bathing, preparing meals, shopping, managing finances, etc.?: No Are you currently unemployed and looking for a job?: No Are you interested in more education?: No Please select the resources that you would like help with: None Currently or been in a relationship where the following occur: No concerns reported THRIVE Score: 1 TOÑA-7 AMB Questionnaire TOÑA-7 Date TOÑA - 7 assessed: 12/02/24 Source: Developed by Drs. Fuentes Boston, Miriam Wiley, Jr Joseph and colleagues, with an educational sylvia from [employer]. Review of Systems Const Reports fatigue, Denies fever(s), Denies frequent falls, Reports lethargy and Reports weight loss Eyes Reports no additional complaints ENT Reports no additional complaints Card Denies chest pain at rest, Denies chest pain with activity and Reports lightheadedness (With getting up fast) Resp Reports no additional complaints GI Denies abdominal pain, Denies change in bowel habits and Denies nausea Reports no additional complaints Musc Reports as per HPI and Reports muscle weakness Neuro Denies frequent falls Psych Reports no additional complaints Endo Reports fatigue Dewey/Lymph Reports no additional complaints Physical exam (Primary Care) Vital Signs: Last Vital Signs Temp 98.2 F 03/16/25 09:35 Pulse 95 03/16/25 09:35 Resp 16 03/16/25 09:35 BP 144/70 H 03/16/25 09:35 Pulse Ox 99 03/16/25 09:35 Oxygen Delivery Method Room Air 03/16/25 09:35 BMI result Body Mass Index 21.0 Tobacco/Smoking Status: Tobacco use Status Tobacco use date assessed 03/16/25 03/16/25 09:38 Patient Tobacco Use Status Former Tobacco user 03/16/25 09:38 e-Cigarette/Vaping Use Never Used 03/16/25 09:38 Depression Screening Interpretation: Negative Thrive Assessment: Date of Thrive Assessment Date Thrive assessed 12/02/24 03/16/25 09:38 Currently or been in a relationship where the following occur: No concerns reported Const Other: Alert oriented x3, no acute distress noted ambulatory normal gait, accompanying patient Orientation/consciousness: patient oriented x3 [facility] Mouth: Normal oral and palatal mucosa present and moist mucous membranes Eyes General: appearance normal, both eyes and all related structures Neck Neck: Yes full ROM and Yes no lymphadenopathy Resp Auscultation: clear to auscultation bilaterally Cardio Other: S1-S2 present regular rate and rhythm GI Palpation (GI): Soft to palpation, nontender, no guarding and no masses Auscultation: normal bowel sounds General: Yes no CVA tenderness Back/Spine/Pelvis Back: no CVA tenderness and No back tenderness Skin General skin exam: no rashes or lesions noted Neuro General: patient oriented x3, tone normal, moves all extremities, Normal light touch and pain sensation and no focal motor deficits Extrem General: Yes full ROM, Yes no joint enlargement, Yes no clubbing, cyanosis or edema, Yes no pedal edema, Yes no calf tenderness and Yes normal gait Psych Appearance: grossly normal and well kempt Mental Status: mental status grossly normal Speech and movement: Normal speech and movement present Affect: normal affect Results Reviewed Results Reviewed: jana: Paula Lira Age/Sex: 70/F : 1955 Unit#: [id number] Attend Dr: Татьяна Mancuso MD Re03/10/25 Status: DEP REF Location: [facility] Disch: SPEC : [id number] TREV: 03/10/25 STATUS: COMP REQ : [id number] RECD: 03/10/25-[address]: Татьяна Mancuso MD COMP: 03/10/259 ENTERED: 03/10/[address]: ORDERED: CMP Fast, CK Total, Lipid Panel Test Result Flag Reference Sodium 141 135-145 mmol/L Potassium 4.0 3.3-5.1 mmol/L CL 105 96-108 mmol/L CO2 28 22-29 mmol/L Gap 12 12-20 BUN 19 H 9-16 mg/dL Creat 0.70 0.5-1.4 mg/dL eGFR > 60 Chronic Kidney Disease: Estimated GFR < 60 mL/min/1.73m2 Severe Kidney Disease: Estimated GFR < 15 mL/min/1.73m2 FBS 134 H 60-99 mg/dL A fasting glucose of 126 mg/dl or greater on more than one occasion is considered diagnostic of diabetes. CA 9.6 8.4-10.2 mg/dL Total Bili 0.5 0.0-1.0 mg/dL AST (GOT) 101 H 5-31 U/L ALT (GPT) 169 H 0-31 U/L CK Total 4380 H 26-140 U/L Protein, Total 7.4 6.5-8.0 g/dL Alb 4.4 3.5-5.0 g/dL Triglyceride 183 H <150 mg/dL Desirable Triglyceride: less than 150 mg/dL Borderline High Triglyceride 150-199 mg/dL High Triglyceride: 200-499 mg/dL Very High Triglyceride: greater than or equal to 5OO mg/dL Cholesterol 209 H <200 mg/dL Desirable Cholesterol: less than 200 mg/dL Borderline High Cholesterol: 200-239 mg/dL High Cholesterol: greater than 239 mg/dL LDL Calculated 115 H <100 mg/dL Desirable LDL: less than 100 mg/dL Near Optimal/Above Optimal LDL: 110-129 mg/dL Borderline High LDL: 130-159 mg/dL High LDL: 160-189 mg/dL Very High LDL: greater than or equal to 190 mg/dL HDL 58 >40 mg/dL Desirable HDL: greater than 40 mg/dL Note: This HDL assay may give artificially low results in patients with liver disease. Alk Phos 73 39-117 U/L Name: Paula Lira Tanner Age/Sex: 69/F : 1955 Unit#: [id number] Attend Dr: Татьяна Mancuso MD Re11/27/24 Status: DEP REF Location: [facility] Disch: SPEC : [id number] TREV: 11/27/24 STATUS: COMP REQ : [id number] RECD: 11/27/[address]: Татьяна Mancuso MD COMP: 11/27/24 ENTERED: 11/27/[address] [facility] DR: ORDERED: KALYANI Test Result Flag Reference Creat, Ur 38.05 mg/dL Microalbumin Ur 20.0 mg/L Alb/Creat Ratio 52.5 H <30 ug/mg cr Albumin/Creatinine Ratio Reference Ranges: Normal: < 30 ug/mg creatinine Microalbuminuria: 30 - 300 ug/mg creatinine Clinical Albuminuria: > 300 ug/mg creatinine Laboratory Tests 03/10/25 07:52 Estimat Average Glucose 143 Hemoglobin A1c % 6.6 H Laboratory Tests 03/10/25 07:52 Total Creatine Kinase 4380 H Coding Level of Care Code Est Pt Level 5 (57734) Diagnoses Non-traumatic rhabdomyolysis M62.82 Rhabdomyolysis type: non-traumatic Primary hypertension I10 Hypertension type: primary hypertension Dyslipidemia E78.5 Type 2 diabetes mellitus with microalbuminuria, without long-term current use of insulin E11.29; R80.9 Abscess of buttock L02.31 Elevated transaminase level R74.01 Assessment & Plan Assessment & Plan (1) Rhabdomyolysis: Code(s): M62.82 - Rhabdomyolysis Category: Medical Qualifiers: Rhabdomyolysis type: non-traumatic Qualified Code(s): M62.82 - Rhabdomyolysis Plan: Likely due to statin, renal function still within normal limits, progressive weakness and pain in muscles in both upper extremities and lower extremities. Referred to ER for further evaluation and to receive IV hydration, discontinued metformin and atorvastatin for now (2) Hypertension: Code(s): I10 - Essential (primary) hypertension Category: Medical Qualifiers: Hypertension type: primary hypertension Qualified Code(s): I10 - Essential (primary) hypertension Plan: Continue with losartan and amlodipine at the same dose (3) Dyslipidemia: Code(s): E78.5 - Hyperlipidemia, unspecified Category: Medical Plan: Fasting lipid results were discussed with patient and . Will hold off on atorvastatin for now (4) Type 2 diabetes mellitus with microalbuminuria, without long-term current use of insulin: Code(s): E11.29 - Type 2 diabetes mellitus with other diabetic kidney complication; R80.9 - Proteinuria, unspecified Category: Medical Plan: Patient has just decreased her metformin dose to 500 mg at night due to persistent diarrhea and nausea when taking the higher dose , reinforced impor tance of following diabetic diet (5) Abscess of buttock: Code(s): L02.31 - Cutaneous abscess of buttock Category: Medical Plan: Has already been on cephalexin, with recurrence of lesion, referred to general surgery for further evaluation (6) Elevated transaminase level: Code(s): R74.01 - Elevation of levels of liver transaminase levels Category: Medical Plan: Will hold off on taking metformin and atorvastatin for now until liver enzymes normalize Orders: Orders Creatine Kinase Total 10 Days M6. - Rhabdomyolysis, R74.01 - Elevation of levels of liver transaminase levels Comprehensive [place]. Panel Fast 10 Days - Rhabdomyolysis, R74.01 - Elevation of levels of liver transaminase levels Referrals General Surgery Referral L02.31 - Cutaneous abscess of buttock
[2025-03-16 09:35] VITALS: BP 144/70; PULSE 95; RESP 16; TEMP 36.8; O2SAT 99; BMI 21.0
== END 2025-03-16 10:41 | disposition home or self-care (01) ==
LOC: HO.HMCC 09:11
PROVIDERS: PCP Internal Medicine; Visit Provider Internal Medicine
DX: E11.29 Type 2 diabetes mellitus with other diabetic kidney complication (principal); M62.82 Rhabdomyolysis; I10 Essential (primary) hypertension; E78.5 Hyperlipidemia, unspecified; R80.9 Proteinuria, unspecified; L02.31 Cutaneous abscess of buttock; R74.01 Elevation of levels of liver transaminase levels

== ENCOUNTER → 2025-03-16 09:10 | Outpatient (BNVA) | payer MEDICARE, SELFPAY | PROVIDERS: PCP Internal Medicine; Visit Provider Internal Medicine | DX: I10 Essential (primary) hypertension (principal); E11.29 Type 2 diabetes mellitus with other diabetic kidney complication; E78.5 Hyperlipidemia, unspecified; M62.82 Rhabdomyolysis; R80.9 Proteinuria, unspecified; L02.31 Cutaneous abscess of buttock; R74.01 Elevation of levels of liver transaminase levels; Z79.84 Long term (current) use of oral hypoglycemic drugs; Z86.73 Personal history of transient ischemic attack (TIA), and cerebral infarction without residual deficits | CPT/HCPCS: 99212 ==

== ENCOUNTER 2025-03-16 10:46 | Inpatient (IN) | payer MEDICARE, SELFPAY ==
[2025-03-16 11:07] VITALS: BP 158/64; PULSE 99; RESP 16; TEMP 36.8; O2SAT 98; BMI 20.8
--- NOTE | 2025-03-16 11:10 | ED_ITS ---
HPI - General Adult General Chief complaint: Weakness Stated complaint: muscular pain Time Seen by Provider: 03/16/25 12:42 Source: patient Mode of arrival: ambulatory Limitations: no limitations History of Present Illness ED Provider: Dr. Edinson Dawn HPI narrative: 70-year-old female history of diabetes mellitus, hypertension, hyperlipidemia, sciatica who was sent to the emergency department by her PCP for evaluation of possible rhabdomyolysis as the cause of her muscle weakness. Patient had outpatient labs on 03/10/2025 and had a CK 4380. Patient states that she has been experiencing muscle weakness for proximally 3-4 months. She states that the weakness is mainly in her arms and legs and has gotten progressively worse. She states that recently she has been having trouble getting in and out of bed secondary to her weakness in her extremities. She also states that she can not lift more than 2 lb secondary to her weakness. Patient states that she has had a 17 lb weight loss (117 lb to 104 lb) over the last 4 months. She states she occasionally gets pain in her muscles and joints but this has not severe. She has not noticed any joint swelling or rashes. She denied night sweats, fever or chills. The patient believes that her symptoms started when her doctor increased her metformin to 1500 mg daily. She states that this increase in metformin also gave her severe diarrhea. Her doctor subsequently decreased your metformin to 500 mg daily and this improved her diarrhea but did not change her muscle weakness. The patient has been on atorvastatin for many years for her high cholesterol . Her doctor has decreased her dose from 80 mg a day to 20 mg a day in November of 2024 . Related Data Home Medications ?Medication ?Instructions ?Recorded ?Confirmed multivitamin 1 tab PO DAILY 06/03/2003/01 cholecalciferol (vitamin D3) 50 50 mcg PO DAILY 03/16/25 mcg (2,000 unit) capsule fluticasone propionate 50 1 spray intranasal DAILY PRN 07/02/21 03/16/25 mcg/actuation nasal spray,suspension (Flonase Allergy Relief) Previous Rx's ?Medication ?Instructions ?Recorded losartan 25 mg tablet 25 mg PO DAILY 90 days #90 t abs 10/13/24 mupirocin 2 % topical ointment 1 appl topical TID 5 da ys #15 grams 04/03/25 amlodipine 5 mg tablet 5 mg PO DAILY 90 days #90 ta bs 02/28/25 Allergies Allergy/AdvReac Type Severity Reaction Status Date / Time metronidazole (From FLAGYL) Allergy Mild METALLIC Verified 03/16/25 11:10 TASTE/RASH Sulfa (Sulfonamide Allergy Mild RASH, Verified 03/16/25 11:10 Antibiotics) (SULFA rash, SOB (SULFONAMIDE ANTIBIOTICS)) Review of Systems 2 Review of Systems: Yes all other systems are reviewed and are negative [facility] Past Medical History Medical History (Updated 03/16/25 @ 14:02 by Edinson Dawn MD) Elevated transaminase level Rhabdomyolysis Abscess of buttock 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 Mother No problems noted. Social History Social History Housing: House Alcohol intake: current Patient Tobacco Use Status: Former Tobacco user Smoked in Last 30 Days: No e-Cigarette/Vaping Use: Never Used Second Hand Smoke Exposure: No Use of substances other than those prescribed or required for medical reasons: No Advance Directives: Yes Advance Directives on File: Yes Advance Directives Date on File: 11/29/22 Do you have a plan to hurt others: No Plan Current occupational status: retired Cognitive needs: No Hearing needs: No Vision needs: Yes Physical Exam ED Vital Signs: Vital Signs - 24 hr 03/16/25 11:07 03/16/25 11:40 Temperature 98.2 F 98.2 F Pulse Rate 99 83 Respiratory Rate 16 19 Blood Pressure 158/64 H 136/57 L Pulse Oximetry 98 98 Oxygen Delivery Method Room Air Room Air BMI result Body Mass Index 20.8 Vital signs revealed an elevated blood pressure of 158/65 otherwise unremarkable Exam: General: Awake, alert in no distress Head: Normocephalic, atraumatic EENT: PERRL, Lids normal, sclera normal, conjunctiva normal, nose normal , ears normal, throat without erythema or exudates Neck: Supple, no adenopathy Lung: breath sounds symmetric, no wheezing, rales or rhonchi Chest: symmetric movement, nontender Heart: regular rate and rhythm, normal S1, S2 no murmurs or rubs Abdomen: soft, non-tender, nondistended, normal bowel sounds Back: no vertebral tenderness, no CVAT Extremities: no deformities, moves all extremities symmetrically what has significant weakness, no tenderness palpation over her muscles, no erythema or swelling of her joints Neuro: Awake, alert, oriented, normal speech, cranial nerves intact, patient has symmetric weakness in her upper and lower extremities Psych: Pleasant, cooperative Course Course Course Narrative: 03/16/25 1110 KEVIN Montes This is a Rapid Medical Examination (RME) performed by Екатерина eKys PA-C in triage. Full HPI, ROS, assessment and treatment plan per primary provider in the Main ED. Hx: 70 yo F hc rhabdo, CVA, HTN, HLD here from PCP office for eval of b/l upper and lower extremity weakness and pain x6 months. pcp sent her in for concern of rhabdo. her PCP recently discontinued her metformin and atorvastatin. Plan: labs, UA, viral swabs Medical Decision Making Medical Decision Making [facility] Narrative: 70-year-old female history of diabetes mellitus, hypertension, hyperlipidemia, sciatica who was sent to the emergency department by her PCP for evaluation of possible rhabdomyolysis as the cause of her muscle weakness. Patient had outpatient labs on 03/10/2025 and had a CK 4380.Patient states that she has been experiencing muscle weakness for proximally 3-4 months. She states that the weakness is mainly in her arms and legs and has gotten progressively worse. She states that recently she has been having trouble getting in and out of bed secondary to her weakness in her extremities. She also states that she can not lift more than 2 lb secondary to her weakness. Patient states that she has had a 17 lb weight loss (117 lb to 104 lb) over the last 4 months. She states she occasionally gets pain in her muscles and joints but this has not severe. She has not noticed any joint swelling or rashes. She denied night sweats, fever or chills. The patient believes that her symptoms started when her doctor increased her metformin to 1500 mg daily. She states that this increase in metformin also gave her severe diarrhea. Her doctor subsequently decreased your metformin to 500 mg daily and this improved her diarrhea but did not change her muscle weakness. The patient has been on atorvastatin for many years for her high cholesterol . Her doctor has decreased her dose from 80 mg a day to 20 mg a day in November of 2024 . Vital signs revealed elevated blood pressure otherwise unremarkable. Exam revealed significant symmetric weakness of her upper and lower extremities with no muscle tenderness, swelling of her joints or rash. Differential diagnosis: ?Includes but is not limited to rhabdomyolysis, medication induced rhabdomyolysis (atorvastatin), rheumatologic causes of rhabdomyolysis ( myositis, dermatomyositis), hypothyroidism, anemia, electrolyte abnormalities Course: 14:00 My independent interpretation patient's laboratory evaluation is as follows: CBC was normal. Glucose elevated 176. AST and ALT were elevated 106 and 174. She has had some similar elevations in October of 2024 with mild elevation since 2018. CK was elevated on 03/10/2025 at 4380 and today she has a similar elevation of 4937. CRP was below detectable limits which is reassuring. ESR is pending. TSH with reflex T4 is pending. At this time, I believe that the patient's rhabdomyolysis and muscle weakness is probably related to atorvastatin however other causes still need to be considered. Given her severe weakness, I believe the patient should be admitted for further evaluation of her rhabdomyolysis especially given her weight loss. I did order LR x2 L to try to bring down her CK. I did discuss the patient's presentation over tiger text with Dr. Mc and the patient will be admitted for further treatment and evaluation. Admission/Observation Consideration of admission/observation: Escalation of care including admission/observation considered (Yes) Consult Healthcare Provider Management of the patient was discussed with: Hospitalist ( ) Lab Data MDM Lab Attestation statement: I reviewed the patient's lab results. 03/16/25 11:28 03/16/25 11:28 Labs: Lab Results 03/16/25 03/16/25 Range/Units 11:28 11:39 WBC 8.4 (4.8-10.8) X10*3/uL RBC 4.47 (4.20-5.50) X10*6/uL Hgb 13.3 (12.0-16.0) g/dl Hct 39.5 (37.0-47.0) % MCV 88.4 (80.0-98.0) fL MCH 29.8 (27.0-33.0) pg MCHC 33.7 (31.0-35.0) g/dl RDW 12.4 (11.0-16.0) % Plt Count 386 (160-400) X10*3/uL MPV 9.6 (9.4-12.3) fL Immature Gran % (Auto) 0.2 (0.0-0.4) % Neut % (Auto) 60.0 (45-73) % Lymph % (Auto) 24.8 (20-40) % [place] % (Auto) 6.8 (2-11) % Eos % (Auto) 7.2 H (0-4) % Baso % (Auto) 1.0 (0-2) % Lymph # (Auto) 2.1 (1.2-4.9) X10*3/uL [place] # (Auto) 0.6 (0.1-1.2) X10*3/uL Eos # (Auto) 0.6 H (0.0-0.4) X10*3/uL Baso # (Auto) 0.1 (0.0-0.2) X10*3/uL Abs Immat Gran (auto) 0.02 (0.00-0.03) X10*3/uL Absolute Neuts (auto) 5.0 (2.0-8.3) x10*3/uL Absolute Nucleated RBC 0.000 (0.0-0.012) X10*3/uL Nucleated RBC % (auto) 0.0 (0.0-0.2) /100WBC Sodium 143 (135-145) mmol/L Potassium 3.6 (3.3-5.1) mmol/L Chloride 108 (96-108) mmol/L Carbon Dioxide 27 (22-29) mmol/L Anion Gap 12 (12-20) BUN 16 (9-16) mg/dL Creatinine 0.55 (0.5-1.4) mg/dL Estim Creat Clear Calc 63.9 Estimated GFR > 60 Random Glucose 176 H (60-115) mg/dL Calcium 9.2 (8.4-10.2) mg/dL Magnesium 2.0 (1.6-2.6) mg/dL Total Bilirubin 0.3 (0.0-1.0) mg/dL AST 106 H (5-31) U/L ALT 174 H (0-31) U/L Alkaline Phosphatase 77 (39-117) U/L Total Creatine Kinase 4937 H (26-140) U/L Troponin I High Sens 8.6 (<3.5-17.0) ng/L Total Protein 7.2 (6.5-8.0) g/dL Albumin 4.5 (3.5-5.0) g/dL Influenza Type A (PCR) NEGATIVE (Negative) Influenza Type B (PCR) NEGATIVE (Negative) RSV RNA Qual (PCR) NEGATIVE (Negative) SARS-CoV-2 RNA (RT-PCR) NEGATIVE (Negative) Chronic Conditions Patient?s care impacted by: Diabetes, Hypertension and Other (Hyperlipidemia) Discharge Plan Discharge Patient Disposition: Admitted As Inpatient Print Language: Nepali
--- NOTE | 2025-03-16 11:10 | ECG_ITS ---
Test Reason : WEAKNESS Blood Pressure : */* mmHG Vent. Rate : 91 BPM Atrial Rate : 91 BPM P-R Int : 144 ms QRS Dur : 68 ms QT Int : 354 ms P-R-T Axes : 64 21 20 degrees QTcB Int : 435 ms Normal sinus rhythm Normal ECG When compared with ECG of 17-Oct-2024 02:08, No significant change was found Referred By: Kristine Keys Electronically Signed By: SOHAIL HENDRIX
[2025-03-16 11:34] LABS: MANUAL DIFF FLAG NO
[2025-03-16 11:35] LABS: Hematocrit 39.5 % (37.0-47.0); Hemoglobin 13.3 g/dl (12.0-16.0); Imm Gran Abs Auto 0.02 X10*3/uL (0.00-0.03); Imm Gran Pct Auto 0.2 % (0.0-0.4); Lymphocytes Absolute Auto 2.1 X10*3/uL (1.2-4.9); Mean Corpuscular HGB Conc 33.7 g/dl (31.0-35.0); Mean Corpuscular Hemoglobin 29.8 pg (27.0-33.0); Mean Corpuscular Volume 88.4 fL (80.0-98.0); NRBC Abs Auto 0.000 X10*3/uL (0.0-0.012); NRBC Pct Auto 0.0 /100WBC (0.0-0.2); Platelet Count 386 X10*3/uL (160-400); Red Blood Count 4.47 X10*6/uL (4.20-5.50); White Blood Count 8.4 X10*3/uL (4.8-10.8)
[2025-03-16 11:40] VITALS: BP 136/57; PULSE 83; RESP 19; TEMP 36.8; O2SAT 98
[2025-03-16 11:59] LABS: Alanine Aminotransferase 174 U/L (0-31); Albumin Level 4.5 g/dL (3.5-5.0); Alkaline Phosphatase 77 U/L (39-117); Anion Gap 12 (12-20); Aspartate Amino Transferase 106 U/L (5-31); Blood Urea Nitrogen 16 mg/dL (9-16); Calcium 9.2 mg/dL (8.4-10.2); Carbon Dioxide 27 mmol/L (22-29); Chloride 108 mmol/L (96-108); Creatinine Clr Calc Pharmacy 63.9; Estimated Glomerular Filt Rate > 60; Magnesium 2.0 mg/dL (1.6-2.6); Potassium 3.6 mmol/L (3.3-5.1); Sodium 143 mmol/L (135-145); Total Protein 7.2 g/dL (6.5-8.0)
[2025-03-16 12:00] LABS: Troponin-I High Sensitivity 8.6 ng/L (<3.5-17.0)
[2025-03-16 12:28] LABS: Resp Syncy Virus RNA Qual PCR NEGATIVE (Negative); SARS COV2 PCR INHOUSE NEGATIVE (Negative)
[2025-03-16] MEDS: Lactated Ringers 1,000 ML 999 ML IV ×2 (13:17)
[2025-03-16 13:35] LABS: Appearance Urine Clear; Glucose Urine UA 100 mg/dL (Negative); PH 6.5 (5.0-9.0); Specific Gravity - Urine 1.015 (1.005-1.025); UMIC TRIGGER UACC YES
[2025-03-16 13:38] LABS: UACC Culture Trigger YES
[2025-03-16 14:02] LABS: Thyroid Stimulating Hormone 0.64 uIU/mL (0.32-4.0)
[2025-03-16 14:06] VITALS: BP 135/60; PULSE 88; RESP 20; TEMP 36.6; O2SAT 98
--- NOTE | 2025-03-16 15:07 | PM.IMHP ---
History of Present Illness Date of Service: 03/16/25 Attending physician on admission: Randal Roberson Chief Complaint: Worsening generalized weakness Pt is a 70-year-old female with a PMH significant for?tcx-jjakurx-jzmgoxkaj type 2 diabetes, HTN, HLD, hx of TIA in 2012, and sciatica who presents to the ED from PCP office for evaluation of generalized muscle weakness concerning for possible rhabdomyolysis after outpatient labs on 03/10/2025 showed CPK of 4380. Pt reports has been feeling generalized muscle weakness since at least November of this year. Denies any significant joint or muscle pain. Has been having difficulty going upstairs or getting in Medicare's, or performing any strenuous activity. Also reports around 15 lb weight loss first noticed in November; weight has been steady since then. Pt has had transaminitis since 10/17. At that time pt is atorvastatin was reduced from 80 mg to 40 mg, and subsequently reduced again to 20 mg has transaminitis continued. Pt had labs drawn again on 03/10/2025 with continue transaminitis with AST 101 and ALT 169, and CPK 4380. Pt re-presented to her PCP today who told her to stop taking atorvastatin and metformin and sent her to the ED for additional workup and treatment with IVF. States has been on atorvastatin 80 mg for many years. Metformin was recently increased to 1500 mg b.i.d., then reduced to 500 mg b.i.d. after pt experienced GI upset and diarrhea. No other recent medication changes. Denies numbness or tingling in extremities. No nausea, vomiting, diarrhea. Denies abdominal pain. No chest pain/pressure, palpitations. Denies shortness or breath or difficulty breathing. In the ED pt was Labs were significant for AST 106, ALT 174, and CPK 4935. ESR and CRP unremarkable. TSH and T4 WNL. Renal function baseline. No leukocytosis. Stable H&H. No significant electrolyte abnormalities. UA not convincing for UTI. EKG demonstrated normal sinus rhythm without evidence of significant ST elevations or depressions. Pt was treated in the ED with 2L IVF. Pt is admitted to the hospital for treatment and further evaluation of rhabdomyolysis and transaminitis likely secondary to statin use. Review of Systems Review of Systems: Negative except for that which is stated in the HPI. 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 Mother No problems noted. Surgical History History of cholecystectomy History of dilation and curettage Social History Housing: House Alcohol intake: current Patient Tobacco Use Status: Former Tobacco user Smoked in Last 30 Days: No e-Cigarette/Vaping Use: Never Used Second Hand Smoke Exposure: No Use of substances other than those prescribed or required for medical reasons: No Advance Directives: Yes Advance Directives on File: Yes Advance Directives Date on File: 11/29/22 Do you have a plan to hurt others: No Plan Current occupational status: retired Cognitive needs: No Hearing needs: No Vision needs: Yes Meds Allergies Allergy/AdvReac Type Severity Reaction Status Date / Time metronidazole (From FLAGYL) Allergy Mild METALLIC Verified 03/16/25 11:10 TASTE/RASH Sulfa (Sulfonamide Allergy Mild RASH, Verified 03/16/25 11:10 Antibiotics) (SULFA rash, SOB (SULFONAMIDE ANTIBIOTICS)) Home Medications ?Medication ?Instructions ?Recorded ?Confirmed ?Last Taken ?Type multivitamin 1 tab PO DAILY 06/03/20 03/16/25 03/16/25 History cholecalciferol (vitamin D3) 50 50 mcg PO DAILY 06/05/20 03/16/25 03/16/25 History mcg (2,000 unit) capsule fluticasone propionate 50 1 spray intranasal DAILY PRN Nasal 07/02/21 03/16/25 Unknown History mcg/actuation nasal Congestion spray,suspension (Flonase Allergy Relief) loperamide 2 mg capsule 2 mg PO Q4H PRN Loose Stool When 03/16/25 03/16/25 Unknown History Taking Metformin Physical Exam Vital Signs and Narrative: Vital Signs: Last Vital Signs Temp 97.9 F 03/16/25 14:06 Pulse 88 03/16/25 14:06 Resp 20 03/16/25 14:06 BP 135/60 03/16/25 14:06 Pulse Ox 98 03/16/25 14:06 O2 Del Method Room Air 03/16/25 14:06 BMI result Body Mass Index 20.8 General: AOx3, no acute distress Resp: CTA bilaterally CVS: S1, S2, RRR GI: +BS, NT, no distention Skin: Warm, dry Neuro: Cranial nerves II-XII grossly intact bilaterally. Motor grossly intact bilaterally. Sensation to light touch intact of upper and lower extremities bilaterally. Musculoskeletal: 3/5 symmetric strength of upper and lower extremities bilaterally. Preserved leveler helper strength. Extremities: No edema Psych: Appropriate affect Results Labs 03/16/25 11:28 03/16/25 11:28 Labs: Laboratory Results - last 24 hr 03/16/25 03/16/25 03/16/25 11:28 11:39 13:27 MCV 88.4 MCH 29.8 MCHC 33.7 RDW 12.4 Plt Count 386 MPV 9.6 Immature Gran % (Auto) 0.2 Neut % (Auto) 60.0 Lymph % (Auto) 24.8 [place] % (Auto) 6.8 Eos % (Auto) 7.2 H Baso % (Auto) 1.0 Lymph # (Auto) 2.1 [place] # (Auto) 0.6 Eos # (Auto) 0.6 H Baso # (Auto) 0.1 Abs Immat Gran (auto) 0.02 Absolute Neuts (auto) 5.0 Absolute Nucleated RBC 0.000 Nucleated RBC % (auto) 0.0 ESR 14 Anion Gap 12 Estim Creat Clear Calc 63.9 Estimated GFR > 60 Random Glucose 176 H Calcium 9.2 Magnesium 2.0 Total Bilirubin 0.3 AST 106 H ALT 174 H Alkaline Phosphatase 77 Total Creatine Kinase 4937 H C-Reactive Protein < 0.10 Total Protein 7.2 Albumin 4.5 TSH 0.64 Thyroxine (T4) 8.3 Urine Color Yellow Urine Appearance Clear Urine pH 6.5 Ur Specific [place] 1.015 Urine Protein Negative Urine Glucose (UA) 100 H Urine Ketones Negative Urine Blood Negative Urine Nitrite Negative Ur Leukocyte Esterase Small (1+) H Urine RBC 0-2 Urine WBC 6-10 H Ur Squamous Epith Cells 6-10 Urine Bacteria Trace Hyaline Casts 0-2 Influenza Type A (PCR) NEGATIVE Influenza Type B (PCR) NEGATIVE RSV RNA Qual (PCR) NEGATIVE SARS-CoV-2 RNA (RT-PCR) NEGATIVE Assessment and Plan (1) Rhabdomyolysis: Qualifiers: Rhabdomyolysis type: non-traumatic Qualified Code(s): M62.82 - Rhabdomyolysis Status: Acute (2) Transaminitis: Status: Acute Plan Pt is a 70-year-old female with a PMH significant for?bbg-fdvukny-jleornxil type 2 diabetes, HTN, HLD, hx of TIA in 2012, and sciatica who presents to the ED from PCP office for evaluation of generalized muscle weakness concerning for possible rhabdomyolysis after outpatient labs on 03/10/2025 showed CPK of 4380. Pt is admitted to the hospital for treatment and further evaluation of rhabdomyolysis and transaminitis likely secondary to statin use. Rhabdomyolysis CPK 4937, was 4380 on 03/10 Pt reports generalized muscle weakness x3 months Inflammatory markers unremarkable; no muscle or joint pain, no rash Likely secondary to statin use Received 2L IVF in the ED, will place on maintenance fluids Continue to hold statin Trend CPK, creatinine Transaminitis AST 106, ALT 174 LFTs elevated since 10/17 Likely secondary to statin use Hold statin, Treat as above Trend labs Rsc-hlktjzs-tihjqeakc type 2 diabetes Metformin recently reduced from 1500 mg b.i.d. to 500 mg b.i.d. due to GI upset and diarrhea Place on sliding scale insulin, diabetic diet HTN Continue amlodipine, losartan Full Code Attending:?Dr. Roberson DVT Prophylaxis: Lovenox Pt will require a hospitalization of at least two nights for treatment of?rhabdomyolysis and transaminitis likely secondary to statin use. Pt will require hospital level care for administration of IVF and close monitoring of CPK and renal and hepatic function. Quality Stroke Does the patient have a stroke diagnosis?: No VTE Prior VTE?: No VTE Risk Level:: Medical - moderate - high VTE Device Contraindication: Treatment Not Indicated VTE Drug Contraindication: N/A - Med Ordered
--- NOTE | 2025-03-16 15:40 | PHA.MEDREC ---
Addendum entered by Dwayne Phillips [facility] 03/16/25 16:06: MED REC CHECKED BY [facility] Original Note: Pharmacy Consult ? Medication Reconciliation Pharmacy has completed the medication reconciliation. Spoke with pt and at bedside and she confirmed her medications. Pt states she saw her PCP today and was told to stop taking her Metformin 500mg tab and Atorvastatin 80mg tab for 10 days while they figure out what is going on with her. Pt states she uses Loperamide 2mg tabs as needed when she takes Metformin; pt states the TDD of 1500mg of Metformin causes pt to get loose stool.
--- NOTE | 2025-03-16 15:50 | PC.NURSE ---
KEVIN Amor at bedside
[2025-03-16 16:28] VITALS: BP 129/55; PULSE 81; RESP 20; O2SAT 97
--- NOTE | 2025-03-16 16:55 | PC.NURSE ---
Summary of care: Pt is a 70 y.o F presenting from home. A&O X4, independent with ADL's at baseline, ambulatory without assistance, skin WPD. Pt sts that for the last 3-4 months she has been experiencing increasing weakness in her extremities, as well as weight loss (pt reports a loss of 17lbs) and fatigue. Pt denies joint swelling/pain. Pt denies fever chills and CP, but does endorse occasional palpitations. The pt believes that her symptoms were d/t diarrhea from increased metformin dose which was 1500 mg daily. it was decreased to 500mg which helped the diarrhea, but weakness persisted. Pt has also been on liptor 80mg for many years. PCP has decreased from 80 mg a day to 20 mg a day in November of 2024. Pt saw PCP on 03/10 CK at that time was 4380- pt was seen in office today (03/16) and was sent for eval for potential rhabdomyolysis. Pt Ck in dept 03/16/25 was 4937- pt rec 2L LR via 20g in left forearm. Plan is for admission and treatment of rhabdomyolysis
[2025-03-16] MEDS: Lactated Ringers 1,000 ML 100 ML IVCONT (17:31)
[2025-03-16 18:11] LABS: Glucose, Whole Blood 122 mg/dL (60-115)
[2025-03-16 18:46] VITALS: BMI 20.8
[2025-03-16 18:56] VITALS: BP 156/70; PULSE 87; RESP 18; TEMP 37.1; O2SAT 97
[2025-03-16 20:00] VITALS: BP 146/67; PULSE 81; RESP 20; TEMP 36.1; O2SAT 97
[2025-03-16 21:23] LABS: Glucose, Whole Blood 168 mg/dL (60-115)
--- NOTE | 2025-03-17 02:23 | PC.NURSE ---
pt noted with bmx4 loose from 1957-[address]. dr pathak notified. gi panel and cdiff ordered.
[2025-03-17 03:20] VITALS: BP 127/57; PULSE 73; RESP 16; TEMP 36.4; O2SAT 98
[2025-03-17] MEDS: Lactated Ringers 1,000 ML 100 ML IVCONT ×2 (03:31→13:33)
[2025-03-17 06:40] LABS: Alanine Aminotransferase 132 U/L (0-31); Albumin Level 3.5 g/dL (3.5-5.0); Alkaline Phosphatase 65 U/L (39-117); Anion Gap 9 (12-20); Aspartate Amino Transferase 89 U/L (5-31); Blood Urea Nitrogen 15 mg/dL (9-16); Calcium 8.7 mg/dL (8.4-10.2); Carbon Dioxide 28 mmol/L (22-29); Chloride 109 mmol/L (96-108); Creatinine Clr Calc Pharmacy 67.7; Estimated Glomerular Filt Rate > 60; Potassium 3.9 mmol/L (3.3-5.1); Sodium 142 mmol/L (135-145); Total Protein 5.8 g/dL (6.5-8.0)
[2025-03-17 07:19] VITALS: BP 144/69; PULSE 82; RESP 14; TEMP 36.5; O2SAT 98
[2025-03-17 07:31] LABS: Glucose, Whole Blood 140 mg/dL (60-115)
[2025-03-17] MEDS: 0.9 % Sodium Chloride Flush 3 ML SYRINGE IVFLUSH (08:27)
[2025-03-17 11:38] LABS: Glucose, Whole Blood 148 mg/dL (60-115)
--- NOTE | 2025-03-17 14:50 | P.PNIM_ITS ---
Subjective Subjective Date of Service: 03/17/25 Interval History: Pt seen evaluated resting comfortably in bed No acute events overnight Reports feels better with improved strength No significant acute complaints Has been able to tolerate diet Review of Systems Review of Systems: Yes all other systems are reviewed and are negative Physical Exam 2 Vital Signs: Vital Signs: Last Vital Signs Temp 97.7 F 03/17/25 07:19 Pulse 82 03/17/25 07:19 Resp 14 03/17/25 07:19 BP 144/69 H 03/17/25 07:19 Pulse Ox 98 03/17/25 07:19 O2 Del Method Room Air 03/17/25 07:19 BMI result Body Mass Index 20.8 Objective Data Active Medications Acetaminophen (Acetaminophen 325 Mg Tablet) 650 mg PO Q6H PRN PRN Reason: Pain, Mild 1-3,fever,headache Amlodipine Besylate (Amlodipine Besylate 5 Mg Tablet) 5 mg PO DAILY JOSE; Protocol Last Admin: 03/17/25 08:26 Dose: 5 mg Documented By: ROBERT Calcium Carbonate (Calcium Carbonate 750 Mg Tab.Chew) 750 mg PO Q4H PRN PRN Reason: Heartburn Dextrose (Dextrose 50 % 25 Gm/50 Ml Syringe) 25 gm IVPUSH Q15M PRN; Protocol PRN Reason: per Hypoglycemia Standing Ord. Enoxaparin Sodium (Enoxaparin Sodium 40 Mg/0.4 Ml Syringe) 40 mg SUBCUT Q24H [facility] Last Admin: 03/16/25 18:20 Dose: Not Given Documented By: MACIEJ Non-Admin Reason: Patient Condition Contraindication Fluticasone Propionate (Fluticasone Propionate Nasal 16 Gm [place]) 1 spray NOSTRIL-B DAILY PRN PRN Reason: Nasal Congestion Glucose (Glucose Gel 15 Gm Gel..Gram.) 15 gm PO Q15M PRN; Protocol PRN Reason: per Hypoglycemia Standing Ord. Lactated Ringer's (Lr) 1,000 mls @ 100 mls/hr IVCONT .Q10H [facility] Last Admin: 03/17/25 13:33 Dose: 100 mls/hr Documented By: ROBERT Insulin Human Lispro (Insulin Lispro 100 Unit/Ml 3 Ml Vial) 0 unit SUBCUT QIDACHS [facility]; Protocol Last Admin: 03/17/25 11:39 Dose: Not Given Documented By: ROBERT Non-Admin Reason: No Insulin Coverage Loperamide HCl (Loperamide Hcl 2 Mg Capsule) 2 mg PO Q4H PRN PRN Reason: Loose Stool When Taking Metformin Losartan Potassium (Losartan Potassium 25 Mg Tablet) 25 mg PO DAILY [facility]; Protocol Last Admin: 03/17/25 08:26 Dose: 25 mg Documented By: ROBERT Magnesium Hydroxide (Milk Of Magnesia 30 Ml Oral.Susp) 30 ml PO DAILY PRN PRN Reason: Constipation Melatonin (Melatonin 3 Mg Tablet) 6 mg PO BEDTIME PRN PRN Reason: Insomnia Multivitamins/Vitamin C (Multivitamin Tablet) 1 tab PO DAILY [facility] Last Admin: 03/17/25 08:26 Dose: 1 tab Documented By: ROBERT Ondansetron HCl (Ondansetron Hcl 4 Mg/2 Ml Vial) 4 mg IVPUSH Q8H PRN PRN Reason: Nausea and Vomiting Sodium Chloride (0.9 % Sodium Chloride Flush 3 Ml Syringe) 3 ml IVFLUSH QSHIFT [facility] Last Admin: 03/17/25 08:27 Dose: 3 ml Documented By: ROBERT Vitamin D (Cholecalciferol (Vitamin D3) 25 Mcg Tablet) 50 mcg PO DAILY [facility] Last Admin: 03/17/25 08:26 Dose: 50 mcg Documented By: ROBERT Labs 03/16/25 11:28 03/17/25 06:13 Labs: Laboratory Results - last 24 hr 03/16/25 03/16/25 03/17/25 18:07 21:19 06:13 Anion Gap 9 L Estim Creat Clear Calc 67.7 Estimated GFR > 60 POC Glucose 122 H 168 H Random Glucose 132 H Calcium 8.7 Total Bilirubin 0.4 AST 89 H ALT 132 H Alkaline Phosphatase 65 Total Creatine Kinase 3728 H Total Protein 5.8 L Albumin 3.5 03/17/25 03/17/25 07:21 11:35 Anion Gap Estim Creat Clear Calc Estimated GFR POC Glucose 140 H 148 H Random Glucose Calcium Total Bilirubin AST ALT Alkaline Phosphatase Total Creatine Kinase Total Protein Albumin Microbiology Microbiology Results: Microbiology 03/16/25 Unknown Urine Culture - Preliminary Urine clean catch - Clean Catch Midstream Culture in progress. Assessment and Plan (1) Rhabdomyolysis: Status: Acute Assessment and Plan: Pt is a 70-year-old female with a PMH significant for?aev-tuebozt-ihkturiqf type 2 diabetes, HTN, HLD, hx of TIA in 2013, and sciatica who presents to the ED from PCP office for evaluation of generalized muscle weakness concerning for possible rhabdomyolysis after outpatient labs on 03/10/2025 showed CPK of 4380. Pt is admitted to the hospital for treatment and further evaluation of rhabdomyolysis and transaminitis likely secondary to statin use. Rhabdomyolysis CPK [place]-->3728 Pt reports generalized muscle weakness x3 months Inflammatory markers unremarkable; no muscle or joint pain, no rash Likely secondary to statin use Received 2L IVF in the ED, placed on maintenance fluids Discontinue statin, continue fluids Trend CPK, creatinine Transaminitis Improving: AST 106 -->89, ALT 174-->132 LFTs elevated since 10/17 Likely secondary to statin use Discontinue statin, treat as above Trend labs Sdk-nmbjend-elprkiipt type 2 diabetes Metformin recently reduced from 1500 mg b.i.d. to 500 mg b.i.d. due to GI upset and diarrhea Place on sliding scale insulin, diabetic diet HTN Continue amlodipine, losartan Full Code DVT Prophylaxis: Lovenox Pt will require require continued hospitalization for continued administration of IVF and monitoring of CPK, LFTs, and kidney function. Quality Stroke Does the patient have a stroke diagnosis?: No VTE Prior VTE?: No VTE Risk Level:: Medical - moderate - high VTE Device Contraindication: Treatment Not Indicated VTE Drug Contraindication: N/A - Med Ordered
[2025-03-17 16:00] VITALS: BP 147/67; PULSE 95; RESP 14; TEMP 37.1; O2SAT 96
[2025-03-17 16:15] LABS: Glucose, Whole Blood 143 mg/dL (60-115)
--- NOTE | 2025-03-17 16:30 | MHC.CM.PN ---
PT REPORTS SHE LIVES WITH HER AND IS INDEPENDENT WITH CARE SHE HAS NO DME AND NO SERVICES PCP: MEETA FELIX HCP ON FILE IMM DELIVERED DCP: HOME VIA PRIVATE TRANSPORT
[2025-03-17 20:00] VITALS: BP 151/57; PULSE 83; RESP 18; TEMP 37.2; O2SAT 97
[2025-03-17 20:14] LABS: Glucose, Whole Blood 180 mg/dL (60-115)
[2025-03-18] MEDS: Lactated Ringers 1,000 ML 100 ML IVCONT (00:26)
[2025-03-18] MEDS: 0.9 % Sodium Chloride Flush 3 ML SYRINGE IVFLUSH (00:26)
[2025-03-18 04:00] VITALS: BP 139/63; PULSE 51; RESP 18; TEMP 35.8; O2SAT 95
[2025-03-18 06:44] LABS: Alanine Aminotransferase 129 U/L (0-31); Albumin Level 3.6 g/dL (3.5-5.0); Alkaline Phosphatase 63 U/L (39-117); Anion Gap 11 (12-20); Aspartate Amino Transferase 87 U/L (5-31); Blood Urea Nitrogen 19 mg/dL (9-16); Calcium 8.4 mg/dL (8.4-10.2); Carbon Dioxide 28 mmol/L (22-29); Chloride 108 mmol/L (96-108); Creatinine Clr Calc Pharmacy 55.8; Estimated Glomerular Filt Rate > 60; Potassium 4.2 mmol/L (3.3-5.1); Sodium 143 mmol/L (135-145); Total Protein 6.0 g/dL (6.5-8.0)
[2025-03-18 07:38] LABS: Glucose, Whole Blood 120 mg/dL (60-115)
[2025-03-18 07:45] VITALS: BP 156/71; PULSE 80; RESP 16; TEMP 36.7; O2SAT 96
[2025-03-18] MEDS: Lactated Ringers 1,000 ML 999 ML IV (09:30)
[2025-03-18 11:24] LABS: Glucose, Whole Blood 208 mg/dL (60-115)
--- NOTE | 2025-03-18 11:40 | MHC.CM.PN ---
pt dcd home self care
--- NOTE | 2025-03-18 11:54 | P.DS_ITS ---
DS: Providers Provider Date of Service: 03/18/25 Date of admission: 03/16/25 14:04 Date of discharge: 03/18/25 Primary care physician: Татьяна Mancuso MD DS: Diagnosis Discharge Diagnosis (1) Rhabdomyolysis: Status: Acute DS: Summary Hospital Course Hospital Course: From the admission HPI: Date of Service: 03/16/25 Attending physician on admission: Randal Roberson Chief Complaint: Worsening generalized weakness Pt is a 70-year-old female with a PMH significant for?ygb-flrcpsb-frnyiylne type 2 diabetes, HTN, HLD, hx of TIA in 2012, and sciatica who presents to the ED from PCP office for evaluation of generalized muscle weakness concerning for possible rhabdomyolysis after outpatient labs on 03/10/2025 showed CPK of 4380. Pt reports has been feeling generalized muscle weakness since at least November of this year. Denies any significant joint or muscle pain. Has been having difficulty going upstairs or getting in Medicare's, or performing any strenuous activity. Also reports around 15 lb weight loss first noticed in November; weight has been steady since then. Pt has had transaminitis since 10/17. At that time pt is atorvastatin was reduced from 80 mg to 40 mg, and subsequently reduced again to 20 mg has transaminitis continued. Pt had labs drawn again on 03/10/2025 with continue transaminitis with AST 101 and ALT 169, and CPK 4380. Pt re-presented to her PCP today who told her to stop taking atorvastatin and metformin and sent her to the ED for additional workup and treatment with IVF. States has been on atorvastatin 80 mg for many years. Metformin was recently increased to 1500 mg b.i.d., then reduced to 500 mg b.i.d. after pt experienced GI upset and diarrhea. No other recent medication changes. Denies numbness or tingling in extremities. No nausea, vomiting, diarrhea. Denies abdominal pain. No chest pain/pressure, palpitations. Denies shortness or breath or difficulty breathing. In the ED pt was Labs were significant for AST 106, ALT 174, and CPK 4935. ESR and CRP unremarkable. TSH and T4 WNL. Renal function baseline. No leukocytosis. Stable H&H. No significant electrolyte abnormalities. UA not convincing for UTI. EKG demonstrated normal sinus rhythm without evidence of significant ST elevations or depressions. Pt was treated in the ED with 2L IVF. Pt is admitted to the hospital for treatment and further evaluation of rhabdomyolysis and transaminitis likely secondary to statin use. Hospital jose Pt was admitted to the hospital for rhabdomyolysis and transaminitis likely secondary to statin use, and was treated with aggressive IVF in both the ED and while in the hospital. Patient's hospital course was uncomplicated, and clinically she felt improvement to both strength, coordination, and fatigue. Transaminitis also improved daily with latest findings AST 87 and ALT 129. CPK initially decreased but eventually plateaued today: 4937-->3728-->3743. Pt wishes to go home she feels much better, and agrees to drink plenty of fluids over the weekend and follow-up with repeat labs on Friday to trend LFTs, CPK, and kidney function. Pt also reports has follow up labs scheduled by PCP on Monday 03/26. Pt received additional 1 L IVF bolus prior to discharge. Patient's urine was also equivocal for UTI, in likely contaminated with 6-10 squamous epithelial cells; culture also grew a moderate amount of rods. Pt does endorse polyuria, though has been getting a lot of fluids. Will empirically treat with cefuroxime 250 mg b.i.d. x5 days. Plan for rhabdomyolysis/transaminitis: Stop statin Drink plenty of fluid over the weekend with goal of 3-4L daily Outpatient labs on Wednesday 03/21 to trend CPK, LFTs, and creatinine Outpatient labs on Monday 03/26, ordered by PCP Follow up with PCP in 1-2 weeks Recommend a low-fat, low-cholesterol diet For possible UTI: Take cefuroxime 250 mg twice a day for the next 5 days For eul-levuofl-tlptwpewd type 2 diabetes, resume home metformin 500 mg daily Follow up with PCP for additional diabetes management For hypertension continue amlodipine and losartan Time Attestation Discharge Coordination Time (in mins): 35 Quality: Safe Use of Opioids Does Pt have an Active Cancer Diagnosis on the Problem List?: No Quality: Stroke Does the patient have a stroke diagnosis?: No Physical Exam Exam: Exam: General: AOx3, no acute distress Resp: CTA bilaterally CVS: S1, S2, RRR GI: +BS, NT, no distention Skin: Warm, dry Neuro: Cranial nerves II-XII grossly intact bilaterally. Motor grossly intact bilaterally. Musculoskeletal: 4/5 symmetric strength of upper and lower extremities bilaterally. Preserved pastoral ministries professor strength. Extremities: No edema Psych: Appropriate affect Vital Signs: Vital Signs: Last Vital Signs Temp 98.0 F 03/18/25 07:45 Pulse 80 03/18/25 07:45 Resp 16 03/18/25 07:45 BP 156/71 H 03/18/25 07:45 Pulse Ox 96 03/18/25 07:45 O2 Del Method Room Air 03/18/25 07:45 BMI result Body Mass Index 20.8 DS: Data Data Completed and Pending Labs on day of discharge: Laboratory Results - last 24 hr 03/17/25 03/17/25 03/18/25 16:11 20:06 05:41 Hold Purple Top SEE NOTE Sodium 143 Potassium 4.2 Chloride 108 Carbon Dioxide 28 Anion Gap 11 L BUN 19 H Creatinine 0.63 Estim Creat Clear Calc 55.8 Estimated GFR > 60 POC Glucose 143 H 180 H Random Glucose 134 H Calcium 8.4 Total Bilirubin 0.4 AST 87 H ALT 129 H Alkaline Phosphatase 63 Total Creatine Kinase 3743 H Total Protein 6.0 L Albumin 3.6 03/18/25 03/18/25 07:13 11:20 Hold Purple Top Sodium Potassium Chloride Carbon Dioxide Anion Gap BUN Creatinine Estim Creat Clear Calc Estimated GFR POC Glucose 120 H 208 H Random Glucose Calcium Total Bilirubin AST ALT Alkaline Phosphatase Total Creatine Kinase Total Protein Albumin Preliminary micro results at discharge 03/16/25 Unknown Urine Culture - Preliminary Urine clean catch - Clean Catch Midstream Gram negative juliette Discharge Plan Discharge Anticipated Discharge Date/Time: 03/18/25 11:24 Patient Disposition: Home, Self-Care Discharge Diagnosis: Rhabdomyolysis Referrals: Татьяна Mancuso MD [Primary Care Provider, Internal Medicine] - 1 Week Discharge Medications: New cefuroxime axetil 250 mg tablet 250 mg PO BID Qty: 10 0RF Rx Instructions: Take one tablet twice a day for UTI Continued losartan 25 mg tablet 25 mg PO DAILY 90 Days Qty: 90 3RF amlodipine 5 mg tablet 5 mg PO DAILY 90 Days Qty: 90 1RF loperamide 2 mg Capsule 2 mg PO Q4H PRN (Reason: Loose Stool When Taking Metformin) multivitamin Tablet 1 tab PO DAILY cholecalciferol (vitamin D3) 50 mcg (2,000 unit) capsule 50 mcg PO DAILY fluticasone propionate [Flonase Allergy Relief] 50 mcg/actuation spray,suspension 1 spray intranasal DAILY PRN (Reason: Nasal Congestion) Rx Instructions: administer into each nostril Discharge Orders: Discharge Order (Routine); Ordered 03/18/25 Ordered By: Yris Amor Activity on Discharge: As tolerated Stand Alone Forms: Patient Portal Discharge page Print Language: Welsh Other Ambulatory Orders: Creatine Kinase Total (Routine) Timeframe: 20250321 Facility: [facility] - Location: Laboratory Ordered By: Yris Amor Comprehensive [place]. Panel Fast (Routine) Timeframe: 20250321 Facility: [facility] - Location: Laboratory Ordered By: Yris Amor Care Plan Goals: Resolution of symptoms Normalization of labs including LFTs and CPK See below Health Concerns: Rhabdomyolysis Transaminitis ORIANA Plan of Treatment: You were admitted to the hospital for generalized weakness in the setting of rhabdomyolysis and transaminitis likely secondary to statin use. You were treated aggressively with IV fluids with overall clinical improvement and improvement to your labs. CPK plateaued today Drink plenty of fluids this weekend with a total goal of 3-4L daily Repeat labs on Friday to trend LFTs, CPK, and creatinine You have additional follow labs scheduled by PCP for 03/26 You can resume home metformin 500mg daily; take with food Urine culture concerning for possible UTI; you has been prescribed cefuroxime 250 mg twice a day for the next 5 days Follow up outpatient with PCP for lab analysis and continued management of hyperlipidemia and diabetes Assessment: See discharge summary
[2025-03-18 12:18] VITALS: BP 156/68; PULSE 98; RESP 14; TEMP 37.1; O2SAT 98
== END 2025-03-18 12:43 | disposition home or self-care (01) | DRG 558 ==
LOC: HO.ED 14:02 → HO.EDOVER 14:14 → HO.S3 17:58
PROVIDERS: Physician Assistant Medical; Admitting Provider Student in an Organized Health Care Education/Training Program; Emergency Provider Emergency Medicine Emergency Medical Services; PCP Internal Medicine; Visit Provider Student in an Organized Health Care Education/Training Program
DX: M62.82 Rhabdomyolysis (principal); N39.0 Urinary tract infection, site not specified; I10 Essential (primary) hypertension; E11.9 Type 2 diabetes mellitus without complications; R74.01 Elevation of levels of liver transaminase levels; T46.6X5A Adverse effect of antihyperlipidemic and antiarteriosclerotic drugs, initial encounter; Z20.822 Contact with and (suspected) exposure to COVID-19; Z79.84 Long term (current) use of oral hypoglycemic drugs; Z79.899 Other long term (current) drug therapy
CPT/HCPCS: 36415; 80053; 81001; 82550; 82947; 83735; 84436; 84443; 84484; 85025; 85652; 86140; 87086; 87088; 87186; 87637; 93005; 99285; J1650; J7120

== ENCOUNTER → 2025-03-16 11:10 | Outpatient (BNV) | payer MEDICARE, SELFPAY | PROVIDERS: Admitting Provider Student in an Organized Health Care Education/Training Program; Emergency Provider Emergency Medicine Emergency Medical Services; PCP Internal Medicine; Visit Provider Internal Medicine | DX: R53.1 Weakness (principal) | CPT/HCPCS: 93010 ==

== ENCOUNTER → 2025-03-16 14:04 | Outpatient (BNV) | payer MEDICARE, SELFPAY | PROVIDERS: Admitting Provider Student in an Organized Health Care Education/Training Program; Emergency Provider Emergency Medicine Emergency Medical Services; PCP Internal Medicine; Visit Provider Student in an Organized Health Care Education/Training Program | DX: M62.82 Rhabdomyolysis (principal); R74.01 Elevation of levels of liver transaminase levels | CPT/HCPCS: 99223; 99232 ==

== ENCOUNTER 2025-03-21 08:01 | Outpatient (REF) | payer MEDICARE, SELFPAY ==
--- OUTSIDE RECORDS SUMMARY | 2025-03-21 08:05 | XMS_ITS | Patient Health Record ---
Author Organization [facility] Address [address] [place] [phone] Care Team Providers Care Training Designer Name Role Phone Jamee MARTINEZ, Татьяна Primary [...] Status Risk Notes Problem Already on aspirin (139659218) Long-term (current) use of aspirin (V58.66) Active confirmed Problem Colon cancer screening (403064075) Colon cancer screening (V76.51) Active confirmed Problem [id number] group home current use of aspirin (Z79.82) Active confirmed Problem Screening for malignant neoplasm of colon (995636857) Encounter for screening for malignant neoplasm of colon (Z12.11) Active confirmed Problem Long-term current use of drug therapy (048832143) High risk medications (not anticoagulants) long-term use (Z79.899) Active confirmed Vital Signs Blood pressure diastolic 77 mm Hg 03/03/2025 Height 58 in 03/03/2025 Blood pressure systolic 111 mm Hg 03/03/2025 Weight 104 lbs 03/03/2025 BMI 21.73 kg/m2 03/03/2025 Encounters Encounter Location Date Provider Diagnosis [facility] [address] [place] [phone] 03/03/2025 Jean Pierre Gaitan Jr Encounter for screening for malignant neoplasm of colon Z12.11 and High risk medications (not anticoagulants) long-term use Z79.899 [facility] [address] [place] [phone] 03/07/2025 Jean Pierre Gaitan Jr [facility] [address] [place] [phone] 03/17/2025 Jean Pierre Gaitan Jr Assessments Encounter Date [...] Date COLONOSCOPY 07/07/2013 COLONOSCOPY 06/02/2015 COLONOSCOPY 03/03/2025 Insurance Providers Payer Name Payer Address Payer Phone Subscriber Number Group Number Insured Name Patient Relationship to Insured Coverage Start Date Coverage End Date [facility] [address] [place] [address] [id number] ANDRÉS HUMPHREYS Self - patient is the [...]
--- OUTSIDE RECORDS SUMMARY | 2025-03-21 08:05 | XMS_ITS | Encounter Summary ---
Author Organization [employer] Address [address] [place] [address] [address] [place] [address] Care Team Providers Care Chief Contract Officer Name Role Phone Unavailable Primary Care Provider Unavailabl e Encounter Details Date Type Department Care Team (Latest Contact Info) Description 04/19/2021 Abstract [facility] CONVERSIONS Dental, Provider, DDS Social History [...]
[2025-03-21 09:46] LABS: Alanine Aminotransferase 180 U/L (0-31); Albumin Level 4.2 g/dL (3.5-5.0); Alkaline Phosphatase 76 U/L (39-117); Anion Gap 12 (12-20); Aspartate Amino Transferase 106 U/L (5-31); Blood Urea Nitrogen 19 mg/dL (9-16); Calcium 9.1 mg/dL (8.4-10.2); Carbon Dioxide 28 mmol/L (22-29); Chloride 107 mmol/L (96-108); Estimated Glomerular Filt Rate > 60; Potassium 4.6 mmol/L (3.3-5.1); Sodium 142 mmol/L (135-145); Total Protein 7.2 g/dL (6.5-8.0)
== END 2025-03-21 08:02 | disposition home or self-care (01) ==
LOC: HO.LAB 08:01
PROVIDERS: PCP Internal Medicine; Visit Provider Student in an Organized Health Care Education/Training Program
DX: M62.82 Rhabdomyolysis (principal); R74.01 Elevation of levels of liver transaminase levels
CPT/HCPCS: 36415; 80053; 82550

== ENCOUNTER 2025-03-21 20:26 | Inpatient (IN) | payer MEDICARE, SELFPAY ==
--- NOTE | 2025-03-21 | ECG_ITS ---
Test Reason : htn,elevated ck Blood Pressure : */* mmHG Vent. Rate : 97 BPM Atrial Rate : 97 BPM P-R Int : 142 ms QRS Dur : 66 ms QT Int : 332 ms P-R-T Axes : 50 30 24 degrees QTcB Int : 421 ms Normal sinus rhythm Normal ECG When compared with ECG of 16-Mar-2025 11:11, No significant change was found Referred By: Generic ED Physician Electronically Signed By: Joel Fontana
[2025-03-21 20:58] VITALS: BP 200/80; PULSE 104; RESP 18; TEMP 36.6; O2SAT 99; BMI 21.1
[2025-03-21 21:34] LABS: MANUAL DIFF FLAG NO
[2025-03-21 21:35] LABS: Hematocrit 38.2 % (37.0-47.0); Hemoglobin 13.0 g/dl (12.0-16.0); Imm Gran Abs Auto 0.02 X10*3/uL (0.00-0.03); Imm Gran Pct Auto 0.2 % (0.0-0.4); Lymphocytes Absolute Auto 2.3 X10*3/uL (1.2-4.9); Mean Corpuscular HGB Conc 34.0 g/dl (31.0-35.0); Mean Corpuscular Hemoglobin 30.0 pg (27.0-33.0); Mean Corpuscular Volume 88.2 fL (80.0-98.0); NRBC Abs Auto 0.000 X10*3/uL (0.0-0.012); NRBC Pct Auto 0.0 /100WBC (0.0-0.2); Platelet Count 402 X10*3/uL (160-400); Red Blood Count 4.33 X10*6/uL (4.20-5.50); White Blood Count 9.4 X10*3/uL (4.8-10.8)
[2025-03-21 21:50] LABS: Alanine Aminotransferase 191 U/L (0-31); Albumin Level 4.4 g/dL (3.5-5.0); Alkaline Phosphatase 77 U/L (39-117); Anion Gap 10 (12-20); Aspartate Amino Transferase 123 U/L (5-31); Blood Urea Nitrogen 18 mg/dL (9-16); Calcium 8.8 mg/dL (8.4-10.2); Carbon Dioxide 28 mmol/L (22-29); Chloride 107 mmol/L (96-108); Creatinine Clr Calc Pharmacy 56.7; Estimated Glomerular Filt Rate > 60; Potassium 4.4 mmol/L (3.3-5.1); Sodium 141 mmol/L (135-145); Total Protein 7.2 g/dL (6.5-8.0)
[2025-03-21 22:10] VITALS: BP 149/58; PULSE 94; RESP 20; TEMP 36.8; O2SAT 98
--- NOTE | 2025-03-21 23:44 | ED.GENADULT ---
HPI - General Adult General Chief complaint: Recheck/Abnormal Lab/Rx Stated complaint: had labs done today / abnormal results Time Seen by Provider: 03/21/25 23:43 Source: patient Mode of arrival: ambulatory Limitations: no limitations History of Present Illness ED Provider: HPI narrative: Patient with his who of diabetes mellitus hypotension hyperlipidemia statin induced rhabdomyolysis admitted here on 03/16 discharge 03/18/25 with diffuse muscular pain elevated CPK to 4000 at the time of discharge patient's CPK was 3743 for last 2 days patient did not not drink much fluids patient is scheduled to get CPK checked on 03/21 as outpatient was elevated to 6016 patient is otherwise asymptomatic not taking his statin anymore brought the patient here because of the elevated CPK no hematuria no abdominal pain no muscular pain Related Data Home Medications ?Medication ?Instructions ?Recorded ?Confirmed multivitamin 1 tab PO DAILY 06/03/20 03/16/25 cholecalciferol (vitamin D3) 50 50 mcg PO DAILY 06/05/20 03/16/25 mcg (2,000 unit) capsule fluticasone propionate 50 1 spray intranasal DAILY PRN Nasal 07/02/21 03/16/25 mcg/actuation nasal Congestion spray,suspension (Flonase Allergy Relief) loperamide 2 mg capsule 2 mg PO Q4H PRN Loose Stool When 03/16/25 03/16/25 Taking Metformin Previous Rx's ?Medication ?Instructions ?Recorded losartan 25 mg tablet 25 mg PO DAILY 90 days #90 tabs 10/13/24 amlodipine 5 mg tablet 5 mg PO DAILY 90 days #90 tabs 02/28/25 cefuroxime axetil 250 mg tablet 250 mg PO BID #10 tabs 03/18/25 Allergies Allergy/AdvReac Type Severity Reaction Status Date / Time metronidazole (From FLAGYL) Allergy Mild METALLIC Verified 03/21/25 21:02 TASTE/RASH Sulfa (Sulfonamide Allergy Mild RASH, Verified 03/21/25 21:02 Antibiotics) (SULFA rash, SOB (SULFONAMIDE ANTIBIOTICS)) Review of Systems Review of Systems: Yes all other systems are reviewed and are negative [facility] Past Medical History Medical History Elevated transaminase level Rhabdomyolysis Abscess of buttock 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 Mother No problems noted. Social History Social History Household Members: Spouse Housing: House Do you presently have visiting nurse or other home services: No Alcohol intake: current Patient Tobacco Use Status: Former Tobacco user Smoked in Last 30 Days: No e-Cigarette/Vaping Use: Never Used Second Hand Smoke Exposure: No Use of substances other than those prescribed or required for medical reasons: No Advance Directives: Yes Advance Directives on File: Yes Advance Directives Date on File: 11/29/22 Do you have a plan to hurt others: No Plan service: No Current occupational status: retired Cognitive needs: No Hearing needs: No Vision needs: Yes Physical Exam ED Vital Signs: Vital Signs - 24 hr 03/21/25 20:58 03/21/25 22:10 03/22/25 01:07 Temperature 98 F 98.2 F 98.0 F Pulse Rate 104 H 94 82 Respiratory Rate 18 20 18 Blood Pressure 200/80 H 149/58 H 150/65 H Pulse Oximetry 99 98 97 Oxygen Delivery Method Room Air Room Air Room Air BMI result Body Mass Index 21.1 Appearance: Alert. Oriented X3. No acute distress. Eyes: PERRLA, No Nystagmus ENT: Pharynx normal. Oral Mucosa moist Neck: Normal inspection. Neck supple. CVS: Normal heart rate and rhythm. Pulses normal. Respiratory: No respiratory distress. Equal air entry bilateral, no wheezing/rales/rhonchi Abdomen: Soft and nontender. Bowel sounds are present, no mass palpable, no CVA tenderness Skin: Skin warm and dry. Normal skin color. Normal skin turgor. Extremities: No lower extremity edema. No calf tenderness Neuro: Oriented X 3. No motor deficit. No sensory deficit.No cerebellar signs , cranial nerves II-XII intact Medications Administered Discontinued Medications Generic Name Dose Route Start Last Admin Trade Name Freq PRN Reason Stop Dose Admin Lactated Ringer's 1,000 mls @ 999 mls/hr 03/21/25 23:45 03/22/25 01:05 Lr IV 03/22/25 00:45 Infused .Q1H1M JOSE Infusion Medical Decision Making Medical Decision Making [facility] Narrative: Patient with worsening of the rhabdomyolysis due to decreased oral intake and previous statin use will admit patient for IV hydration Differential Diagnosis Differential Diagnoses: The differential diagnosis associated with the presentation includes Rhabdomyolysis Admission/Observation Consideration of admission/observation: Escalation of care including admission/observation considered Consult Healthcare Provider Management of the patient was discussed with: Hospitalist Lab Data [facility] Lab Attestation statement: I reviewed the patient's lab results. 03/21/25 21:28 03/21/25 21:28 Labs: Lab Results 03/21/25 03/22/25 Range/Units 21: 00:09 WBC 9.4 (4.8-10.8) X10*3/uL RBC 4.33 (4.20-5.50) X10*6/uL Hgb 13.0 (12.0-16.0) g/dl Hct 38.2 (37.0-47.0) % MCV 88.2 (80.0-98.0) fL MCH 30.0 (27.0-33.0) pg MCHC 34.0 (31.0-35.0) g/dl RDW 12.4 (11.0-16.0) % Plt Count 402 H (160-400) X10*3/uL MPV 9.1 L (9.4-12.3) fL Immature Gran % (Auto) 0.2 (0.0-0.4) % Neut % (Auto) 60.1 (45-73) % Lymph % (Auto) 24.5 (20-40) % [place] % (Auto) 7.1 (2-11) % Eos % (Auto) 7.4 H (0-4) % Baso % (Auto) 0.7 (0-2) % Lymph # (Auto) 2.3 (1.2-4.9) X10*3/uL [place] # (Auto) 0.7 (0.1-1.2) X10*3/uL Eos # (Auto) 0.7 H (0.0-0.4) X10*3/uL Baso # (Auto) 0.1 (0.0-0.2) X10*3/uL Abs Immat Gran (auto) 0.02 (0.00-0.03) X10*3/uL Absolute Neuts (auto) 5.6 (2.0-8.3) x10*3/uL Absolute Nucleated RBC 0.000 (0.0-0.012) X10*3/uL Nucleated RBC % (auto) 0.0 (0.0-0.2) /100WBC Sodium 141 (135-145) mmol/L Potassium 4.4 (3.3-5.1) mmol/L Chloride 107 (96-108) mmol/L Carbon Dioxide 28 (22-29) mmol/L Anion Gap 10 L (12-20) BUN 18 H (9-16) mg/dL Creatinine 0.62 (0.5-1.4) mg/dL Estim Creat Clear Calc 56.7 Estimated GFR > 60 Random Glucose 237 H (60-115) mg/dL Calcium 8.8 (8.4-10.2) mg/dL Total Bilirubin 0.3 (0.0-1.0) mg/dL AST 123 H (5-31) U/L ALT 191 H (0-31) U/L Alkaline Phosphatase 77 (39-117) U/L Total Creatine Kinase 6016 H (26-140) U/L Total Protein 7.2 (6.5-8.0) g/dL Albumin 4.4 (3.5-5.0) g/dL Urine Color Yellow Urine Appearance Clear Urine pH 8.5 (5.0-9.0) Ur Specific [place] 1.010 (1.005-1.025) Urine Protein 30 (1+) H (Neg-Trace) mg/dL Urine Glucose (UA) 500 H (Negative) mg/dL Urine Ketones Negative (Negative) mg/dL Urine Blood Small (1+) H (Negative) Urine Nitrite Negative (Negative) Ur Leukocyte Esterase Negative (Negative) Urine RBC 0-2 (0-2) /HPF Urine WBC 0-5 (0-5) /HPF Ur Squamous Epith Cells 0-2 (0-2) /HPF Urine Bacteria None Seen (None Seen) Hyaline Casts 0-2 (0-2) /LPF Discharge Plan Discharge Clinical Impression: Rhabdomyolysis Patient Disposition: Admitted As Inpatient Print Language: Malawian
[2025-03-22] VITALS (9 sets, daily range): BP systolic 135–178; BP diastolic 42–79; PULSE 73–93; RESP 16–23; TEMP 36.3–37.1; O2SAT 95–99; BMI 21.8
[2025-03-22] MEDS: Lactated Ringers 1,000 ML 999 ML IV ×3 (00:03→04:47)
[2025-03-22 00:20] LABS: Appearance Urine Clear; Glucose Urine UA 500 mg/dL (Negative); PH 8.5 (5.0-9.0); Specific Gravity - Urine 1.010 (1.005-1.025); UMIC TRIGGER UACC YES
--- NOTE | 2025-03-22 01:44 | PC.NURSE ---
Pts out of the room requesting to speak to the provider This RN notified ED provider pts looking to speak to a provider ED provider states pt admitted waiting on admitting provider This RN notified pts waiting on hospitalist to come see pt as pt has been admitted. Pts visibly upset and yelling at this RN states you told me the same thing an hour ago Pts educated on process of admission. Pts states oh so shes being admitted. I didnt know that. Pt reminded ED provider spoke with him while this RN was in the room and told pt and she was being admitted Pt states you need to do something Hospitalist notified via [facility] pts requesting to speak with him Plan of care ongoing.
--- NOTE | 2025-03-22 02:25 | PC.NURSE ---
Pts back behind nurses station yelling stating I dont understand what is taking so long Pt advised provider notified and aware Plan of care ongoing.
--- NOTE | 2025-03-22 02:30 | PC.NURSE ---
Pt medicated per [facility] Plan of care ongoing.
--- NOTE | 2025-03-22 02:43 | PM.IMHP ---
History of Present Illness Date of Service: 03/22/25 Attending physician on admission: Senait Lynne Chief Complaint: leg pain Patient is a 70-year-old female with past medical history hyperlipidemia, rhabdomyolysis secondary to statin, TIA/CVA, eof-skldecg-wdoqcibkd diabetes type 2, hypertension and cholecystectomy presents to the emergency department for continued elevated total CK level related to recent statin use. Patient was admitted on 03/16/2025 for rhabdomyolysis secondary to statin use. Patient was discharged on 03/18/2025. This prompted repeat blood work which was done 03/21/2025 and noted an elevated CK level. This prompted patient's to bring patient into the ED for further evaluation. Patient had been on a statin for years and patient's provider slowly decreased the dose from 80-40 and then 20 mg due to complaints of myalgias. Patient reports continued all-over heaviness in arms and legs to the point that patient can't even get in and out of a car. Patient has had significant myalgias for at least the last 2 weeks. Upon discharge on 03/18/2025 patient's total CK level was 3743. At this point the levels had plateaued. Patient was requesting to be discharged home. Patient was instructed to hydrate with water, 3-4 L per day. Patient was also instructed to see her PCP and have repeat labs to monitor patient's progress. Patient states she did try to drink as much water as she could tolerate but was not able to meet the 3-4 L recommendation. Patient has stopped the statin officially 6 days ago. Patient has not been able to exercise and does not normally exercise excessively. In addition LFTs are again elevated. Patient denies any chest pain, shortness of breath at rest, nausea or vomiting. Patient denies any unusual bruising or skin changes. Patient denies any headache or visual changes. Patient also takes she does not take any unusual ziae-hkr-kppfzzw or herbal supplements. In addition patient was diagnosed with a UTI including Klebsiella and Proteus. Patient is now completing her antibiotic therapy orally. Patient states she has 2 days left of antibiotic therapy.. 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 Patient can experienced discomfort with long-term sitting. Review of Systems Review of Systems: Patient denies any current chest pain, shortness of breath at rest or with exertion. Patient denies any nausea, vomiting, abdominal distention or issues with constipation or diarrhea. Patient denies any skin changes or recent falls. Patient does not have any headaches or visual changes. Patient does have all-over muscle pressure and weakness. 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 Mother No problems noted. Surgical History History of cholecystectomy History of dilation and curettage Social History Household Members: Spouse Housing: House Do you presently have visiting nurse or other home services: No Alcohol intake: current Patient Tobacco Use Status: Former Tobacco user Smoked in Last 30 Days: No e-Cigarette/Vaping Use: Never Used Second Hand Smoke Exposure: No Use of substances other than those prescribed or required for medical reasons: No Advance Directives: Yes Advance Directives on File: Yes Advance Directives Date on File: 11/29/22 Do you have a plan to hurt others: No Plan Patient : No service: No Current occupational status: retired Cognitive needs: No Hearing needs: No Vision needs: Yes Ebola Risk: Travel/Contact With Anyone From Affected Area/s: No Has Patient Experienced Ebola Symptoms: No Meds Allergies Allergy/AdvReac Type Severity Reaction Status Date / Time metronidazole (From FLAGYL) Allergy Mild METALLIC Verified 03/21/25 21:02 TASTE/RASH Sulfa (Sulfonamide Allergy Mild RASH, Verified 03/21/25 21:02 Antibiotics) (SULFA rash, SOB (SULFONAMIDE ANTIBIOTICS)) Active Medications: Current Medications Acetaminophen (Acetaminophen 325 Mg Tablet) 650 mg PO Q6H PRN PRN Reason: Pain, Mild 1-3,fever,headache Albuterol/Ipratropium (Albuterol/Iprat 2.5/0.5mg 3 Ml Ampul.Neb) 3 ml INHALE Q4H PRN PRN Reason: Shortness of Breath/Wheezing Calcium Carbonate (Calcium Carbonate 750 Mg Tab.Chew) 750 mg PO Q4H PRN PRN Reason: Heartburn Enoxaparin Sodium (Enoxaparin Sodium 40 Mg/0.4 Ml Syringe) 40 mg SUBCUT Q24H [facility] Lactated Ringer's (Lr) 1,000 mls @ 999 mls/hr IV .Q1H1M [facility] Stop: 03/22/25 03:15 Last Admin: 03/22/25 02:30 Dose: 999 mls/hr Magnesium Hydroxide (Milk Of Magnesia 30 Ml Oral.Susp) 30 ml PO DAILY PRN PRN Reason: Constipation Melatonin (Melatonin 3 Mg Tablet) 6 mg PO BEDTIME PRN PRN Reason: Insomnia Ondansetron HCl (Ondansetron Hcl 4 Mg/2 Ml Vial) 4 mg IVPUSH Q8H PRN PRN Reason: Nausea and Vomiting Polyethylene Glycol (Polyethylene Glycol 3350 17 Gm Powd.Pack) 17 gm PO DAILY PRN PRN Reason: Constipation Senna (Sennosides 8.6 Mg Tablet) 17.2 mg PO BEDTIME [facility] Sodium Chloride (0.9 % Sodium Chloride Flush 3 Ml Syringe) 3 ml IVFLUSH QSHIFT [facility] Home Medications ?Medication ?Instructions ?Recorded ?Confirmed ?Last Taken ?Type multivitamin 1 tab PO DAILY 06/03/20 03/16/25 03/16/25 History cholecalciferol (vitamin D3) 50 50 mcg PO DAILY 06/05/20 03/16/25 03/16/25 History mcg (2,000 unit) capsule fluticasone propionate 50 1 spray intranasal DAILY PRN Nasal 07/02/21 03/16/25 Unknown History mcg/actuation nasal Congestion spray,suspension (Flonase Allergy Relief) loperamide 2 mg capsule 2 mg PO Q4H PRN Loose Stool When 03/16/25 03/16/25 Unknown History Taking Metformin Physical Exam Vital Signs and Narrative: Vital Signs: Last Vital Signs Temp 98.0 F 03/22/25 01:07 Pulse 82 03/22/25 01:07 Resp 18 03/22/25 01:07 BP 150/65 H 03/22/25 01:07 Pulse Ox 97 03/22/25 01:07 O2 Del Method Room Air 03/22/25 01:07 BMI result Body Mass Index 21.1 Alert and orientated X3, able to give good history. Neuro: CN II-X11 intact, no deficits, visual acuity intact EYES: PERRLA, EOM intact, sclerae nonicteric ENT: hearing intact, no issues with swallowing, uvula midline, lips moist, nares patent no epistaxis Cardiac: S1 S2 RRR, no murmur, no JVD, no edema in Lower ext Pulmonary: lungs clear to auscultation B Abdominal: BS active in all 4 quadrants, no guarding, tenderness, rebounding MSK: strength 4/5 upper and lower extremities : no CVA tenderness no bladder distension Extremities: no edema in lower extremities, PT and DP pulses palpable +2 Psych: mood stable, judgement and insight good Skin: , intact noted closed abscess in the buttocks area Results Labs 03/21/25 21:28 03/21/25 21:28 Labs: Laboratory Results - last 24 hr 03/21/25 03/22/25 21:28 00:09 MCV 88.2 MCH 30.0 MCHC 34.0 RDW 12.4 Plt Count 402 H MPV 9.1 L Immature Gran % (Auto) 0.2 Neut % (Auto) 60.1 Lymph % (Auto) 24.5 [place] % (Auto) 7.1 Eos % (Auto) 7.4 H Baso % (Auto) 0.7 Lymph # (Auto) 2.3 [place] # (Auto) 0.7 Eos # (Auto) 0.7 H Baso # (Auto) 0.1 Abs Immat Gran (auto) 0.02 Absolute Neuts (auto) 5.6 Absolute Nucleated RBC 0.000 Nucleated RBC % (auto) 0.0 Anion Gap 10 L Estim Creat Clear Calc 56.7 Estimated GFR > 60 Random Glucose 237 H Calcium 8.8 Total Bilirubin 0.3 AST 123 H ALT 191 H Alkaline Phosphatase 77 Total Creatine Kinase 6016 H Total Protein 7.2 Albumin 4.4 Urine Color Yellow Urine Appearance Clear Urine pH 8.5 Ur Specific [place] 1.010 Urine Protein 30 (1+) H Urine Glucose (UA) 500 H Urine Ketones Negative Urine Blood Small (1+) H Urine Nitrite Negative Ur Leukocyte Esterase Negative Urine RBC 0-2 Urine WBC 0-5 Ur Squamous Epith Cells 0-2 Urine Bacteria None Seen Hyaline Casts 0-2 ECG Prior ECG tracings: not available for review Imaging Radiologist's Impressions: none ordered Assessment and Plan (1) Rhabdomyolysis: Qualifiers: Rhabdomyolysis type: non-traumatic Qualified Code(s): M62.82 - Rhabdomyolysis Status: Acute Plan Patient is a 70-year-old female with past medical history hyperlipidemia, rhabdomyolysis secondary to statin, TIA/CVA, dqr-qbslmtd-uqrlnyhmc diabetes type 2, hypertension and cholecystectomy being seen in the emergency department for reoccurring elevated total CK level after recent admission for rhabdomyolysis secondary to statin use. Patient lost used statin medication 6 days prior. Patient plateaued here in the hospital during admission and was discharged home. Repeat labs revealed CK is back up to the 4-6000 range. Patient has myalgias persist. Rhabdomyolysis secondary to statin Last dose of statin was 6 days prior, pt admitted 03/16 - 03/18 for rhabdomyolysis LR 1 L bolus x3, LR continues at 100 cc/hour Trend CK level Renal function stable Urine clear yellow Transaminitis Secondary to rhabdomyolysis likely Avoid hepatotoxic medications Trend CMP daily Recent UTI Klebsiella and Proteus noted Patient will complete cefuroxime 250 mg b.i.d. for 2 more days Patient encouraged to hydrate Abscess, buttocks area Wound care consult ordered just to ensure specific wound care needs are being met Patient's 1st visit with specialists is not until 05/04/2025 Hypertension Once med rec completed continue amlodipine and losartan as blood pressure is stable DVT prophylaxis: Lovenox Med rec pending Full Code status Quality Stroke Does the patient have a stroke diagnosis?: No Reason for No Anti-thrombotic by Day Two: N/A - Med Ordered VTE Prior VTE?: No VTE Risk Level:: Medical - moderate - high VTE Device Contraindication: Treatment Not Tolerated VTE Drug Contraindication: N/A - Med Ordered
[2025-03-22 06:03] LABS: MANUAL DIFF FLAG NO
[2025-03-22 06:04] LABS: Hematocrit 35.7 % (37.0-47.0); Hemoglobin 12.3 g/dl (12.0-16.0); Imm Gran Abs Auto 0.03 X10*3/uL (0.00-0.03); Imm Gran Pct Auto 0.4 % (0.0-0.4); Lymphocytes Absolute Auto 1.7 X10*3/uL (1.2-4.9); Mean Corpuscular HGB Conc 34.5 g/dl (31.0-35.0); Mean Corpuscular Hemoglobin 30.1 pg (27.0-33.0); Mean Corpuscular Volume 87.3 fL (80.0-98.0); NRBC Abs Auto 0.000 X10*3/uL (0.0-0.012); NRBC Pct Auto 0.0 /100WBC (0.0-0.2); Platelet Count 400 X10*3/uL (160-400); Red Blood Count 4.09 X10*6/uL (4.20-5.50); White Blood Count 8.1 X10*3/uL (4.8-10.8)
[2025-03-22] MEDS: Lactated Ringers 1,000 ML 100 ML IVCONT ×2 (06:24→16:01)
[2025-03-22 06:32] LABS: Alanine Aminotransferase 163 U/L (0-31); Albumin Level 3.8 g/dL (3.5-5.0); Alkaline Phosphatase 70 U/L (39-117); Anion Gap 13 (12-20); Aspartate Amino Transferase 106 U/L (5-31); Blood Urea Nitrogen 12 mg/dL (9-16); Calcium 8.4 mg/dL (8.4-10.2); Carbon Dioxide 25 mmol/L (22-29); Chloride 109 mmol/L (96-108); Creatinine Clr Calc Pharmacy 74.8; Estimated Glomerular Filt Rate > 60; Potassium 3.4 mmol/L (3.3-5.1); Sodium 144 mmol/L (135-145); Total Protein 6.2 g/dL (6.5-8.0)
--- NOTE | 2025-03-22 08:41 | PC.NURSE ---
Pt able to ambulate to restroom. new linens and new purewick provided. pt awaiting bed placements, verbalizes no needs at this time.
--- NOTE | 2025-03-22 10:27 | PHA.MEDREC ---
Addendum entered by Artemio Starr RPh 03/22/25 11:13: Reviewed by [facility] Original Note: Pharmacy Consult ? Medication Reconciliation Pharmacy has completed the medication reconciliation. Spoke to patient to confirm med list. Patient states she is no longer taking Loperamide 2 mg, Atorvastatin 80 mg and Metformin 1,000 mg. Patient last had her medications yesterday.
--- NOTE | 2025-03-22 13:49 | MHC.CM.PN ---
PT IS INDEPENDENT LIVIVNG WITH SHE HAS A RIDE HOME DC PLAN HOME NO SERVICES
--- NOTE | 2025-03-22 14:18 | PM.EVENT ---
Event Note Date of Service: 03/22/25 Event Note: Chart reviewed patient examined agree with history and physical as outlined by night float physician. Time Spent With Patient Time: Total time managing care of this patient today ____ minutes.
--- NOTE | 2025-03-22 14:39 | PC.NURSE ---
MD chicas notified via [employer] connect Pt wishes to discuss care
--- NOTE | 2025-03-22 15:45 | PC.NURSE ---
Pt coming in from home with abnormal CK. she is alert, oriented, calm and cooperative with care. can ambulate short distances with stand by assist. Pt was recently dc'd after admission for rhabdo which is believed to be caused by statins. had repeat labs done after dc and still had a very high level, called to come back. Pt is c/o generalized fatigue and body aches. she was given 3L of IVF and is now on maintenence fluids of 100ml/hr. Repeat CK drawn this afternoon around noon with level still high (originally 6000 now 3900) but trending down. Urinating freely with purewick in place. pt was being treated for UTI at home, abt continued in OCT.
[2025-03-22] MEDS: 0.9 % Sodium Chloride Flush 3 ML SYRINGE IVFLUSH (16:00)
--- NOTE | 2025-03-23 02:43 | HO.SKINPHOTO ---
Location: Category: Stage: Length: Width: Depth: cm Location: Category: Stage: Length: Width: Depth: cm Location: Category: Stage: Length: Width: Depth: cm Location: Category: Stage: Length: Width: Depth: cm Location: Category: Stage: Length: Width: Depth: cm Location: Category: Stage: Length: Width: Depth: cm
[2025-03-23 04:00] VITALS: BP 150/70; PULSE 81; RESP 18; TEMP 36.7; O2SAT 98
[2025-03-23] MEDS: Lactated Ringers 1,000 ML 100 ML IVCONT ×2 (04:24→12:01)
--- NOTE | 2025-03-23 04:38 | PC.NURSE ---
PT is aware of skin problem on blat. buttocks , she stated shes been having some pain when sitting and already made appointment with dr Perkins in May RE this.
[2025-03-23 05:50] LABS: MANUAL DIFF FLAG NO
[2025-03-23 06:00] LABS: Hematocrit 33.5 % (37.0-47.0); Hemoglobin 11.2 g/dl (12.0-16.0); Imm Gran Abs Auto 0.02 X10*3/uL (0.00-0.03); Imm Gran Pct Auto 0.2 % (0.0-0.4); Lymphocytes Absolute Auto 2.0 X10*3/uL (1.2-4.9); Mean Corpuscular HGB Conc 33.4 g/dl (31.0-35.0); Mean Corpuscular Hemoglobin 29.9 pg (27.0-33.0); Mean Corpuscular Volume 89.3 fL (80.0-98.0); NRBC Abs Auto 0.000 X10*3/uL (0.0-0.012); NRBC Pct Auto 0.0 /100WBC (0.0-0.2); Platelet Count 356 X10*3/uL (160-400); Red Blood Count 3.75 X10*6/uL (4.20-5.50); White Blood Count 8.4 X10*3/uL (4.8-10.8)
[2025-03-23 06:16] LABS: Alanine Aminotransferase 130 U/L (0-31); Albumin Level 3.5 g/dL (3.5-5.0); Alkaline Phosphatase 62 U/L (39-117); Anion Gap 9 (12-20); Aspartate Amino Transferase 73 U/L (5-31); Blood Urea Nitrogen 13 mg/dL (9-16); Calcium 8.9 mg/dL (8.4-10.2); Carbon Dioxide 27 mmol/L (22-29); Chloride 109 mmol/L (96-108); Creatinine Clr Calc Pharmacy 60.6; Estimated Glomerular Filt Rate > 60; Potassium 3.4 mmol/L (3.3-5.1); Sodium 142 mmol/L (135-145); Total Protein 5.9 g/dL (6.5-8.0)
[2025-03-23 07:34] VITALS: BP 143/66; PULSE 73; RESP 16; TEMP 36.7; O2SAT 95
[2025-03-23 10:13] LABS: Hemoglobin A1C 152.9723 umol/L; Total Hemoglobin (HGBA1C) 2999.3429 umol/L
--- NOTE | 2025-03-23 14:43 | HO.PM.IMPN ---
Subjective Subjective Date of Service: 03/23/25 Interval History: No acute issues overnight. CKs trending downward. Tolerating fluids Review of Systems Denies chest pain Denies shortness of breath Denies nausea vomiting diarrhea Denies fever chills Physical Exam Vital Signs: Vital Signs: Last Vital Signs Temp 98.0 F 03/23/25 07:34 Pulse 73 03/23/25 07:34 Resp 16 03/23/25 07:34 BP 143/66 H 03/23/25 07:34 Pulse Ox 95 03/23/25 07:34 O2 Del Method Room Air 03/23/25 07:34 BMI result Body Mass Index 21.8 Const: Other: Awake alert no acute distress Resp: Other: Clear to auscultation bilaterally no rales rhonchi or wheezes Cardio: Other: No S4; positive S1-S2; no S3 murmurs rubs or gallops GI: Other: Soft nontender nondistended normoactive bowel sounds Extrem: Other: Soft nontender nondistended normoactive bowel sounds Objective Data Active Medications Albuterol/Ipratropium (Albuterol/Iprat 2.5/0.5mg 3 Ml Ampul.Neb) 3 ml INHALE Q4H PRN PRN Reason: Shortness of Breath/Wheezing Amlodipine Besylate (Amlodipine Besylate 5 Mg Tablet) 5 mg PO DAILY [facility]; Protocol Last Admin: 03/23/25 09:26 Dose: 5 mg Documented By: FREDDY Calcium Carbonate (Calcium Carbonate 750 Mg Tab.Chew) 750 mg PO Q4H PRN PRN Reason: Heartburn Cefuroxime Axetil (Cefuroxime Axetil 250 Mg Tablet) 250 mg PO Q12H [facility] Stop: 03/24/25 04:29 Last Admin: 03/23/25 04:20 Dose: 250 mg Documented By: FARRUKH Enoxaparin Sodium (Enoxaparin Sodium 40 Mg/0.4 Ml Syringe) 40 mg SUBCUT Q24H [facility] Last Admin: 03/23/25 04:20 Dose: 40 mg Documented By: FARRUKH Lactated Ringer's (Lr) 1,000 mls @ 125 mls/hr IVCONT .Q8H [facility] Losartan Potassium (Losartan Potassium 25 Mg Tablet) 25 mg PO DAILY [facility]; Protocol Last Admin: 03/23/25 09:26 Dose: 25 mg Documented By: FREDDY Magnesium Hydroxide (Milk Of Magnesia 30 Ml Oral.Susp) 30 ml PO DAILY PRN PRN Reason: Constipation Melatonin (Melatonin 3 Mg Tablet) 6 mg PO BEDTIME PRN PRN Reason: Insomnia Multivitamins/Vitamin C (Multivitamin Tablet) 1 tab PO DAILY [facility] Last Admin: 03/23/25 09:26 Dose: 1 tab Documented By: FREDDY Ondansetron HCl (Ondansetron Hcl 4 Mg/2 Ml Vial) 4 mg IVPUSH Q8H PRN PRN Reason: Nausea and Vomiting Polyethylene Glycol (Polyethylene Glycol 3350 17 Gm Powd.Pack) 17 gm PO DAILY PRN PRN Reason: Constipation Senna (Sennosides 8.6 Mg Tablet) 17.2 mg PO BEDTIME [facility] Last Admin: 03/22/25 22:49 Dose: Not Given Documented By: FARRUKH Non-Admin Reason: Patient Refused Sodium Chloride (0.9 % Sodium Chloride Flush 3 Ml Syringe) 3 ml IVFLUSH QSHIFT [facility] Last Admin: 03/23/25 09:25 Dose: Not Given Documented By: FREDDY Non-Admin Reason: IV Running Vitamin D (Cholecalciferol (Vitamin D3) 25 Mcg Tablet) 50 mcg PO DAILY [facility] Last Admin: 03/23/25 09:26 Dose: 50 mcg Documented By: FREDDY Labs 03/23/25 05:35 03/23/25 05:35 Labs: Laboratory Results - last 24 hr 03/23/25 05:35 MCV 89.3 MCH 29.9 MCHC 33.4 RDW 12.6 Plt Count 356 MPV 9.4 Immature Gran % (Auto) 0.2 Neut % (Auto) 59.4 Lymph % (Auto) 23.6 Cassia % (Auto) 7.0 Eos % (Auto) 9.1 H Baso % (Auto) 0.7 Lymph # (Auto) 2.0 Cassia # (Auto) 0.6 Eos # (Auto) 0.8 H Baso # (Auto) 0.1 Abs Immat Gran (auto) 0.02 Absolute Neuts (auto) 5.0 Absolute Nucleated RBC 0.000 Nucleated RBC % (auto) 0.0 Anion Gap 9 L Estim Creat Clear Calc 60.6 Estimated GFR > 60 Fasting Glucose 143 H Estimat Average Glucose 148 Hemoglobin A1c % 6.8 H Calcium 8.9 Total Bilirubin 0.3 AST 73 H ALT 130 H Alkaline Phosphatase 62 Total Creatine Kinase 2888 H Total Protein 5.9 L Albumin 3.5 Assessment and Plan (1) Rhabdomyolysis: Status: Acute (2) Transaminitis: Status: Acute Plan Patient is a 70-year-old female with past medical history hyperlipidemia, rhabdomyolysis secondary to statin, TIA/CVA, [id number] diabetes type 2, hypertension and cholecystectomy being seen in the emergency department for reoccurring elevated total CK level after recent admission for rhabdomyolysis secondary to statin use. Patient lost used statin medication 6 days prior. Patient plateaued here in the hospital during admission and was discharged home. Repeat labs revealed CK is back up to the 4-6000 range. Patient has myalgias persist. 1. Rhabdomyolysis secondary to statin -last statin dose 1 week ago -LR at 01:25 an hour -CK level in am -follow renals/divalent 2. Transaminitis -likely secondary to rhabdo -trend LFTs 3. UTI -Klebsiella and Proteus noted -complete course of Ceftin; last dose 03/20 16:00 4. Hypertension -stable and well compensated Lovenox Full Code status Requires ongoing hospitalization to treat rhabdomyolysis with IV fluids. High risk for outpatient therapy; can not keep up with volume. Quality Stroke Does the patient have a stroke diagnosis?: No Reason for No Anti-thrombotic by Day Two: N/A - Med Ordered VTE Prior VTE?: No VTE Risk Level:: Medical - moderate - high VTE Device Contraindication: Treatment Not Tolerated VTE Drug Contraindication: N/A - Med Ordered
[2025-03-23] MEDS: Lactated Ringers 1,000 ML 125 ML IVCONT (14:47)
[2025-03-23 15:37] VITALS: BP 151/68; PULSE 85; RESP 14; TEMP 37.3; O2SAT 96
--- NOTE | 2025-03-23 16:10 | PC.NURSE ---
Per this current bag of LR is to be the last bag.
--- NOTE | 2025-03-23 19:07 | HO.WOUND ---
Wound Consult: Initial 70yr old?female admitted to [facility] on 03/22/25 - See progress notes and H&P for detailed history.? Wound consult placed for Buttock.? Patient agreeable to assessment and photo documentation.? 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 She reports she was prescribed antibiotics and topical Mupirocin. She then was to follow up with [facility]. She was not able to get into Dr. Perkins office until May per scheduling. At todays assessment I do not appreciate a abscess. There is no induration, no fluctuance, no warmth or redness. There is some scar tissue noted, with hyperpigmentation. The patient denies pain but reports itching. She reports of lately she has been using topical Cortisone cream with benefit but it remains itching and she is not using consistently. The sites are in pressure injury locations but are not consistent given her self reported activity. She denies a fall to the area - etiology is unclear. TT to Dr. Perkins with above information and photo for review. Sacrum Etiology: ?Unknown Etiology - suspect fungal dermatitis Wound Bed: raised scar tissue noted - Hyperpigmentation noted dry desquamation noted Drainage / Odor: None Edges: ? irregular Monique wound: ?intact No Induration, Fluctuance or Warmth noted Pain: denies reports itching Goals of Treatment: ? Provider to consider Topical steroid with antifunal Recommendations: 1. Turn and Reposition every 2 hours and as needed for patient comfort.? Use pillows or wedges to support off loading positions. 2. Off Load all bony prominences with use of pillows and heel boots if needed.? Apply Preventative foams where needed. ? 3. Monitor for incontinence and moisture control, use barrier creams when needed for prevention and treatment. 4. Provide adequate and supplemental nutrition.? 5. Order low air loss mattress. 6. When applicable maintain blood glucose levels per Providers order. Sacrum - Routine Cleansing, pat dry. Provider to consider Topical Antifungal and Steroid cream application twice daily.
[2025-03-23 19:10] VITALS: BP 164/72; PULSE 96; RESP 16; TEMP 37.1; O2SAT 99
[2025-03-23] MEDS: 0.9 % Sodium Chloride Flush 3 ML SYRINGE IVFLUSH (20:50)
[2025-03-23 21:08] LABS: Glucose, Whole Blood 135 mg/dL (60-115)
[2025-03-23 23:21] VITALS: BP 130/68; PULSE 75; RESP 18; TEMP 36.7; O2SAT 97
[2025-03-24] VITALS (7 sets, daily range): BP systolic 132–178; BP diastolic 63–77; PULSE 68–91; RESP 16–18; TEMP 36.5–37.2; O2SAT 97–99
[2025-03-24 07:47] LABS: Glucose, Whole Blood 138 mg/dL (60-115)
[2025-03-24 08:57] LABS: MANUAL DIFF FLAG NO
[2025-03-24] MEDS: 0.9 % Sodium Chloride Flush 3 ML SYRINGE IVFLUSH (09:01)
[2025-03-24 09:03] LABS: Hematocrit 38.8 % (37.0-47.0); Hemoglobin 12.9 g/dl (12.0-16.0); Imm Gran Abs Auto 0.03 X10*3/uL (0.00-0.03); Imm Gran Pct Auto 0.3 % (0.0-0.4); Lymphocytes Absolute Auto 2.7 X10*3/uL (1.2-4.9); Mean Corpuscular HGB Conc 33.2 g/dl (31.0-35.0); Mean Corpuscular Hemoglobin 29.7 pg (27.0-33.0); Mean Corpuscular Volume 89.2 fL (80.0-98.0); NRBC Abs Auto 0.000 X10*3/uL (0.0-0.012); NRBC Pct Auto 0.0 /100WBC (0.0-0.2); Platelet Count 401 X10*3/uL (160-400); Red Blood Count 4.35 X10*6/uL (4.20-5.50); White Blood Count 8.6 X10*3/uL (4.8-10.8)
[2025-03-24 09:14] LABS: Alanine Aminotransferase 151 U/L (0-31); Albumin Level 4.2 g/dL (3.5-5.0); Alkaline Phosphatase 80 U/L (39-117); Anion Gap 11 (12-20); Aspartate Amino Transferase 80 U/L (5-31); Blood Urea Nitrogen 16 mg/dL (9-16); Calcium 9.7 mg/dL (8.4-10.2); Carbon Dioxide 29 mmol/L (22-29); Chloride 106 mmol/L (96-108); Creatinine Clr Calc Pharmacy 63.9; Estimated Glomerular Filt Rate > 60; Potassium 4.4 mmol/L (3.3-5.1); Sodium 142 mmol/L (135-145); Total Protein 7.1 g/dL (6.5-8.0)
[2025-03-24] MEDS: Lactated Ringers 1,000 ML 150 ML IVCONT ×3 (10:38→23:30)
[2025-03-24 11:33] LABS: Glucose, Whole Blood 187 mg/dL (60-115)
--- NOTE | 2025-03-24 13:53 | HO.PM.IMPN ---
Subjective Subjective Date of Service: 03/24/25 Interval History: Continues to improve albeit slowly. Tolerant of therapies. No focal complaints overnight Review of Systems Denies chest pain Denies shortness of breath Denies nausea vomiting diarrhea Denies fever chills Physical Exam Vital Signs: Vital Signs: Last Vital Signs Temp 98.6 F 03/24/25 11:48 Pulse 91 03/24/25 11:48 Resp 18 03/24/25 11:48 BP 172/77 H 03/24/25 11:48 Pulse Ox 99 03/24/25 11:48 O2 Del Method Room Air 03/24/25 11:48 BMI result Body Mass Index 21.8 Const: Other: Awake alert no acute distress Resp: Other: Clear to auscultation bilaterally no rales rhonchi or wheezes Cardio: Other: No S4; positive S1-S2; no S3 murmurs rubs or gallops GI: Other: Soft nontender nondistended normoactive bowel sounds Extrem: Other: Soft nontender nondistended normoactive bowel sounds Objective Data Active Medications Albuterol/Ipratropium (Albuterol/Iprat 2.5/0.5mg 3 Ml Ampul.Neb) 3 ml INHALE Q4H PRN PRN Reason: Shortness of Breath/Wheezing Amlodipine Besylate (Amlodipine Besylate 5 Mg Tablet) 5 mg PO DAILY [facility]; Protocol Last Admin: 03/24/25 08:57 Dose: 5 mg Documented By: RADHA Calcium Carbonate (Calcium Carbonate 750 Mg Tab.Chew) 750 mg PO Q4H PRN PRN Reason: Heartburn Enoxaparin Sodium (Enoxaparin Sodium 40 Mg/0.4 Ml Syringe) 40 mg SUBCUT Q24H [facility] Last Admin: 03/24/25 03:37 Dose: 40 mg Documented By: FARRUKH Lactated Ringer's (Lr) 1,000 mls @ 150 mls/hr IVCONT .Q6H40M [facility] Last Admin: 03/24/25 10:38 Dose: 150 mls/hr Documented By: RADHA Losartan Potassium (Losartan Potassium 25 Mg Tablet) 25 mg PO DAILY [facility]; Protocol Last Admin: 03/24/25 08:57 Dose: 25 mg Documented By: RADHA Magnesium Hydroxide (Milk Of Magnesia 30 Ml Oral.Susp) 30 ml PO DAILY PRN PRN Reason: Constipation Melatonin (Melatonin 3 Mg Tablet) 6 mg PO BEDTIME PRN PRN Reason: Insomnia Multivitamins/Vitamin C (Multivitamin Tablet) 1 tab PO DAILY [facility] Last Admin: 03/24/25 08:57 Dose: 1 tab Documented By: RADHA Ondansetron HCl (Ondansetron Hcl 4 Mg/2 Ml Vial) 4 mg IVPUSH Q8H PRN PRN Reason: Nausea and Vomiting Polyethylene Glycol (Polyethylene Glycol 3350 17 Gm Powd.Pack) 17 gm PO DAILY PRN PRN Reason: Constipation Senna (Sennosides 8.6 Mg Tablet) 17.2 mg PO BEDTIME [facility] Last Admin: 03/23/25 20:46 Dose: 17.2 mg Documented By: FARRUKH Sodium Chloride (0.9 % Sodium Chloride Flush 3 Ml Syringe) 3 ml IVFLUSH QSHIFT [facility] Last Admin: 03/24/25 09:01 Dose: 3 ml Documented By: RADHA Vitamin D (Cholecalciferol (Vitamin D3) 25 Mcg Tablet) 50 mcg PO DAILY [facility] Last Admin: 03/24/25 08:57 Dose: 50 mcg Documented By: RADHA Labs 03/24/25 08:31 03/24/25 08:31 Labs: Laboratory Results - last 24 hr 03/23/25 03/24/25 03/24/25 21:02 07:31 08:31 MCV 89.2 MCH 29.7 MCHC 33.2 RDW 12.5 Plt Count 401 H MPV 9.5 Immature Gran % (Auto) 0.3 Neut % (Auto) 55.9 Lymph % (Auto) 30.7 Norman % (Auto) 6.8 Eos % (Auto) 5.6 H Baso % (Auto) 0.7 Lymph # (Auto) 2.7 Norman # (Auto) 0.6 Eos # (Auto) 0.5 H Baso # (Auto) 0.1 Abs Immat Gran (auto) 0.03 Absolute Neuts (auto) 4.8 Absolute Nucleated RBC 0.000 Nucleated RBC % (auto) 0.0 Anion Gap 11 L Estim Creat Clear Calc 63.9 Estimated GFR > 60 POC Glucose 135 H 138 H Fasting Glucose 150 H Calcium 9.7 D Total Bilirubin 0.4 AST 80 H ALT 151 H Alkaline Phosphatase 80 Total Creatine Kinase 2769 H Total Protein 7.1 Albumin 4.2 03/24/25 11:29 MCV MCH MCHC RDW Plt Count MPV Immature Gran % (Auto) Neut % (Auto) Lymph % (Auto) Norman % (Auto) Eos % (Auto) Baso % (Auto) Lymph # (Auto) Norman # (Auto) Eos # (Auto) Baso # (Auto) Abs Immat Gran (auto) Absolute Neuts (auto) Absolute Nucleated RBC Nucleated RBC % (auto) Anion Gap Estim Creat Clear Calc Estimated GFR POC Glucose 187 H Fasting Glucose Calcium Total Bilirubin AST ALT Alkaline Phosphatase Total Creatine Kinase Total Protein Albumin Assessment and Plan (1) Rhabdomyolysis: Status: Acute (2) Type 2 diabetes mellitus with microalbuminuria, without long-term current use of insulin: Status: Acute Plan Patient is a 70-year-old female with past medical history hyperlipidemia, rhabdomyolysis secondary to statin, TIA/CVA, [id number] diabetes type 2, hypertension and cholecystectomy being seen in the emergency department for reoccurring elevated total CK level after recent admission for rhabdomyolysis secondary to statin use. Patient lost used statin medication 6 days prior. Patient plateaued here in the hospital during admission and was discharged home. Repeat labs revealed CK is back up to the 4-6000 range. Patient has myalgias persist. 1. Rhabdomyolysis secondary to statin -last statin dose 1 week ago -LR at 0125 an hour -CK level improving however slowly. Would favor CPK level less than 1000 prior to discharge -follow renals/divalent 2. Transaminitis -likely secondary to rhabdo -trend LFTs 3. UTI -Klebsiella and Proteus noted -complete course of Ceftin; last dose 03/20 16:00 4. Hypertension -stable and well compensated Lovenox Full Code status Requires ongoing hospitalization to treat rhabdomyolysis with IV fluids. High risk for outpatient therapy; can not keep up with volume. Quality Stroke Does the patient have a stroke diagnosis?: No Reason for No Anti-thrombotic by Day Two: N/A - Med Ordered VTE Prior VTE?: No VTE Risk Level:: Medical - moderate - high VTE Device Contraindication: Treatment Not Tolerated VTE Drug Contraindication: N/A - Med Ordered
[2025-03-24 16:31] LABS: Glucose, Whole Blood 140 mg/dL (60-115)
[2025-03-24 20:01] LABS: Glucose, Whole Blood 158 mg/dL (60-115)
[2025-03-25] VITALS (7 sets, daily range): BP systolic 134–168; BP diastolic 61–74; PULSE 67–99; RESP 16–18; TEMP 36.2–37.3; O2SAT 96–98
[2025-03-25] MEDS: Lactated Ringers 1,000 ML 150 ML IVCONT ×3 (05:29→18:11)
[2025-03-25 06:00] LABS: MANUAL DIFF FLAG NO
[2025-03-25 06:15] LABS: Hematocrit 34.1 % (37.0-47.0); Hemoglobin 11.5 g/dl (12.0-16.0); Imm Gran Abs Auto 0.02 X10*3/uL (0.00-0.03); Imm Gran Pct Auto 0.3 % (0.0-0.4); Lymphocytes Absolute Auto 2.1 X10*3/uL (1.2-4.9); Mean Corpuscular HGB Conc 33.7 g/dl (31.0-35.0); Mean Corpuscular Hemoglobin 29.7 pg (27.0-33.0); Mean Corpuscular Volume 88.1 fL (80.0-98.0); NRBC Abs Auto 0.000 X10*3/uL (0.0-0.012); NRBC Pct Auto 0.0 /100WBC (0.0-0.2); Platelet Count 362 X10*3/uL (160-400); Red Blood Count 3.87 X10*6/uL (4.20-5.50); White Blood Count 7.7 X10*3/uL (4.8-10.8)
[2025-03-25 06:19] LABS: Alanine Aminotransferase 126 U/L (0-31); Albumin Level 3.4 g/dL (3.5-5.0); Alkaline Phosphatase 66 U/L (39-117); Anion Gap 11 (12-20); Aspartate Amino Transferase 74 U/L (5-31); Blood Urea Nitrogen 15 mg/dL (9-16); Calcium 8.7 mg/dL (8.4-10.2); Carbon Dioxide 26 mmol/L (22-29); Chloride 109 mmol/L (96-108); Creatinine Clr Calc Pharmacy 71.7; Estimated Glomerular Filt Rate > 60; Potassium 3.5 mmol/L (3.3-5.1); Sodium 142 mmol/L (135-145); Total Protein 5.8 g/dL (6.5-8.0)
[2025-03-25 07:22] LABS: Glucose, Whole Blood 133 mg/dL (60-115)
--- NOTE | 2025-03-25 11:16 | PM.CNNEP ---
History of Present Illness Reason for Consult Consult date: 03/25/25 Chief Complaint Chief complaint: abnormal labs History of Present Illness Narrative: 70 y/o female with HLD, DMII, history of CVA, HTN, osteopenia who presented 03/22 for recurring elevated CK after recent admit for rhabdomyolysis secondary to statin use. Pt reports has had generalized weakness for many months. Reports liver enzymes were elevated through PCP testing, so her statin dose was cut in half from 80 to 40mg daily. She continued to have weakness, pt reports liver enzymes worsened and CK was elevated so then was advised to go to the ED, first went on 03/16-03/18. CK was 4,937, received IVF, CK then 3742, and was discharged home. Pt reports she did not restart her statin and has not taken it since. She drank as much as she could at home, which she states was at most 77 ounces, she was voiding urine constantly and couldn't drink any more than this each day. Outpatient CK check was back up to 4,553, so she returned to the ED on 03/21. CK 6,016 on 03/21, decreased to 2,470 today with IVF. Patient reports her generalized weakness is improving- needed assistance to get out of bed, now is able to do so, though is difficult and she continues to feel generalized weakness- denies having pain/myalgias. Receiving IVF LR at 150ml/hr reports she stopped her statin day prior to first admission on 03/15 and has not taken since states she has also discontinued metformin for about 10 days now as it was causing diarrhea and this has resolved with discontinuation of metformin creatinine is 0.49, GFR>60, UA with +1 protein. she states the only other non-prescription medications she takes are loperimide and flonase- and has not needed loperimide since stopping metformin almost two weeks ago she has not had any recent bee stings no recent physical trauma or prolonged immobilization Other than muscle weakness and fatigue denies concerns/complaints. Review of Systems Constitutional: Reports fatigue and Reports weakness Cardiovascular: Denies chest pain, Denies leg edema, Denies lightheadedness and Denies dyspnea Respiratory: Denies dyspnea Gastrointestinal: Denies abdominal pain, Denies constipation, Denies diarrhea, Denies nausea and Denies vomiting Genitourinary: Denies hematuria, Denies difficulty voiding, Denies dysuria and Denies flank pain Musculoskeletal: Denies back pain, Denies arthralgias, Denies muscle cramps and Reports muscle weakness Skin/Breast: Denies rash Reports weakness Endocrine: Reports fatigue [facility] Past Medical History Medical History Elevated transaminase level Rhabdomyolysis Abscess of buttock 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 Mother No problems noted. Surgical History Surgical History History of cholecystectomy History of dilation and curettage Social History Social History Household Members: Spouse Housing: House Do you presently have visiting nurse or other home services: No Alcohol intake: current Patient Tobacco Use Status: Former Tobacco user Tobacco use type: Cigarette e-Cigarette/Vaping Use: Never Used Second Hand Smoke Exposure: No Advance Directives Date on File: 11/29/22 service: No Current occupational status: retired Cognitive needs: No Hearing needs: No Vision needs: Yes Travel History Ebola Risk: Travel/Contact With Anyone From Affected Area/s: No Has Patient Experienced Ebola Symptoms: No Meds Allergies Allergy/AdvReac Type Severity Reaction Status Date / Time metronidazole (From FLAGYL) Allergy Mild METALLIC Verified 03/21/25 21:02 TASTE/RASH Sulfa (Sulfonamide Allergy Mild RASH, Verified 03/21/25 21:02 Antibiotics) (SULFA rash, SOB (SULFONAMIDE ANTIBIOTICS)) Active Medications: Current Medications Albuterol/Ipratropium (Albuterol/Iprat 2.5/0.5mg 3 Ml Ampul.Neb) 3 ml INHALE Q4H PRN PRN Reason: Shortness of Breath/Wheezing Amlodipine Besylate (Amlodipine Besylate 5 Mg Tablet) 5 mg PO DAILY [facility]; Protocol Last Admin: 03/25/25 08:07 Dose: 5 mg Calcium Carbonate (Calcium Carbonate 750 Mg Tab.Chew) 750 mg PO Q4H PRN PRN Reason: Heartburn Enoxaparin Sodium (Enoxaparin Sodium 40 Mg/0.4 Ml Syringe) 40 mg SUBCUT Q24H [facility] Last Admin: 03/25/25 03:37 Dose: 40 mg Lactated Ringer's (Lr) 1,000 mls @ 150 mls/hr IVCONT .Q6H40M [facility] Last Admin: 03/25/25 05:29 Dose: 150 mls/hr Losartan Potassium (Losartan Potassium 25 Mg Tablet) 25 mg PO DAILY [facility]; Protocol Last Admin: 03/25/25 08:07 Dose: 25 mg Magnesium Hydroxide (Milk Of Magnesia 30 Ml Oral.Susp) 30 ml PO DAILY PRN PRN Reason: Constipation Melatonin (Melatonin 3 Mg Tablet) 6 mg PO BEDTIME PRN PRN Reason: Insomnia Multivitamins/Vitamin C (Multivitamin Tablet) 1 tab PO DAILY [facility] Last Admin: 03/25/25 08:07 Dose: 1 tab Ondansetron HCl (Ondansetron Hcl 4 Mg/2 Ml Vial) 4 mg IVPUSH Q8H PRN PRN Reason: Nausea and Vomiting Polyethylene Glycol (Polyethylene Glycol 3350 17 Gm Powd.Pack) 17 gm PO DAILY PRN PRN Reason: Constipation Senna (Sennosides 8.6 Mg Tablet) 17.2 mg PO BEDTIME [facility] Last Admin: 03/24/25 20:42 Dose: 17.2 mg Sodium Chloride (0.9 % Sodium Chloride Flush 3 Ml Syringe) 3 ml IVFLUSH QSHIFT [facility] Last Admin: 03/25/25 07:34 Dose: Not Given Vitamin D (Cholecalciferol (Vitamin D3) 25 Mcg Tablet) 50 mcg PO DAILY [facility] Last Admin: 03/25/25 08:07 Dose: 50 mcg Home Medications ?Medication ?Instructions ?Recorded ?Confirmed ?Last Taken ?Type multivitamin 1 tab PO DAILY 06/03/20 03/22/25 03/21/25 History cholecalciferol (vitamin D3) 50 50 mcg PO DAILY 06/05/20 03/22/25 03/21/25 History mcg (2,000 unit) capsule fluticasone propionate 50 1 spray intranasal DAILY PRN Nasal 07/02/21 03/22/25 03/21/25 History mcg/actuation nasal Congestion spray,suspension (Flonase Allergy Relief) vitamin B complex 1 tab PO DAILY 03/22/25 03/22/25 03/21/25 History Physical Exam Vital Signs: Last Vital Signs Temp 98.4 F 03/25/25 07:15 Pulse 75 03/25/25 10:59 Resp 16 03/25/25 07:15 BP 168/74 H 03/25/25 10:59 Pulse Ox 96 03/25/25 10:59 O2 Del Method Room Air 03/25/25 07:15 BMI result Body Mass Index 21.8 Extrem General: No edema Results Lab Results 03/25/25 05:35 03/25/25 05:35 Lab results: Chemistry 03/23/25 03/24/25 03/25/25 05:35 08:31 05:35 Sodium 142 142 142 Potassium 3.4 4.4 D 3.5 D Carbon Dioxide 27 29 26 BUN 13 16 15 Creatinine 0.58 0.55 0.49 L Calcium 8.9 9.7 D 8.7 D Hematology 03/23/25 03/24/25 03/25/25 05:35 08:31 05:35 WBC 8.4 8.6 7.7 Hgb 11.2 L 12.9 11.5 L Plt Count 356 401 H 362 Assessment and Plan (1) Rhabdomyolysis: Qualifiers: Rhabdomyolysis type: non-traumatic Qualified Code(s): M62.82 - Rhabdomyolysis Status: Acute Plan Rhabdomyolysis - improving Differentials include myopathy independent of CK; however, most likely patient has an underlying autoimmune condition causing rhabdomyolysis that was exacerbated by statin use given CK jm a second time after statin was discontinued. Recommend continuing IVF as ordered until CK dips below 1000, then patient should be referred urgently for outpatient rheumatology workup to address underlying cause of rhabdo. Avoid nephrotoxins recommend daily renal function and electrolyte studies, daily CK continue supportive care Discussed with Dr Jesus Saldana Date of Service Date of Service: 03/25/25
[2025-03-25 11:31] LABS: Glucose, Whole Blood 153 mg/dL (60-115)
--- NOTE | 2025-03-25 14:04 | P.PNIM_ITS ---
Subjective Subjective Date of Service: 03/25/25 Interval History: No acute issues overnight. Tolerating therapies ambulating in hallway with physical therapy without issues Review of Systems Denies chest pain Denies shortness of breath Denies nausea vomiting diarrhea Denies fever chills Physical Exam 2 Vital Signs: Vital Signs: Last Vital Signs Temp 98.1 F 03/25/25 12:00 Pulse 73 03/25/25 12:00 Resp 18 03/25/25 12:00 BP 145/66 H 03/25/25 12:00 Pulse Ox 97 03/25/25 12:00 O2 Del Method Room Air 03/25/25 12:00 BMI result Body Mass Index 21.8 Const: Other: Awake alert no acute distress Resp: Other: Clear to auscultation bilaterally no rales rhonchi or wheezes Cardio: Other: No S4; positive S1-S2; no S3 murmurs rubs or gallops GI: Other: Soft nontender nondistended normoactive bowel sounds Skin: Other: No overt bruising noted Extrem: Other: Soft nontender nondistended normoactive bowel sounds Objective Data Active Medications Albuterol/Ipratropium (Albuterol/Iprat 2.5/0.5mg 3 Ml Ampul.Neb) 3 ml INHALE Q4H PRN PRN Reason: Shortness of Breath/Wheezing Amlodipine Besylate (Amlodipine Besylate 5 Mg Tablet) 5 mg PO DAILY [facility]; Protocol Last Admin: 03/25/25 08:07 Dose: 5 mg Documented By: RADHA Calcium Carbonate (Calcium Carbonate 750 Mg Tab.Chew) 750 mg PO Q4H PRN PRN Reason: Heartburn Enoxaparin Sodium (Enoxaparin Sodium 40 Mg/0.4 Ml Syringe) 40 mg SUBCUT Q24H JOSE Last Admin: 03/25/25 03:37 Dose: 40 mg Documented By: FARRUKH Lactated Ringer's (Lr) 1,000 mls @ 150 mls/hr IVCONT .Q6H40M JOSE Last Admin: 03/25/25 11:48 Dose: 150 mls/hr Documented By: RADHA Losartan Potassium (Losartan Potassium 25 Mg Tablet) 25 mg PO DAILY [facility]; Protocol Last Admin: 03/25/25 08:07 Dose: 25 mg Documented By: RADHA Magnesium Hydroxide (Milk Of Magnesia 30 Ml Oral.Susp) 30 ml PO DAILY PRN PRN Reason: Constipation Melatonin (Melatonin 3 Mg Tablet) 6 mg PO BEDTIME PRN PRN Reason: Insomnia Multivitamins/Vitamin C (Multivitamin Tablet) 1 tab PO DAILY [facility] Last Admin: 03/25/25 08:07 Dose: 1 tab Documented By: RADHA Ondansetron HCl (Ondansetron Hcl 4 Mg/2 Ml Vial) 4 mg IVPUSH Q8H PRN PRN Reason: Nausea and Vomiting Polyethylene Glycol (Polyethylene Glycol 3350 17 Gm Powd.Pack) 17 gm PO DAILY PRN PRN Reason: Constipation Senna (Sennosides 8.6 Mg Tablet) 17.2 mg PO BEDTIME [facility] Last Admin: 03/24/25 20:42 Dose: 17.2 mg Documented By: FARRUKH Sodium Chloride (0.9 % Sodium Chloride Flush 3 Ml Syringe) 3 ml IVFLUSH QSHIFT [facility] Last Admin: 03/25/25 07:34 Dose: Not Given Documented By: RADHA Non-Admin Reason: IV Running Vitamin D (Cholecalciferol (Vitamin D3) 25 Mcg Tablet) 50 mcg PO DAILY [facility] Last Admin: 03/25/25 08:07 Dose: 50 mcg Documented By: RADHA Labs 03/25/25 05:35 03/25/25 05:35 Labs: Laboratory Results - last 24 hr 03/24/25 03/24/25 03/25/25 16:24 19:40 05:35 MCV 88.1 MCH 29.7 MCHC 33.7 RDW 12.6 Plt Count 362 MPV 9.6 Immature Gran % (Auto) 0.3 Neut % (Auto) 57.3 Lymph % (Auto) 27.5 [place] % (Auto) 7.8 Eos % (Auto) 6.3 H Baso % (Auto) 0.8 Lymph # (Auto) 2.1 [place] # (Auto) 0.6 Eos # (Auto) 0.5 H Baso # (Auto) 0.1 Abs Immat Gran (auto) 0.02 Absolute Neuts (auto) 4.4 Absolute Nucleated RBC 0.000 Nucleated RBC % (auto) 0.0 Anion Gap 11 L Estim Creat Clear Calc 71.7 Estimated GFR > 60 POC Glucose 140 H 158 H Fasting Glucose 135 H Calcium 8.7 D Total Bilirubin 0.4 AST 74 H ALT 126 H Alkaline Phosphatase 66 Total Creatine Kinase 2470 H Total Protein 5.8 L Albumin 3.4 L 03/25/25 03/25/25 07:18 11:25 MCV MCH MCHC RDW Plt Count MPV Immature Gran % (Auto) Neut % (Auto) Lymph % (Auto) [place] % (Auto) Eos % (Auto) Baso % (Auto) Lymph # (Auto) [place] # (Auto) Eos # (Auto) Baso # (Auto) Abs Immat Gran (auto) Absolute Neuts (auto) Absolute Nucleated RBC Nucleated RBC % (auto) Anion Gap Estim Creat Clear Calc Estimated GFR POC Glucose 133 H 153 H Fasting Glucose Calcium Total Bilirubin AST ALT Alkaline Phosphatase Total Creatine Kinase Total Protein Albumin Assessment and Plan (1) Rhabdomyolysis: Status: Acute (2) Type 2 diabetes mellitus with microalbuminuria, without long-term current use of insulin: Status: Acute (3) Hypertension: Status: Acute Plan Patient is a 70-year-old female with past medical history hyperlipidemia, rhabdomyolysis secondary to statin, TIA/CVA, [id number] diabetes type 2, hypertension and cholecystectomy being seen in the emergency department for reoccurring elevated total CK level after recent admission for rhabdomyolysis secondary to statin use. Patient lost used statin medication 6 days prior. Patient plateaued here in the hospital during admission and was discharged home. Repeat labs revealed CK is back up to the 4-6000 range. Patient has myalgias persist. 1. Rhabdomyolysis ... Slow to resolve. -last statin dose 1 week ago -LR at 0125 an hour -CK level improving however slowly. We will consult Nephrology to rule out other causes -follow renals/divalent 2. Transaminitis -likely secondary to rhabdo -trend LFTs 3. UTI -Klebsiella and Proteus noted -complete course of Ceftin; last dose 03/20 16:00 4. Hypertension -stable and well compensated Lovenox Full Code status Requires ongoing hospitalization to treat rhabdomyolysis with IV fluids. High risk for outpatient therapy; can not keep up with volume. Quality Stroke Does the patient have a stroke diagnosis?: No Reason for No Anti-thrombotic by Day Two: N/A - Med Ordered VTE Prior VTE?: No VTE Risk Level:: Medical - moderate - high VTE Device Contraindication: Treatment Not Tolerated VTE Drug Contraindication: N/A - Med Ordered
[2025-03-25 16:31] LABS: Glucose, Whole Blood 175 mg/dL (60-115)
[2025-03-25 20:08] LABS: Glucose, Whole Blood 157 mg/dL (60-115)
[2025-03-26] VITALS (7 sets, daily range): BP systolic 122–185; BP diastolic 58–76; PULSE 66–98; RESP 12–20; TEMP 36.2–36.9; O2SAT 96–99
[2025-03-26] MEDS: Lactated Ringers 1,000 ML 150 ML IVCONT ×2 (00:55→07:41)
[2025-03-26 06:59] LABS: MANUAL DIFF FLAG NO
[2025-03-26 07:10] LABS: Hematocrit 34.8 % (37.0-47.0); Hemoglobin 11.5 g/dl (12.0-16.0); Imm Gran Abs Auto 0.01 X10*3/uL (0.00-0.03); Imm Gran Pct Auto 0.1 % (0.0-0.4); Lymphocytes Absolute Auto 2.8 X10*3/uL (1.2-4.9); Mean Corpuscular HGB Conc 33.0 g/dl (31.0-35.0); Mean Corpuscular Hemoglobin 29.5 pg (27.0-33.0); Mean Corpuscular Volume 89.2 fL (80.0-98.0); NRBC Abs Auto 0.000 X10*3/uL (0.0-0.012); NRBC Pct Auto 0.0 /100WBC (0.0-0.2); Platelet Count 377 X10*3/uL (160-400); Red Blood Count 3.90 X10*6/uL (4.20-5.50); White Blood Count 8.1 X10*3/uL (4.8-10.8)
[2025-03-26 07:24] LABS: Glucose, Whole Blood 129 mg/dL (60-115)
[2025-03-26 07:25] LABS: Alanine Aminotransferase 153 U/L (0-31); Albumin Level 3.6 g/dL (3.5-5.0); Alkaline Phosphatase 68 U/L (39-117); Anion Gap 13 (12-20); Aspartate Amino Transferase 99 U/L (5-31); Blood Urea Nitrogen 13 mg/dL (9-16); Calcium 8.6 mg/dL (8.4-10.2); Carbon Dioxide 27 mmol/L (22-29); Chloride 106 mmol/L (96-108); Creatinine Clr Calc Pharmacy 67.7; Estimated Glomerular Filt Rate > 60; Potassium 3.7 mmol/L (3.3-5.1); Sodium 142 mmol/L (135-145); Total Protein 5.9 g/dL (6.5-8.0)
[2025-03-26] MEDS: 0.9 % Sodium Chloride Flush 3 ML SYRINGE IVFLUSH (07:42)
[2025-03-26 08:29] LABS: Magnesium 1.7 mg/dL (1.6-2.6)
--- NOTE | 2025-03-26 11:12 | HO.PM.IMPN ---
Subjective Subjective Date of Service: 03/26/25 Interval History: stopped atorvastatin 11d ago did not take simvastatin no herbs/supplements was on pregabalin 1 yr ago but off since then CPK up a little but minimal muscle weakness Review of Systems Review of Systems: Yes all other systems are reviewed and are negative Physical Exam Vital Signs: Vital Signs: Last Vital Signs Temp 97.8 F 03/26/25 07:50 Pulse 75 03/26/25 07:50 Resp 12 03/26/25 07:50 BP 149/65 H 03/26/25 07:50 Pulse Ox 96 03/26/25 07:50 O2 Del Method Room Air 03/26/25 07:50 BMI result Body Mass Index 21.8 Gen: in no acute distress HEENT: sclera anicteric, moist mucus membranes Neck: supple Lungs: clear to auscultation bilaterally Heart: regular rate and rhythm, no murmurs Abd: soft, non-tender, non-distended Ext: no edema Skin: warm/well-perfused Neuro: alert and oriented x3, no focal findings Psych: appropriate affect Objective Data Active Medications Albuterol/Ipratropium (Albuterol/Iprat 2.5/0.5mg 3 Ml Ampul.Neb) 3 ml INHALE Q4H PRN PRN Reason: Shortness of Breath/Wheezing Amlodipine Besylate (Amlodipine Besylate 5 Mg Tablet) 5 mg PO DAILY [facility]; Protocol Last Admin: 03/26/25 07:41 Dose: 5 mg Documented By: IRAIDA Calcium Carbonate (Calcium Carbonate 750 Mg Tab.Chew) 750 mg PO Q4H PRN PRN Reason: Heartburn Enoxaparin Sodium (Enoxaparin Sodium 40 Mg/0.4 Ml Syringe) 40 mg SUBCUT Q24H [facility]SE Last Admin: 03/26/25 02:44 Dose: 40 mg Documented By: RACHEAL Sodium Chloride (Ns) 1,000 mls @ 100 mls/hr IVCONT .Q10H JOSE Last Admin: 03/26/25 10:38 Dose: 100 mls/hr Documented By: IRAIDA Losartan Potassium (Losartan Potassium 25 Mg Tablet) 25 mg PO DAILY [facility]; Protocol Last Admin: 03/26/25 07:41 Dose: 25 mg Documented By: IRAIDA Magnesium Hydroxide (Milk Of Magnesia 30 Ml Oral.Susp) 30 ml PO DAILY PRN PRN Reason: Constipation Melatonin (Melatonin 3 Mg Tablet) 6 mg PO BEDTIME PRN PRN Reason: Insomnia Multivitamins/Vitamin C (Multivitamin Tablet) 1 tab PO DAILY [facility] Last Admin: 03/26/25 07:41 Dose: 1 tab Documented By: IRAIDA Ondansetron HCl (Ondansetron Hcl 4 Mg/2 Ml Vial) 4 mg IVPUSH Q8H PRN PRN Reason: Nausea and Vomiting Polyethylene Glycol (Polyethylene Glycol 3350 17 Gm Powd.Pack) 17 gm PO DAILY PRN PRN Reason: Constipation Senna (Sennosides 8.6 Mg Tablet) 17.2 mg PO BEDTIME [facility] Last Admin: 03/25/25 20:47 Dose: Not Given Documented By: RACHEAL Non-Admin Reason: Patient Refused Sodium Chloride (0.9 % Sodium Chloride Flush 3 Ml Syringe) 3 ml IVFLUSH QSHIFT [facility] Last Admin: 03/26/25 07:42 Dose: 3 ml Documented By: IRAIDA Vitamin D (Cholecalciferol (Vitamin D3) 25 Mcg Tablet) 50 mcg PO DAILY [facility] Last Admin: 03/26/25 07:41 Dose: 50 mcg Documented By: IRAIDA Labs 03/26/25 05:56 03/26/25 05:56 Labs: Laboratory Results - last 24 hr 03/25/25 03/25/25 03/25/25 11:25 16:21 19:33 MCV MCH MCHC RDW Plt Count MPV Immature Gran % (Auto) Neut % (Auto) Lymph % (Auto) [place] % (Auto) Eos % (Auto) Baso % (Auto) Lymph # (Auto) [place] # (Auto) Eos # (Auto) Baso # (Auto) Abs Immat Gran (auto) Absolute Neuts (auto) Absolute Nucleated RBC Nucleated RBC % (auto) Anion Gap Estim Creat Clear Calc Estimated GFR POC Glucose 153 H 175 H 157 H Fasting Glucose Calcium Magnesium Total Bilirubin AST ALT Alkaline Phosphatase Lactate Dehydrogenase Total Creatine Kinase Total Protein Albumin 03/26/25 03/26/25 05:56 07:16 MCV 89.2 MCH 29.5 MCHC 33.0 RDW 12.7 Plt Count 377 MPV 9.8 Immature Gran % (Auto) 0.1 Neut % (Auto) 50.1 Lymph % (Auto) 35.1 [place] % (Auto) 7.3 Eos % (Auto) 6.9 H Baso % (Auto) 0.5 Lymph # (Auto) 2.8 [place] # (Auto) 0.6 Eos # (Auto) 0.6 H Baso # (Auto) 0.0 Abs Immat Gran (auto) 0.01 Absolute Neuts (auto) 4.1 Absolute Nucleated RBC 0.000 Nucleated RBC % (auto) 0.0 Anion Gap 13 Estim Creat Clear Calc 67.7 Estimated GFR > 60 POC Glucose 129 H Fasting Glucose 118 H Calcium 8.6 Magnesium 1.7 Total Bilirubin 0.4 AST 99 H ALT 153 H Alkaline Phosphatase 68 Lactate Dehydrogenase 482 H Total Creatine Kinase 2969 H Total Protein 5.9 L Albumin 3.6 Assessment and Plan (1) Rhabdomyolysis: Status: Acute (2) Type 2 diabetes mellitus with microalbuminuria, without long-term current use of insulin: Status: Acute (3) Hypertension: Status: Acute Plan d5 for 70yo F with HTN, prior CVA, HLD, DM2 re-admitted for CPK elevation attributed to statin use [though pt was on atorvastatin for >5 yr] elevated CPK/rhabdomyolysis - CPK is up a little today though well below the renal injury risk zone of 5000+ - will change to NS 150 mL/hr; recheck CPK and aldolase tomorrow - concern for underlying neuromuscular disorder unmasked by statin; Neurology consult; would recommend NCS/EMG; outpt Rheumatology consult or referral to neuromuscular disease center in [place] or [place] elevated transaminases - due to cross-reactivity with skeletal muscle, not hepatitis UTI - completed cefuroxime 03/20 HTN - continue amlodipine + losartan; rhabdomyolysis not listed as adverse effect of these medications HLD - avoid statins VTE ppx - enoxaparin dispo - PT eval: home with VNA services In my clinical judgment, the patient requires continued inpatient hospitalization for the following reasons: IV hydration Total time managing care of this patient today: 35 minutes. Quality Stroke Does the patient have a stroke diagnosis?: No Reason for No Anti-thrombotic by Day Two: N/A - Med Ordered VTE Prior VTE?: No VTE Risk Level:: Medical - moderate - high VTE Device Contraindication: Treatment Not Tolerated VTE Drug Contraindication: N/A - Med Ordered
[2025-03-26 11:29] LABS: Glucose, Whole Blood 146 mg/dL (60-115)
--- NOTE | 2025-03-26 13:30 | PM.NEUROCN ---
History of Present Illness Data of Consult Service Date: 03/26/25 Primary Care Provider: Татьяна Mancuso MD HPI Reason for consult: Polymyositis 70 years old woman who I had seen in the past for bilateral small ischemic infarcts was in hospital with I CPK level. She said that or level was checked few weeks ago and she was sent to emergency room and then it was checked again and as it was still high she was sent back to emergency room. During last few months she has been noticing weakness in her arms and legs especially in climbing stairs. She denied any pain. There was no complain of aggressive or heavy physical activity. She denied any breathing or swallowing difficulty or double vision. She has not noted any droopiness of eyelid. There was no change in her speech. She was able to walk and communicate. Review of Systems Review of Systems: No recent cold or flu-like illness. [facility] Past Medical History Medical History Elevated transaminase level Rhabdomyolysis Abscess of buttock 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 Mother No problems noted. Surgical History Surgical History History of cholecystectomy History of dilation and curettage Social History Social History Household Members: Spouse Housing: House Do you presently have visiting nurse or other home services: No Alcohol intake: current Patient Tobacco Use Status: Former Tobacco user Tobacco use type: Cigarette e-Cigarette/Vaping Use: Never Used Second Hand Smoke Exposure: No Advance Directives Date on File: 11/29/22 service: No Current occupational status: retired Cognitive needs: No Hearing needs: No Vision needs: Yes Travel History Ebola Risk: Travel/Contact With Anyone From Affected Area/s: No Has Patient Experienced Ebola Symptoms: No Meds Allergies Allergy/AdvReac Type Severity Reaction Status Date / Time metronidazole (From FLAGYL) Allergy Mild METALLIC Verified 03/21/25 21:02 TASTE/RASH Sulfa (Sulfonamide Allergy Mild RASH, Verified 03/21/25 21:02 Antibiotics) (SULFA rash, SOB (SULFONAMIDE ANTIBIOTICS)) [id number] Reductase AdvReac Severe Rhabdomyoly Verified 03/26/25 11:17 Inhibitor sis Active Medications: Current Medications Albuterol/Ipratropium (Albuterol/Iprat 2.5/0.5mg 3 Ml Ampul.Neb) 3 ml INHALE Q4H PRN PRN Reason: Shortness of Breath/Wheezing Amlodipine Besylate (Amlodipine Besylate 5 Mg Tablet) 5 mg PO DAILY [facility]; Protocol Last Admin: 03/26/25 07:41 Dose: 5 mg Calcium Carbonate (Calcium Carbonate 750 Mg Tab.Chew) 750 mg PO Q4H PRN PRN Reason: Heartburn Enoxaparin Sodium (Enoxaparin Sodium 40 Mg/0.4 Ml Syringe) 40 mg SUBCUT Q24H [facility] Last Admin: 03/26/25 02:44 Dose: 40 mg Sodium Chloride (Ns) 1,000 mls @ 150 mls/hr IVCONT .Q6H40M JOSE Last Admin: 03/26/25 10:38 Dose: 100 mls/hr Losartan Potassium (Losartan Potassium 25 Mg Tablet) 25 mg PO DAILY [facility]; Protocol Last Admin: 03/26/25 07:41 Dose: 25 mg Magnesium Hydroxide (Milk Of Magnesia 30 Ml Oral.Susp) 30 ml PO DAILY PRN PRN Reason: Constipation Melatonin (Melatonin 3 Mg Tablet) 6 mg PO BEDTIME PRN PRN Reason: Insomnia Multivitamins/Vitamin C (Multivitamin Tablet) 1 tab PO DAILY [facility] Last Admin: 03/26/25 07:41 Dose: 1 tab Ondansetron HCl (Ondansetron Hcl 4 Mg/2 Ml Vial) 4 mg IVPUSH Q8H PRN PRN Reason: Nausea and Vomiting Polyethylene Glycol (Polyethylene Glycol 3350 17 Gm Powd.Pack) 17 gm PO DAILY PRN PRN Reason: Constipation Senna (Sennosides 8.6 Mg Tablet) 17.2 mg PO BEDTIME [facility] Last Admin: 03/25/25 20:47 Dose: Not Given Sodium Chloride (0.9 % Sodium Chloride Flush 3 Ml Syringe) 3 ml IVFLUSH QSHIFT [facility] Last Admin: 03/26/25 07:42 Dose: 3 ml Vitamin D (Cholecalciferol (Vitamin D3) 25 Mcg Tablet) 50 mcg PO DAILY [facility] Last Admin: 03/26/25 07:41 Dose: 50 mcg Home Medications ?Medication ?Instructions ?Recorded ?Confirmed ?Last Taken ?Type multivitamin 1 tab PO DAILY 06/03/20 03/22/25 03/21/25 History cholecalciferol (vitamin D3) 50 50 mcg PO DAILY 06/05/20 03/22/25 03/21/25 History mcg (2,000 unit) capsule fluticasone propionate 50 1 spray intranasal DAILY PRN Nasal 07/02/21 03/22/25 03/21/25 History mcg/actuation nasal Congestion spray,suspension (Flonase Allergy Relief) vitamin B complex 1 tab PO DAILY 03/22/25 03/22/25 03/21/25 History Physical Exam Vital Signs: Vital Signs: Last Vital Signs Temp 98.4 F 03/26/25 12:04 Pulse 98 03/26/25 12:04 Resp 18 03/26/25 12:04 BP 185/74 H 03/26/25 12:04 Pulse Ox 99 03/26/25 12:04 O2 Del Method Room Air 03/26/25 12:04 BMI result Body Mass Index 21.8 Neuro: Other: She is alert and awake with normal spontaneity of speech fluency comprehension and affect. Face is symmetrical. Visual villan[place]va are full. Moderate bilateral proximal arm or leg weakness is noted. Deep tendon reflexes are trace with flexor plantars. Mild hyperemic rashes noted on her face. Speech is normal. Results Labs 03/26/25 05:56 03/26/25 05:56 Labs: Short CBC 03/26/25 Range/Units 05:56 WBC 8.1 (4.8-10.8) X10*3/uL Hgb 11.5 L (12.0-16.0) g/dl Hct 34.8 L (37.0-47.0) % Plt Count 377 (160-400) X10*3/uL BMP 03/26/25 05:56 Sodium 142 Potassium 3.7 Chloride 106 Carbon Dioxide 27 BUN 13 Creatinine 0.52 Calcium 8.6 Cardiac Enzymes 03/26/25 Range/Units 05:56 Total Creatine Kinase 2969 H (26-140) U/L Liver Function 03/26/25 Range/Units 05:56 Total Bilirubin 0.4 (0.0-1.0) mg/dL AST 99 H (5-31) U/L ALT 153 H (0-31) U/L Alkaline Phosphatase 68 (39-117) U/L Albumin 3.6 (3.5-5.0) g/dL CPK level was 3-4000 range and LFTs were slightly high. Assessment and Plan (1) Polymyositis: Status: Acute Polymyositis presenting as slowly progressive subacute proximal arm or leg weakness and high CPK level in 3-4000 range. There was mild hyperemic rash in her face. Differential diagnosis would include inflammatory polymyositis including dermatomyositis. Other similar illnesses such as inclusion body myositis are also in the differential. My recommendation is to send course lab myositis panel [id number]. If possible, while she is here, have a muscle biopsy of either deltoid or quadriceps. Once that is done, I would consider starting her on prednisone 20 mg twice a day and then she would require outpatient evaluation and follow-up. She should also consider rheumatology evaluation. He should see her primary care physician to screen for any possible malignancy as sometime this clinical picture is harboring an underlying malignancy. Procedures Date of Service Date of Service: 03/26/25
[2025-03-26 16:46] LABS: Glucose, Whole Blood 141 mg/dL (60-115)
[2025-03-26 20:35] LABS: Glucose, Whole Blood 142 mg/dL (60-115)
[2025-03-27] VITALS (7 sets, daily range): BP systolic 130–178; BP diastolic 61–88; PULSE 68–107; RESP 13–20; TEMP 36.6–36.8; O2SAT 96–99
[2025-03-27 06:43] LABS: Alanine Aminotransferase 161 U/L (0-31); Albumin Level 3.5 g/dL (3.5-5.0); Alkaline Phosphatase 63 U/L (39-117); Anion Gap 11 (12-20); Aspartate Amino Transferase 101 U/L (5-31); Blood Urea Nitrogen 12 mg/dL (9-16); Calcium 8.2 mg/dL (8.4-10.2); Carbon Dioxide 23 mmol/L (22-29); Chloride 114 mmol/L (96-108); Creatinine Clr Calc Pharmacy 66.4; Estimated Glomerular Filt Rate > 60; Potassium 3.6 mmol/L (3.3-5.1); Sodium 144 mmol/L (135-145); Total Protein 6.0 g/dL (6.5-8.0)
[2025-03-27 07:21] LABS: Glucose, Whole Blood 116 mg/dL (60-115)
[2025-03-27] MEDS: 0.9 % Sodium Chloride Flush 3 ML SYRINGE IVFLUSH (08:43)
--- NOTE | 2025-03-27 09:19 | HO.PM.IMPN ---
Subjective Subjective Date of Service: 03/27/25 Interval History: proximal weakness improving faint rash on face without any itching or pain Review of Systems Review of Systems: Yes all other systems are reviewed and are negative Physical Exam Vital Signs: Vital Signs: Last Vital Signs Temp 98.2 F 03/27/25 07:57 Pulse 69 03/27/25 07:57 Resp 14 03/27/25 07:57 BP 143/64 H 03/27/25 07:57 Pulse Ox 98 03/27/25 07:57 O2 Del Method Room Air 03/27/25 07:57 BMI result Body Mass Index 21.8 Gen: in no acute distress HEENT: sclera anicteric, moist mucus membranes Neck: supple Lungs: clear to auscultation bilaterally Heart: regular rate and rhythm, no murmurs Abd: soft, non-tender, non-distended Ext: no edema Skin: warm/well-perfused Neuro: alert and oriented x3, no focal findings Psych: appropriate affect Objective Data Active Medications Albuterol/Ipratropium (Albuterol/Iprat 2.5/0.5mg 3 Ml Ampul.Neb) 3 ml INHALE Q4H PRN PRN Reason: Shortness of Breath/Wheezing Amlodipine Besylate (Amlodipine Besylate 5 Mg Tablet) 5 mg PO DAILY [facility]; Protocol Last Admin: 03/27/25 08:42 Dose: 5 mg Documented By: ROBERT Calcium Carbonate (Calcium Carbonate 750 Mg Tab.Chew) 750 mg PO Q4H PRN PRN Reason: Heartburn Enoxaparin Sodium (Enoxaparin Sodium 40 Mg/0.4 Ml Syringe) 40 mg SUBCUT Q24H [facility] Last Admin: 03/27/25 03:47 Dose: 40 mg Documented By: RACHEAL Sodium Chloride (Ns) 1,000 mls @ 150 mls/hr IVCONT .Q6H40M [facility] Last Admin: 03/27/25 05:36 Dose: 150 mls/hr Documented By: RACHEAL Losartan Potassium (Losartan Potassium 25 Mg Tablet) 25 mg PO DAILY [facility]; Protocol Last Admin: 03/27/25 08:42 Dose: 25 mg Documented By: ROBERT Magnesium Hydroxide (Milk Of Magnesia 30 Ml Oral.Susp) 30 ml PO DAILY PRN PRN Reason: Constipation Melatonin (Melatonin 3 Mg Tablet) 6 mg PO BEDTIME PRN PRN Reason: Insomnia Multivitamins/Vitamin C (Multivitamin Tablet) 1 tab PO DAILY [facility] Last Admin: 03/27/25 08:42 Dose: 1 tab Documented By: ROBERT Ondansetron HCl (Ondansetron Hcl 4 Mg/2 Ml Vial) 4 mg IVPUSH Q8H PRN PRN Reason: Nausea and Vomiting Polyethylene Glycol (Polyethylene Glycol 3350 17 Gm Powd.Pack) 17 gm PO DAILY PRN PRN Reason: Constipation Senna (Sennosides 8.6 Mg Tablet) 17.2 mg PO BEDTIME [facility] Last Admin: 03/26/25 20:14 Dose: Not Given Documented By: RACHEAL Non-Admin Reason: Patient Refused Sodium Chloride (0.9 % Sodium Chloride Flush 3 Ml Syringe) 3 ml IVFLUSH QSHIFT [facility] Last Admin: 03/27/25 08:43 Dose: 3 ml Documented By: ROBERT Vitamin D (Cholecalciferol (Vitamin D3) 25 Mcg Tablet) 50 mcg PO DAILY [facility] Last Admin: 03/27/25 08:42 Dose: 50 mcg Documented By: ROBERT Labs 03/26/25 05:56 03/27/25 06:00 Labs: Laboratory Results - last 24 hr 03/26/25 03/26/25 03/26/25 11:14 16:22 20:25 Anion Gap Estim Creat Clear Calc Estimated GFR POC Glucose 146 H 141 H 142 H Random Glucose Calcium Total Bilirubin AST ALT Alkaline Phosphatase Total Creatine Kinase Total Protein Albumin 03/27/25 03/27/25 06:00 07:12 Anion Gap 11 L Estim Creat Clear Calc 66.4 Estimated GFR > 60 POC Glucose 116 H Random Glucose 131 H Calcium 8.2 L Total Bilirubin 0.4 AST 101 H ALT 161 H Alkaline Phosphatase 63 Total Creatine Kinase 2828 H Total Protein 6.0 L Albumin 3.5 Assessment and Plan (1) Rhabdomyolysis: Status: Acute (2) Type 2 diabetes mellitus with microalbuminuria, without long-term current use of insulin: Status: Acute (3) Hypertension: Status: Acute Plan d6 for 70yo F with HTN, prior CVA, HLD, DM2 re-admitted for CPK elevation attributed to statin use [though pt was on atorvastatin for >5 yr] elevated CPK/rhabdomyolysis - CPK is in high 2000s though well below the renal injury risk zone of 5000+; continue IV NS 150 mL/hr - aldolase pending - Neurology consulted and will send Extended Myositis Specific Antibody (MSA) Panel [[facility] [id number]]: Includes Myositis Specific 11 Antibodies Panel, 8-Gpsatjo-3-Methylglutaryl-Coenzyme A Reductase (HMGCR) Antibody (IgG), Cytosolic 5?-Nucleotidase 1A (cN-1A) Antibody (IgG) - will need outpt Rheumatology consult - considering inpt muscle biopsy then empiric prednisone 20 mg bid elevated transaminases - due to cross-reactivity with skeletal muscle, not hepatitis UTI - completed cefuroxime 03/20 HTN - continue amlodipine + losartan; rhabdomyolysis not listed as adverse effect of these medications HLD - avoid statins VTE ppx - enoxaparin dispo - PT eval: home with VNA services In my clinical judgment, the patient requires continued inpatient hospitalization for the following reasons: IV hydration Total time managing care of this patient today: 35 minutes. Quality Stroke Does the patient have a stroke diagnosis?: No Reason for No Anti-thrombotic by Day Two: N/A - Med Ordered VTE Prior VTE?: No VTE Risk Level:: Medical - moderate - high VTE Device Contraindication: Treatment Not Tolerated VTE Drug Contraindication: N/A - Med Ordered
[2025-03-27 11:26] LABS: Glucose, Whole Blood 133 mg/dL (60-115)
[2025-03-27 16:47] LABS: Glucose, Whole Blood 140 mg/dL (60-115)
[2025-03-27 20:44] LABS: Glucose, Whole Blood 159 mg/dL (60-115)
[2025-03-28] VITALS (7 sets, daily range): BP systolic 142–160; BP diastolic 65–72; PULSE 64–92; RESP 12–18; TEMP 36.3–36.9; O2SAT 96–99
[2025-03-28 07:24] LABS: Glucose, Whole Blood 127 mg/dL (60-115)
[2025-03-28] MEDS: 0.9 % Sodium Chloride Flush 3 ML SYRINGE IVFLUSH (08:25)
--- NOTE | 2025-03-28 11:12 | PM.CNGS ---
History of Present Illness Consult details Consult date: 03/28/25 Reason for consult: other (muscle biopsy) Requesting physician: Randal Roberson Narrative: 70-year-old female with PMH of hyperlipidemia, TIA/CVA, [id number] diabetes type 2, hypertension who presented to the ED for elevated total CK level. Patient was admitted on 03/16-03/18/25 for rhabdomyolysis thought secondary to statin use. She had f/u blood work which was done 03/21/2025 and noted an elevated CK level. This prompted patient's to bring patient into the ED for further evaluation. She was admitted to the hospitalist service for elevated CPK/rhabdomyolysis. She reports noticing weakness in her arms and legs especially in climbing stairs and is now having difficulty getting in and out of the car. She denies any pain. She thinks the left side is worse due to her previous stroke. Neurology recommended muscle biopsy of either deltoid or quadriceps. General surgery was therefore consulted. She and are however would like to hold off on the procedure. Review of Systems Review of Systems: Yes all other systems are reviewed and are negative [facility] Past Medical History Medical History Elevated transaminase level Rhabdomyolysis Abscess of buttock 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 Mother No problems noted. Surgical History Surgical History History of cholecystectomy History of dilation and curettage Social History Social History Household Members: Spouse Housing: House Do you presently have visiting nurse or other home services: No Alcohol intake: current Patient Tobacco Use Status: Former Tobacco user Tobacco use type: Cigarette Smoked in Last 30 Days: No e-Cigarette/Vaping Use: Never Used Second Hand Smoke Exposure: No Use of substances other than those prescribed or required for medical reasons: No Currently Displaying Signs/Symptoms of Drug Intoxication Withdrawal: No Have you been hit, kicked, punched, or otherwise hurt by someone within the past year? If so, by whom?: No Do you feel safe in your current relationship?: Yes Is there a partner from a previous relationship who is making you feel unsafe now?: No Are you made to feel afraid or neglected: No Advance Directives: Yes Advance Directives on File: Yes Advance Directives Date on File: 11/29/22 Do you have a plan to hurt others: No Plan Recently lost weight without trying: Yes How much weight loss: 2-13 pounds Nutrition Risks: No Nutritional Risk Patient : No : No Poor oral hygiene: No service: No Current occupational status: retired Cognitive needs: No Hearing needs: No Vision needs: Yes Travel History Ebola Risk: Travel/Contact With Anyone From Affected Area/s: No Has Patient Experienced Ebola Symptoms: No Meds Allergies Allergy/AdvReac Type Severity Reaction Status Date / Time metronidazole (From FLAGYL) Allergy Mild METALLIC Verified 03/21/25 21:02 TASTE/RASH Sulfa (Sulfonamide Allergy Mild RASH, Verified 03/21/25 21:02 Antibiotics) (SULFA rash, SOB (SULFONAMIDE ANTIBIOTICS)) [id number] Reductase AdvReac Severe Rhabdomyoly Verified 03/26/25 11:17 Inhibitor sis Active Medications: Current Medications Albuterol/Ipratropium (Albuterol/Iprat 2.5/0.5mg 3 Ml Ampul.Neb) 3 ml INHALE Q4H PRN PRN Reason: Shortness of Breath/Wheezing Amlodipine Besylate (Amlodipine Besylate 5 Mg Tablet) 5 mg PO DAILY JOSE; Protocol Last Admin: 03/28/25 08:24 Dose: 5 mg Calcium Carbonate (Calcium Carbonate 750 Mg Tab.Chew) 750 mg PO Q4H PRN PRN Reason: Heartburn Enoxaparin Sodium (Enoxaparin Sodium 40 Mg/0.4 Ml Syringe) 40 mg SUBCUT Q24H JOSE Last Admin: 03/28/25 03:28 Dose: 40 mg Losartan Potassium (Losartan Potassium 25 Mg Tablet) 25 mg PO DAILY JOSE; Protocol Last Admin: 03/28/25 08:24 Dose: 25 mg Magnesium Hydroxide (Milk Of Magnesia 30 Ml Oral.Susp) 30 ml PO DAILY PRN PRN Reason: Constipation Melatonin (Melatonin 3 Mg Tablet) 6 mg PO BEDTIME PRN PRN Reason: Insomnia Multivitamins/Vitamin C (Multivitamin Tablet) 1 tab PO DAILY [facility] Last Admin: 03/28/25 08:24 Dose: 1 tab Ondansetron HCl (Ondansetron Hcl 4 Mg/2 Ml Vial) 4 mg IVPUSH Q8H PRN PRN Reason: Nausea and Vomiting Polyethylene Glycol (Polyethylene Glycol 3350 17 Gm Powd.Pack) 17 gm PO DAILY PRN PRN Reason: Constipation Senna (Sennosides 8.6 Mg Tablet) 17.2 mg PO BEDTIME [facility] Last Admin: 03/27/25 21:23 Dose: Not Given Sodium Chloride (0.9 % Sodium Chloride Flush 3 Ml Syringe) 3 ml IVFLUSH QSHIFT [facility] Last Admin: 03/28/25 08:25 Dose: 3 ml Vitamin D (Cholecalciferol (Vitamin D3) 25 Mcg Tablet) 50 mcg PO DAILY [facility] Last Admin: 03/28/25 08:24 Dose: 50 mcg Home Medications ?Medication ?Instructions ?Recorded ?Confirmed ?Last Taken ?Type multivitamin 1 tab PO DAILY 06/03/20 03/22/25 03/21/25 History cholecalciferol (vitamin D3) 50 50 mcg PO DAILY 06/05/20 03/22/25 03/21/25 History mcg (2,000 unit) capsule fluticasone propionate 50 1 spray intranasal DAILY PRN Nasal 07/02/21 03/22/25 03/21/25 History mcg/actuation nasal Congestion spray,suspension (Flonase Allergy Relief) vitamin B complex 1 tab PO DAILY 03/22/25 03/22/25 03/21/25 History Physical Exam Vital Signs: Vital Signs: Last Vital Signs Temp 98.1 F 03/28/25 07:31 Pulse 73 03/28/25 10:31 Resp 12 03/28/25 07:31 BP 143/66 H 03/28/25 10:31 Pulse Ox 98 03/28/25 10:31 O2 Del Method Room Air 03/28/25 07:31 BMI result Body Mass Index 21.8 Const: General: comfortable, no acute distress and alert Orientation/consciousness: patient oriented x3 Resp: Effort & Inspection: normal respiratory effort Skin: General skin exam: no rashes or lesions noted and no jaundice Neuro: General: patient oriented x3 and moves all extremities Results Labs 03/26/25 05:56 03/27/25 06:00 Labs: Abnormal lab results 03/27/25 03/27/25 03/27/25 Range/Units 11:14 16:38 20:31 POC Glucose 133 H 140 H 159 H (60-115) mg/dL Total Creatine Kinase (26-140) U/L 03/28/25 03/28/25 Range/Units 06:03 07:11 POC Glucose 127 H (60-115) mg/dL Total Creatine Kinase 2844 H (26-140) U/L Cardiac Enzymes 03/28/25 Range/Units 06:03 Total Creatine Kinase 2844 H (26-140) U/L Urine 03/22/25 Range/Units 00:09 Urine Color Yellow Urine Appearance Clear Urine pH 8.5 (5.0-9.0) Ur Specific [place] 1.010 (1.005-1.025) Urine Protein 30 (1+) H (Neg-Trace) mg/dL Urine Glucose (UA) 500 H (Negative) mg/dL All other labs normal. Assessment and Plan (1) Rhabdomyolysis: Qualifiers: Rhabdomyolysis type: non-traumatic Qualified Code(s): M62.82 - Rhabdomyolysis Status: Acute (2) Polymyositis: Status: Acute Plan 70-year-old female with PMH of hyperlipidemia, TIA/CVA, [id number] diabetes type 2, hypertension with history of progressive upper and lower extremity weakness found to have elevated total CK level on follow up labs subsequently admitted for further work up and treatment of the elevated CPK/rhabdomyolysis. General surgery was consulted for muscle biopsy. We did discuss the technique of the procedure. Her and her however would like to hold off on this for now. Can add onto the OR schedule during her stay if this changes or alternatively can be seen in the office for elective biopsy if she is discharged. Procedures Date of Service Date of Service: 03/28/25
[2025-03-28 11:49] LABS: Glucose, Whole Blood 201 mg/dL (60-115)
--- NOTE | 2025-03-28 12:32 | HO.PM.IMPN ---
Subjective Subjective Date of Service: 03/28/25 Interval History: c/o proximal muscle weakness CPK essentially unchanged wants to check with insurance before proceeding with muscle biopsy Review of Systems Review of Systems: Yes all other systems are reviewed and are negative Physical Exam Vital Signs: Vital Signs: Last Vital Signs Temp 98.3 F 03/28/25 11:49 Pulse 92 03/28/25 11:49 Resp 12 03/28/25 11:49 BP 142/65 H 03/28/25 11:49 Pulse Ox 96 03/28/25 11:49 O2 Del Method Room Air 03/28/25 11:49 BMI result Body Mass Index 21.8 Gen: in no acute distress HEENT: sclera anicteric, moist mucus membranes Neck: supple Lungs: clear to auscultation bilaterally Heart: regular rate and rhythm, no murmurs Abd: soft, non-tender, non-distended Ext: no edema Skin: warm/well-perfused Neuro: alert and oriented x3, no focal findings Psych: appropriate affect Objective Data Active Medications Albuterol/Ipratropium (Albuterol/Iprat 2.5/0.5mg 3 Ml Ampul.Neb) 3 ml INHALE Q4H PRN PRN Reason: Shortness of Breath/Wheezing Amlodipine Besylate (Amlodipine Besylate 5 Mg Tablet) 5 mg PO DAILY [facility]; Protocol Last Admin: 03/28/25 08:24 Dose: 5 mg Documented By: CLEO Calcium Carbonate (Calcium Carbonate 750 Mg Tab.Chew) 750 mg PO Q4H PRN PRN Reason: Heartburn Dextrose (Dextrose 50 % 25 Gm/50 Ml Syringe) 25 gm IVPUSH Q15M PRN; Protocol PRN Reason: per Hypoglycemia Standing Ord. Enoxaparin Sodium (Enoxaparin Sodium 40 Mg/0.4 Ml Syringe) 40 mg SUBCUT Q24H JOSE Last Admin: 03/28/25 03:28 Dose: 40 mg Documented By: KARL Glucose (Glucose Gel 15 Gm Gel..Gram.) 15 gm PO Q15M PRN; Protocol PRN Reason: per Hypoglycemia Standing Ord. Insulin Human Lispro (Insulin Lispro 100 Unit/Ml 3 Ml Vial) 0 unit SUBCUT QIDACHS [facility]; Protocol Losartan Potassium (Losartan Potassium 25 Mg Tablet) 25 mg PO DAILY [facility]; Protocol Last Admin: 03/28/25 08:24 Dose: 25 mg Documented By: CLEO Magnesium Hydroxide (Milk Of Magnesia 30 Ml Oral.Susp) 30 ml PO DAILY PRN PRN Reason: Constipation Melatonin (Melatonin 3 Mg Tablet) 6 mg PO BEDTIME PRN PRN Reason: Insomnia Multivitamins/Vitamin C (Multivitamin Tablet) 1 tab PO DAILY [facility] Last Admin: 03/28/25 08:24 Dose: 1 tab Documented By: CLEO Ondansetron HCl (Ondansetron Hcl 4 Mg/2 Ml Vial) 4 mg IVPUSH Q8H PRN PRN Reason: Nausea and Vomiting Polyethylene Glycol (Polyethylene Glycol 3350 17 Gm Powd.Pack) 17 gm PO DAILY PRN PRN Reason: Constipation Senna (Sennosides 8.6 Mg Tablet) 17.2 mg PO BEDTIME [facility] Last Admin: 03/27/25 21:23 Dose: Not Given Documented By: KARL Non-Admin Reason: Patient Refused Sodium Chloride (0.9 % Sodium Chloride Flush 3 Ml Syringe) 3 ml IVFLUSH QSHIFT [facility] Last Admin: 03/28/25 08:25 Dose: 3 ml Documented By: CLEO Vitamin D (Cholecalciferol (Vitamin D3) 25 Mcg Tablet) 50 mcg PO DAILY [facility] Last Admin: 03/28/25 08:24 Dose: 50 mcg Documented By: CLEO Labs 03/26/25 05:56 03/27/25 06:00 Labs: Laboratory Results - last 24 hr 03/27/25 03/27/25 03/28/25 16:38 20:31 06:03 POC Glucose 140 H 159 H Total Creatine Kinase 2844 H 03/28/25 03/28/25 07:11 11:32 POC Glucose 127 H 201 H Total Creatine Kinase Assessment and Plan (1) Rhabdomyolysis: Status: Acute (2) Type 2 diabetes mellitus with microalbuminuria, without long-term current use of insulin: Status: Acute (3) Hypertension: Status: Acute Plan d7 for 70yo F with HTN, prior CVA, HLD, DM2 re-admitted for CPK elevation attributed to statin use [though pt was on atorvastatin for >5 yr] elevated CPK/rhabdomyolysis - CPK is in high 2000s though well below the renal injury risk zone of 5000+; continue IV NS 150 mL/hr - aldolase pending - concern for statin-associated autoimmune myopathy vs. other autoimmune myopathy; has been off statin for close to 2 wk ago and CPK is not going down - Neurology consulted and recommended: - Extended Myositis Specific Antibody (MSA) Panel [Quest [id number]]: Includes Myositis Specific 11 Antibodies Panel, 8-Qfhvedq-2-Methylglutaryl-Coenzyme A Reductase (HMGCR) Antibody (IgG), Cytosolic 5?-Nucleotidase 1A (cN-1A) Antibody (IgG) [drawn and sent out] - muscle biopsy; Gen Surg consulted but pt wishes to clear with insurance first - prednisone 20 mg bid empirically after biopsy - consider outpt Rheumatology vs Neuromuscular specialty clinic consult elevated transaminases - due to cross-reactivity with skeletal muscle, not hepatitis UTI - completed cefuroxime 03/20 HTN - continue amlodipine + losartan; rhabdomyolysis not listed as adverse effect of these medications DM2, well-controlled - A1c 6.8; correction-dose lispro HLD - avoid statins; listed under drug allergies VTE ppx - enoxaparin dispo - PT eval: home with VNA services In my clinical judgment, the patient requires continued inpatient hospitalization for the following reasons: IV hydration Total time managing care of this patient today: 35 minutes. Quality Stroke Does the patient have a stroke diagnosis?: No Reason for No Anti-thrombotic by Day Two: N/A - Med Ordered VTE Prior VTE?: No VTE Risk Level:: Medical - moderate - high VTE Device Contraindication: Treatment Not Tolerated VTE Drug Contraindication: N/A - Med Ordered
--- NOTE | 2025-03-28 15:42 | MHC.CM.PN ---
per rounds pt to have biopsy of the muscle today not ready for dc
[2025-03-28 16:39] LABS: Glucose, Whole Blood 139 mg/dL (60-115)
[2025-03-28 19:59] LABS: Glucose, Whole Blood 184 mg/dL (60-115)
[2025-03-29 03:06] VITALS: BP 135/59; PULSE 79; RESP 18; TEMP 36.4; O2SAT 98
[2025-03-29 07:49] LABS: Glucose, Whole Blood 116 mg/dL (60-115)
[2025-03-29 08:00] VITALS: BP 156/69; PULSE 87; RESP 18; TEMP 36.6; O2SAT 99
[2025-03-29] MEDS: 0.9 % Sodium Chloride Flush 3 ML SYRINGE IVFLUSH ×3 (08:25→21:08)
--- NOTE | 2025-03-29 09:40 | P.PNIM_ITS ---
Subjective Subjective Date of Service: 03/29/25 Interval History: c/o proximal muscle weakness CPK essentially unchanged confirmed with insurance that will be covered Review of Systems Review of Systems: Yes all other systems are reviewed and are negative Physical Exam 2 Exam: Exam: General: AO X 3, no acute distress Resp: CTA bilateral, no accessory muscles used CVS: S1,S2,RRR GI: soft, non tender, non distended Neuro: motor grossly intact, alert Psych: appropriate affect, appropriate insight Vital Signs: Vital Signs: Last Vital Signs Temp 97.9 F 03/29/25 08:00 Pulse 87 03/29/25 08:00 Resp 18 03/29/25 08:00 BP 156/69 H 03/29/25 08:00 Pulse Ox 99 03/29/25 08:00 O2 Del Method Room Air 03/29/25 08:00 BMI result Body Mass Index 21.8 Objective Data Active Medications Amlodipine Besylate (Amlodipine Besylate 5 Mg Tablet) 5 mg PO DAILY [facility]; Protocol Last Admin: 03/29/25 08:23 Dose: 5 mg Documented By: AMBER Calcium Carbonate (Calcium Carbonate 750 Mg Tab.Chew) 750 mg PO Q4H PRN PRN Reason: Heartburn Dextrose (Dextrose 50 % 25 Gm/50 Ml Syringe) 25 gm IVPUSH Q15M PRN; Protocol PRN Reason: per Hypoglycemia Standing Ord. Enoxaparin Sodium (Enoxaparin Sodium 40 Mg/0.4 Ml Syringe) 40 mg SUBCUT Q24H [facility] Last Admin: 03/29/25 04:01 Dose: 40 mg Documented By: KARL Glucose (Glucose Gel 15 Gm Gel..Gram.) 15 gm PO Q15M PRN; Protocol PRN Reason: per Hypoglycemia Standing Ord. Sodium Chloride (Ns) 1,000 mls @ 150 mls/hr IVCONT .Q6H40M [facility] Last Admin: 03/29/25 04:45 Dose: 150 mls/hr Documented By: KARL Insulin Human Lispro (Insulin Lispro 100 Unit/Ml 3 Ml Vial) 0 unit SUBCUT QIDACHS [facility]; Protocol Last Admin: 03/29/25 08:21 Dose: Not Given Documented By: AMBER Non-Admin Reason: No Insulin Coverage Losartan Potassium (Losartan Potassium 25 Mg Tablet) 25 mg PO DAILY [facility]; Protocol Last Admin: 03/29/25 08:23 Dose: 25 mg Documented By: AMBER Magnesium Hydroxide (Milk Of Magnesia 30 Ml Oral.Susp) 30 ml PO DAILY PRN PRN Reason: Constipation Melatonin (Melatonin 3 Mg Tablet) 6 mg PO BEDTIME PRN PRN Reason: Insomnia Multivitamins/Vitamin C (Multivitamin Tablet) 1 tab PO DAILY [facility] Last Admin: 03/29/25 08:23 Dose: 1 tab Documented By: AMBER Ondansetron HCl (Ondansetron Hcl 4 Mg/2 Ml Vial) 4 mg IVPUSH Q8H PRN PRN Reason: Nausea and Vomiting Polyethylene Glycol (Polyethylene Glycol 3350 17 Gm Powd.Pack) 17 gm PO DAILY PRN PRN Reason: Constipation Senna (Sennosides 8.6 Mg Tablet) 17.2 mg PO BEDTIME [facility] Last Admin: 03/28/25 20:38 Dose: Not Given Documented By: KARL Non-Admin Reason: Patient Refused Sodium Chloride (0.9 % Sodium Chloride Flush 3 Ml Syringe) 3 ml IVFLUSH QSHIFT [facility] Last Admin: 03/29/25 08:25 Dose: 3 ml Documented By: AMBER Vitamin D (Cholecalciferol (Vitamin D3) 25 Mcg Tablet) 50 mcg PO DAILY [facility] Last Admin: 03/29/25 08:23 Dose: 50 mcg Documented By: AMBER Labs 03/26/25 05:56 03/27/25 06:00 Labs: Laboratory Results - last 24 hr 03/28/25 03/28/25 03/28/25 11:32 16:30 19:47 Hold Purple Top POC Glucose 201 H 139 H 184 H Total Creatine Kinase 03/29/25 03/29/25 05:34 07:45 Hold Purple Top SEE NOTE POC Glucose 116 H Total Creatine Kinase 2769 H Assessment and Plan (1) Transaminitis: Status: Acute Plan 70F PMH HTN, CVA no deficits, HLD, DM, presented with weakness and elevated CPK acute myopathy/myositis, concern for rhabdomyolsis cpk stable 2-3K, continue ivf differential includes statin associated autoummune myopathy, polymyositis, dermatomyositis follow up antibodies sent out and pending: Extended Myositis Specific Antibody (MSA) Panel [Quest [id number]]: Includes Myositis Specific 11 Antibodies Panel, 9-Bgbqlok-8-Methylglutaryl-Coenzyme A Reductase (HMGCR) Antibody (IgG), Cytosolic 5?-Nucleotidase 1A (cN-1A) Antibody (IgG) plan for biopsy 03/30/25, then start prednisone 20mg bid empirically UTI completed ceftin htn amldoipine, losartan dm insulin hld holding statins dvt prophylaxis -lovenox full code reason for continued hospitalization:plan for biopsy, ivf Quality Stroke Does the patient have a stroke diagnosis?: No Reason for No Anti-thrombotic by Day Two: N/A - Med Ordered VTE Prior VTE?: No VTE Risk Level:: Medical - moderate - high VTE Device Contraindication: Treatment Not Tolerated VTE Drug Contraindication: N/A - Med Ordered
--- NOTE | 2025-03-29 10:35 | HO.ANESPROP2 ---
Documented by User: Rita Rahman NP 03/29/25 10:47 HPI - Anesthesia Eval Consult details Narrative: 70 yr old female for notify histology muscle biopsy No CP/SOB with limited activity recently N recent illness H/O cholecystectomy, difficult intubation per pt Type 2 Diabetes: no longer on metformin H/O TIA: 2012, no recurrence H/O right carotid stenosis: released from vascular care several yrs ago per pt PMFSH Active Problems Active Problems: All Active Problems Polymyositis (Acute) Transaminitis (Acute) Rhabdomyolysis (Acute) Elevated transaminase level (Acute) Rhabdomyolysis (Acute) Abscess of buttock (Acute) History of CVA (cerebrovascular accident) (Acute) Type 2 diabetes mellitus with microalbuminuria, without long-term current use of insulin (Acute) Stenosis of right carotid artery (Acute) Hypertension (Acute) Osteopenia of left hip (Acute) Dyslipidemia (Acute) Past Medical History Medical History Elevated transaminase level Rhabdomyolysis Abscess of buttock 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 Mother No problems noted. Family history of problems with anesthesia: No Surgical History Surgical History History of cholecystectomy History of dilation and curettage History of Problems with Anesthesia: Yes (difficult intubation) Social History Social History Household Members: Spouse Housing: House Do you presently have visiting nurse or other home services: No Alcohol intake: current Alcohol intake frequency: does not drink Patient Tobacco Use Status: Former Tobacco user Tobacco use type: Cigarette Smoked in Last 30 Days: No e-Cigarette/Vaping Use: Never Used Second Hand Smoke Exposure: No Use of substances other than those prescribed or required for medical reasons: No Currently Displaying Signs/Symptoms of Drug Intoxication Withdrawal: No Have you been hit, kicked, punched, or otherwise hurt by someone within the past year? If so, by whom?: No Do you feel safe in your current relationship?: Yes Is there a partner from a previous relationship who is making you feel unsafe now?: No Are you made to feel afraid or neglected: No Are you DNR?: No Advance Directives: Yes Advance Directives on File: Yes Advance Directives Date on File: 11/29/22 Do you have a plan to hurt others: No Plan Recently lost weight without trying: Yes How much weight loss: 2-13 pounds Nutrition Risks: No Nutritional Risk Patient : No : No Poor oral hygiene: No service: No Current occupational status: retired Cognitive needs: No Hearing needs: No Vision needs: Yes Meds Allergies Allergy/AdvReac Type Severity Reaction Status Date / Time metronidazole (From FLAGYL) Allergy Mild METALLIC Verified 03/21/25 21:02 TASTE/RASH Sulfa (Sulfonamide Allergy Mild RASH, Verified 03/21/25 21:02 Antibiotics) (SULFA rash, SOB (SULFONAMIDE ANTIBIOTICS)) [id number] Reductase AdvReac Severe Rhabdomyoly Verified 03/26/25 11:17 Inhibitor sis Active Medications: Current Medications Amlodipine Besylate (Amlodipine Besylate 5 Mg Tablet) 5 mg PO DAILY JOSE; Protocol Last Admin: 03/29/25 08:23 Dose: 5 mg Calcium Carbonate (Calcium Carbonate 750 Mg Tab.Chew) 750 mg PO Q4H PRN PRN Reason: Heartburn Dextrose (Dextrose 50 % 25 Gm/50 Ml Syringe) 25 gm IVPUSH Q15M PRN; Protocol PRN Reason: per Hypoglycemia Standing Ord. Enoxaparin Sodium (Enoxaparin Sodium 40 Mg/0.4 Ml Syringe) 40 mg SUBCUT Q24H JOSE On Hold: 03/29/25 09:47 Resume: 03/31/25 09:00 Last Admin: 03/29/25 04:01 Dose: 40 mg Glucose (Glucose Gel 15 Gm Gel..Gram.) 15 gm PO Q15M PRN; Protocol PRN Reason: per Hypoglycemia Standing Ord. Insulin Human Lispro (Insulin Lispro 100 Unit/Ml 3 Ml Vial) 0 unit SUBCUT QIDACHS JOSE; Protocol Last Admin: 03/29/25 08:21 Dose: Not Given Losartan Potassium (Losartan Potassium 25 Mg Tablet) 25 mg PO DAILY JOSE; Protocol Last Admin: 03/29/25 08:23 Dose: 25 mg Magnesium Hydroxide (Milk Of Magnesia 30 Ml Oral.Susp) 30 ml PO DAILY PRN PRN Reason: Constipation Melatonin (Melatonin 3 Mg Tablet) 6 mg PO BEDTIME PRN PRN Reason: Insomnia Multivitamins/Vitamin C (Multivitamin Tablet) 1 tab PO DAILY COUNT INCLUDES THE [facility] Last Admin: 03/29/25 08:23 Dose: 1 tab Ondansetron HCl (Ondansetron Hcl 4 Mg/2 Ml Vial) 4 mg IVPUSH Q8H PRN PRN Reason: Nausea and Vomiting Polyethylene Glycol (Polyethylene Glycol 3350 17 Gm Powd.Pack) 17 gm PO DAILY PRN PRN Reason: Constipation Senna (Sennosides 8.6 Mg Tablet) 17.2 mg PO BEDTIME COUNT INCLUDES THE [facility] Last Admin: 03/28/25 20:38 Dose: Not Given Sodium Chloride (0.9 % Sodium Chloride Flush 3 Ml Syringe) 3 ml IVFLUSH QSHIFT COUNT INCLUDES THE [facility] Last Admin: 03/29/25 08:25 Dose: 3 ml Vitamin D (Cholecalciferol (Vitamin D3) 25 Mcg Tablet) 50 mcg PO DAILY COUNT INCLUDES THE [facility] Last Admin: 03/29/25 08:23 Dose: 50 mcg Home Medications ?Medication ?Instructions ?Recorded ?Confirmed ?Last Taken ?Type multivitamin 1 tab PO DAILY 06/03/20 03/22/25 03/21/25 History cholecalciferol (vitamin D3) 50 50 mcg PO DAILY 06/05/20 03/22/25 03/21/25 History mcg (2,000 unit) capsule fluticasone propionate 50 1 spray intranasal DAILY PRN Nasal 07/02/21 03/22/25 03/21/25 History mcg/actuation nasal Congestion spray,suspension (Flonase Allergy Relief) vitamin B complex 1 tab PO DAILY 03/22/25 03/22/25 03/21/25 History metformin 500 mg tablet 1,000 mg PO QAM 03/30/25 03/30/25 03/17/25 History metformin 500 mg tablet 500 mg PO BEDTIME 03/30/25 03/30/25 03/17/25 History Exam Height,Weight and Vital Signs: Height 4 ft 11 in Weight 49 kg Last Vital Signs Temp 97.9 F 03/29/25 08:00 Pulse 87 03/29/25 08:00 Resp 18 03/29/25 08:00 BP 156/69 H 03/29/25 08:00 Pulse Ox 99 03/29/25 08:00 O2 Del Method Room Air 03/29/25 08:00 Pertinent Lab Results Pertinent Lab Results: Laboratory Tests 03/21/25 03/22/25 03/22/25 21:28 00:09 04:31 WBC 9.4 8.1 RBC 4.33 4.09 L Hgb 13.0 12.3 Hct 38.2 35.7 L MCV 88.2 87.3 MCH 30.0 30.1 MCHC 34.0 34.5 RDW 12.4 12.3 Plt Count 402 H 400 MPV 9.1 L 9.8 Immature Gran % (Auto) 0.2 0.4 Neut % (Auto) 60.1 63.6 Lymph % (Auto) 24.5 20.8 [place] % (Auto) 7.1 6.6 Eos % (Auto) 7.4 H 7.9 H Baso % (Auto) 0.7 0.7 Lymph # (Auto) 2.3 1.7 [place] # (Auto) 0.7 0.5 Eos # (Auto) 0.7 H 0.6 H Baso # (Auto) 0.1 0.1 Abs Immat Gran (auto) 0.02 0.03 Absolute Neuts (auto) 5.6 5.1 Absolute Nucleated RBC 0.000 0.000 Nucleated RBC % (auto) 0.0 0.0 Hold Purple Top Sodium 141 144 Potassium 4.4 3.4 D Chloride 107 109 H Carbon Dioxide 28 25 Anion Gap 10 L 13 BUN 18 H 12 Creatinine 0.62 0.47 L Estim Creat Clear Calc 56.7 74.8 Estimated GFR > 60 > 60 POC Glucose Random Glucose 237 H 155 H Fasting Glucose Estimat Average Glucose Hemoglobin A1c % Calcium 8.8 8.4 Magnesium Total Bilirubin 0.3 0.4 AST 123 H 106 H ALT 191 H 163 H Alkaline Phosphatase 77 70 Lactate Dehydrogenase Total Creatine Kinase 6016 H 4953 H C-Reactive Protein Total Protein 7.2 6.2 L Albumin 4.4 3.8 Urine Color Yellow Urine Appearance Clear Urine pH 8.5 Ur Specific Sunol 1.010 Urine Protein 30 (1+) H Urine Glucose (UA) 500 H Urine Ketones Negative Urine Blood Small (1+) H Urine Nitrite Negative Ur Leukocyte Esterase Negative Urine RBC 0-2 Urine WBC 0-5 Ur Squamous Epith Cells 0-2 Urine Bacteria None Seen Hyaline Casts 0-2 03/22/25 03/23/25 03/23/25 11:45 05:35 21:02 WBC 8.4 RBC 3.75 L Hgb 11.2 L Hct 33.5 L MCV 89.3 MCH 29.9 MCHC 33.4 RDW 12.6 Plt Count 356 MPV 9.4 Immature Gran % (Auto) 0.2 Neut % (Auto) 59.4 Lymph % (Auto) 23.6 [place] % (Auto) 7.0 Eos % (Auto) 9.1 H Baso % (Auto) 0.7 Lymph # (Auto) 2.0 [place] # (Auto) 0.6 Eos # (Auto) 0.8 H Baso # (Auto) 0.1 Abs Immat Gran (auto) 0.02 Absolute Neuts (auto) 5.0 Absolute Nucleated RBC 0.000 Nucleated RBC % (auto) 0.0 Hold Purple Top Sodium 142 Potassium 3.4 Chloride 109 H Carbon Dioxide 27 Anion Gap 9 L BUN 13 Creatinine 0.58 Estim Creat Clear Calc 60.6 Estimated GFR > 60 POC Glucose 135 H Random Glucose Fasting Glucose 143 H Estimat Average Glucose 148 Hemoglobin A1c % 6.8 H Calcium 8.9 Magnesium Total Bilirubin 0.3 AST 73 H ALT 130 H Alkaline Phosphatase 62 Lactate Dehydrogenase Total Creatine Kinase 3910 H 2888 H C-Reactive Protein Total Protein 5.9 L Albumin 3.5 Urine Color Urine Appearance Urine pH Ur Specific Sunol Urine Protein Urine Glucose (UA) Urine Ketones Urine Blood Urine Nitrite Ur Leukocyte Esterase Urine RBC Urine WBC Ur Squamous Epith Cells Urine Bacteria Hyaline Casts 03/24/25 03/24/25 03/24/25 07:31 08:31 11:29 WBC 8.6 RBC 4.35 Hgb 12.9 Hct 38.8 MCV 89.2 MCH 29.7 MCHC 33.2 RDW 12.5 Plt Count 401 H MPV 9.5 Immature Gran % (Auto) 0.3 Neut % (Auto) 55.9 Lymph % (Auto) 30.7 [place] % (Auto) 6.8 Eos % (Auto) 5.6 H Baso % (Auto) 0.7 Lymph # (Auto) 2.7 [place] # (Auto) 0.6 Eos # (Auto) 0.5 H Baso # (Auto) 0.1 Abs Immat Gran (auto) 0.03 Absolute Neuts (auto) 4.8 Absolute Nucleated RBC 0.000 Nucleated RBC % (auto) 0.0 Hold Purple Top Sodium 142 Potassium 4.4 D Chloride 106 Carbon Dioxide 29 Anion Gap 11 L BUN 16 Creatinine 0.55 Estim Creat Clear Calc 63.9 Estimated GFR > 60 POC Glucose 138 H 187 H Random Glucose Fasting Glucose 150 H Estimat Average Glucose Hemoglobin A1c % Calcium 9.7 D Magnesium Total Bilirubin 0.4 AST 80 H ALT 151 H Alkaline Phosphatase 80 Lactate Dehydrogenase Total Creatine Kinase 2769 H C-Reactive Protein Total Protein 7.1 Albumin 4.2 Urine Color Urine Appearance Urine pH Ur Specific Sunol Urine Protein Urine Glucose (UA) Urine Ketones Urine Blood Urine Nitrite Ur Leukocyte Esterase Urine RBC Urine WBC Ur Squamous Epith Cells Urine Bacteria Hyaline Casts 03/24/25 03/24/25 03/25/25 16:24 19:40 05:35 WBC 7.7 RBC 3.87 L Hgb 11.5 L Hct 34.1 L MCV 88.1 MCH 29.7 MCHC 33.7 RDW 12.6 Plt Count 362 MPV 9.6 Immature Gran % (Auto) 0.3 Neut % (Auto) 57.3 Lymph % (Auto) 27.5 [place] % (Auto) 7.8 Eos % (Auto) 6.3 H Baso % (Auto) 0.8 Lymph # (Auto) 2.1 [place] # (Auto) 0.6 Eos # (Auto) 0.5 H Baso # (Auto) 0.1 Abs Immat Gran (auto) 0.02 Absolute Neuts (auto) 4.4 Absolute Nucleated RBC 0.000 Nucleated RBC % (auto) 0.0 Hold Purple Top Sodium 142 Potassium 3.5 D Chloride 109 H Carbon Dioxide 26 Anion Gap 11 L BUN 15 Creatinine 0.49 L Estim Creat Clear Calc 71.7 Estimated GFR > 60 POC Glucose 140 H 158 H Random Glucose Fasting Glucose 135 H Estimat Average Glucose Hemoglobin A1c % Calcium 8.7 D Magnesium Total Bilirubin 0.4 AST 74 H ALT 126 H Alkaline Phosphatase 66 Lactate Dehydrogenase Total Creatine Kinase 2470 H C-Reactive Protein Total Protein 5.8 L Albumin 3.4 L Urine Color Urine Appearance Urine pH Ur Specific Sunol Urine Protein Urine Glucose (UA) Urine Ketones Urine Blood Urine Nitrite Ur Leukocyte Esterase Urine RBC Urine WBC Ur Squamous Epith Cells Urine Bacteria Hyaline Casts 03/25/25 03/25/25 03/25/25 07:18 11:25 16:21 WBC RBC Hgb Hct MCV MCH MCHC RDW Plt Count MPV Immature Gran % (Auto) Neut % (Auto) Lymph % (Auto) [place] % (Auto) Eos % (Auto) Baso % (Auto) Lymph # (Auto) [place] # (Auto) Eos # (Auto) Baso # (Auto) Abs Immat Gran (auto) Absolute Neuts (auto) Absolute Nucleated RBC Nucleated RBC % (auto) Hold Purple Top Sodium Potassium Chloride Carbon Dioxide Anion Gap BUN Creatinine Estim Creat Clear Calc Estimated GFR POC Glucose 133 H 153 H 175 H Random Glucose Fasting Glucose Estimat Average Glucose Hemoglobin A1c % Calcium Magnesium Total Bilirubin AST ALT Alkaline Phosphatase Lactate Dehydrogenase Total Creatine Kinase C-Reactive Protein Total Protein Albumin Urine Color Urine Appearance Urine pH Ur Specific Sunol Urine Protein Urine Glucose (UA) Urine Ketones Urine Blood Urine Nitrite Ur Leukocyte Esterase Urine RBC Urine WBC Ur Squamous Epith Cells Urine Bacteria Hyaline Casts 03/25/25 03/26/25 03/26/25 19:33 05:56 07:16 WBC 8.1 RBC 3.90 L Hgb 11.5 L Hct 34.8 L MCV 89.2 MCH 29.5 MCHC 33.0 RDW 12.7 Plt Count 377 MPV 9.8 Immature Gran % (Auto) 0.1 Neut % (Auto) 50.1 Lymph % (Auto) 35.1 [place] % (Auto) 7.3 Eos % (Auto) 6.9 H Baso % (Auto) 0.5 Lymph # (Auto) 2.8 [place] # (Auto) 0.6 Eos # (Auto) 0.6 H Baso # (Auto) 0.0 Abs Immat Gran (auto) 0.01 Absolute Neuts (auto) 4.1 Absolute Nucleated RBC 0.000 Nucleated RBC % (auto) 0.0 Hold Purple Top Sodium 142 Potassium 3.7 Chloride 106 Carbon Dioxide 27 Anion Gap 13 BUN 13 Creatinine 0.52 Estim Creat Clear Calc 67.7 Estimated GFR > 60 POC Glucose 157 H 129 H Random Glucose Fasting Glucose 118 H Estimat Average Glucose Hemoglobin A1c % Calcium 8.6 Magnesium 1.7 Total Bilirubin 0.4 AST 99 H ALT 153 H Alkaline Phosphatase 68 Lactate Dehydrogenase 482 H Total Creatine Kinase 2969 H C-Reactive Protein Total Protein 5.9 L Albumin 3.6 Urine Color Urine Appearance Urine pH Ur Specific Sunol Urine Protein Urine Glucose (UA) Urine Ketones Urine Blood Urine Nitrite Ur Leukocyte Esterase Urine RBC Urine WBC Ur Squamous Epith Cells Urine Bacteria Hyaline Casts 03/26/25 03/26/25 03/26/25 11:14 16:22 20:25 WBC RBC Hgb Hct MCV MCH MCHC RDW Plt Count MPV Immature Gran % (Auto) Neut % (Auto) Lymph % (Auto) [place] % (Auto) Eos % (Auto) Baso % (Auto) Lymph # (Auto) [place] # (Auto) Eos # (Auto) Baso # (Auto) Abs Immat Gran (auto) Absolute Neuts (auto) Absolute Nucleated RBC Nucleated RBC % (auto) Hold Purple Top Sodium Potassium Chloride Carbon Dioxide Anion Gap BUN Creatinine Estim Creat Clear Calc Estimated GFR POC Glucose 146 H 141 H 142 H Random Glucose Fasting Glucose Estimat Average Glucose Hemoglobin A1c % Calcium Magnesium Total Bilirubin AST ALT Alkaline Phosphatase Lactate Dehydrogenase Total Creatine Kinase C-Reactive Protein Total Protein Albumin Urine Color Urine Appearance Urine pH Ur Specific Sun[place] Urine Protein Urine Glucose (UA) Urine Ketones Urine Blood Urine Nitrite Ur Leukocyte Esterase Urine RBC Urine WBC Ur Squamous Epith Cells Urine Bacteria Hyaline Casts 03/27/25 03/27/25 03/27/25 06:00 07:12 11:14 WBC RBC Hgb Hct MCV MCH MCHC RDW Plt Count MPV Immature Gran % (Auto) Neut % (Auto) Lymph % (Auto) [place] % (Auto) Eos % (Auto) Baso % (Auto) Lymph # (Auto) [place] # (Auto) Eos # (Auto) Baso # (Auto) Abs Immat Gran (auto) Absolute Neuts (auto) Absolute Nucleated RBC Nucleated RBC % (auto) Hold Purple Top Sodium 144 Potassium 3.6 Chloride 114 H Carbon Dioxide 23 Anion Gap 11 L BUN 12 Creatinine 0.53 Estim Creat Clear Calc 66.4 Estimated GFR > 60 POC Glucose 116 H 133 H Random Glucose 131 H Fasting Glucose Estimat Average Glucose Hemoglobin A1c % Calcium 8.2 L Magnesium Total Bilirubin 0.4 AST 101 H ALT 161 H Alkaline Phosphatase 63 Lactate Dehydrogenase Total Creatine Kinase 2828 H C-Reactive Protein < 0.10 Total Protein 6.0 L Albumin 3.5 Urine Color Urine Appearance Urine pH Ur Specific Sun[place] Urine Protein Urine Glucose (UA) Urine Ketones Urine Blood Urine Nitrite Ur Leukocyte Esterase Urine RBC Urine WBC Ur Squamous Epith Cells Urine Bacteria Hyaline Casts 03/27/25 03/27/25 03/28/25 16:38 20:31 06:03 WBC RBC Hgb Hct MCV MCH MCHC RDW Plt Count MPV Immature Gran % (Auto) Neut % (Auto) Lymph % (Auto) [place] % (Auto) Eos % (Auto) Baso % (Auto) Lymph # (Auto) [place] # (Auto) Eos # (Auto) Baso # (Auto) Abs Immat Gran (auto) Absolute Neuts (auto) Absolute Nucleated RBC Nucleated RBC % (auto) Hold Purple Top Sodium Potassium Chloride Carbon Dioxide Anion Gap BUN Creatinine Estim Creat Clear Calc Estimated GFR POC Glucose 140 H 159 H Random Glucose Fasting Glucose Estimat Average Glucose Hemoglobin A1c % Calcium Magnesium Total Bilirubin AST ALT Alkaline Phosphatase Lactate Dehydrogenase Total Creatine Kinase 2844 H C-Reactive Protein Total Protein Albumin Urine Color Urine Appearance Urine pH Ur Specific [place] Urine Protein Urine Glucose (UA) Urine Ketones Urine Blood Urine Nitrite Ur Leukocyte Esterase Urine RBC Urine WBC Ur Squamous Epith Cells Urine Bacteria Hyaline Casts 03/28/25 03/28/25 03/28/25 07:11 11:32 16:30 WBC RBC Hgb Hct MCV MCH MCHC RDW Plt Count MPV Immature Gran % (Auto) Neut % (Auto) Lymph % (Auto) [place] % (Auto) Eos % (Auto) Baso % (Auto) Lymph # (Auto) [place] # (Auto) Eos # (Auto) Baso # (Auto) Abs Immat Gran (auto) Absolute Neuts (auto) Absolute Nucleated RBC Nucleated RBC % (auto) Hold Purple Top Sodium Potassium Chloride Carbon Dioxide Anion Gap BUN Creatinine Estim Creat Clear Calc Estimated GFR POC Glucose 127 H 201 H 139 H Random Glucose Fasting Glucose Estimat Average Glucose Hemoglobin A1c % Calcium Magnesium Total Bilirubin AST ALT Alkaline Phosphatase Lactate Dehydrogenase Total Creatine Kinase C-Reactive Protein Total Protein Albumin Urine Color Urine Appearance Urine pH Ur Specific [place] Urine Protein Urine Glucose (UA) Urine Ketones Urine Blood Urine Nitrite Ur Leukocyte Esterase Urine RBC Urine WBC Ur Squamous Epith Cells Urine Bacteria Hyaline Casts 03/28/25 03/29/25 03/29/25 19:47 05:34 07:45 WBC RBC Hgb Hct MCV MCH MCHC RDW Plt Count MPV Immature Gran % (Auto) Neut % (Auto) Lymph % (Auto) [place] % (Auto) Eos % (Auto) Baso % (Auto) Lymph # (Auto) [place] # (Auto) Eos # (Auto) Baso # (Auto) Abs Immat Gran (auto) Absolute Neuts (auto) Absolute Nucleated RBC Nucleated RBC % (auto) Hold Purple Top SEE NOTE Sodium Potassium Chloride Carbon Dioxide Anion Gap BUN Creatinine Estim Creat Clear Calc Estimated GFR POC Glucose 184 H 116 H Random Glucose Fasting Glucose Estimat Average Glucose Hemoglobin A1c % Calcium Magnesium Total Bilirubin AST ALT Alkaline Phosphatase Lactate Dehydrogenase Total Creatine Kinase 2769 H C-Reactive Protein Total Protein Albumin Urine Color Urine Appearance Urine pH Ur Specific [place] Urine Protein Urine Glucose (UA) Urine Ketones Urine Blood Urine Nitrite Ur Leukocyte Esterase Urine RBC Urine WBC Ur Squamous Epith Cells Urine Bacteria Hyaline Casts Airway Mallampati Class: II TM Dist: >3cm Neck ROM: Full Loose/Missing/Broken Teeth: Yes and Upper (molars) Heart: RRR Lungs: CTAB Assessment and Plan Final Anesthetic Review Family History of Problems with Anesthesia: No History of Problems with Anesthesia: Yes (difficult intubation) Documented by User: Ulises Tobin MD 03/30/25 10:35 [facility] Past Medical History Medical History Elevated transaminase level Rhabdomyolysis Abscess of buttock 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 Mother No problems noted. Surgical History Surgical History History of cholecystectomy History of dilation and curettage Social History Social History Household Members: Spouse Housing: House Do you presently have visiting nurse or other home services: No Alcohol intake: current Alcohol intake frequency: does not drink Patient Tobacco Use Status: Former Tobacco user Tobacco use type: Cigarette Smoked in Last 30 Days: No e-Cigarette/Vaping Use: Never Used Second Hand Smoke Exposure: No Use of substances other than those prescribed or required for medical reasons: No Currently Displaying Signs/Symptoms of Drug Intoxication Withdrawal: No Have you been hit, kicked, punched, or otherwise hurt by someone within the past year? If so, by whom?: No Do you feel safe in your current relationship?: Yes Is there a partner from a previous relationship who is making you feel unsafe now?: No Are you made to feel afraid or neglected: No Are you DNR?: No Advance Directives: Yes Advance Directives on File: Yes Advance Directives Date on File: 11/29/22 Do you have a plan to hurt others: No Plan Recently lost weight without trying: Yes How much weight loss: 2-13 pounds Nutrition Risks: No Nutritional Risk Patient : No : No Poor oral hygiene: No service: No Current occupational status: retired Cognitive needs: No Hearing needs: No Vision needs: Yes Meds Allergies Allergy/AdvReac Type Severity Reaction Status Date / Time metronidazole (From FLAGYL) Allergy Mild METALLIC Verified 03/21/25 21:02 TASTE/RASH Sulfa (Sulfonamide Allergy Mild RASH, Verified 03/21/25 21:02 Antibiotics) (SULFA rash, SOB (SULFONAMIDE ANTIBIOTICS)) [id number] Reductase AdvReac Severe Rhabdomyoly Verified 03/26/25 11:17 Inhibitor sis Home Medications ?Medication ?Instructions ?Recorded ?Confirmed ?Last Taken ?Type multivitamin 1 tab PO DAILY 06/03/20 03/22/25 03/21/25 History cholecalciferol (vitamin D3) 50 50 mcg PO DAILY 06/05/20 03/22/25 03/21/25 History mcg (2,000 unit) capsule fluticasone propionate 50 1 spray intranasal DAILY PRN Nasal 07/02/21 03/22/25 03/21/25 History mcg/actuation nasal Congestion spray,suspension (Flonase Allergy Relief) vitamin B complex 1 tab PO DAILY 03/22/25 03/22/25 03/21/25 History metformin 500 mg tablet 1,000 mg PO QAM 03/30/25 03/30/25 03/17/25 History metformin 500 mg tablet 500 mg PO BEDTIME 03/30/25 03/30/25 03/17/25 History Assessment and Plan Assessment Anesthesia Assessment: Anesthesia Plan Discussed and Chart Reviewed Final Anesthetic Review NPO: Yes ASA Class: III Final Preanesthetic Review: No Changes in Pt Med Stat, Meds/Allgs Chart Reviewed, Consent Obtained/Reviewed and Anes Risks/Benef Reviewed Patient Risk: Intermediate Procedure Risk: Low Anesthetic Plan Anesthetic Plan: MAC: and Agree w/ Assess. and Plan Disposition: Standard PACU
[2025-03-29 11:10] LABS: Glucose, Whole Blood 159 mg/dL (60-115)
[2025-03-29 11:39] VITALS: BP 175/72; PULSE 86; RESP 16; TEMP 36.5; O2SAT 99
--- NOTE | 2025-03-29 13:44 | P.PNGS_ITS ---
Subjective Subjective Date of Service: 03/29/25 Interval history: Would like to proceed with muscle biopsy. Physical Exam 2 Vital Signs: Vital Signs: Last Vital Signs Temp 97.7 F 03/29/25 11:39 Pulse 86 03/29/25 11:39 Resp 16 03/29/25 11:39 BP 175/72 H 03/29/25 11:39 Pulse Ox 99 03/29/25 11:39 O2 Del Method Room Air 03/29/25 11:39 BMI result Body Mass Index 21.8 Const: General: comfortable, no acute distress and alert O rientation/consciousness: patient oriented x3 Resp: Effort & Inspection: normal respiratory effort Skin: General skin exam: no rashes or lesions noted Neuro: General: patient oriented x3 and moves all extremities Extrem: Other: left leg, quad, no overlying skin changes Objective Data Active Medications Amlodipine Besylate (Amlodipine Besylate 5 Mg Tablet) 5 mg PO DAILY [facility]; Protocol Last Admin: 03/29/25 08:23 Dose: 5 mg Documented By: AMBER Calcium Carbonate (Calcium Carbonate 750 Mg Tab.Chew) 750 mg PO Q4H PRN PRN Reason: Heartburn Dextrose (Dextrose 50 % 25 Gm/50 Ml Syringe) 25 gm IVPUSH Q15M PRN; Protocol PRN Reason: per Hypoglycemia Standing Ord. Enoxaparin Sodium (Enoxaparin Sodium 40 Mg/0.4 Ml Syringe) 40 mg SUBCUT Q24H [facility] On Hold: 03/29/25 09:47 Resume: 03/31/25 09:00 Last Admin: 03/29/25 04:01 Dose: 40 mg Documented By: KARL Glucose (Glucose Gel 15 Gm Gel..Gram.) 15 gm PO Q15M PRN; Protocol PRN Reason: per Hypoglycemia Standing Ord. Insulin Human Lispro (Insulin Lispro 100 Unit/Ml 3 Ml Vial) 0 unit SUBCUT QIDACHS [facility]; Protocol Last Admin: 03/29/25 11:35 Dose: 2 unit Documented By: AMBER Losartan Potassium (Losartan Potassium 25 Mg Tablet) 25 mg PO DAILY [facility]; Protocol Last Admin: 03/29/25 08:23 Dose: 25 mg Documented By: AMBER Magnesium Hydroxide (Milk Of Magnesia 30 Ml Oral.Susp) 30 ml PO DAILY PRN PRN Reason: Constipation Melatonin (Melatonin 3 Mg Tablet) 6 mg PO BEDTIME PRN PRN Reason: Insomnia Multivitamins/Vitamin C (Multivitamin Tablet) 1 tab PO DAILY [facility] Last Admin: 03/29/25 08:23 Dose: 1 tab Documented By: AMBER Ondansetron HCl (Ondansetron Hcl 4 Mg/2 Ml Vial) 4 mg IVPUSH Q8H PRN PRN Reason: Nausea and Vomiting Polyethylene Glycol (Polyethylene Glycol 3350 17 Gm Powd.Pack) 17 gm PO DAILY PRN PRN Reason: Constipation Senna (Sennosides 8.6 Mg Tablet) 17.2 mg PO BEDTIME [facility] Last Admin: 03/28/25 20:38 Dose: Not Given Documented By: KARL Non-Admin Reason: Patient Refused Sodium Chloride (0.9 % Sodium Chloride Flush 3 Ml Syringe) 3 ml IVFLUSH QSHIFT [facility] Last Admin: 03/29/25 08:25 Dose: 3 ml Documented By: AMBER Vitamin D (Cholecalciferol (Vitamin D3) 25 Mcg Tablet) 50 mcg PO DAILY [facility] Last Admin: 03/29/25 08:23 Dose: 50 mcg Documented By: AMBER Labs 03/26/25 05:56 03/27/25 06:00 Labs: Laboratory Results - last 24 hr 03/28/25 03/28/25 03/29/25 16:30 19:47 05:34 Hold Purple Top SEE NOTE POC Glucose 139 H 184 H Total Creatine Kinase 2769 H 03/29/25 03/29/25 07:45 11:05 Hold Purple Top POC Glucose 116 H 159 H Total Creatine Kinase Procedures Date of Service Date of Service: 03/29/25 Progress Note: A&P Assessment and plan (1) Polymyositis: Status: Acute Plan Plan to proceed with biopsy of left quadricep muscle. Technique of the procedure as well as risks including infection, bleeding, poor healing were discussed. She is in agreement. She is on the OR schedule for tomorrow, NPO at midnight. Time Spent With Patient Time: Total time managing care of this patient today ____ minutes. Quality Stroke Does the patient have a stroke diagnosis?: No Reason for No Anti-thrombotic by Day Two: N/A - Med Ordered VTE Prior VTE?: No VTE Risk Level:: Medical - moderate - high VTE Device Contraindication: Treatment Not Tolerated VTE Drug Contraindication: N/A - Med Ordered
[2025-03-29 15:37] VITALS: BP 157/67; PULSE 87; RESP 20; TEMP 36.6; O2SAT 99
[2025-03-29 16:21] LABS: Glucose, Whole Blood 141 mg/dL (60-115)
[2025-03-29 19:27] VITALS: BP 155/70; PULSE 76; RESP 18; TEMP 36.3; O2SAT 98
[2025-03-29 20:42] LABS: Glucose, Whole Blood 154 mg/dL (60-115)
[2025-03-29 23:00] VITALS: BP 136/63; PULSE 62; RESP 20; TEMP 36.3; O2SAT 97
[2025-03-30] VITALS (10 sets, daily range): BP systolic 109–161; BP diastolic 31–74; PULSE 63–79; RESP 18–20; TEMP 36.2–36.9; O2SAT 94–98
[2025-03-30 06:21] LABS: Alanine Aminotransferase 204 U/L (0-31); Albumin Level 3.7 g/dL (3.5-5.0); Alkaline Phosphatase 72 U/L (39-117); Anion Gap 13 (12-20); Aspartate Amino Transferase 96 U/L (5-31); Blood Urea Nitrogen 14 mg/dL (9-16); Calcium 8.6 mg/dL (8.4-10.2); Carbon Dioxide 26 mmol/L (22-29); Chloride 109 mmol/L (96-108); Creatinine Clr Calc Pharmacy 60.6; Estimated Glomerular Filt Rate > 60; Potassium 3.5 mmol/L (3.3-5.1); Sodium 144 mmol/L (135-145); Total Protein 6.1 g/dL (6.5-8.0)
[2025-03-30 07:31] LABS: Glucose, Whole Blood 104 mg/dL (60-115)
[2025-03-30] MEDS: 0.9 % Sodium Chloride Flush 3 ML SYRINGE IVFLUSH ×3 (07:51→20:57)
--- NOTE | 2025-03-30 08:36 | MHC.SHP ---
Pre-Procedural Eval Section A - 24 Hr Update-Section A only Date of Service: 03/30/25 The patient is an INPATIENT: Yes Changes since office visit: Yes Patient answered all questions; No Cold of Flu in the past 2 weeks, No New Medical Problems and No Changes in Medication The patient has been examined within 24 hours of the surgical procedure. The History & Physical has been completed within 30 days and I have reviewed it.: Yes Section B - Complete if H&P > 30 days Chief Complaint: abnormal labs Allergies: Allergies Allergy/AdvReac Type Severity Reaction Status Date / Time metronidazole (From FLAGYL) Allergy Mild METALLIC Verified 03/21/25 21:02 TASTE/RASH Sulfa (Sulfonamide Allergy Mild RASH, Verified 03/21/25 21:02 Antibiotics) (SULFA rash, SOB (SULFONAMIDE ANTIBIOTICS)) [id number] Reductase AdvReac Severe Rhabdomyoly Verified 03/26/25 11:17 Inhibitor sis Plan I have reviewed the history and physical and performed a pertinent physical examination on my patient. No changes have occurred unless specified. I reviewed the procedure, risks and alternatives of the left upper leg muscle biopsy in detail including the possibility of developing another keloid scar. She consents to the left upper leg muscle biopsy. Time Spent With Patient Time: Total time managing care of this patient today ____ minutes.
--- NOTE | 2025-03-30 09:04 | P.PNIM_ITS ---
Subjective Subjective Date of Service: 03/30/25 Interval History: no changes Physical Exam 2 Vital Signs: Vital Signs: Last Vital Signs Temp 97.5 F 03/30/25 07:34 Pulse 71 03/30/25 07:34 Resp 18 03/30/25 07:34 BP 135/60 03/30/25 07:34 Pulse Ox 98 03/30/25 07:34 O2 Del Method Room Air 03/30/25 07:34 BMI result Body Mass Index 21.8 Const: General: comfortable, no acute distress and alert O rientation/consciousness: patient oriented x3 Resp: Effort & Inspection: normal respiratory effort Skin: General skin exam: no rashes or lesions noted Neuro: General: patient oriented x3 and moves all extremities Extrem: Other: left leg, quad, no overlying skin changes Objective Data Active Medications Amlodipine Besylate (Amlodipine Besylate 5 Mg Tablet) 5 mg PO DAILY [facility]; Protocol Last Admin: 03/30/25 07:52 Dose: Not Given Documented By: AMBER Non-Admin Reason: surgery states hold Calcium Carbonate (Calcium Carbonate 750 Mg Tab.Chew) 750 mg PO Q4H PRN PRN Reason: Heartburn Dextrose (Dextrose 50 % 25 Gm/50 Ml Syringe) 25 gm IVPUSH Q15M PRN; Protocol PRN Reason: per Hypoglycemia Standing Ord. Enoxaparin Sodium (Enoxaparin Sodium 40 Mg/0.4 Ml Syringe) 40 mg SUBCUT Q24H [facility] On Hold: 03/29/25 09:47 Resume: 03/31/25 09:00 Last Admin: 03/29/25 04:01 Dose: 40 mg Documented By: KARL Glucose (Glucose Gel 15 Gm Gel..Gram.) 15 gm PO Q15M PRN; Protocol PRN Reason: per Hypoglycemia Standing Ord. Cefazolin Sodium/Dextrose (Ancef) 2 gm in 50 mls @ 100 mls/hr IV PREOP ONE Stop: 03/30/25 14:18 Insulin Human Lispro (Insulin Lispro 100 Unit/Ml 3 Ml Vial) 0 unit SUBCUT QIDACHS [facility]; Protocol Last Admin: 03/30/25 07:48 Dose: Not Given Documented By: AMBER Non-Admin Reason: No Insulin Coverage Losartan Potassium (Losartan Potassium 25 Mg Tablet) 25 mg PO DAILY [facility]; Protocol Last Admin: 03/30/25 07:53 Dose: Not Given Documented By: AMBER Non-Admin Reason: surgery states hold Magnesium Hydroxide (Milk Of Magnesia 30 Ml Oral.Susp) 30 ml PO DAILY PRN PRN Reason: Constipation Melatonin (Melatonin 3 Mg Tablet) 6 mg PO BEDTIME PRN PRN Reason: Insomnia Multivitamins/Vitamin C (Multivitamin Tablet) 1 tab PO DAILY [facility] Last Admin: 03/30/25 07:53 Dose: Not Given Documented By: AMBER Non-Admin Reason: surgery states hold Ondansetron HCl (Ondansetron Hcl 4 Mg/2 Ml Vial) 4 mg IVPUSH Q8H PRN PRN Reason: Nausea and Vomiting Polyethylene Glycol (Polyethylene Glycol 3350 17 Gm Powd.Pack) 17 gm PO DAILY PRN PRN Reason: Constipation Senna (Sennosides 8.6 Mg Tablet) 17.2 mg PO BEDTIME [facility] Last Admin: 03/29/25 21:10 Dose: Not Given Documented By: CARL Non-Admin Reason: Patient Refused Sodium Chloride (0.9 % Sodium Chloride Flush 3 Ml Syringe) 3 ml IVFLUSH QSHIFT [facility] Last Admin: 03/30/25 07:51 Dose: 3 ml Documented By: AMBER Vitamin D (Cholecalciferol (Vitamin D3) 25 Mcg Tablet) 50 mcg PO DAILY [facility] Last Admin: 03/30/25 07:52 Dose: Not Given Documented By: AMBER Non-Admin Reason: surgery states hold Labs 03/26/25 05:56 03/30/25 05:28 Labs: Laboratory Results - last 24 hr 03/29/25 03/29/25 03/29/25 11:05 16:17 20:29 Hold Purple Top Anion Gap Estim Creat Clear Calc Estimated GFR POC Glucose 159 H 141 H 154 H Random Glucose Calcium Total Bilirubin Direct Bilirubin AST ALT Alkaline Phosphatase Total Creatine Kinase Total Protein Albumin 03/30/25 03/30/25 05:28 07:18 Hold Purple Top SEE NOTE Anion Gap 13 Estim Creat Clear Calc 60.6 Estimated GFR > 60 POC Glucose 104 Random Glucose 119 H Calcium 8.6 Total Bilirubin 0.5 Direct Bilirubin 0.2 AST 96 H ALT 204 H Alkaline Phosphatase 72 Total Creatine Kinase 2891 H Total Protein 6.1 L Albumin 3.7 Assessment and Plan (1) Transaminitis: Status: Acute Plan 70F PMH HTN, CVA no deficits, HLD, DM, presented with weakness and elevated CPK acute myopathy/myositis, concern for rhabdomyolsis cpk stable 2-3K, will hold ivf and monitor off differential includes statin associated aut[employer]mmune myopathy, polymyositis, dermatomyositis follow up antibodies sent out and pending: Extended Myositis Specific Antibody (MSA) Panel [[facility] [id number]]: Includes Myositis Specific 11 Antibodies Panel, 8-Qedyvfr-3-Methylglutaryl-Coenzyme A Reductase (HMGCR) Antibody (IgG), Cytosolic 5?-Nucleotidase 1A (cN-1A) Antibody (IgG) plan for biopsy 03/30/25, then start prednisone 20mg bid empirically UTI completed ceftin htn amldoipine, losartan dm insulin hld holding statins dvt prophylaxis -lovenox full code reason for continued hospitalization:plan for biopsy, monitor off ivf Quality Stroke Does the patient have a stroke diagnosis?: No Reason for No Anti-thrombotic by Day Two: N/A - Med Ordered VTE Prior VTE?: No VTE Risk Level:: Medical - moderate - high VTE Device Contraindication: Treatment Not Tolerated VTE Drug Contraindication: N/A - Med Ordered
[2025-03-30 09:08] LABS: Glucose, Whole Blood 104 mg/dL (60-115)
[2025-03-30] MEDS: Lactated Ringers 1,000 ML 50 ML IVCONT (09:17)
--- NOTE | 2025-03-30 11:23 | W.PM.OPN ---
Operative Note Operative Note Date of Service: 03/30/25 Narrative: Preoperative diagnosis: Elevated CK, rhabdomyolysis, possible polymyositis Postoperative diagnosis: Same Procedure: Left quadriceps muscle biopsy Surgeon: Jose Warren MD Enamel Buffer: Belen Sidhu PA-C; KUN Thompson Anesthesia: MAC plus local Indications for procedure: 70-year-old female patient presenting with complaints of muscle pain and weakness with elevated CK levels presenting today for muscle biopsy. Operative findings: Normal-appearing quadriceps muscle without evidence of myonecrosis. Specimen: Two muscle specimens: 1 stretched and the 2nd unstretched Estimated blood loss: Less than 2 mL Complications: None Procedure details: The patient was brought to the OR and placed in a supine position. After administering sedation, the left leg was prepped with ChloraPrep and draped in a sterile fashion. A surgical time-out was called the consent confirmed. Patient received preoperative antibiotics and Venodyne boots were in place. Local anesthesia was infiltrated in a longitudinal fashion directly over the lateral quadriceps muscles. Incision was then created and carried down through subcutaneous tissue, past muscle fascia and up to the superficial portion of the quadriceps. Blunt dissection was used to dissect a segment of muscle. This was locked within a muscle biopsy clamp and cut using the Metzenbaum scissors. Hemostasis was assured using electrocautery. A 2nd unstretched muscle specimen was then obtained from the same site. Both muscle specimens were wrapped in saline soaked gauze and sent immediately to pathology for processing. Wounds were irrigated with saline solution and suctioned dry. Hemostasis was assured using electrocautery. Muscle fascia was then reapproximated using interrupted 3-0 Polysorb sutures. Dermis was reapproximated using interrupted 3-0 Polysorb sutures. Skin was then closed using a running subcuticular 4-0 Polysorb suture. Sterile dressings bleeding Steri-Strips, 4 x 4 gauze and Tegaderm were then applied. The patient tolerated the procedure well. Sponge, instrument, and needle counts reported as correct. The patient was transferred to PACU in stable condition.
[2025-03-30 12:51] LABS: Glucose, Whole Blood 124 mg/dL (60-115)
[2025-03-30 16:43] LABS: Glucose, Whole Blood 150 mg/dL (60-115)
[2025-03-30 20:35] LABS: Glucose, Whole Blood 143 mg/dL (60-115)
[2025-03-31 03:33] VITALS: BP 116/56; PULSE 73; RESP 20; TEMP 36.3; O2SAT 99
[2025-03-31 06:26] LABS: Alanine Aminotransferase 181 U/L (0-31); Albumin Level 3.9 g/dL (3.5-5.0); Alkaline Phosphatase 84 U/L (39-117); Anion Gap 14 (12-20); Aspartate Amino Transferase 80 U/L (5-31); Blood Urea Nitrogen 19 mg/dL (9-16); Calcium 9.0 mg/dL (8.4-10.2); Carbon Dioxide 26 mmol/L (22-29); Chloride 106 mmol/L (96-108); Creatinine Clr Calc Pharmacy 61.7; Estimated Glomerular Filt Rate > 60; Potassium 4.3 mmol/L (3.3-5.1); Sodium 142 mmol/L (135-145); Total Protein 6.5 g/dL (6.5-8.0)
[2025-03-31 07:35] LABS: Glucose, Whole Blood 137 mg/dL (60-115)
[2025-03-31] MEDS: 0.9 % Sodium Chloride Flush 3 ML SYRINGE IVFLUSH (07:38)
[2025-03-31 07:40] VITALS: BP 134/65; PULSE 90; RESP 18; TEMP 36.1; O2SAT 100
--- NOTE | 2025-03-31 08:06 | PM.PNGS ---
Subjective Subjective Date of Service: 03/31/25 Interval history: Denies any pain at biopsy site. Has been OOB and ambulated. Physical Exam Vital Signs: Vital Signs: Last Vital Signs Temp 97.0 F 03/31/25 07:40 Pulse 90 03/31/25 07:40 Resp 18 03/31/25 07:40 BP 134/65 03/31/25 07:40 Pulse Ox 100 03/31/25 07:40 O2 Del Method Room Air 03/31/25 07:40 BMI result Body Mass Index 21.8 Const: General: comfortable, no acute distress and alert Orientation/consciousness: patient oriented x3 Neuro: General: patient oriented x3 and moves all extremities Extrem: Other: left quad- dressing clean and intact, nontender, no erythema Objective Data Active Medications Acetaminophen (Acetaminophen 325 Mg Tablet) 650 mg PO Q6H PRN PRN Reason: Pain, Mild 1-3,fever,headache Amlodipine Besylate (Amlodipine Besylate 5 Mg Tablet) 5 mg PO DAILY [facility]; Protocol Last Admin: 03/31/25 07:35 Dose: 5 mg Documented By: AMBER Calcium Carbonate (Calcium Carbonate 750 Mg Tab.Chew) 750 mg PO Q4H PRN PRN Reason: Heartburn Dextrose (Dextrose 50 % 25 Gm/50 Ml Syringe) 25 gm IVPUSH Q15M PRN; Protocol PRN Reason: per Hypoglycemia Standing Ord. Enoxaparin Sodium (Enoxaparin Sodium 40 Mg/0.4 Ml Syringe) 40 mg SUBCUT Q24H [facility] On Hold: 03/29/25 09:47 Last Admin: 03/29/25 04:01 Dose: 40 mg Documented By: KARL Glucose (Glucose Gel 15 Gm Gel..Gram.) 15 gm PO Q15M PRN; Protocol PRN Reason: per Hypoglycemia Standing Ord. Insulin Human Lispro (Insulin Lispro 100 Unit/Ml 3 Ml Vial) 0 unit SUBCUT QIDACHS [facility]; Protocol Last Admin: 03/31/25 07:32 Dose: Not Given Documented By: AMBER Non-Admin Reason: No Insulin Coverage Losartan Potassium (Losartan Potassium 25 Mg Tablet) 25 mg PO DAILY [facility]; Protocol Last Admin: 03/31/25 07:35 Dose: 25 mg Documented By: AMBER Magnesium Hydroxide (Milk Of Magnesia 30 Ml Oral.Susp) 30 ml PO DAILY PRN PRN Reason: Constipation Melatonin (Melatonin 3 Mg Tablet) 6 mg PO BEDTIME PRN PRN Reason: Insomnia Morphine Sulfate (Morphine Sulfate 2 Mg/Ml Cartridge) 2 mg IVPUSH Q3H PRN; Protocol PRN Reason: Pain, Severe (Pain Scale 7-10) Multivitamins/Vitamin C (Multivitamin Tablet) 1 tab PO DAILY [facility] Last Admin: 03/31/25 07:35 Dose: 1 tab Documented By: AMBER Ondansetron HCl (Ondansetron Hcl 4 Mg/2 Ml Vial) 4 mg IVPUSH Q8H PRN PRN Reason: Nausea and Vomiting Oxycodone HCl (Oxycodone Hcl Immed Release 5 Mg Tablet) 5 mg PO Q4H PRN PRN Reason: Pain, Moderate(Pain Scale 4-6) Polyethylene Glycol (Polyethylene Glycol 3350 17 Gm Powd.Pack) 17 gm PO DAILY PRN PRN Reason: Constipation Prednisone (Prednisone 20 Mg Tablet) 20 mg PO BIDWM [facility] Last Admin: 03/31/25 07:36 Dose: 20 mg Documented By: AMBER Senna (Sennosides 8.6 Mg Tablet) 17.2 mg PO BEDTIME [facility] Last Admin: 03/30/25 20:58 Dose: Not Given Documented By: MEGAN Non-Admin Reason: Patient Refused Sodium Chloride (0.9 % Sodium Chloride Flush 3 Ml Syringe) 3 ml IVFLUSH QSHIFT [facility] Last Admin: 03/31/25 07:38 Dose: 3 ml Documented By: AMBER Vitamin D (Cholecalciferol (Vitamin D3) 25 Mcg Tablet) 50 mcg PO DAILY [facility] Last Admin: 03/31/25 07:35 Dose: 50 mcg Documented By: AMBER Labs 03/26/25 05:56 03/31/25 05:36 Labs: Laboratory Results - last 24 hr 03/30/25 03/30/25 03/30/25 09:04 12:46 16:36 Hold Purple Top Anion Gap Estim Creat Clear Calc Estimated GFR POC Glucose 104 124 H 150 H Random Glucose Calcium Total Bilirubin Direct Bilirubin AST ALT Alkaline Phosphatase Total Creatine Kinase Total Protein Albumin 03/30/25 03/31/25 03/31/25 20:22 05:36 07:31 Hold Purple Top SEE NOTE Anion Gap 14 Estim Creat Clear Calc 61.7 Estimated GFR > 60 POC Glucose 143 H 137 H Random Glucose 167 H Calcium 9.0 Total Bilirubin 0.5 Direct Bilirubin 0.1 AST 80 H ALT 181 H Alkaline Phosphatase 84 Total Creatine Kinase 2582 H Total Protein 6.5 Albumin 3.9 Procedures Date of Service Date of Service: 03/31/25 Progress Note: A&P Assessment and plan (1) Polymyositis: Status: Acute Plan S/p Left quadriceps muscle biopsy for possible polymyositis. Denies any pain, ambulating. VSS. Dressing clean and intact, no erythema, site nontender. Wound care instructions discussed with her. Can f/u in 1 week for wound check upon discharge. Patient comfortable with plan. Time Spent With Patient Time: Total time managing care of this patient today ____ minutes. Quality Stroke Does the patient have a stroke diagnosis?: No Reason for No Anti-thrombotic by Day Two: N/A - Med Ordered VTE Prior VTE?: No VTE Risk Level:: Medical - moderate - high VTE Device Contraindication: Treatment Not Tolerated VTE Drug Contraindication: N/A - Med Ordered
--- NOTE | 2025-03-31 09:12 | PM.DS ---
DS: Providers Provider Date of Service: 03/31/25 Date of admission: 03/22/25 00:48 Date of discharge: 03/31/25 Primary care physician: Татьяна Mancuso MD Consults: 03/22/25 04:14 Consult to Wound Care Routine Reason for consultation: Abscess in the buttocks area 03/25/25 09:06 Consult to Nephrology Routine Consulting Provider: [facility] Reason for consultation: Jf Has provider been notified: No 03/25/25 09:36 Consult to Nephrology Routine Consulting Provider: [facility] Reason for consultation: Rhabdo Has provider been notified: No 03/26/25 10:30 Consult to Neurology Routine Consulting Provider: [facility] Reason for consultation: elev CPK- underlying neuromuscular disorder/ 03/27/25 07:26 Consult to General Surgery Routine Consulting Provider: [facility] Reason for consultation: myositis; muscle biopsy of deltoid or quadriceps DS: Diagnosis Discharge Diagnosis (1) Polymyositis: Status: Acute DS: Summary Hospital Course Hospital Course: from initial hpi: 70-year-old female with past medical history hyperlipidemia, rhabdomyolysis secondary to statin, TIA/CVA, [id number]-elzwgdmxr diabetes type 2, hypertension and cholecystectomy presents to the emergency department for continued elevated total CK level related to recent statin use. Patient was admitted on 03/16/2025 for rhabdomyolysis secondary to statin use. Patient was discharged on 03/18/2025. This prompted repeat blood work which was done 03/21/2025 and noted an elevated CK level. This prompted patient's to bring patient into the ED for further evaluation. Patient had been on a statin for years and patient's provider slowly decreased the dose from 80-40 and then 20 mg due to complaints of myalgias. Patient reports continued all-over heaviness in arms and legs to the point that patient can't even get in and out of a car. Patient has had significant myalgias for at least the last 2 weeks. Upon discharge on 03/18/2025 patient's total CK level was 3743. At this point the levels had plateaued. Patient was requesting to be discharged home. Patient was instructed to hydrate with water, 3-4 L per day. Patient was also instructed to see her PCP and have repeat labs to monitor patient's progress. Patient states she did try to drink as much water as she could tolerate but was not able to meet the 3-4 L recommendation. Patient has stopped the statin officially 6 days ago. Patient has not been able to exercise and does not normally exercise excessively. In addition LFTs are again elevated. Patient denies any chest pain, shortness of breath at rest, nausea or vomiting. Patient denies any unusual bruising or skin changes. Patient denies any headache or visual changes. Patient also takes she does not take any unusual [id number] or herbal supplements. In addition patient was diagnosed with a UTI including Klebsiella and Proteus. Patient is now completing her antibiotic therapy orally. Patient states she has 2 days left of antibiotic therapy.. 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 Patient can experienced discomfort with long-term sitting. hospital course: Patient was admitted for acute myopathy/myositis with concern for acute rhabdomyolysis. Patient was treated with IV hydration and CPK decreased to between 2000 and 3000 and has now remained stable for about 48 hours off of IV fluids. Differential diagnosis includes statin induced myopathy, auto immune myopathy, polymyositis, dermatomyositis, antibodies were sent out and are pending they should be followed up, patient also underwent muscle biopsy 03/30/2025 and results should be followed. She has been empirically started on prednisone 20 mg b.i.d.. For urinary tract infection completed course of cefuroxime. For hypertension was continued on amlodipine and losartan. For diabetes was covered with insulin sliding scale and will restart metformin on discharge. For hyperlipidemia statins have been discontinued. Patient is feeling better and will be discharged home. Time Attestation Discharge Coordination Time (in mins): 34 Quality: Safe Use of Opioids Does Pt have an Active Cancer Diagnosis on the Problem List?: No Quality: Stroke Does the patient have a stroke diagnosis?: No Physical Exam Vital Signs: Vital Signs: Last Vital Signs Temp 97.0 F 03/31/25 07:40 Pulse 90 03/31/25 07:40 Resp 18 03/31/25 07:40 BP 134/65 03/31/25 07:40 Pulse Ox 100 03/31/25 07:40 O2 Del Method Room Air 03/31/25 07:40 BMI result Body Mass Index 21.8 Const: General: comfortable, no acute distress and alert Orientation/consciousness: patient oriented x3 Neuro: General: patient oriented x3 and moves all extremities Extrem: Other: left quad- dressing clean and intact, nontender, no erythema DS: Data Data Completed and Pending Pending studies at discharge: Pending at discharge 03/30/25 11:08 Surgical [PTH] Stat Labs on day of discharge: Laboratory Results - last 24 hr 03/30/25 03/30/25 03/30/25 12:46 16:36 20:22 Hold Purple Top Sodium Potassium Chloride Carbon Dioxide Anion Gap BUN Creatinine Estim Creat Clear Calc Estimated GFR POC Glucose 124 H 150 H 143 H Random Glucose Calcium Total Bilirubin Direct Bilirubin AST ALT Alkaline Phosphatase Total Creatine Kinase Total Protein Albumin 03/31/25 03/31/25 05:36 07:31 Hold Purple Top SEE NOTE Sodium 142 Potassium 4.3 D Chloride 106 Carbon Dioxide 26 Anion Gap 14 BUN 19 H Creatinine 0.57 Estim Creat Clear Calc 61.7 Estimated GFR > 60 POC Glucose 137 H Random Glucose 167 H Calcium 9.0 Total Bilirubin 0.5 Direct Bilirubin 0.1 AST 80 H ALT 181 H Alkaline Phosphatase 84 Total Creatine Kinase 2582 H Total Protein 6.5 Albumin 3.9 Discharge Plan Discharge Anticipated Discharge Date/Time: 03/31/25 09:06 Patient Disposition: Home, Self-Care Discharge Diagnosis: rhabdo, myositis Referrals: Татьяна Mancuso MD [Primary Care Provider, Internal Medicine] - 1 Week Therese Abdalla MD [Physician, Neurology] - 2 Weeks Referral Note: myositis, s/p biopsy, on prednisone Jose Warren MD [Physician, General Surgery] - 1 Week Discharge Medications: New prednisone 20 mg Tablet 20 mg PO BIDWM Qty: 42 0RF Continued losartan 25 mg tablet 25 mg PO DAILY 90 Days Qty: 90 3RF amlodipine 5 mg tablet 5 mg PO DAILY 90 Days Qty: 90 1RF vitamin B complex Tablet 1 tab PO DAILY metformin 500 mg tablet 1,000 mg PO QAM Patient Comments: stop by pcp per patient metformin 500 mg tablet 500 mg PO BEDTIME Patient Comments: stop by pcp per pateint multivitamin Tablet 1 tab PO DAILY cholecalciferol (vitamin D3) 50 mcg (2,000 unit) capsule 50 mcg PO DAILY fluticasone propionate [Flonase Allergy Relief] 50 mcg/actuation spray,suspension 1 spray intranasal DAILY PRN (Reason: Nasal Congestion) Rx Instructions: administer into each nostril Discontinued cefuroxime axetil 250 mg tablet 250 mg PO BID Qty: 10 0RF Rx Instructions: Take one tablet twice a day for UTI Discharge Orders: Discharge Order (Routine); Ordered 03/31/25 Ordered By: Austyn Mc Diet: Advance to usual diet Activity on Discharge: As tolerated Stand Alone Forms: Patient Portal Discharge page Print Language: Paraguayan Other Ambulatory Orders: Creatine Kinase Total (Routine) Timeframe: 20250404 Facility: [facility] - Location: Laboratory Ordered By: Austyn Mc Comprehensive Met. Panel (Routine) Timeframe: 20250404 Facility: [facility] - Location: Laboratory Ordered By: Austyn Mc Activity Restrictions/Additional Instructions: If the incision area is tender, you may apply an ice pack for short intervals (No more than 20 minutes on, followed by at least 20 minutes off). Do not apply heat. Do not use creams, lotions, or topical antibiotics. Remove clear dressings 2-3 days following your procedure. You have steri strips (small white strips) covering your incision- these will fall off ~1 week. Ok to shower. Resume activity as tolerated. Take Tylenol 1-2 tabs every 6 hours as needed. Oxycodone every 6-8 hours as needed for pain. Colace 100 mg every day as needed for constipation. Follow up in office with Dr. Warren in 1 week for a wound check. ([phone]) Call Your Doctor If: -Your temperature exceeds 101.5? F -You experience excessive pain or swelling -You have an unexpected reaction to medication -You have excessive bleeding -You experience continued vomiting/nausea -Your incision begins to separate -Your incision shows signs of infection such as increased redness, swelling, excessive pain, drainage (light blood or clear fluid is normal) or heat Care Plan Goals: recovery Health Concerns: rhabdomyolosis, myositis Plan of Treatment: empiric treatment with prednisone 20mg bid until pathology back and follow up with PCP and neurology further treatment plan and referrals to be determined based on results of pathology check repeat CMP and CPK on 04/04/25 follow up with surgery as mentioned in additional instructions Assessment: see above
--- NOTE | 2025-03-31 10:12 | MHC.CM.PN ---
PT DISCHARGED HOME TODAY WITH NO SERVICES VIA PRIVATE TRANSPORT
--- NOTE | 2025-03-31 14:02 | HO.POSTANES ---
Post Anesthesia Evaluation Post Anesthesia Evaluation Date of Service: 03/31/25 Vital Signs: Vital Signs Temp Pulse Resp BP Pulse Ox O2 Del Method 03/31/25 07:40 97.0 F 90 18 134/65 100 Room Air 03/31/25 03:33 97.4 F 73 20 116/56 L 99 Room Air Anesthesia: Monitored Mental Status: Awake Pain Control: Satisfactory Nausea/Vomiting: None Hydration: Adequate Anesthesia-Related Issues: No Anes. Related Issues
[2025-04-05 15:04] LABS: Cytosolic 5'nuc 1A Ab IgG <5 Units; MDA5 Ab <11 SI (<11); NXP-2 (MJ) Ab <11 SI (<11); SRP Ab <11 SI (<11)
== END 2025-03-31 09:41 | disposition home or self-care (01) | DRG 501 ==
LOC: HO.ED 03-22 01:55 → HO.EDOVER 03-22 03:23 → HO.S3 03-22 19:04
PROVIDERS: Family Medicine; Hospitalist; Nurse Practitioner Family; Surgery; Admitting Provider Student in an Organized Health Care Education/Training Program; Emergency Provider Internal Medicine; PCP Internal Medicine; Visit Provider Internal Medicine
PROC: 0KB Muscles, Excision (ICD-10-PCS; principal; 2025-03-30 11:00)
DX: M62.82 Rhabdomyolysis (principal); M33.20 Polymyositis, organ involvement unspecified; N39.0 Urinary tract infection, site not specified; E11.9 Type 2 diabetes mellitus without complications; E78.5 Hyperlipidemia, unspecified; B96.4 Proteus (mirabilis) (morganii) as the cause of diseases classified elsewhere; I10 Essential (primary) hypertension; T46.6X5A Adverse effect of antihyperlipidemic and antiarteriosclerotic drugs, initial encounter; Z87.891 Personal history of nicotine dependence; Z79.84 Long term (current) use of oral hypoglycemic drugs; Z79.899 Other long term (current) drug therapy
CPT/HCPCS: 36415; 80048; 80053; 80076; 81001; 82085; 82550; 82947; 83036; 83516; 83520; 83615; 83735; 84182; 85025; 86140; 86235; 88300; 88305; 88313; 88319; 88348; 93005; 97110; 97116; 97162; 99285; J0690; J1650; J2003; J2704; J3010; J7120

== ENCOUNTER → 2025-03-21 21:21 | Outpatient (BNV) | payer MEDICARE, SELFPAY | PROVIDERS: Admitting Provider Student in an Organized Health Care Education/Training Program; Emergency Provider Internal Medicine; PCP Internal Medicine; Visit Provider Internal Medicine Cardiovascular Disease | DX: I10 Essential (primary) hypertension (principal); R74.8 Abnormal levels of other serum enzymes | CPT/HCPCS: 93010 ==

== ENCOUNTER → 2025-03-22 00:48 | Outpatient (BNV) | payer MEDICARE, SELFPAY | PROVIDERS: Admitting Provider Student in an Organized Health Care Education/Training Program; Emergency Provider Internal Medicine; PCP Internal Medicine; Visit Provider Physician Assistant Surgical | DX: M33.20 Polymyositis, organ involvement unspecified (principal) | CPT/HCPCS: 99222; 99232 ==

== ENCOUNTER → 2025-03-22 00:48 | Outpatient (BNV) | payer MEDICARE, SELFPAY | PROVIDERS: Admitting Provider Student in an Organized Health Care Education/Training Program; Emergency Provider Internal Medicine; PCP Internal Medicine; Visit Provider Nurse Practitioner Family | DX: M62.82 Rhabdomyolysis (principal) | CPT/HCPCS: 99222 ==

== ENCOUNTER → 2025-03-22 00:48 | Outpatient (BNV) | payer MEDICARE, SELFPAY | PROVIDERS: Admitting Provider Student in an Organized Health Care Education/Training Program; Emergency Provider Internal Medicine; PCP Internal Medicine; Visit Provider Psychiatry & Neurology Neurology | DX: M33.22 Polymyositis with myopathy (principal) | CPT/HCPCS: 99233 ==

== ENCOUNTER → 2025-03-22 00:48 | Outpatient (BNV) | payer MEDICARE, SELFPAY | PROVIDERS: Admitting Provider Student in an Organized Health Care Education/Training Program; Emergency Provider Internal Medicine; PCP Internal Medicine; Visit Provider Nurse Practitioner Family | DX: R74.01 Elevation of levels of liver transaminase levels (principal) | CPT/HCPCS: 99223; 99232; 99499 ==

== ENCOUNTER 2025-04-04 07:14 | Outpatient (REF) | payer MEDICARE, SELFPAY ==
[2025-04-04 10:59] LABS: Alanine Aminotransferase 142 U/L (0-31); Albumin Level 4.8 g/dL (3.5-5.0); Alkaline Phosphatase 81 U/L (39-117); Anion Gap 15 (12-20); Aspartate Amino Transferase 39 U/L (5-31); Blood Urea Nitrogen 22 mg/dL (9-16); Calcium 9.9 mg/dL (8.4-10.2); Carbon Dioxide 27 mmol/L (22-29); Chloride 103 mmol/L (96-108); Estimated Glomerular Filt Rate > 60; Potassium 3.8 mmol/L (3.3-5.1); Sodium 141 mmol/L (135-145); Total Protein 8.0 g/dL (6.5-8.0)
== END 2025-04-04 07:15 | disposition home or self-care (01) ==
LOC: HO.HMGCLDS 07:14
PROVIDERS: PCP Internal Medicine; Visit Provider Internal Medicine
DX: M62.82 Rhabdomyolysis (principal); R74.01 Elevation of levels of liver transaminase levels
CPT/HCPCS: 36415; 80053; 82550

== ENCOUNTER 2025-04-06 13:41 | Outpatient (AMB) | payer MEDICARE, SELFPAY ==
--- OUTSIDE RECORDS SUMMARY | 2025-04-06 14:09 | XMS_ITS | Patient Health Record ---
Author Organization [facility] Address [address] [place] [phone] Care Team Providers Care Exhibition Carver Name Role Phone Jamee MARTINEZ, Татьяна Primary [...] Status Risk Notes Problem Already on aspirin (735431693) Long-term (current) use of aspirin (V58.66) Active confirmed Problem Colon cancer screening (901350932) Colon cancer screening (V76.51) Active confirmed Problem [id number] half-way current use of aspirin (Z79.82) Active confirmed Problem Screening for malignant neoplasm of colon (144485689) Encounter for screening for malignant neoplasm of colon (Z12.11) Active confirmed Problem Long-term current use of drug therapy (999741951) High risk medications (not anticoagulants) long-term use (Z79.899) Active confirmed Vital Signs Blood pressure diastolic 77 mm Hg 03/03/2025 Height 58 in 03/03/2025 Blood pressure systolic 111 mm Hg 03/03/2025 Weight 104 lbs 03/03/2025 BMI 21.73 kg/m2 03/03/2025 Encounters Encounter Location Date Provider Diagnosis [facility] [address] [place] [phone] 03/03/2025 Jean Pierre Gaitan Jr Encounter for screening for malignant neoplasm of colon Z12.11 and High risk medications (not anticoagulants) long-term use Z79.899 [facility] [address] [place] [phone] 03/07/2025 Jean Pierre Gaitan Jr [facility] [address] [place] [phone] 03/17/2025 Jean Pierre Gaitan Jr Assessments Encounter [...] Insured Coverage Start Date Coverage End Date [employer] [id number] [place] [address] [id number] ANDRÉS HUMPHREYS Self - patient is the [...]
--- OUTSIDE RECORDS SUMMARY | 2025-04-06 14:09 | XMS_ITS | Encounter Summary ---
Author Organization [employer] Address [address] [place] [address] [address] [place] [address] Care Team Providers Care Human Resources Coordinator Name Role Phone Unavailable Primary Care Provider Unavailabl e Encounter Details Date Type Department Care Team (Latest Contact Info) Description 04/19/2021 Abstract [facility] CONVERSIONS Dental, Provider, DDS Social [...]
--- NOTE | 2025-04-06 14:21 | A.OFFPC_ITS ---
Vital Signs 04/06/25 14:22 Height 4 ft 11 in Weight 101 lb BMI 20.4 BP 110/60 Blood Pressure Location Rt brachial Position Sitting Respiration 14 Pulse 97 Pulse Source Pulse Oximeter Temp 97.8 F Temp Source Oral Pulse Oximetry (%) 98 Oxygen Delivery Method Room Air Intake Visit Reasons: TCM Intake Note: Pt is here today for her TCM for elevated CK Allergies metronidazole (From FLAGYL) Allergy (Mild, Verified 04/06/25 14:39) METALLIC TASTE/RASH Sulfa (Sulfonamide Antibiotics) (SULFA (SULFONAMIDE ANTIBIOTICS)) Allergy (Mild, Verified 04/06/25 14:39) RASH, rash, SOB [id number]-DkT Reductase Inhibitor Adverse Reaction (Severe, Verified 04/06/25 14:39) Rhabdomyolysis Medication List - Last Reconciled 04/06/25 by Татьяна Mancuso MD amlodipine 5 mg PO DAILY 90 days cholecalciferol (vitamin D3) 50 mcg PO DAILY fluticasone propionate 50 mcg/actuation (Flonase Allergy Relief) 1 spray intranasal DAILY PRN losartan 25 mg PO DAILY 90 days metformin 500 mg PO BEDTIME multivitamin 1 tab PO DAILY prednisone 20 mg PO BIDWM vitamin B complex 1 tab PO DAILY Tobacco use date assessed: 04/06/25 Fall risk assessment: 1 Fall in past year Last assessed Fall Risk: 04/06/25 Dental Screening Dental Screen Date: 04/06/25 Did you have a dental visit in the last 12 months?: Yes Did you have a dental problem in the last 6 months where you did not have access to dental care?: No Was dental information given to patient?: Patient has dentist HPI TCM HPI Details 70-year-old lady with history of diabete s mellitus, hypertension, dyslipidemia and history of CVA without residual deficits, here today for a TCM visit. She has been seen and admitted at [facility] for acute rhabdomyolysis, admitted twice on 03/16/2025 and except for 20-25 due to continue elevation of her total CK level accompanied by myalgia mainly in her lower extremities and arms. She has been hydrating with water 3-4 L per day however continues to have muscle pain weakness with progressive elevation in her muscle enzyme. She has already stopped taking statin 2 weeks ago. Liver enzymes and aldolase level were noted to be elevated. A muscle biopsy was done 03/30/2025, and was empirically started on prednisone 20 mg 1 tablet twice a day by Neurology. 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 Total CK has been as high as 6000 during admission, and has gone down to 951 on latest labs done 2 days ago. . Patient reports resolution of muscle pain and weakness after starting prednisone. incidentally found to also have a urinary tract infection, with culture growing Klebsiella and Proteus, treated with cefuroxime. 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 Mother No problems noted. Social History Household Members: Spouse Housing: House Do you presently have visiting nurse or other home services: No Alcohol intake: current Alcohol intake frequency: does not drink Patient Tobacco Use Status: Former Tobacco user Tobacco use type: Cigarette e-Cigarette/Vaping Use: Never Used Second Hand Smoke Exposure: No Advance Directives Date on File: 11/29/22 service: No Current occupational status: retired Cognitive needs: No Hearing needs: No Vision needs: Yes Questionnaire PHQ-9 Over the last 2 weeks, how often have you been bothered by any of the following problems? Depression Screening Interpretation: Negative Depression Screening Done: Yes Source: Developed by Drs. Fuentes L. DarvinMiriam mosley Kurt Kroenke and colleagues, with an educational sylvia from [employer]. Thrive Questionnaire Date Thrive assessed: 11/26/24 I am a: Patient What is your living situation today?: I have a steady place to live Within the past 12 months, did the food you bought not last and you didn't have the money to get more?: Never true Within the past 12 months, did you worry whether your food would run out before you got money to buy more?: Often true Do you have trouble paying for medicines?: No Do you have trouble getting transportation to medical appointments?: No Do you have trouble paying your heating and electricity bill?: No Do you have trouble taking care of your child, family member or friend?: No Do you have trouble with day-to-day activities such as bathing, preparing meals, shopping, managing finances, etc.?: No Are you currently unemployed and looking for a job?: No Are you interested in more education?: No Please select the resources that you would like help with: None Currently or been in a relationship where the following occur: No concerns reported THRIVE Score: 1 TOÑA-7 AMB Questionnaire TOÑA-7 Date TOÑA - 7 assessed: 12/02/24 Source: Developed by Drs. Fuentes Boston, Jr Crooks and colleagues, with an educational sylvia from [employer]. Review of Systems Const Denies fever(s), Denies frequent falls, Denies headache(s), Denies lethargy, Denies poor appetite, Denies weakness and Reports weight loss Eyes Reports no additional complaints ENT Details: left ear feels blocked , no pain or discharge, no loss of hearing Denies headache(s) Card Denies chest pain at rest and Denies chest pain with activity Resp Reports no additional complaints GI Denies abdominal pain, Denies change in bowel habits and Denies nausea Details: no urine discoloration Denies urinary frequency and Denies difficulty voiding Musc Denies abnormal gait, Denies myalgias, Denies arthralgias and Denies muscle weakness Skin/Breast Details: Healing wound on biopsy site on left anterior thigh, Steri-Strips in place Neuro Denies abnormal gait, Denies frequent falls, Denies headache(s), Denies lack of coordination, Denies focal weakness, Denies Sensory deficit (Neuro), Denies tremor(s) and Denies weakness Psych Reports no additional complaints Endo Reports no additional complaints Dewey/Lymph Reports no additional complaints Aller/Immun Reports no additional complaints Physical exam (Primary Care) Vital Signs: Last Vital Signs Temp 97.8 F 04/06/25 14:22 Pulse 97 04/06/25 14:22 Resp 14 04/06/25 14:22 BP 110/60 04/06/25 14:22 Pulse Ox 98 04/06/25 14:22 Oxygen Delivery Method Room Air 04/06/25 14:22 BMI result Body Mass Index 20.4 Tobacco/Smoking Status: Tobacco use Status Tobacco use date assessed 04/06/25 04/06/25 14:27 Patient Tobacco Use Status Former Tobacco user 04/06/25 14:27 Tobacco use type Cigarette 04/06/25 14:27 e-Cigarette/Vaping Use Never Used 04/06/25 14:27 Depression Screening Interpretation: Negative Thrive Assessment: Date of Thrive Assessment Date Thrive assessed 11/26/24 04/06/25 14:27 Currently or been in a relationship where the following occur: No concerns reported Const Other: Alert oriented x3, no acute distress noted ambulatory normal gait, accompanying patient Orientation/consciousness: patient oriented x3 HENMT Mouth: moist mucous membranes Eyes General: appearance normal, both eyes and all related structures Neck Neck: Yes full ROM and Yes no lymphadenopathy Resp Auscultation: clear to auscultation bilaterally Cardio Other: S1-S2 present regular rate and rhythm GI Palpation (GI): Soft to palpation, nontender, no guarding and no masses Auscultation: normal bowel sounds General: Yes no CVA tenderness Back/Spine/Pelvis Back: no CVA tenderness and No back tenderness Skin General skin exam: no rashes or lesions noted Neuro General: patient oriented x3, tone normal, moves all extremities, Normal light touch and pain sensation and no focal motor deficits Sensory Exam: No Sensory deficit (Neuro) Extrem General: Yes full ROM, Yes no joint enlargement, Yes no clubbing, cyanosis or edema, Yes no pedal edema, Yes no calf tenderness and Yes normal gait Psych Appearance: grossly normal and well kempt Mental Status: mental status grossly normal Speech and movement: Normal speech and movement present Affect: normal affect Results Reviewed Results Reviewed: Name: Paula Lira Age/Sex: 70/F : 1955 Unit#: [id number] Attend Dr: Татьяна Mancuso MD Re04/04/25 Status: DEP REF Location: [facility] Disch: SPEC : [id number] TREV: 04/04/25 STATUS: COMP REQ : [id number] RECD: 04/04/25-[address]: Татьяна Mancuso MD COMP: 04/04/25 ENTERED: 04/04/[address]: ORDERED: CMP Fast, CK Total Test Result Flag Reference Sodium 141 135-145 mmol/L Potassium 3.8 3.3-5.1 mmol/L CL 103 96-108 mmol/L CO2 27 22-29 mmol/L Gap 15 12-20 BUN 22 H 9-16 mg/dL Creat 0.59 0.5-1.4 mg/dL eGFR > 60 Chronic Kidney Disease: Estimated GFR < 60 mL/min/1.73m2 Severe Kidney Disease: Estimated GFR < 15 mL/min/1.73m2 FBS 118 H 60-99 mg/dL A fasting glucose from 100-125 mg/dl is considered impaired (pre-diabetes). CA 9.9 # 8.4-10.2 mg/dL Total Bili 0.7 0.0-1.0 mg/dL AST (GOT) 39 H 5-31 U/L ALT (GPT) 142 H 0-31 U/L CK Total 951 H 26-140 U/L Protein, Total 8.0 6.5-8.0 g/dL Alb 4.8 3.5-5.0 g/dL Alk Phos 81 39-117 U/L Coding Level of Care Code TCM High MDM <= 7 Days Diagnoses Non-traumatic rhabdomyolysis M62.82 Rhabdomyolysis type: non-traumatic Primary hypertension I10 Hypertension type: primary hypertension Type 2 diabetes mellitus with microalbuminuria, without long-term current use of insulin E11.29; R80.9 Dyslipidemia E78.5 Abscess of buttock L02.31 Assessment & Plan Assessment & Plan (1) Rhabdomyolysis: Code(s): M62.82 - Rhabdomyolysis Category: Medical Qualifiers: Rhabdomyolysis type: non-traumatic Qualified Code(s): M62.82 - Rhabdomyolysis Plan: Resolving, currently on prednisone 20 mg 1 tablet twice a day. Off statins. Has follow-up appointment with Neurology at the end of the month, and will refer to rheumatology for further evaluation (2) Hypertension: Code(s): I10 - Essential (primary) hypertension Category: Medical Qualifiers: Hypertension type: primary hypertension Qualified Code(s): I10 - Essential (primary) hypertension Plan: Blood pressure at goal of less than 130/80. Continue with current medication. Reinforced importance of following a low sodium diet, getting regular exercise, and lowering stress levels. (3) Type 2 diabetes mellitus with microalbuminuria, without long-term current use of insulin: Code(s): E11.29 - Type 2 diabetes mellitus with other diabetic kidney complication; R80.9 - Proteinuria, unspecified Category: Medical Plan: Continued on metformin 500 mg at night with supper (4) Dyslipidemia: Code(s): E78.5 - Hyperlipidemia, unspecified Category: Medical Plan: Currently off statin, reinforced importance of following a low-cholesterol diet and getting regular exercise (5) Abscess of buttock: Code(s): L02.31 - Cutaneous abscess of buttock Category: Medical Plan: Has appointment with surgery this week Orders: Orders Creatine Kinase Total 06/04/25 E11.29 - Type 2 diabetes mellitus with other diabetic kidney complication, E78.5 - Hyperlipidemia, unspecified, I10 - Essenti al (primary) hypertension, M62.82 - Rhabdomyolysis, M85.852 - Other specified disorders of bone density and structure, left thigh, R80.9 - Proteinuria, unspecified, Z86.73 - Personal history of transient ischemic attack (TIA), and cerebral infarction without residual deficits Aspartate Amino Transferase 06/04/25 E11.29 - Type 2 diabetes mellitus with other diabetic kidney complication, E78.5 - Hyperlipidemia, unspecified, I10 - Essential (primary) hypertension, M62.82 - Rhabdomyolysis, M85.852 - Other specified disorders of bone density and structure, left thigh, R80.9 - Proteinuria, unspecified, Z86.73 - Personal history of transient ischemic attack (TIA), and cerebral infarction without residual deficits Lipid Panel 06/04/25 E11.29 - Type 2 diabetes mellitus with other diabetic kidney complication, E78.5 - Hyperlipidemia, unspecified, I10 - Essential (primary) hypertension, M62.82 - Rhabdomyolysis, M85.852 - Other specified disorders of bone density and structure, left thigh, R80.9 - Proteinuria, unspecified, Z86.73 - Personal history of transient ischemic attack (TIA), and cerebral infarction without residual deficits Hemoglobin A1c 06/04/25 E11.29 - Type 2 diabetes mellitus with other diabetic kidney complication, E78.5 - Hyperlipidemia, unspecified, I10 - Essential (primary) hypertension, M62.82 - Rhabdomyolysis, M85.852 - Other specified disorders of bone density and structure, left thigh, R80.9 - Proteinuria, unspecified, Z86.73 - Personal history of transient ischemic attack (TIA), and cerebral infarction without residual deficits Vitamin D 25-OH Total 06/04/25. - Type 2 diabetes mellitus with other diabetic kidney complication, E78.5 - Hyperlipidemia, unspecified, I10 - Essential (primary) hypertension, M62.82 - Rhabdomyolysis, M85.852 - Other specified disorders of bone density and structure, left thigh, R80.9 - Proteinuria, unspecified, Z86.73 - Personal history of transient ischemic attack (TIA), and cerebral infarction without residual deficits Basic Metabolic Panel Fasting 06/04/25 E11. - Type 2 diabetes mellitus with other diabetic kidney complication, E78.5 - Hyperlipidemia, unspecified, I10 - Essential (primary) hypertension, M62.82 - Rhabdomyolysis, M85.852 - Other specified disorders of bone density and structure, left thigh, R80.9 - Proteinuria, unspecified, Z86.73 - Personal history of transient ischemic attack (TIA), and cerebral infarction without residual deficits Alanine Aminotransferase 06/04/25 E11.29 - Type 2 diabetes mellitus with other diabetic kidney complication, E78.5 - Hyperlipidemia, unspecified, I10 - Essential (primary) hypertension, M62.82 - Rhabdomyolysis, M85.852 - Other specified disorders of bone density and structure, left thigh, R80.9 - Proteinuria, unspecified, Z86.73 - Personal history of transient ischemic attack (TIA), and cerebral infarction without residual deficits Referrals Rheumatology Referral M62.82 - Rhabdomyolysis
[2025-04-06 14:22] VITALS: BP 110/60; PULSE 97; RESP 14; TEMP 36.6; O2SAT 98; BMI 20.4
== END 2025-04-06 15:25 | disposition home or self-care (01) ==
LOC: HO.HMCC 13:41
PROVIDERS: PCP Internal Medicine; Visit Provider Internal Medicine
DX: M62.82 Rhabdomyolysis (principal); I10 Essential (primary) hypertension; E11.29 Type 2 diabetes mellitus with other diabetic kidney complication; R80.9 Proteinuria, unspecified; E78.5 Hyperlipidemia, unspecified; L02.31 Cutaneous abscess of buttock

== ENCOUNTER → 2025-04-06 13:41 | Outpatient (BNVA) | payer MEDICARE, SELFPAY | PROVIDERS: PCP Internal Medicine; Visit Provider Internal Medicine | DX: M62.82 Rhabdomyolysis (principal); I10 Essential (primary) hypertension; E11.29 Type 2 diabetes mellitus with other diabetic kidney complication; R80.9 Proteinuria, unspecified; E78.5 Hyperlipidemia, unspecified; L02.31 Cutaneous abscess of buttock; Z86.73 Personal history of transient ischemic attack (TIA), and cerebral infarction without residual deficits | CPT/HCPCS: 99496 ==

== ENCOUNTER 2025-04-08 11:08 | Outpatient (AMB) | payer MEDICARE, SELFPAY ==
--- OUTSIDE RECORDS SUMMARY | 2025-04-08 11:13 | XMS_ITS | Encounter Summary ---
Author Organization [facility] Address [address] [place] [address] [address] [place] [address] Care Team Providers Care Hospital Supervisor Name Role Phone Unavailable Primary Care Provider Unavailabl e Encounter Details Date Type Department Care Team (Latest Contact Info) Description 04/19/2021 Abstract [facility] CONVERSIONS Dental, Provider, DDS Social History [...]
--- OUTSIDE RECORDS SUMMARY | 2025-04-08 11:13 | XMS_ITS | Patient Health Record ---
Author Organization [facility] Address [address] [place] [phone] Care Team Providers Care Coil Inspector Name Role Phone Jamee MARTINEZ, Татьяна Primary Care Provider Jean Pierre Montiel Jr Unavailable [phone] Allergies Allergen (clinical drug ingredient) Drug/Non Drug [...] Status Risk Notes Problem Already on aspirin (682115308) Long-term (current) use of aspirin (V58.66) Active confirmed Problem Colon cancer screening (584161763) Colon cancer screening (V76.51) Active confirmed Problem [id number] senior care current use of aspirin (Z79.82) Active confirmed Problem Screening for malignant neoplasm of colon (628092667) Encounter for screening for malignant neoplasm of colon (Z12.11) Active confirmed Problem Long-term current use of drug therapy (157757515) High risk medications (not anticoagulants) long-term use (Z79.899) Active confirmed Vital Signs Blood pressure diastolic 77 mm Hg 03/03/2025 Height 58 in 03/03/2025 Blood pressure systolic 111 mm Hg 03/03/2025 Weight 104 lbs 03/03/2025 BMI 21.73 kg/m2 03/03/2025 Encounters Encounter Location Date Provider Diagnosis [facility] [address] [place] [phone] 03/03/2025 Jean Pierre Gaitan Jr Encounter for screening for malignant neoplasm of colon Z12.11 and High risk medications (not anticoagulants) long-term use Z79.899 [facility] [address] [place] [phone] 03/07/2025 Jean Pierre Gaitan Jr [facility] [address] [place] [phone] 03/17/2025 Jean Pierre Gaitan Jr Assessments Encounter [...] Insured Coverage Start Date Coverage End Date [facility] [id number] [place] [address] [id number] ANDRÉS HUMPHREYS Self - patient is the [...]
[2025-04-08 11:28] VITALS: BP 149/70; PULSE 102
--- NOTE | 2025-04-08 11:28 | A.OFFVIS_ITS ---
Vital Signs 3 04/08/25 11:28 Height 4 ft 11 in Weight 99 lb BMI 20.0 BP 149/70 H Blood Pressure Location Rt brachial Position Sitting Pulse 102 H Intake Visit Reasons: wound check/muscle biopsy Intake Note: Patient is seen in office for wound check, post muscle biopsy. Pt c/o: bruising, tenderness. Denies oozing. Clinical Research Coordinator Required: No Accompanied by: Spouse Allergies metronidazole (From FLAGYL) Allergy (Mild, Verified 04/08/25 11:30) METALLIC TASTE/RASH Sulfa (Sulfonamide Antibiotics) (SULFA (SULFONAMIDE ANTIBIOTICS)) Allergy (Mild, Verified 04/08/25 11:30) RASH, rash, SOB Fzoitfi-TGE-XjF Reductase Inhibitor Adverse Reaction (Severe, Verified 04/08/25 11:30) Rhabdomyolysis HPI Comments Details: 70-year-old female patient returning 1 week following muscle biopsy from the left upper thigh. Pathology revealed ?abnormal muscle with myelopathic features and MHC class 1 overexpression. The muscle shows myopathic histologic changes including the presence of scattered degenerating (necrotic) fibers and basophilic regenerating fibers. No inflammation is present. 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 Clinical correlation including testing for hMG CR antibody is recommended.? She tolerated the procedure well and denies any pain in the left leg. She does complain of soreness and ulceration in the buttock which developed during her hospitalization. She was scheduled to see Dr. Perkins next month for evaluation of this. She has been treated with antibiotics and topical lotion but continues to have pain in this location. 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 Mother No problems noted. Social History Household Members: Spouse Housing: House Do you presently have visiting nurse or other home services: No Alcohol intake: current Alcohol intake frequency: does not drink Patient Tobacco Use Status: Former Tobacco user Tobacco use type: Cigarette e-Cigarette/Vaping Use: Never Used Second Hand Smoke Exposure: No Advance Directives Date on File: 11/29/22 service: No Current occupational status: retired Cognitive needs: No Hearing needs: No Vision needs: Yes Review of Systems Const All systems reviewed & are unremarkable except as noted in HPI and below Physical Exam Vital Signs: Last Vital Signs Pulse 102 H 04/08/25 11:28 BP 149/70 H 04/08/25 11:28 BMI result Body Mass Index 20.0 Const General: no acute distress Nutritional Appearance: well nourished Orientation/consciousness: patient oriented x3 Limitations: no limitations Resp Effort & Inspection: normal respiratory effort GI Inspection: Yes normal to inspection Back/Spine/Pelvis Other: Multiple superficial areas of irritation and inflammation involving the region over the sacrum and coccyx suggestive of a pressure ulceration. No palpable pilonidal cyst or abscess is identified. Back/spine/pelvis image: 2 1. Area of skin change release manager the coccyx and sacrum Neuro General: patient oriented x3 Extrem Other: Incision left thigh is clean, dry, and intact with intact Steri-Strips. Assessment & Plan Assessment & Plan (1) Rhabdomyolysis: Code(s): M62.82 - Rhabdomyolysis Category: Medical Plan: Reviewed the pathology results with the patient and her and provided her with a copy of the report. She is due to see a automatic nailing machine feeder and neurology for further evaluation. Currently off her statin and generally feels much improved. (2) Abscess of buttock: Code(s): L02.31 - Cutaneous abscess of buttock Category: Medical Plan: Patient appears to have decubitus involving the sacrum which may be related to a prolonged hospitalization. I recommended applying a pink foam pad to the overlying skin and I have provided her with several additional pads for her use. I recommended she return in approximately 2 weeks for reassessment. If this persists she may require consultation with wound care. No abscess is identified at this time. Coding Level of Care Code Global (94357) Diagnoses Rhabdomyolysis M62.82 Abscess of buttock L02.31
== END 2025-04-08 11:48 | disposition home or self-care (01) ==
LOC: HO.HGS 11:08
PROVIDERS: PCP Internal Medicine; Visit Provider Surgery
DX: M62.82 Rhabdomyolysis (principal); L02.31 Cutaneous abscess of buttock
CPT/HCPCS: 99213

== ENCOUNTER → 2025-04-08 11:08 | Outpatient (BNVA) | payer MEDICARE, SELFPAY | PROVIDERS: PCP Internal Medicine; Visit Provider Surgery | DX: M62.82 Rhabdomyolysis (principal); L02.31 Cutaneous abscess of buttock; Z98.890 Other specified postprocedural states | CPT/HCPCS: 99212 ==

== ENCOUNTER 2025-04-14 10:51 | Outpatient (AMB) | payer MEDICARE, SELFPAY ==
--- NOTE | 2025-04-14 11:02 | MHC.OFFVIS ---
Vital Signs 04/14/25 11:11 Height 4 ft 11 in Weight 100 lb 1.438 oz BMI 20.2 BP 172/80 H Blood Pressure Location Lt brachial Position Sitting Pulse 94 Pulse Source Pulse Oximeter Pulse Oximetry (%) 98 Oxygen Delivery Method Room Air Intake Visit Reasons: Rhabdomyolysis/New Patient Intake Note: New patient presents for Rhabdomyolysis follow up. Allergies metronidazole (From FLAGYL) Allergy (Mild, Verified 04/14/25 11:10) METALLIC TASTE/RASH Sulfa (Sulfonamide Antibiotics) (SULFA (SULFONAMIDE ANTIBIOTICS)) Allergy (Mild, Verified 04/14/25 11:10) RASH, rash, SOB Qrvlpjj-GAI-CdB Reductase Inhibitor Adverse Reaction (Severe, Verified 04/14/25 11:10) Rhabdomyolysis Medication List - Last Reconciled 04/14/25 by Clemencia Sheriff MD amlodipine 5 mg PO DAILY 90 days cholecalciferol (vitamin D3) 50 mcg PO DAILY fluticasone propionate 50 mcg/actuation (Flonase Allergy Relief) 1 spray intranasal DAILY PRN losartan 25 mg PO DAILY 90 days metformin 500 mg PO BEDTIME multivitamin 1 tab PO DAILY prednisone 20 mg PO BIDWM vitamin B complex 1 tab PO DAILY HPI Comments Details: Patient is a 70-year-old female with hypertension complicated by CVA, diabetes, hyperlipidemia here today for 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 Patient has been on statin for years and patient's provider slowly decrease the dose from 80 mg to 40 mg and finally 20 mg due to complaints of myalgias Over the past several weeks prior to admission she noted heaviness in her arms and legs to the point where she could not get in and out of the car Today she is on 40 mg prednisone daily with improved symptoms [facility] Medical History Muscle weakness Abscess of buttock Postoperative keloid scar Type 2 diabetes mellitus with microalbuminuria, without long-term current use of insulin Stenosis of right carotid artery Hypertension History of CVA (cerebrovascular accident) Osteopenia of left hip Dyslipidemia Cyst of right breast Surgical History History of cholecystectomy History of dilation and curettage Family History Father No problems noted. Mother No problems noted. Social History Household Members: Spouse Housing: House Do you presently have visiting nurse or other home services: No Alcohol intake: current Alcohol intake frequency: does not drink Patient Tobacco Use Status: Former Tobacco user Tobacco use type: Cigarette e-Cigarette/Vaping Use: Never Used Second Hand Smoke Exposure: No Advance Directives Date on File: 11/29/22 service: No Current occupational status: retired Cognitive needs: No Hearing needs: No Vision needs: Yes Review of Systems Const Details: Review of Systems Constitutional: Denies fever, chills, weight loss ENT: Denies vision changes, eye pain or eye redness, dental caries, dry mouth GI: Denies nausea, vomiting, diarrhea, abdominal pain, change in BM Pulm: Denies SOB, RAZA, hemoptysis, wheezing Cards: Denies chest pain, palpitations Skin: Denies Raynaud's, rash, nail changes, photosensitivity, ASSISTANT DIRECTOR OF PLANT OPERATIONS: Denies headaches, weakness, paresthesias, recurrent falls MSK: as per HPI All other systems reviewed and are unremarkable except noted above Physical Exam Exam Exam: Vital signs reviewed Physical Examination CONSTITUITIONAL Patient alert and cooperative. Well appearing and in no apparent painful distress MSK Hands Right Hand: Able to make a fist. No swelling or tenderness to palpation of these joints. Left Hand: Able to make a fist. No swelling or tenderness to palpation of these joints. Wrists Right Wrist: Full ROM. 70 degrees of wrist flexion, 80 degrees of wrist extension. No swelling or TTP Left Wrist: Full ROM. 70 degrees of wrist flexion, 80 degrees of wrist extension. No swelling or TTP Elbows Right Elbow: Full ROM. No swelling or TTP. No TTP of the medial and lateral epicondyles Left Elbow: Full ROM. No swelling or TTP. No TTP of the medial and lateral epicondyles Shoulders Right shoulder: Full ROM. No swelling noted. No TTP of the AC joint, subacromial bursa or posterior shoulder Left shoulder: Full ROM. No swelling noted. No TTP of the AC joint, subacromial bursa or posterior shoulder Knees Right knee: Full ROM. No swelling noted. No TTP of the knee joint lie or pes anserine bursa Left knee: Full ROM. No swelling noted. No TTP of the knee joint lie or pes anserine bursa. Ankles Right ankle: Good ankle dorsiflexion and plantar flexion. No swelling. No TTP of the ankle joint Left ankle: Good ankle dorsiflexion and plantar flexion. No swelling. No TTP of the ankle joint Feet Right foot: Negative squeeze test Left foot: Negative squeeze test Tender points? No tenderness to palpation of the bilateral trapezius, supraspinatus, anterior costochondral junctions, bilateral suboccipital muscle insertions SKIN No rashes Right Left Neck 5 [employer] strength 5 5 Wrist flexion 5 5 Wrist extension 5 5 Elbow extension 4 4 Elbow flexion 4 4 Shoulder abduction 4 4 Shoulder adduction 4 4 Hip flexion 5 5 Knee extension 4 4 Knee flexion 5 5 Ankle dorsiflexion 5 5 Ankle plantar flexion 5 5 Vital Signs: Last Vital Signs Pulse 94 04/14/25 11:11 BP 172/80 H 04/14/25 11:11 Pulse Ox 98 04/14/25 11:11 Oxygen Delivery Method Room Air 04/14/25 11:11 BMI result Body Mass Index 20.2 Results Reviewed Results Reviewed: Laboratory Tests 03/26/25 03/31/25 04/04/25 05:56 05:36 07:22 WBC 8.1 RBC 3.90 L Hgb 11.5 L Hct 34.8 L Plt Count 377 Sodium 141 Potassium 3.8 Chloride 103 Carbon Dioxide 27 BUN 22 H Creatinine 0.59 AST 39 H ALT 142 H Alkaline Phosphatase 81 Total Creatine Kinase 2582 H 951 H Laboratory Tests 03/28/25 08:36 KAYLEE-1 Antibody <11 EJ Antibody <11 OJ Antibody <11 Mi-2-Alpha Ab <11 Mi-2-Beta Ab <11 NXP-2 Ab <11 PL-7 Antibody <11 PL-12 Antibody <11 SRP Ab <11 MDA5 Ab <11 Myos P155/140 TIF1-g Ab <11 NT5C1A IgG Antibody <5 Muscle biopsy 03/30/25 The muscle shows myopathic histologic changes including the presence of scattered degenerating (necrotic) fibers and basophilic regenerating fibers. No inflammation is present. The muscle fibers also show overexpression of MHC class 1, which suggest a diagnosis of necrotizing autoimmune myopathy possibly associated with prior statin use. 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 Currently on steroids with improving CK We will start IVIG infusions Slow taper of the prednisone Plan - IVIG 2g/kg divided over 2 days every 4 weeks - Prednisone 30mg x 4 weeks then 20mg x 4 weeks then follow up - RTC 2 months - Labs before visit: CBC, CMP, ESR, CRP, CK, Aldolase, HMGCR Ab (2) Long-term current use of intravenous immunoglobulin (IVIG): Code(s): Z79.899 - 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 Plan: #Long-term use of IVIG Discussed with this patient the risks and benefits of IVIG use to the management of the rheumatic condition Benefits include improved disease control and maintenance of remission Risks include anaphylaxis, blood clots, transfusion related acute lung injury, hemolytic reaction, fluid overload, heart problems Plan I spent 60 minutes reviewing the record and labs, taking a history, examining the patient, discussing the treatment plan, ordering diagnostic work up, ordering and setting up infusion and documenting in the medical record Orders: Orders C Reactive Protein 8 Weeks M33.20 - Polymyositis, organ involvement unspecified Erythrocyte Sedimentation Rate 8 Weeks M33.20 - Polymyositis, organ involvement unspecified HMGCR IgG 8 Weeks M33.20 - Polymyositis, organ involvement unspecified Aldolase 8 Weeks M33.20 - Polymyositis, organ involvement unspecified Complete Blood Count Auto Diff 8 Weeks M33.20 - Polymyositis, organ involvement unspecified Comprehensive Met. Panel 8 Weeks M33.20 - Polymyositis, organ involvement unspecified Creatine Kinase Total 8 Weeks M33.20 - Polymyositis, organ involvement unspecified Referrals Infusion Center Notification M33.20 - Polymyositis, organ involvement unspecified Medications: New prednisone Take 3 tablets for 4 weeks then 2 tablets for 4 weeks 10 mg PO DIRECTED 160 tabs 0RF M33.20 - Polymyositis, organ involvement unspecified Discontinued prednisone Discontinued Reason: Doctor's Order 20 mg PO BIDWM 42 tabs 0RF Coding Level of Care Code New Pt Level 5 (54092) Complex EM visit Add On G2211 Diagnoses Polymyositis M33.20 Long-term current use of intravenous immunoglobulin (IVIG) Z79.899
[2025-04-14 11:11] VITALS: BP 172/80; PULSE 94; O2SAT 98; BMI 20.2
--- OUTSIDE RECORDS SUMMARY | 2025-04-14 12:03 | XMS_ITS | Patient Health Record ---
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 (Z79.82) Active confirmed Problem Screening for malignant neoplasm of colon (863257647) Encounter for screening for malignant neoplasm of colon (Z12.11) Active confirmed Problem Long-term current use of drug therapy (719176832) High risk medications (not anticoagulants) long-term use (Z79.899) Active confirmed Vital Signs Blood pressure diastolic 77 mm Hg 03/03/2025 Height 58 in 03/03/2025 Blood pressure systolic 111 mm Hg 03/03/2025 Weight 104 lbs 03/03/2025 BMI 21.73 kg/m2 03/03/2025 Encounters Encounter Location Date Provider Diagnosis [facility] [address] [place] [phone] 03/03/2025 Jean Pierre Gaitan Jr Encounter for screening for malignant neoplasm of colon Z12.11 and High risk medications (not anticoagulants) long-term use Z79.899 [facility] [address] [place] [phone] 03/07/2025 Jean Pierre Gaitan Jr [facility] [address] [place] [phone] 03/17/2025 Jean Pierre Gaitan Jr Assessments Encounter [...] Insured Coverage Start Date Coverage End Date [facility] [id number] [place] [address] [id number] ANDRÉS HUMPHREYS Self - patient is the [...]
--- OUTSIDE RECORDS SUMMARY | 2025-04-14 12:03 | XMS_ITS | Encounter Summary ---
Author Organization [facility] Address [address] [place] [address] 7 [place] [address] Care Team Providers Care Health Care Assistant Name Role Phone Unavailable Primary Care Provider Unavailabl e Encounter Details Date Type Department Care Team (Latest Contact Info) Description 04/19/2021 Abstract [facility] CONVERSIONS Dental, Provider, DDS Social History Tobacco [...]
== END 2025-04-14 11:48 | disposition home or self-care (01) ==
LOC: HO.RHES 10:52
PROVIDERS: PCP Internal Medicine; Visit Provider Student in an Organized Health Care Education/Training Program
DX: M33.20 Polymyositis, organ involvement unspecified (principal); Z79.899 Other long term (current) drug therapy
CPT/HCPCS: 99205; G2211

== ENCOUNTER → 2025-04-14 10:51 | Outpatient (BNVA) | payer MEDICARE, SELFPAY | PROVIDERS: PCP Internal Medicine; Visit Provider Student in an Organized Health Care Education/Training Program | DX: M33.20 Polymyositis, organ involvement unspecified (principal); Z79.899 Other long term (current) drug therapy | CPT/HCPCS: 99202 ==

== ENCOUNTER 2025-04-21 09:47 | Outpatient (REF) | payer MEDICARE, SELFPAY ==
[2025-04-21 11:38] LABS: Alanine Aminotransferase 137 U/L (0-31); Albumin Level 4.0 g/dL (3.5-5.0); Alkaline Phosphatase 68 U/L (39-117); Anion Gap 17 (12-20); Aspartate Amino Transferase 44 U/L (5-31); Blood Urea Nitrogen 23 mg/dL (9-16); Calcium 9.6 mg/dL (8.4-10.2); Carbon Dioxide 24 mmol/L (22-29); Chloride 102 mmol/L (96-108); Estimated Glomerular Filt Rate > 60; Potassium 4.3 mmol/L (3.3-5.1); Sodium 139 mmol/L (135-145); Total Protein 6.6 g/dL (6.5-8.0)
== END 2025-04-21 09:48 | disposition home or self-care (01) ==
LOC: HO.LAB 09:47
PROVIDERS: Internal Medicine; PCP Internal Medicine; Visit Provider Psychiatry & Neurology Neurology
DX: M33.20 Polymyositis, organ involvement unspecified (principal); M35.9 Systemic involvement of connective tissue, unspecified; R74.01 Elevation of levels of liver transaminase levels
CPT/HCPCS: 36415; 80053; 82550; 99212

== ENCOUNTER 2025-04-21 09:47 | Outpatient (AMB) | payer MEDICARE, SELFPAY ==
--- NOTE | 2025-04-21 09:52 | MHC.OFFVIS ---
Intake Visit Reasons: Recent [facility] Admission/Biopsy Results Allergies metronidazole (From FLAGYL) Allergy (Mild, Verified 04/14/25 11:10) METALLIC TASTE/RASH Sulfa (Sulfonamide Antibiotics) (SULFA (SULFONAMIDE ANTIBIOTICS)) Allergy (Mild, Verified 04/14/25 11:10) RASH, rash, SOB Fbtxodh-OUX-TuF Reductase Inhibitor Adverse Reaction (Severe, Verified 04/14/25 11:10) Rhabdomyolysis HPI Comments Details: Polymyositis presenting as slowly progressive subacute proximal arm or leg weakness and high CPK level in 3-4000 range. There was mild hyperemic rash in her face. Initially seen at [facility]: I had seen in the past for bilateral small ischemic infarcts was in hospital with high CPK level and symptoms of weakness in her arms and legs especially while climbing stairs. She denied any pain. There was no complain of aggressive or heavy physical activity before blood drawn. She denied any breathing or swallowing difficulty or double vision. She has not noted any droopiness of eyelid. There was no change in her speech. She was able to walk and communicate. She is presenting with myopathy likely due to past medication use. Initially, she was on atorvastatin 80 mg daily for several years, but due to rising CPK and abnormalities in AST and ALT levels noted roughly ten months ago, her statin use was systematically reduced and eventually ceased altogether. She has a documented severe allergy to atorvastatin, identified in relation to these events. Current management includes prednisone therapy that was initiated a month prior at 40 mg daily, now reduced to 30 mg daily, with a monthly decrement plan of 10 mg. The patient reports fatigue as a side effect of the prednisone but denies any difficulties with breathing or swallowing. Further treatment plans involve rheumatology consultation, and initiation of IVIG, all while maintaining communication with her primary physician regarding ongoing treatment adjustments. 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 Mother No problems noted. Social History Household Members: Spouse Housing: House Do you presently have visiting nurse or other home services: No Alcohol intake: current Alcohol intake frequency: does not drink Patient Tobacco Use Status: Former Tobacco user Tobacco use type: Cigarette e-Cigarette/Vaping Use: Never Used Second Hand Smoke Exposure: No Advance Directives Date on File: 11/29/22 service: No Current occupational status: retired Cognitive needs: No Hearing needs: No Vision needs: Yes Review of Systems Const Details: - Musculoskeletal: Reports fatigue; denies any swallowing or breathing difficulties. Physical Exam Neuro Other: Mental Status: Alert and oriented to person, place, and time. Normal attention. Normal spontaneous speech, fluency, and comprehension. No obvious issues with mood and memory. Affect is appropriate. Cranial Nerves: CN II: Visual villanueva full to confrontation, visual acuity intact. CN III, IV, : Pupils equal, round, reactive to light and accommodation. Extraocular movements are normal. CN V: Facial sensation is normal. CN VII: Facial movements symmetrical. CN VIII: Hearing intact to bedside conversation is normal. CN IX, X: Palate elevates symmetrically. CN XI: Shoulder shrug and head turn symmetrical. CN XII: Tongue midline without atrophy or fasciculations. Motor: Bulk and tone normal in all extremities. No significant muscle weakness in arms and legs. No drift. Reflexes: Deep tendon reflexes 2+ and symmetric. Plantar response down-going bilaterally. Coordination: Htrqxv-il-eago and gskz-xk-rugt testing normal. No dysmetria. Gait and Station: No obvious gait abnormality. No ataxia or instability. Sensory: Intact to light touch, pinprick, and vibration. Romberg is negative. Extrapyramidal: Full facial expressions and blinking. No rigidity. Movements are appropriate with no tremor or abnormality. Speech: Normal; no dysarthria or tremor. Assessment & Plan Assessment & Plan (1) Polymyositis associated with autoimmune disease: Code(s): M33.20 - Polymyositis, organ involvement unspecified; M35.9 - Systemic involvement of connective tissue, unspecified Category: Medical Plan Impression: Polymyositis with exposure to statin with surgical biopsy suggesting necrotizing autoimmune myopathy. HMGCR Ab titer at [facility] was negative. Last CPK level has improved to 951. No evidence of complications including any difficulty with breathing, swallowing or speaking. 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 She can be seen on as needed basis. Orders: Orders Creatine Kinase Total Today M33.20 - Polymyositis, organ involvement unspecified Coding Level of Care Code Est Pt Level 5 (68129) Diagnoses Polymyositis associated with autoimmune disease M33.20; M35.9
--- OUTSIDE RECORDS SUMMARY | 2025-04-21 11:06 | XMS_ITS | Encounter Summary ---
Author Organization [facility] Address [address] [place] [address] 7 [place] [address] Care Team Providers Care Loading Unit Operator Powder Charging Name Role Phone Unavailable Primary Care Provider Unavailabl e Encounter Details Date Type Department Care Team (Latest Contact Info) Description 04/19/2021 Abstract [facility] CONVERSIONS Dental, Provider, DDS Social History Tobacco [...]
--- OUTSIDE RECORDS SUMMARY | 2025-04-21 11:06 | XMS_ITS | Patient Health Record ---
Author Organization 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 (Z79.82) Active confirmed Problem Screening for malignant neoplasm of colon (093260612) Encounter for screening for malignant neoplasm of colon (Z12.11) Active confirmed Problem Long-term current use of drug therapy (602623608) High risk medications (not anticoagulants) long-term use (Z79.899) Active confirmed Vital Signs Blood pressure diastolic 77 mm Hg 03/03/2025 Height 58 in 03/03/2025 Blood pressure systolic 111 mm Hg 03/03/2025 Weight 104 lbs 03/03/2025 BMI 21.73 kg/m2 03/03/2025 Encounters Encounter Location Date Provider Diagnosis [facility] [address] [place] [phone] 03/03/2025 Jean Pierre Gaitan Jr Encounter for screening for malignant neoplasm of colon Z12.11 and High risk medications (not anticoagulants) long-term use Z79.899 [facility] [address] [place] [phone] 03/07/2025 Jean Pierre Gaitan Jr [facility] [address] [place] [phone] 03/17/2025 Jean Pierre Gaitan Jr Assessments Encounter [...] Insured Coverage Start Date Coverage End Date [facility] [address] [place] [address] [id number] ANDRÉS HUMPHREYS Self - patient is the [...]
== END 2025-04-21 10:12 | disposition home or self-care (01) ==
LOC: HO.HSM 09:48
PROVIDERS: PCP Internal Medicine; Visit Provider Psychiatry & Neurology Neurology
DX: M33.20 Polymyositis, organ involvement unspecified (principal); M35.9 Systemic involvement of connective tissue, unspecified
CPT/HCPCS: 99214

== ENCOUNTER 2025-04-26 10:19 | Outpatient (AMB) | payer MEDICARE, SELFPAY ==
--- NOTE | 2025-04-26 10:29 | A.OFFVIS_ITS ---
Vital Signs 3 04/26/25 10:36 Height 4 ft 11 in Weight 99 lb 2 oz BMI 20.0 BP 189/79 H Blood Pressure Location Lt brachial Position Sitting Pulse 101 H Intake Visit Reasons: 2 wks f/up, Abscess of buttock Intake Note: Patient is seen in office for 2 weeks follow up visit, following abscess of the buttock. Pt c/o:per pt area is looking worse looks like a third split, skin cracking , minimal discharge, redness, very uncomfortable Firewood Cutter Required: No Accompanied by: Family/Other Allergies metronidazole (From FLAGYL) Allergy (Mild, Verified 04/26/25 10:34) METALLIC TASTE/RASH Sulfa (Sulfonamide Antibiotics) (SULFA (SULFONAMIDE ANTIBIOTICS)) Allergy (Mild, Verified 04/26/25 10:34) RASH, rash, SOB Phfuxho-HWJ-GuN Reductase Inhibitor Adverse Reaction (Severe, Verified 04/26/25 10:34) Rhabdomyolysis Medication List - Last Reconciled 04/26/25 by Jose Warren MD amlodipine 5 mg PO DAILY 90 days cholecalciferol (vitamin D3) 50 mcg PO DAILY fluticasone propionate 50 mcg/actuation (Flonase Allergy Relief) 1 spray intranasal DAILY PRN losartan 25 mg PO DAILY 90 days metformin 500 mg PO BEDTIME multivitamin 1 tab PO DAILY prednisone 10 mg PO DIRECTED vitamin B complex 1 tab PO DAILY HPI Comments Details: Patient returns for wound check of her buttock wounds. Continues to have some soreness in this location but continues to use the soft foam pads. She denies any significant bleeding or discharge. She denies any problems with her incision flag. [facility] Medical History Muscle weakness Abscess of buttock Postoperative keloid scar Type 2 diabetes mellitus with microalbuminuria, without long-term current use of insulin Stenosis of right carotid artery Hypertension History of CVA (cerebrovascular accident) Osteopenia of left hip Dyslipidemia Cyst of right breast Surgical History History of cholecystectomy History of dilation and curettage Family History Father No problems noted. Mother No problems noted. Social History Household Members: Spouse Housing: House Do you presently have visiting nurse or other home services: No Alcohol intake: current Alcohol intake frequency: does not drink Patient Tobacco Use Status: Former Tobacco user Tobacco use type: Cigarette e-Cigarette/Vaping Use: Never Used Second Hand Smoke Exposure: No Advance Directives Date on File: 11/29/22 service: No Current occupational status: retired Cognitive needs: No Hearing needs: No Vision needs: Yes Review of Systems Const All systems reviewed & are unremarkable except as noted in HPI and below Physical Exam Vital Signs: Last Vital Signs Pulse 101 H 04/26/25 10:36 BP 189/79 H 04/26/25 10:36 BMI result Body Mass Index 20.0 Const General: no acute distress Nutritional Appearance: thin Orientation/consciousness: patient oriented x3 Resp Effort & Inspection: normal respiratory effort Back/Spine/Pelvis Other: Foam dressing change to intergluteal cleft. Evidence of wound healing noted in the bilateral buttocks. Only small opening remains. No evidence of infection at this time. Back/spine/pelvis image: 2 1. Healing wounds bilaterally 2. Neuro General: patient oriented x3 Extrem Other: Left leg incision is clean, dry, and intact. Assessment & Plan Assessment & Plan (1) Abscess of buttock: Code(s): L02.31 - Cutaneous abscess of buttock Category: Medical Plan 70-year-old female patient with myositis status post muscle biopsy also presenting with a buttock abscess. Examination today is much improved with no evidence of active infection and evidence of new healing. She should continue to keep pressure off the site with the foam dressings as well as using a donut when sitting. She should follow up as needed. Coding Level of Care Code Est Pt Level 3 (20817) Diagnoses Abscess of buttock L02.31
[2025-04-26 10:36] VITALS: BP 189/79; PULSE 101
--- OUTSIDE RECORDS SUMMARY | 2025-04-26 11:00 | XMS_ITS | Encounter Summary ---
Author Organization [employer] [facility] Address [address] [place] [address] [address] [place] [address] Care Team Providers Care Telephone Clerk Name Role Phone Unavailable Primary Care Provider Unavailabl e Encounter Details Date Type Department Care Team (Latest Contact Info) Description 04/19/2021 Abstract [facility] CONVERSIONS Dental, Provider, DDS Social History Tobacco [...]
--- OUTSIDE RECORDS SUMMARY | 2025-04-26 11:00 | XMS_ITS | Encounter Summary ---
Author Organization [employer] Address [address] [place] [address] 7 [place] [address] Care Team Providers Care Retail Customer Service Specialist Name Role Phone Unavailable Primary Care Provider Unavailabl e Encounter Details Date Type Department Care Team (Latest Contact Info) Description 06/22/2019 Abstract [facility] CONVERSIONS Dental, Provider, DDS Social History Tobacco [...]
--- OUTSIDE RECORDS SUMMARY | 2025-04-26 11:00 | XMS_ITS | Patient Health Record ---
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 of aspirin (Z79.82) Active confirmed Problem Screening for malignant neoplasm of colon (991374674) Encounter for screening for malignant neoplasm of colon (Z12.11) Active confirmed Problem Long-term current use of drug therapy (995590774) High risk medications (not anticoagulants) long-term use (Z79.899) Active confirmed Vital Signs Blood pressure diastolic 77 mm Hg 03/03/2025 Height 58 in 03/03/2025 Blood pressure systolic 111 mm Hg 03/03/2025 Weight 104 lbs 03/03/2025 BMI 21.73 kg/m2 03/03/2025 Encounters Encounter Location Date Provider Diagnosis [facility] [address] [place] [phone] 03/03/2025 Jean Pierre Gaitan Jr Encounter for screening for malignant neoplasm of colon Z12.11 and High risk medications (not anticoagulants) long-term use Z79.899 [facility] [address] [place] [phone] 03/07/2025 Jean Pierre Gaitan Jr [facility] [address] [place] [phone] 03/17/2025 Jean Pierre Gaitan Jr Assessments Encounter [...] Insured Coverage Start Date Coverage End Date [facility] [address] [place] [address] [id number] ANDRÉS HUMPHREYS Self - patient is the [...]
--- OUTSIDE RECORDS SUMMARY | 2025-04-26 11:00 | XMS_ITS | Clinical Summary ---
Author Organization [employer] Address [address] [place] [address] 7 [place] [address] Care Team Providers Care Digital Data Analyst Name Role Phone Unavailable Primary Care Provider [...] 2023-2 5 season) 2024 Influenza Vaccine (#1) 2025 RSV Patients and Pa tients Aged 60 [...] patient's age to complete this topic Meningococcal B Vaccine Aged Out No l onger eligible based on patient's age to complete [...]
== END 2025-04-26 11:02 | disposition home or self-care (01) ==
LOC: HO.HGS 10:20
PROVIDERS: PCP Internal Medicine; Visit Provider Surgery
DX: L02.31 Cutaneous abscess of buttock (principal)
CPT/HCPCS: 99213

== ENCOUNTER → 2025-04-26 10:19 | Outpatient (BNVA) | payer MEDICARE, SELFPAY | PROVIDERS: PCP Internal Medicine; Visit Provider Surgery | DX: L02.31 Cutaneous abscess of buttock (principal) | CPT/HCPCS: 99212 ==

== ENCOUNTER 2025-05-06 07:29 | Outpatient (REF) | payer MEDICARE, SELFPAY ==
--- OUTSIDE RECORDS SUMMARY | 2025-05-06 07:32 | XMS_ITS | Encounter Summary ---
Author Organization [employer] Address [address] [place] [address] 7 [place] [address] Care Team Providers Care Pacs Administrator Name Role Phone Unavailable Primary Care Provider Unavailabl e Encounter Details Date Type Department Care Team (Latest Contact Info) Description 04/19/2021 Abstract [facility] CONVERSIONS Dental, Provider, DDS Social History [...]
--- OUTSIDE RECORDS SUMMARY | 2025-05-06 07:32 | XMS_ITS | Patient Health Record ---
Author Organization [facility] Address [address] [place] [phone] Care Team Providers Care Die Hardener Name Role Phone Jamee MARTINEZ, Татьяна Primary Care Provider Jean Pierre Montiel Jr Unavailable [phone] Allergies Allergen (clinical drug ingredient) Drug/Non Drug [...] Status Risk Notes Problem Already on aspirin (307606345) Long-term (current) use of aspirin (V58.66) Active confirmed Problem Colon cancer screening (212796951) Colon cancer screening (V76.51) Active confirmed Problem 649534885 jail current use of aspirin (Z79.82) Active confirmed Problem Screening for malignant neoplasm of colon (146665001) Encounter for screening for malignant neoplasm of colon (Z12.11) Active confirmed Problem Long-term current use of drug therapy (897308822) High risk medications (not anticoagulants) long-term use (Z79.899) Active confirmed Vital Signs Blood pressure diastolic 77 mm Hg 03/03/2025 Height 58 in 03/03/2025 Blood pressure systolic 111 mm Hg 03/03/2025 Weight 104 lbs 03/03/2025 BMI 21.73 kg/m2 03/03/2025 Encounters Encounter Location Date Provider Diagnosis [facility] [address] [place] [phone] 03/03/2025 Jean Pierre Gaitan Jr Encounter for screening for malignant neoplasm of colon Z12.11 and High risk medications (not anticoagulants) long-term use Z79.899 [facility] [address] [place] [phone] 03/07/[address] [facility] [address] [place] [phone] 03/17/2025 Jean Pierre Gaitan Jr Assessments Encounter [...] Insured Coverage Start Date Coverage End Date [facility] [address] [place] [address] [id number] ANDRÉS HUMPHREYS Self - patient is the [...]
--- OUTSIDE RECORDS SUMMARY | 2025-05-06 07:32 | XMS_ITS | Clinical Summary ---
Author Organization [employer] Address [address] [place] [address] 7 [place] [address] Care Team Providers Care Urology Teacher Name Role Phone Unavailable Primary Care Provider [...]
--- OUTSIDE RECORDS SUMMARY | 2025-05-06 07:32 | XMS_ITS | Encounter Summary ---
Author Organization [employer] Address [address] [place] [address] 7 [place] [address] Care Team Providers Care Stagecraft Professor Name Role Phone Unavailable Primary Care Provider Unavailabl e Encounter Details Date Type Department Care Team (Latest Contact Info) Description 06/22/2019 Abstract [facility] CONVERSIONS Dental, Provider, DDS Social History [...]
[2025-05-06 11:34] LABS: Alanine Aminotransferase 127 U/L (0-31); Anion Gap 13 (12-20); Aspartate Amino Transferase 50 U/L (5-31); Blood Urea Nitrogen 24 mg/dL (9-16); Calcium 9.6 mg/dL (8.4-10.2); Carbon Dioxide 26 mmol/L (22-29); Chloride 105 mmol/L (96-108); Cholesterol 290 mg/dL (<200); Estimated Glomerular Filt Rate > 60; HDL Cholesterol 87 mg/dL (>40); Potassium 4.3 mmol/L (3.3-5.1); Sodium 140 mmol/L (135-145); Triglycerides 209 mg/dL (<150)
== END 2025-05-06 07:30 | disposition home or self-care (01) ==
LOC: HO.HMGCLDS 07:29
PROVIDERS: PCP Internal Medicine; Visit Provider Internal Medicine
DX: E11.29 Type 2 diabetes mellitus with other diabetic kidney complication (principal); M85.852 Other specified disorders of bone density and structure, left thigh; I10 Essential (primary) hypertension; E78.5 Hyperlipidemia, unspecified; M62.82 Rhabdomyolysis; R80.9 Proteinuria, unspecified; Z86.73 Personal history of transient ischemic attack (TIA), and cerebral infarction without residual deficits
CPT/HCPCS: 36415; 80048; 80061; 82306; 82550; 84450; 84460

== ENCOUNTER 2025-05-11 10:34 | Outpatient (AMB) | payer MEDICARE, SELFPAY ==
[2025-05-11 11:41] VITALS: BP 134/64; PULSE 84; TEMP 36.7; O2SAT 98; BMI 20.3
--- NOTE | 2025-05-11 11:41 | A.OFFPC_ITS ---
Vital Signs 05/11/25 11:41 Height 4 ft 11 in Weight 100 lb 6 oz BMI 20.3 BP 134/64 Blood Pressure Location Rt brachial Position Sitting Pulse 84 Pulse Source Pulse Oximeter Temp 98.1 F Temp Source Oral Pulse Oximetry (%) 98 Oxygen Delivery Method Room Air Intake Visit Reasons: b/p med adjustment Intake Note: Pt is here today to f/u b/p med adjustiment Allergies metronidazole (From FLAGYL) Allergy (Mild, Verified 05/11/25 11:57) METALLIC TASTE/RASH Sulfa (Sulfonamide Antibiotics) (SULFA (SULFONAMIDE ANTIBIOTICS)) Allergy (Mild, Verified 05/11/25 11:57) RASH, rash, SOB Wrqcuir-KBN-ZiY Reductase Inhibitor Adverse Reaction (Severe, Verified 05/11/25 11:57) Rhabdomyolysis Medication List - Last Reconciled 05/11/25 by Татьяна Mancuso MD amlodipine 5 mg PO DAILY 90 days cholecalciferol (vitamin D3) 50 mcg PO DAILY fluticasone propionate 50 mcg/actuation (Flonase Allergy Relief) 1 spray intranasal DAILY PRN losartan 50 mg PO DAILY metformin 500 mg PO BID multivitamin 1 tab PO DAILY prednisone 10 mg PO DIRECTED vitamin B complex 1 tab PO DAILY Tobacco use date assessed: 05/11/25 Fall risk assessment: 1 Fall in past year Last assessed Fall Risk: 05/11/25 Dental Screening Dental Screen Date: 04/06/25 HPI b/p med adjustment HPI Details - 70-year-old female presenting today fo r follow-up on her hypertension, hyperlipidemia - Hypertension: Blood pressure now with in normal limits with increased dose of losartan - Hyperlipidemia: The patient is experie ncing issues with cholesterol management, with a history of statin intolerance leading to muscle destruction. - Hyperlipidemia: Alternative treatments such as ezetimibe and PCSK9 inhibitors were discussed, but initiation is pending due to elevated liver enzymes. - Muscle enzyme elevation: The patient h as a history of significantly elevated muscle enzymes, previously reaching 11,000 U/L, now reduced to 702 U/L. -still having some weakness in her legs, particularly when climbing stairs, but is resolved [facility] Medical History (Updated 05/11/25 @ 12:15 by Татьяна Mancuso MD) Statin intolerance Muscle weakness Abscess of buttock Postoperative keloid scar Type 2 diabetes mellitus with microalbuminuria, without long-term current use of insulin Stenosis of right carotid artery Hypertension History of CVA (cerebrovascular accident) Osteopenia of left hip Dyslipidemia Cyst of right breast Surgical History History of cholecystectomy History of dilation and curettage Family History Father No problems noted. Mother No problems noted. Social History Household Members: Spouse Housing: House Do you presently have visiting nurse or other home services: No Alcohol intake: current Alcohol intake frequency: does not drink Patient Tobacco Use Status: Former Tobacco user Tobacco use type: Cigarette e-Cigarette/Vaping Use: Never Used Second Hand Smoke Exposure: No Advance Directives Date on File: 11/29/22 service: No Current occupational status: retired Cognitive needs: No Hearing needs: No Vision needs: Yes Questionnaire Thrive Questionnaire Date Thrive assessed: 11/26/24 I am a: Patient What is your living situation today?: I have a steady place to live Within the past 12 months, did the food you bought not last and you didn't have the money to get more?: Never true Within the past 12 months, did you worry whether your food would run out before you got money to buy more?: Often true Do you have trouble paying for medicines?: No Do you have trouble getting transportation to medical appointments?: No Do you have trouble paying your heating and electricity bill?: No Do you have trouble taking care of your child, family member or friend?: No Do you have trouble with day-to-day activities such as bathing, preparing meals, shopping, managing finances, etc.?: No Are you currently unemployed and looking for a job?: No Are you interested in more education?: No Please select the resources that you would like help with: None Currently or been in a relationship where the following occur: No concerns reported THRIVE Score: 1 TOÑA-7 AMB Questionnaire TOÑA-7 Date TOÑA - 7 assessed: 12/02/24 Source: Developed by Drs. Fuentes Boston, Miriam Wiley, Jr Joseph and colleagues, with an educational sylvia from [employer]. Review of Systems Const All systems reviewed & are unremarkable except as noted in HPI and below Neuro Denies Sensory deficit (Neuro) Physical exam (Primary Care) Vital Signs: Last Vital Signs Temp 98.1 F 05/11/25 11:41 Pulse 84 05/11/25 11:41 BP 134/64 05/11/25 11:41 Pulse Ox 98 05/11/25 11:41 Oxygen Delivery Method Room Air 05/11/25 11:41 BMI result Body Mass Index 20.3 Tobacco/Smoking Status: Tobacco use Status Tobacco use date assessed 05/11/25 05/11/25 11:49 Patient Tobacco Use Status Former Tobacco user 05/11/25 11:49 Tobacco use type Cigarette 05/11/25 11:49 e-Cigarette/Vaping Use Never Used 05/11/25 11:49 Thrive Assessment: Date of Thrive Assessment Date Thrive assessed 11/26/24 05/11/25 11:49 Currently or been in a relationship where the following occur: No concerns reported Const Other: Alert oriented x3, no acute distress noted ambulatory normal gait, accompanying patient HENMT Mouth: moist mucous membranes Neck Neck: Yes full ROM and Yes no lymphadenopathy Resp Auscultation: clear to auscultation bilaterally Cardio Other: S1-S2 present regular rate and rhythm GI Palpation (GI): Soft to palpation, nontender, no guarding and no masses Auscultation: normal bowel sounds General: Yes no CVA tenderness Back/Spine/Pelvis Back: no CVA tenderness and No back tenderness Skin General skin exam: no rashes or lesions noted Neuro General: tone normal, moves all extremities, Normal light touch and pain sensation and no focal motor deficits Sensory Exam: No Sensory deficit (Neuro) Extrem General: Yes full ROM, Yes no joint enlargement, Yes no clubbing, cyanosis or edema, Yes no calf tenderness and Yes normal gait Results Reviewed Results Reviewed: Name: Paula Lira Age/Sex: 70/F : 1955 Unit#: [id number] Attend Dr: Татьяна Mancuso MD Re05/06/25 Status: DEP REF Location: [facility] Disch: SPEC : [id number] TREV: 05/06/25 STATUS: COMP REQ : [id number] RECD: 05/06/25-[address]: Татьяна Mancuso MD COMP: 05/06/25 ENTERED: 05/06/[address] [facility] [address]: ORDERED: Met Prof Fast, AST, ALT, CK Total, Lipid Panel, Vitamin D 25-OH Test Result Flag Reference Sodium 140 135-145 mmol/L Potassium 4.3 3.3-5.1 mmol/L CL 105 96-108 mmol/L CO2 26 22-29 mmol/L Gap 13 12-20 BUN 24 H 9-16 mg/dL Creat 0.59 0.5-1.4 mg/dL eGFR > 60 Chronic Kidney Disease: Estimated GFR < 60 mL/min/1.73m2 Severe Kidney Disease: Estimated GFR < 15 mL/min/1.73m2 FBS 103 H 60-99 mg/dL A fasting glucose from 100-125 mg/dl is considered impaired (pre-diabetes). CA 9.6 8.4-10.2 mg/dL AST (GOT) 50 H 5-31 U/L ALT (GPT) 127 H 0-31 U/L CK Total 702 H 26-140 U/L Triglyceride 209 H <150 mg/dL Desirable Triglyceride: less than 150 mg/dL Borderline High Triglyceride 150-199 mg/dL High Triglyceride: 200-499 mg/dL Very High Triglyceride: greater than or equal to 5OO mg/dL Cholesterol 290 H <200 mg/dL Desirable Cholesterol: less than 200 mg/dL Borderline High Cholesterol: 200-239 mg/dL High Cholesterol: greater than 239 mg/dL LDL Calculated 162 H <100 mg/dL Desirable LDL: less than 100 mg/dL Near Optimal/Above Optimal LDL: 110-129 mg/dL Borderline High LDL: 130-159 mg/dL High LDL: 160-189 mg/dL Very High LDL: greater than or equal to 190 mg/dL HDL 87 >40 mg/dL Desirable HDL: greater than 40 mg/dL Note: This HDL assay may give artificially low results in patients with liver disease. Vitamin D 25-OH 85.0 >30 ng/mL Health Based Reference Values* < 20 ng/mL Deficient 20-30 ng/mL Insufficient > 30 ng/mL Sufficient Coding Level of Care Code Complex EM visit Add On G2211 Diagnoses Dyslipidemia E78.5 Primary hypertension I10 Hypertension type: primary hypertension History of rhabdomyolysis Z87.39 Assessment & Plan Assessment & Plan (1) Dyslipidemia: Code(s): E78.5 - Hyperlipidemia, unspecified Category: Medical Plan: Stressed importance of continued adherence to healthy diet, low-cholesterol diet, (2) Hypertension: Code(s): I10 - Essential (primary) hypertension Category: Medical Qualifiers: Hypertension type: primary hypertension Qualified Code(s): I10 - Essential (primary) hypertension Plan: Blood pressure controlled, continued on amlodipine 5 mg daily losartan 50 mg twice a day (3) History of rhabdomyolysis: Code(s): Z87.39 - Personal history of other diseases of the musculoskeletal system and connective tissue Plan Patient was informed and verbally consented to the use of an ambient scribe for clinic note documentation during this visit. 1. Essential Hypertension The patient's hypertension is currently managed with losartan and amlodipine 2. Hyperlipidemia The patient has a history of statin intolerance, leading to muscle destruction, and is currently not on any cholesterol-lowering medication due to elevated liver enzymes. 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 Hydration and monitoring of enzyme levels are recommended to ensure continued improvement. 4. Liver Enzyme Elevation The patient's liver enzymes remain elevated, necessitating caution in initiating new cholesterol-lowering therapies. Regular monitoring of liver function tests is advised to assess for any changes. 5. Pressure Ulcer The patient developed a pressure ulcer during a previous hospitalization, which is currently healing with the use of a donut cushion and foam pad to relieve pressure. Continued use of pressure-relieving devices and monitoring for signs of healing are recommended. Orders: Referrals Cardiology Referral E78.5 - Hyperlipidemia, unspecified, I10 - Essential (primary) hypertension, I65.21 - Occlusion and stenosis of right carotid artery, Z78.9 - Other specified health status, Z87.39 - Personal history of other diseases of the musculoskeletal system and connective tissue Medications: Changed From losartan 25 mg PO DAILY 90 days 90 tabs 3RF I10 - Essential (primary) hypertension To losartan 50 mg PO DAILY I10 - Essential (primary) hypertension
--- OUTSIDE RECORDS SUMMARY | 2025-05-11 13:07 | XMS_ITS | Patient Health Record ---
Author Organization [facility] Address [address] [place] [phone] Care Team Providers Care Flatwork Washer Name Role Phone Jamee MARTINEZ, Татьяна Primary [...] Status Risk Notes Problem Already on aspirin (092719887) Long-term (current) use of aspirin (V58.66) Active confirmed Problem Colon cancer screening (301272916) Colon cancer screening (V76.51) Active confirmed Problem 936473178 penitentiary current use of aspirin (Z79.82) Active confirmed Problem Screening for malignant neoplasm of colon (004097118) Encounter for screening for malignant neoplasm of colon (Z12.11) Active confirmed Problem Long-term current use of drug therapy (601771934) High risk medications (not anticoagulants) long-term use (Z79.899) Active confirmed Vital Signs Blood pressure diastolic 77 mm Hg 03/03/2025 Height 58 in 03/03/2025 Blood pressure systolic 111 mm Hg 03/03/2025 Weight 104 lbs 03/03/2025 BMI 21.73 kg/m2 03/03/2025 Encounters Encounter Location Date Provider Diagnosis [facility] [address] [place] [phone] 03/03/2025 Jean Pierre Gaitan Jr Encounter for screening for malignant neoplasm of colon Z12.11 and High risk medications (not anticoagulants) long-term use Z79.899 [facility] [address] [place] [phone] 03/07/2025 Jean Pierre Gaitan Jr [facility] [address] [place] [phone] 03/17/2025 Jean Pierre Gaitan Jr Assessments Encounter [...] Insured Coverage Start Date Coverage End Date [facility] [address] [place] [address] [id number] ANDRÉS HUMPHREYS Self - patient is the [...]
--- OUTSIDE RECORDS SUMMARY | 2025-05-11 13:07 | XMS_ITS | Clinical Summary ---
Author Organization [employer] Address [address] [place] [address] 7 [place] [address] Care Team Providers Care Cia Agent Name Role Phone Unavailable Primary Care Provider [...] COVID-19 Vaccine ( - 2023-2 5 season) 2025 Influenza Vaccine (#1) 2025 RSV Patients and [...]
--- OUTSIDE RECORDS SUMMARY | 2025-05-11 13:07 | XMS_ITS | Encounter Summary ---
Author Organization [employer] Address [address] [place] [address] 7 [place] [address] Care Team Providers Care Supplier Quality Engineering Manager Name Role Phone Unavailable Primary Care Provider Unavailabl e Encounter Details Date Type Department Care Team (Latest Contact Info) Description 04/19/2021 Abstract [facility] CONVERSIONS Dental, Provider, DDS Social History [...]
--- OUTSIDE RECORDS SUMMARY | 2025-05-11 13:07 | XMS_ITS | Encounter Summary ---
Author Organization [employer] Address [address] [place] [address] 7 [place] [address] Care Team Providers Care Activity Specialist Name Role Phone Unavailable Primary Care Provider Unavailabl e Encounter Details Date Type Department Care Team (Latest Contact Info) Description 06/22/2019 Abstract [facility] CONVERSIONS Dental, Provider, DDS Social History [...]
== END 2025-05-11 13:31 | disposition home or self-care (01) ==
LOC: HO.HMCC 10:35
PROVIDERS: PCP Internal Medicine; Visit Provider Internal Medicine
DX: E78.5 Hyperlipidemia, unspecified (principal); I10 Essential (primary) hypertension; Z87.39 Personal history of other diseases of the musculoskeletal system and connective tissue; R74.01 Elevation of levels of liver transaminase levels

== ENCOUNTER → 2025-05-11 10:34 | Outpatient (BNVA) | payer MEDICARE, SELFPAY | PROVIDERS: PCP Internal Medicine; Visit Provider Internal Medicine | DX: I10 Essential (primary) hypertension (principal); E78.5 Hyperlipidemia, unspecified; I65.21 Occlusion and stenosis of right carotid artery; Z87.39 Personal history of other diseases of the musculoskeletal system and connective tissue | CPT/HCPCS: 99212 ==

== ENCOUNTER 2025-06-06 07:23 | Outpatient (REF) | payer MEDICARE, SELFPAY ==
--- OUTSIDE RECORDS SUMMARY | 2025-05-17 06:10 | XMS_ITS ---
Author Organization [facility] Address [address] [place] [phone] Care Team Providers Care Bench Inspector Name Role Phone Татьяна Mancuso MD Primary Care Provider Edin Gaitan Jr, Jean Pierre Montes De Oca REASON FOR VISIT screening Encounters Encounter Location Date Provider Diagnosis [facility] Out[facility] [address] [place] [id number] 05/17/2025 Jean Pierre Gaitan Jr Plan Of Treatment No Information Progress Notes * ANDRÉS HUMPHREYS EDOB:[birth year] (70 yo F)Acc No.[id number]:05/17/2025 COLON WITH MAC Patient: Preeti SURI ANDRÉS Davion Provider: Mikaela Gaitan MD :1955 A ge:70 Y S ex:Female Date:05/17/2025 Address:[address] [place], [place] [phone] Pcp:Татьяна Mancuso MD Subjective: * Chief Complaints: [...] MD Date: 0 05/17/2025 Generated for Pardeepi anjana/Kaylan/eTransmitting on: 1 07:26 AM EDT
--- OUTSIDE RECORDS SUMMARY | 2025-06-06 07:27 | XMS_ITS | Encounter Summary ---
Author Organization [employer] Address [address] [place] [address] 7 [place] [address] Care Team Providers Care Abrasive Worker Name Role Phone Unavailable Primary Care Provider Unavailabl e Encounter Details Date Type Department Care Team (Latest Contact Info) Description 04/19/2021 Abstract [facility] CONVERSIONS Dental, Provider, DDS Social History [...]
--- OUTSIDE RECORDS SUMMARY | 2025-06-06 07:27 | XMS_ITS | Clinical Summary ---
Author Organization [employer] Address [address] [place] [address] 7 [place] [address] Care Team Providers Care Cut Plug Packer Name Role Phone Unavailable Primary Care Provider [...]
--- OUTSIDE RECORDS SUMMARY | 2025-06-06 07:27 | XMS_ITS | Patient Health Record ---
Author Organization [facility] Address [address] [place] [phone] Care Team Providers Care Security Ambassador Name Role Phone Jamee MARTINEZ, Татьяна Primary [...] Status Risk Notes Problem Already on aspirin (284453196) Long-term (current) use of aspirin (V58.66) Active confirmed Problem Colon cancer screening (065750399) Colon cancer screening (V76.51) Active confirmed Problem 621360028 terminologist current use of aspirin (Z79.82) Active confirmed Problem Screening for malignant neoplasm of colon (874877426) Encounter for screening for malignant neoplasm of colon (Z12.11) Active confirmed Problem Long-term current use of drug therapy (063496407) High risk medications (not anticoagulants) long-term use (Z79.899) Active confirmed Vital Signs Blood pressure diastolic 77 mm Hg 03/03/2025 Height 58 in 03/03/2025 Blood pressure systolic 111 mm Hg 03/03/2025 Weight 104 lbs 03/03/2025 BMI 21.73 kg/m2 03/03/2025 Encounters Encounter Location Date Provider Diagnosis [facility] [address] [place] [phone] 03/03/2025 Jean Pierre Gaitan Jr Encounter for screening for malignant neoplasm of colon Z12.11 and High risk medications (not anticoagulants) long-term use Z79.899 [facility] [address] [place] [phone] 03/07/2025 Jean Pierre Gaitan Jr [facility] [address] [place] [phone] 03/17/2025 Jean Pierre Gaitan Jr Assessments Encounter [...] Insured Coverage Start Date Coverage End Date [facility] [address] [place] [address] [id number] ANDRÉS HUMPHREYS Self - patient is the [...]
--- OUTSIDE RECORDS SUMMARY | 2025-06-06 07:27 | XMS_ITS | Encounter Summary ---
Author Organization [employer] Address [address] [place] [address] 7 [place] [address] Care Team Providers Care Bottomer Operator Name Role Phone Unavailable Primary Care Provider Unavailabl e Encounter Details Date Type Department Care Team (Latest Contact Info) Description 06/22/2019 Abstract [facility] CONVERSIONS Dental, Provider, DDS Social History Tobacco [...]
[2025-06-06 10:36] LABS: MANUAL DIFF FLAG NO
[2025-06-06 10:40] LABS: Hematocrit 38.7 % (37.0-47.0); Hemoglobin 12.6 g/dl (12.0-16.0); Imm Gran Abs Auto 0.40 X10*3/uL (0.00-0.03); Imm Gran Pct Auto 3.2 % (0.0-0.4); Lymphocytes Absolute Auto 3.4 X10*3/uL (1.2-4.9); Mean Corpuscular HGB Conc 32.6 g/dl (31.0-35.0); Mean Corpuscular Hemoglobin 29.9 pg (27.0-33.0); Mean Corpuscular Volume 91.9 fL (80.0-98.0); NRBC Abs Auto 0.000 X10*3/uL (0.0-0.012); NRBC Pct Auto 0.0 /100WBC (0.0-0.2); Platelet Count 396 X10*3/uL (160-400); Red Blood Count 4.21 X10*6/uL (4.20-5.50); White Blood Count 12.4 X10*3/uL (4.8-10.8)
[2025-06-06 11:02] LABS: Alanine Aminotransferase 65 U/L (0-31); Albumin Level 3.8 g/dL (3.5-5.0); Alkaline Phosphatase 65 U/L (39-117); Anion Gap 11 (12-20); Aspartate Amino Transferase 35 U/L (5-31); Blood Urea Nitrogen 22 mg/dL (9-16); Calcium 9.0 mg/dL (8.4-10.2); Carbon Dioxide 30 mmol/L (22-29); Chloride 105 mmol/L (96-108); Estimated Glomerular Filt Rate > 60; Potassium 4.2 mmol/L (3.3-5.1); Sodium 142 mmol/L (135-145); Total Protein 6.3 g/dL (6.5-8.0)
[2025-06-10 01:23] LABS: HMGCR IgG 44 CU (<20)
== END 2025-06-06 07:24 | disposition home or self-care (01) ==
LOC: HO.HMGCLDS 07:23
PROVIDERS: Absent Provider Student in an Organized Health Care Education/Training Program; PCP Internal Medicine; Visit Provider Internal Medicine
DX: E11.29 Type 2 diabetes mellitus with other diabetic kidney complication (principal); M33.20 Polymyositis, organ involvement unspecified; M85.852 Other specified disorders of bone density and structure, left thigh; I10 Essential (primary) hypertension; E78.5 Hyperlipidemia, unspecified; Z86.73 Personal history of transient ischemic attack (TIA), and cerebral infarction without residual deficits; R80.9 Proteinuria, unspecified
CPT/HCPCS: 36415; 80053; 82085; 82550; 83036; 83520; 85025; 85652; 86140

== ENCOUNTER 2025-06-09 10:29 | Outpatient (AMB) | payer MEDICARE, SELFPAY ==
--- NOTE | 2025-06-09 10:46 | A.OFFVIS_ITS ---
Vital Signs 06/09/25 10:53 Height 4 ft 11 in Weight 103 lb 13.404 oz BMI 21.0 BP 134/80 Blood Pressure Location Lt brachial Position Sitting Pulse 86 Pulse Source Pulse Oximeter Pulse Oximetry (%) 99 Oxygen Delivery Method Room Air Intake Visit Reasons: 2 months Intake Note: Patient presents for Polymyositis follow up. Allergies metronidazole (From FLAGYL) Allergy (Mild, Verified 06/09/25 10:51) METALLIC TASTE/RASH Sulfa (Sulfonamide Antibiotics) (SULFA (SULFONAMIDE ANTIBIOTICS)) Allergy (Mild, Verified 06/09/25 10:51) RASH, rash, SOB [id number]-[id number] Reductase Inhibitor Adverse Reaction (Severe, Verified 06/09/25 10:51) Rhabdomyolysis Medication List - Last Reconciled 06/09/25 by Clemencia Sheriff MD amlodipine 5 mg PO DAILY 90 days cholecalciferol (vitamin D3) 50 mcg PO DAILY fluticasone propionate 50 mcg/actuation (Flonase Allergy Relief) 1 spray intranasal DAILY PRN losartan 50 mg PO DAILY metformin 500 mg PO BID multivitamin 1 tab PO DAILY prednisone 10 mg PO DIRECTED vitamin B complex 1 tab PO DAILY HPI Comments Details: Patient is a 70-year-old female with hypertension complicated by CVA, diabetes, hyperlipidemia and biopsy proven necrotizing autoimmune myopathy here today for follow up Interval History: Patient last seen 04/14/25 with me - New patient visit to establish care for the management of biopsy proven autoimmune necrotizing myopathy - Given prednisone taper and IVIG Today - On IVIG 2g/kg every 4 weeks and prednisone 20mg - Has not started IVIG, will start next week - Still having difficulty with proximal muscle weakness - Insurance is changing at the end of the year, currently looking at other carriers Rheumatologic History: Dx 04/2025 Biopsy proven IMNM 04/2025: IVIG Initial History: Patient was [place] [facility] [place] presenting with myalgias and elevated CK in the setting of statin use. 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 Patient has been on statin for years and patient's provider slowly decrease the dose from 80 mg to 40 mg and finally 20 mg due to complaints of myalgias Over the past several weeks prior to admission she noted heaviness in her arms and legs to the point where she could not get in and out of the car Today she is on 40 mg prednisone daily with improved symptoms Current Rheumatology Medication(s): IVIG 2g/kg every 4 weeks Prednisone 20mg daily [facility] Medical History (Updated 06/09/25 @ 11:12 by Clemencia Sheriff MD) Statin intolerance Muscle weakness Abscess of buttock Postoperative keloid scar Type 2 diabetes mellitus with microalbuminuria, without long-term current use of insulin Stenosis of right carotid artery Hypertension History of CVA (cerebrovascular accident) Osteopenia of left hip Dyslipidemia Cyst of right breast Surgical History History of cholecystectomy History of dilation and curettage Family History Father No problems noted. Mother No problems noted. Social History Household Members: Spouse Housing: House Do you presently have visiting nurse or other home services: No Alcohol intake: current Alcohol intake frequency: does not drink Patient Tobacco Use Status: Former Tobacco user Tobacco use type: Cigarette e-Cigarette/Vaping Use: Never Used Second Hand Smoke Exposure: No Advance Directives Date on File: 11/29/22 service: No Current occupational status: retired Cognitive needs: No Hearing needs: No Vision needs: Yes Review of Systems Const Details: Review of Systems Constitutional: Denies fever, chills, weight loss ENT: Denies vision changes, eye pain or eye redness, dental caries, dry mouth GI: Denies nausea, vomiting, diarrhea, abdominal pain, change in BM Pulm: Denies SOB, RAZA, hemoptysis, wheezing Cards: Denies chest pain, palpitations Skin: Denies Raynaud's, rash, nail changes, photosensitivity, NUCLEAR LICENSING ENGINEER: Denies headaches, weakness, paresthesias, recurrent falls MSK: as per HPI All other systems reviewed and are unremarkable except noted above Physical Exam Exam Exam: Vital signs reviewed Physical Examination CONSTITUITIONAL Patient alert and cooperative. Well appearing and in no apparent painful distress MSK Hands * Right Hand: Able to make a fist. No swelling or tenderness to palpation of the MCPs, PIPs or DIPs. * Left Hand: Able to make a fist. No swelling or tenderness to palpation of the MCPs, PIPs or DIPs. Wrists * Right Wrist: Full ROM to flexion and extension. No swelling or TTP * Left Wrist: Full ROM to flexion and extension. No swelling or TTP Elbows * Right Elbow: Full ROM. No swelling or TTP. No TTP of the medial epicondyle. No TTP of the lateral epicondyle * Left Elbow: Full ROM. No swelling or TTP. No TTP of the medial epicondyle. No TTP of the lateral epicondyle Shoulders * Right shoulder: Full ROM. No swelling noted. No TTP of the AC joint. No TTP of the subacromial bursa. No TTP of the posterior shoulder * Left shoulder: Full ROM. No swelling noted. No TTP of the AC joint. No TTP of the subacromial bursa. No TTP of the posterior shoulder Knees * Right knee: Full ROM. No swelling noted. No TTP of the knee joint line. No TTP of pes anserine bursa * Left knee: Full ROM. No swelling noted. No TTP of the knee joint line. No TTP of pes anserine bursa. * Crepitations felt bilaterally Ankles * Right ankle: Good ankle dorsiflexion and plantar flexion. No swelling. No TTP of the ankle joint * Left ankle: Good ankle dorsiflexion and plantar flexion. No swelling. No TTP of the ankle joint Feet * Right foot: Negative squeeze test * Left foot: Negative squeeze test Tender points? * No tenderness to palpation of the bilateral trapezius, supraspinatus, anterior costochondral junctions, bilateral suboccipital muscle insertions SKIN No rashes Right Left Neck 5 Stone Cleaner strength 5 5 Wrist flexion 5 5 Wrist extension 5 5 Elbow extension 4- 4- Elbow flexion 4 4 Shoulder abduction 5 5 Shoulder adduction 4 4 Hip flexion 4 4 Knee extension 5 5 Knee flexion 4 4 Ankle dorsiflexion 5 5 Ankle plantar flexion 5 5 Results Reviewed Results Reviewed: Laboratory Tests 05/06/25 06/06/25 07:32 07:46 WBC 12.4 H RBC 4.21 Hgb 12.6 Hct 38.7 Plt Count 396 ESR 12 Sodium 142 Potassium 4.2 Chloride 105 Carbon Dioxide 30 H BUN 22 H Creatinine 0.60 AST 50 H 35 H ALT 127 H 65 H Total Creatine Kinase 702 H 671 H C-Reactive Protein 0.38 Aldolase Pending Laboratory Tests 03/28/25 08:36 KAYLEE-1 Antibody <11 EJ Antibody <11 OJ Antibody <11 Mi-2-Alpha Ab <11 Mi-2-Beta Ab <11 NXP-2 Ab <11 PL-7 Antibody <11 PL-12 Antibody <11 SRP Ab <11 MDA5 Ab <11 Myos P155/140 TIF1-g Ab <11 NT5C1A IgG Antibody <5 Muscle biopsy 03/30/25 The muscle shows myopathic histologic changes including the presence of scattered degenerating (necrotic) fibers and basophilic regenerating fibers. No inflammation is present. The muscle fibers also show overexpression of MHC class 1, which suggest a diagnosis of necrotizing autoimmune myopathy possibly associated with prior statin use. 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 Will continue 20mg for an additional 2 weeks after IVIG then slow taper Plan - IVIG 2g/kg divided over 2 days every 4 weeks - Prednisone 20mg x 2 weeks then 15mg x 4 weeks then 10mg x 4 weeks then follow up - Refer to PT at next visit - RTC 2 months - Labs before visit: CBC, CMP, ESR, CRP, CK, Aldolase (2) Long-term current use of intravenous immunoglobulin (IVIG): Code(s): Z79.899 - Other care home (current) drug therapy Plan: #Long-term use of IVIG Discussed with this patient the risks and benefits of IVIG use to the management of the rheumatic condition Benefits include improved disease control and maintenance of remission Risks include anaphylaxis, blood clots, transfusion related acute lung injury, hemolytic reaction, fluid overload, heart problems Plan I spent 35 minutes reviewing the record and labs, taking a history, examining the patient, discussing the treatment plan, ordering diagnostic work up, ordering and setting up infusion and documenting in the medical record Orders: Orders Erythrocyte Sedimentation Rate 2 Months M3. - Polymyositis, organ involvement unspecified, Z79.899 - Other intermediate project manager (current) drug therapy Complete Blood Count Auto Diff 2 Months M3.20 - Polymyositis, organ involvement unspecified, Z79.899 - Other care home (current) drug therapy Comprehensive Met. Panel 2 Months M33.20 - Polymyositis, organ involvement unspecified, Z79.899 - Other intermediate project manager (current) drug therapy C Reactive Protein 2 Months M33.20 - Polymyositis, organ involvement unspecified, Z79.899 - Other care home (current) drug therapy Creatine Kinase Total 2 Months M33.20 - Polymyositis, organ involvement unspec ified Aldolase 2 Months M33.20 - Polymyositis, organ involvement unspecified Medications: New prednisone Take 2 tablets for 2 weeks then 1.5 tablets for 4 weeks then 1 tablet for 4 weeks 10 mg PO DIRECTED 100 tabs 0RF M33.20 - Polymyositis, organ involvement unspecified Discontinued prednisone Take 3 tablets for 4 weeks then 2 tablets for 4 weeks Discontinued Reason: Doctor's Order 10 mg PO DIRECTED 160 tabs 0RF M33.20 - Polymyositis, organ involvement unspecified Coding Level of Care Code Est Pt Level 4 (36858) Complex EM visit Add On G2211 Diagnoses Polymyositis M33.20 Long-term current use of intravenous immunoglobulin (IVIG) Z79.899
[2025-06-09 10:53] VITALS: BP 134/80; PULSE 86; O2SAT 99; BMI 21.0
== END 2025-06-09 11:15 | disposition home or self-care (01) ==
LOC: HO.RHES 10:30
PROVIDERS: PCP Internal Medicine; Visit Provider Student in an Organized Health Care Education/Training Program
DX: M33.20 Polymyositis, organ involvement unspecified (principal); Z79.899 Other long term (current) drug therapy
CPT/HCPCS: 99214; G2211

== ENCOUNTER → 2025-06-09 10:29 | Outpatient (BNVA) | payer MEDICARE, SELFPAY | PROVIDERS: PCP Internal Medicine; Visit Provider Student in an Organized Health Care Education/Training Program | DX: M33.20 Polymyositis, organ involvement unspecified (principal); Z79.52 Long term (current) use of systemic steroids; Z79.899 Other long term (current) drug therapy | CPT/HCPCS: 99212 ==

== ENCOUNTER 2025-06-16 07:55 | Outpatient (AMB) | payer MEDICARE, SELFPAY ==
--- OUTSIDE RECORDS SUMMARY | 2025-05-17 06:10 | XMS_ITS ---
Author Organization [facility] Address [address] [place] [phone] Care Team Providers Care Metal Bed Assembler Name Role Phone Таьтяна Mancuso MD Primary Care Provider Edin Gaitan Jr, Jean Pierre Montes De Oca [phone] REASON FOR VISIT screening Encounters Encounter Location Date Provider Diagnosis [facility] Outpatient [address] [place] [id number] 05/17/2025 Jean Pierre Gaitan Jr Plan Of Treatment No Information Progress Notes * ANDRÉS HUMPHREYS EDOB:[birth year] (70 yo F)Acc No.[id number]:05/17/2025 COLON WITH MAC Patient: Preeti SURI ANDRÉS Davion Provider: Mikaela Gaitan MD :1955 A ge:70 Y S ex:Female Date:05/17/2025 Address:[address] [place], [place] [phone] Pcp:Татьяна Mancuso MD Subjective: * Chief Complaints: [...] Gaitan MD Date: 0 05/17/2025 Generated for Pardeepi ng/Famookie/eTransmitting on: 1 07:57 AM EDT
--- OUTSIDE RECORDS SUMMARY | 2025-06-16 07:58 | XMS_ITS | Encounter Summary ---
Author Organization [employer] Address [address] [place] [address] [address] [place] [address] Care Team Providers Care Learning Support Aide Name Role Phone Unavailable Primary Care Provider Unavailabl e Encounter Details Date Type Department Care Team (Latest Contact Info) Description 04/19/2021 Abstract [facility] CONVERSIONS Dental, Provider, DDS Social History Tobacco [...]
--- OUTSIDE RECORDS SUMMARY | 2025-06-16 07:58 | XMS_ITS | Encounter Summary ---
Author Organization [employer] Address [address] [place] [address] 7 [place] [address] Care Team Providers Care Field Cashier Name Role Phone Unavailable Primary Care Provider Unavailabl e Encounter Details Date Type Department Care Team (Latest Contact Info) Description 06/22/2019 Abstract [facility] CONVERSIONS Dental, Provider, DDS Social History [...]
--- OUTSIDE RECORDS SUMMARY | 2025-06-16 07:58 | XMS_ITS | Clinical Summary ---
Author Organization [employer] Address [address] [place] [address] 7 [place] [address] Care Team Providers Care Family Law Legal Assistant Name Role Phone Unavailable Primary Care [...]
--- OUTSIDE RECORDS SUMMARY | 2025-06-16 07:58 | XMS_ITS | Patient Health Record ---
Author Organization [facility] Address [address] [place] [phone] Care Team Providers Care Medical Logistics Specialist Name Role Phone Jamee MARTINEZ, Татьяна Primary [...] End Date Status Losartan Potassium 25 MG Oral; Duration: 90 Days Active metFORMIN HCl 500 MG TAKE 2 TABLETS BY M OUTH EVERY MORNING WITH BREAKFAST & 1 TABLET EVERY EVENING WITH DINNER Oral; Duration: 90 Days Active Atorvastatin Calcium 20 MG [...] Status Risk Notes Problem Already on aspirin (977370016) Long-term (current) use of aspirin (V58.66) Active confirmed Problem Colon cancer screening (620867014) Colon cancer screening (V76.51) Active confirmed Problem Already on aspirin (807968322) USP current use of aspirin (Z79.82) Active confirmed Problem Screening for malignant neoplasm of colon (369201357) Encounter for screening for malignant neoplasm of colon (Z12.11) Active confirmed Problem Long-term current use of drug therapy (784423312) High risk medications (not anticoagulants) long-term use (Z79.899) Active confirmed Vital Signs Blood pressure diastolic 77 mm Hg 03/03/2025 Height 58 in 03/03/2025 Blood pressure systolic 111 mm Hg 03/03/2025 Weight 104 lbs 03/03/2025 BMI 21.73 kg/m2 03/03/2025 Encounters Encounter Location Date Provider Diagnosis [facility] [address] [place] [phone] 03/03/2025 Jean Pierre Gaitan Jr Encounter for screening for malignant neoplasm of colon Z12.11 and High risk medications (not anticoagulants) long-term use Z79.899 [facility] [address] [place] [phone] 03/07/2025 Jean Pierre Gaitan Jr [facility] [address] [place] [phone] 03/17/2025 Jean Pierre Gaitan Jr Assessments Encounter [...] Insured Coverage Start Date Coverage End Date [facility] [address] [place] [address] [id number] ANDRÉS HUMPHREYS Self - patient is the [...]
[2025-06-16 08:06] VITALS: BP 140/78; PULSE 75; RESP 16; TEMP 37; O2SAT 98
--- NOTE | 2025-06-16 08:06 | A.OFFPC_ITS ---
Vital Signs 06/16/25 08:06 Weight 103 lb BP 140/78 H Blood Pressure Location Lt brachial Position Sitting Respiration 16 Pulse 75 Pulse Source Pulse Oximeter Temp 98.6 F Temp Source Oral Pulse Oximetry (%) 98 Oxygen Delivery Method Room Air Intake Visit Reasons: 3m follow up Manufacturing Planner Required: No Accompanied by: Self / Same As Patient Allergies metronidazole (From FLAGYL) Allergy (Mild, Verified 06/20/25 00:56) METALLIC TASTE/RASH Sulfa (Sulfonamide Antibiotics) (SULFA (SULFONAMIDE ANTIBIOTICS)) Allergy (Mild, Verified 06/20/25 00:56) RASH, rash, SOB [place]-HEA-ArM Reductase Inhibitor Adverse Reaction (Severe, Verified 06/20/25 00:56) Rhabdomyolysis Medication List - Last Reconciled 06/20/25 by Татьяна Mancuso MD amlodipine 5 mg PO DAILY 90 days cholecalciferol (vitamin D3) 50 mcg PO DAILY fluticasone propionate 50 mcg/actuation (Flonase Allergy Relief) 1 spray intranasal DAILY PRN losartan 50 mg PO DAILY 3 months metformin 500 mg PO BID multivitamin 1 tab PO DAILY prednisone 10 mg PO DIRECTED vitamin B complex 1 tab PO DAILY Tobacco use date assessed: 06/16/25 Fall risk assessment: No Falls in past year Last assessed Fall Risk: 06/16/25 Dental Screening Dental Screen Date: 06/16/25 Did you have a dental visit in the last 12 months?: Yes Did you have a dental problem in the last 6 months where you did not have access to dental care?: No Was dental information given to patient?: Patient has dentist HPI 3m follow up HPI Details The patient is a 70-year-old female with past medical history of diabetes mellitus, hyperlipidemia, hypertension, status induced myopathy, presenting today for her follow-up Blood pressure mildly elevated, currently taking amlodipine 5 mg daily and losartan 50 mg once a day. She however is on a long tapering dose of prednisone, lean now at 10 mg daily The patient reports hyperglycemia, with hemoglobin A1c increasing to 8.7%.. She has not been taking metformin consistently, which may be contributing to the elevated glucose levels together with presence of prednisone Muscle weakness is still present, particularly affecting her ability to climb stairs, although it is not as severe as previously experienced. The weakness is more pronounced on the right side. Latest total CK level is at 671 mg/dL. 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 To be referred for physical therapy on next visit. 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 Mother No problems noted. Social History Household Members: Spouse Housing: House Do you presently have visiting nurse or other home services: No Alcohol intake: current Alcohol intake frequency: does not drink Patient Tobacco Use Status: Former Tobacco user Tobacco use type: Cigarette e-Cigarette/Vaping Use: Never Used Second Hand Smoke Exposure: No Advance Directives Date on File: 11/29/22 service: No Current occupational status: retired Cognitive needs: No Hearing needs: No Vision needs: Yes Questionnaire PHQ-9 Over the last 2 weeks, how often have you been bothered by any of the following problems? 1. Little interest or pleasure in doing things: not at all 2. Feeling down, depressed, or hopeless: not at all 3. Trouble falling or staying asleep, or sleeping too much: not at all 4. Feeling tired or having little energy: not at all 5. Poor appetite or overeating: not at all 6. Feeling bad about yourself - or that you are a failure or have let yourself or your family down: not at all 7. Trouble concentrating on things, such as reading the newspaper or watching television: not at all 8. Moving or speaking so slowly that other people could have noticed. Or the opposite - being so fidgety or restless that you have been moving around a lot more than usual: not at all 9. Thoughts that you would be better off or of hurting yourself in some w ay: not at all Total score: 0 Depression Screening Interpretation: Negative Depression Screening Done: Yes 76703 - PHQ-9 Billing: Yes Source: Developed by Drs. Fuentes Boston, Jr Crooks and colleagues, with an educational sylvia from [employer]. Thrive Questionnaire Date Thrive assessed: 11/26/24 I am a: Patient What is your living situation today?: I have a steady place to live Within the past 12 months, did the food you bought not last and you didn't have the money to get more?: Never true Within the past 12 months, did you worry whether your food would run out before you got money to buy more?: Often true Do you have trouble paying for medicines?: No Do you have trouble getting transportation to medical appointments?: No Do you have trouble paying your heating and electricity bill?: No Do you have trouble taking care of your child, family member or friend?: No Do you have trouble with day-to-day activities such as bathing, preparing meals, shopping, managing finances, etc.?: No Are you currently unemployed and looking for a job?: No Are you interested in more education?: No Please select the resources that you would like help with: None Currently or been in a relationship where the following occur: No concerns reported THRIVE Score: 1 TOÑA-7 AMB Questionnaire TOÑA-7 Date TOÑA - 7 assessed: 06/16/25 Feeling nervous, anxious, or on edge: 0 = Not at all Not being able to stop or control worryin = Not at all Worrying too much about different things: 0 = Not at all Trouble relaxin = Not at all Being so restless that it is hard to sit still: 0 = Not at all Becoming easily annoyed or irritable: 0 = Not at all Feeling afraid as if something awful might happen: 0 = Not at all Total TOÑA-7 score (0-4 normal; 5-9 mild; 10-14 moderate; 15-21 severe): 0 Source: Developed by Miriam Plata Kurt Kroenke and colleagues, with an educational sylvia from [employer]. TOÑA-7 Assessment Billing TOÑA-7 Assessment Tool: TOÑA-7 Assessment 91987 Review of Systems Const All systems reviewed & are unremarkable except as noted in HPI and below Physical exam (Primary Care) Vital Signs: Last Vital Signs Temp 98.6 F 06/16/25 08:06 Pulse 75 06/16/25 08:06 Resp 16 06/16/25 08:06 BP 140/78 H 06/16/25 08:06 Pulse Ox 98 06/16/25 08:06 Oxygen Delivery Method Room Air 06/16/25 08:06 Tobacco/Smoking Status: Tobacco use Status Tobacco use date assessed 06/16/25 06/16/25 08:10 Patient Tobacco Use Status Former Tobacco user 06/16/25 08:10 Tobacco use type Cigarette 06/16/25 08:10 e-Cigarette/Vaping Use Never Used 06/16/25 08:10 PHQ-9: PHQ-9 Score PHQ-9: Total score 0 06/20/25 00:57 Depression Screening Interpretation: Negative Thrive Assessment: Date of Thrive Assessment Date Thrive assessed 11/26/24 06/16/25 08:10 Currently or been in a relationship where the following occur: No concerns reported Const Other: Alert oriented x3, no acute distress noted ambulatory normal gait, accompanying patient HENMT Mouth: moist mucous membranes Neck Neck: Yes full ROM and Yes no lymphadenopathy Resp Auscultation: clear to auscultation bilaterally Cardio Other: S1-S2 present regular rate and rhythm GI Palpation (GI): Soft to palpation, nontender, no guarding and no masses Auscultation: normal bowel sounds General: Yes no CVA tenderness Back/Spine/Pelvis Back: no CVA tenderness and No back tenderness Skin General skin exam: no rashes or lesions noted Neuro General: tone normal, moves all extremities, Normal light touch and pain sensation and no focal motor deficits Extrem General: Yes full ROM, Yes no joint enlargement, Yes no clubbing, cyanosis or edema and Yes no calf tenderness Results Reviewed Results Reviewed: Name: Paula Lira Age/Sex: 70/F : 1955 Unit#: [id number] Attend Dr: Татьяна Mancuso MD Re06/06/25 Status: DEP [facility] Disch: SPEC : [id number] TREV: 06/06/25 STATUS: COMP REQ : [id number] RECD: 06/06/[address]: Clemencia Sheriff MD COMP: 06/06/25 ENTERED: 06/06/[address] [facility] [address]: Татьяна Mancuso MD ORDERED: CBC Auto Diff Test Result Flag Reference WBC 12.4 H 4.8-10.8 X10*3/uL RBC 4.21 4.20-5.50 X10*6/uL HGB 12.6 12.0-16.0 g/dl HCT 38.7 37.0-47.0 % MCV 91.9 80.0-98.0 fL MCH 29.9 27.0-33.0 pg MCHC 32.6 31.0-35.0 g/dl RDW 13.2 11.0-16.0 % PLT 396 160-400 X10*3/uL MPV 9.8 9.4-12.3 fL Neut Pct Auto 61.8 45-73 % ImGran Pct Auto 3.2 H 0.0-0.4 % Lymp Pct Auto 27.4 20-40 % Wythe Pct Auto 6.0 2-11 % Eos Pct Auto 0.8 0-4 % Baso Pct Auto 0.8 0-2 % NRBC Pct Auto 0.0 0.0-0.2 /100WBC ANC Neut Abs # 7.7 2.0-8.3 x10*3/uL ImGran Abs Auto 0.40 H 0.00-0.03 X10*3/uL Lymph Abs Auto 3.4 1.2-4.9 X10*3/uL Wythe Abs Auto 0.7 0.1-1.2 X10*3/uL Eos Abs Auto 0.1 0.0-0.4 X10*3/uL Baso Abs Auto 0.1 0.0-0.2 X10*3/uL NRBC Abs Auto 0.000 0.0-0.012 X10*3/uL Laboratory Tests 11/27/24 06/06/25 08:43 07:46 Estimat Average Glucose 203 Hemoglobin A1c % 8.7 H Microalb/Creat Ratio 52.5 H Name: Paula Lira Age/Sex: 70/F : 1955 Unit#: [id number] Attend Dr: Татьяна Mancuso MD Re06/06/25 Status: DEP REF Location: [facility] Disch: SPEC : [id number] TREV: 06/06/25 STATUS: COMP REQ : [id number] RECD: 06/06/[address]: Clemencia Sheriff MD COMP: 06/06/25 ENTERED: 06/06/[address]: Татьяна Mancuso MD ORDERED: CMP, CK Total, C Reactive Prot Test Result Flag Reference Sodium 142 135-145 mmol/L Potassium 4.2 3.3-5.1 mmol/L CL 105 96-108 mmol/L CO2 30 H 22-29 mmol/L Gap 11 L 12-20 BUN 22 H 9-16 mg/dL Creat 0.60 0.5-1.4 mg/dL eGFR > 60 Chronic Kidney Disease: Estimated GFR < 60 mL/ min/1.73m2 Severe Kidney Disease: Estimated GFR < 15 mL/min/1.73m2 Glucose, Random 127 H 60-115 mg/dL CA 9.0 # 8.4-10.2 mg/dL Total Bili 0.4 0.0-1.0 mg/dL Slight Icterus. AST (GOT) 35 H 5-31 U/L ALT (GPT) 65 H 0-31 U/L CK Total 671 H 26-140 U/L CRP 0.38 < or = 0.50 mg/dL Protein, Total 6.3 L 6.5-8.0 g/dL Alb 3.8 3.5-5.0 g/dL Alk Phos 65 39-117 U/L Coding Level of Care Code Est Pt Level 4 (76276) Complex EM visit Add On G2211 Diagnoses Polymyositis M33.20 Type 2 diabetes mellitus with microalbuminuria, without long-term current use of insulin E11.29; R80.9 Primary hypertension I10 Hypertension type: primary hypertension Dyslipidemia E78.5 Colon cancer screening Z12.11 Additional Codes TOÑA-7 Assessment Billing - TOÑA-7 Assessment Tool: TOÑA-7 Assessment 81614 ([id number]) PHQ-9 - 55797 - PHQ-9 Billing: Yes ([id number]) Assessment & Plan Assessment & Plan (1) Polymyositis: Comment: Dx 04/2025 IVIG started 04/2025 Code(s): M33.20 - Polymyositis, organ involvement unspecified Category: Medical Plan: Currently followed by Rheumatology, diagnosed to have 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 (2) Type 2 diabetes mellitus with microalbuminuria, without long-term current use of insulin: Code(s): E11.29 - Type 2 diabetes mellitus with other diabetic kidney complication; R80.9 - Proteinuria, unspecified Category: Medical Plan: Reinforced importance of taking metformin as directed. Adherence to healthy eating habits and will repeat hemoglobin A1c level again in 3 months, hopefully she will be off steroids by then (3) Hypertension: Code(s): I10 - Essential (primary) hypertension Category: Medical Qualifiers: Hypertension type: primary hypertension Qualified Code(s): I10 - Essential (primary) hypertension Plan: Slight elevation in blood pressure noted today. Patient still on high-dose steroids. Continue on amlodipine 5 mg daily and losartan 50 mg once a day (4) Dyslipidemia: Code(s): E78.5 - Hyperlipidemia, unspecified Category: Medical Plan: Adherence to healthy eating habits stressed, patient unable to tolerate statins. Will check levels again in 3 months (5) Colon cancer screening: Code(s): Z12.11 - Encounter for screening for malignant neoplasm of colon Plan: Cologuard testing ordered Orders: Referrals Cologuard Test Z12.11 - Encounter for screening for malignant neoplasm of colon, Z12.12 - Encounter for screening for malignant neoplasm of rectum
== END 2025-06-16 09:21 | disposition home or self-care (01) ==
LOC: HO.HMCC 07:56
PROVIDERS: PCP Internal Medicine; Visit Provider Internal Medicine
DX: M33.20 Polymyositis, organ involvement unspecified (principal); E11.29 Type 2 diabetes mellitus with other diabetic kidney complication; R80.9 Proteinuria, unspecified; I10 Essential (primary) hypertension; E78.5 Hyperlipidemia, unspecified; Z12.11 Encounter for screening for malignant neoplasm of colon

== ENCOUNTER → 2025-06-16 07:55 | Outpatient (BNVA) | payer MEDICARE, SELFPAY | PROVIDERS: PCP Internal Medicine; Visit Provider Internal Medicine | DX: E11.29 Type 2 diabetes mellitus with other diabetic kidney complication (principal); E78.5 Hyperlipidemia, unspecified; I10 Essential (primary) hypertension; M33.20 Polymyositis, organ involvement unspecified; R80.9 Proteinuria, unspecified | CPT/HCPCS: 96127; 99212 ==

== ENCOUNTER 2025-07-05 13:45 | Outpatient (AMB) | payer MEDICARE, SELFPAY ==
--- OUTSIDE RECORDS SUMMARY | 2025-05-17 05:10 | XMS_ITS ---
Author Organization [facility] Address [address] [place] [address] [place] [phone] Care Team Providers Care Transformation Analyst Name Role Phone Татьяна Mancuso MD Primary Care Provider Edin Gaitan Jr, Jean Pierre Montes De Oca REASON FOR VISIT screening Encounters Encounter Location Date Provider Diagnosis [facility] Outpatient [address] [place] [id number] 05/17/2025 Jean Pierre Gaitan Jr Plan Of Treatment Next Appt Details Provider Name:Jean Pierre vora Jr, 10/03/2025 01:35:00 PM, [address] [place] [address], Suite [facility], [place], [address], Progress Notes * ANDRÉS HUMPHREYS EDOB:[birth year] (70 yo F)Acc No.[id number]:05/17/2025 COLON WITH MAC Patient: ANDRÉS MORALES Provider: Mikaela Gaitan MD :1955 A ge:70 Y S ex:Female Date:05/17/2025 Address:[address] [place], [place] [phone] Pcp:Татьяна Mancuso MD Subjective: * Chief Complaints: * 1 . Screening. * Medical History: Objective: * Vitals: Assessment: Plan: * Treatment: * * The named appointment provid er may or may not be the originator of this progress note, and it is not deemed complete until electronically signed by the appointment provider. Sign off status: Pending * Provider: Mikaela Gaitan MD Date: 0 05/17/2025 Generated for Omar yeung/Kaylan/Jose Luis on: 09/04/2024 04:53 PM EST
[2025-07-05 13:58] VITALS: BP 130/70; PULSE 98; BMI 21.5
--- NOTE | 2025-07-05 13:58 | A.OFFVIS_ITS ---
Vital Signs 07/05/25 13:58 Height 4 ft 11 in Weight 106 lb 11.26 oz BMI 21.5 BP 130/70 Blood Pressure Location Lt brachial Position Sitting Pulse 98 Pulse Source Monitor Intake Visit Reasons: stenosis of right carotid artery Metal Cans Supervisor Required: No Accompanied by: Significant Other Allergies metronidazole (From FLAGYL) Allergy (Mild, Verified 06/20/25 00:56) METALLIC TASTE/RASH Sulfa (Sulfonamide Antibiotics) (SULFA (SULFONAMIDE ANTIBIOTICS)) Allergy (Mild, Verified 06/20/25 00:56) RASH, rash, SOB Uotstrp-WBZ-OzF Reductase Inhibitor Adverse Reaction (Severe, Verified 06/20/25 00:56) Rhabdomyolysis Medication List - Last Reconciled 07/05/25 by Colby Medina MD amlodipine 5 mg PO DAILY 90 days cholecalciferol (vitamin D3) 50 mcg PO DAILY ezetimibe (Zetia) 10 mg PO DAILY fluticasone propionate 50 mcg/actuation (Flonase Allergy Relief) 1 spray intranasal DAILY PRN immune globulin (human) (IgG) 2 grams IV losartan 50 mg PO DAILY 3 months metformin 500 mg PO TID multivitamin 1 tab PO DAILY prednisone 15 mg PO DIRECTED vitamin B complex 1 tab PO DAILY HPI Comments Details: The patient is a 70-year-old female presenting with hypercholesterolemia management. She has a history of rhabdomyolysis which required hospitalization and further investigation. The patient was diagnosed with polymyositis, and is currently under rheumatological care. She is receiving intravenous immunoglobulin (IVIG) therapy. The patient experienced a transient ischemic attack (TIA) in 2012, and apparently a carotid ultrasound had shown stenosis but no details available. She has not had any further cerebrovascular events since then. After the diagnosis of rhabdomyolysis, she has been taken off statins. Cholesterol levels have gone up since. From the cardiac standpoint, no known coronary disease or myocardial infarction or cardiomyopathy. He has got no cardiac symptoms either. 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 Mother No problems noted. Social History Household Members: Spouse Housing: House Do you presently have visiting nurse or other home services: No Alcohol intake: current Alcohol intake frequency: does not drink Patient Tobacco Use Status: Former Tobacco user Tobacco use type: Cigarette e-Cigarette/Vaping Use: Never Used Second Hand Smoke Exposure: No Advance Directives Date on File: 11/29/22 service: No Current occupational status: retired Cognitive needs: No Hearing needs: No Vision needs: Yes Review of Systems Const Denies chills, Denies fatigue, Denies fever(s), Denies frequent falls, Denies weakness, Denies weight gain and Denies weight loss ENT Denies dizziness Card Denies chest pain, Denies leg edema, Denies lightheadedness, Denies palpitations, Denies dyspnea and Denies dyspnea on exertion Resp Denies cough, Denies dyspnea and Denies dyspnea on exertion GI Denies hematochezia Musc Denies abnormal gait, Denies muscle weakness, Denies numbness, Denies radiating pain into limb and Denies tingling Neuro Denies abnormal gait, Denies dizziness, Denies frequent falls, Denies numbness, Denies tingling and Denies weakness Endo Denies fatigue and Denies palpitations Physical Exam Vital Signs: Last Vital Signs Pulse 98 07/05/25 13:58 BP 130/70 07/05/25 13:58 BMI result Body Mass Index 21.5 Const General: comfortable and no acute distress Orientation/consciousness: patient oriented x3 HEENT Other: Unremarkable Head: Yes normal to inspection Neck Neck: Yes normal visual inspection Chest Chest palpation & inspection: normal inspection of the chest Resp Auscultation: clear to auscultation bilaterally Cardio Palpation: normal PMI Heart sounds: S1 normal heart sound present, S2 normal heart sound present, no gallops, no murmurs and no rubs GI Palpation (GI): Soft to palpation Back/Spine/Pelvis Other: unremarkable Skin General skin exam: no rashes or lesions noted Neuro General: patient oriented x3 Extrem General: Yes normal to inspection Psych Mental Status: mental status grossly normal Office Procedures EKG Details: EKG with underlying sinus rhythm at 98/Min; low-voltage QRS complexes; [place] [address]-Aqtdoleszdmsjxjgq, Complete Assessment & Plan Assessment & Plan (1) Dyslipidemia: Code(s): E78.5 - Hyperlipidemia, unspecified Category: Medical (2) Stenosis of right carotid artery: Code(s): I65.21 - Occlusion and stenosis of right carotid artery Category: Medical (3) History of CVA (cerebrovascular accident): Code(s): Z86.73 - Personal history of transient ischemic attack (TIA), and cerebral infarction without residual deficits Category: Medical (4) Polymyositis: Comment: Dx 04/2025 IVIG started 04/2025 Code(s): M33.20 - Polymyositis, organ involvement unspecified Category: Medical Plan Per neurology notes, a prior brain CT scan had shown bilateral small ischemic infarcts. Per patient, she was told to have carotid artery stenosis. We can recheck this. She has got no overt cardiac symptoms and hence does not really any ischemic workup at this time. With regard to cholesterol management, her most recent LDL is 162 mg/dL and tota l cholesterol is 290 mg/dL. Triglycerides 209 mg/dL. LDL in the past was as low as in the 60s. We discussed about further options for treating hyperlipidemia. We discussed about Zetia use as well as PCSK9 inhibitors. We can start Zetia for the next few months and recheck cholesterol levels. More than likely, she may need PCSK9 inhibitors. To be decided. Check lipids in 3 months and then follow-up. Discussion Notes During the consultation, we discussed the patient's history of polymyositis, and the current management with IVIG therapy. We reviewed the elevated cholesterol levels and considered alternative treatments such as injections or Zetia. The patient was advised to consider the options and we will follow up in three months to reassess her condition and treatment efficacy. Patient was informed and verbally consented to the use of an ambient scribe for clinic note documentation during this visit. Orders: Orders US carotid duplex BI Today Colby Medina MD I65.23 - Occlusion and stenosis of bilateral carotid arteries Medications: New ezetimibe (Zetia) 10 mg PO DAILY 90 tabs 1RF Colby Medina MD Changed From prednisone Take 2 tablets for 2 weeks then 1.5 tablets for 4 weeks then 1 tablet for 4 weeks 10 mg PO DIRECTED 100 tabs 0RF M33.20 - Polymyositis, organ involvement unspecified To prednisone Take 2 tablets for 2 weeks then 1.5 tablets for 4 weeks then 1 tablet for 4 weeks 15 mg PO DIRECTED M33.20 - Polymyositis, organ involvement unspecified Clemencia Sheriff MD Patient Instructions: - Consider starting Zetia for cholesterol management. - Schedule an ultrasound of the carotid arteries. - Follow up in three months for reassessment. Coding Level of Care Code Est Pt Level 4 (89092) Complex EM visit Add On G2211 Diagnoses Dyslipidemia E78.5 Stenosis of right carotid artery I65.21 History of CVA (cerebrovascular accident) Z86.73 Polymyositis M33.20 CPT Codes EKG - CPT: 45919-Nhuribytoxsefbffu, Complete ([id number])
--- OUTSIDE RECORDS SUMMARY | 2025-07-05 16:54 | XMS_ITS | Encounter Summary ---
Author Organization [employer] Address [address] [place] [address] [address] [place] [address] Care Team Providers Care Drain Tiler Name Role Phone Unavailable Primary Care Provider Unavailabl e Encounter Details Date Type Department Care Team (Latest Contact Info) Description 06/22/2019 Abstract [facility] CONVERSIONS Dental, Provider, DDS Social History [...]
--- OUTSIDE RECORDS SUMMARY | 2025-07-05 16:54 | XMS_ITS | Encounter Summary ---
Author Organization [employer] Address [address] [place] [address] [address] [place] [address] Care Team Providers Care Customer Support Associate Name Role Phone Unavailable Primary Care Provider Unavailabl e Encounter Details Date Type Department Care Team (Latest Contact Info) Description 04/19/2021 Abstract [facility] CONVERSIONS Dental, Provider, DDS Social History [...]
--- OUTSIDE RECORDS SUMMARY | 2025-07-05 16:54 | XMS_ITS | Patient Health Record ---
Author Organization [facility] Address [address] [place] [phone] Care Team Providers Care Machine Tool Technology Instructor Name Role Phone Jamee MARTINEZ, Татьяна Primary [...] Status Risk Notes Problem Already on aspirin (119015080) Long-term (current) use of aspirin (V58.66) Active confirmed Problem Colon cancer screening (357915329) Colon cancer screening (V76.51) Active confirmed Problem Already on aspirin (421440765) prison current use of aspirin (Z79.82) Active confirmed Problem Screening for malignant neoplasm of colon (557345680) Encounter for screening for malignant neoplasm of colon (Z12.11) Active confirmed Problem Long-term current use of drug therapy (189447785) High risk medications (not anticoagulants) long-term use (Z79.899) Active confirmed Vital Signs Blood pressure diastolic 77 mm Hg 03/03/2025 Height 58 in 03/03/2025 Blood pressure systolic 111 mm Hg 03/03/2025 Weight 104 lbs 03/03/2025 BMI 21.73 kg/m2 03/03/2025 Encounters Encounter Location Date Provider Diagnosis [facility] [address] [facility] [address] [place] [phone] 03/03/2025 Jean Pierre Gaitan Jr Encounter for screening for malignant neoplasm of colon Z12.11 and High risk medications (not anticoagulants) long-term use Z79.899 [facility] [address] [place] [address] [place] [phone] 03/07/2025 Jean Pierre Gaitan Jr [facility] [address] [place] [address] [place] [phone] 03/17/2025 Jean Pierre Gaitan Jr Assessments Encounter [...] Name:Jean Pierre vora Jr, 10/03/2025 01:35:00 PM, [address] [facility], [address], [place], [phone], Insurance Providers Payer Name Payer Address Payer Phone Subscriber Number Group Number Insured Name Patient Relationship to Insured Coverage Start Date Coverage End Date [employer] [address] [place] [address] [id number] ANDRÉS HUMPHREYS Self - patient is the [...]
--- OUTSIDE RECORDS SUMMARY | 2025-07-05 16:54 | XMS_ITS | Clinical Summary ---
Author Organization [employer] Address [address] [place] [address] [address] [place] [address] Care Team Providers Care Stroke Coordinator Name Role Phone Unavailable Primary Care [...]
== END 2025-07-05 14:36 | disposition home or self-care (01) ==
LOC: HO.HCS 13:46
PROVIDERS: Visit Provider Internal Medicine
DX: E78.5 Hyperlipidemia, unspecified (principal); I65.21 Occlusion and stenosis of right carotid artery; Z86.73 Personal history of transient ischemic attack (TIA), and cerebral infarction without residual deficits; M33.20 Polymyositis, organ involvement unspecified
CPT/HCPCS: 93010; 99214; G2211

== ENCOUNTER → 2025-07-05 13:45 | Outpatient (BNVA) | payer MEDICARE, SELFPAY | PROVIDERS: Visit Provider Internal Medicine | DX: I65.21 Occlusion and stenosis of right carotid artery (principal); M33.20 Polymyositis, organ involvement unspecified; E78.5 Hyperlipidemia, unspecified; Z86.73 Personal history of transient ischemic attack (TIA), and cerebral infarction without residual deficits | CPT/HCPCS: 93005; 99212 ==

== ENCOUNTER 2025-08-02 06:44 | Outpatient (REF) | payer MEDICARE, SELFPAY ==
--- OUTSIDE RECORDS SUMMARY | 2025-08-02 06:47 | XMS_ITS | Encounter Summary ---
Author Organization [employer] Address [address] [place] [address] [address] [place] [address] Care Team Providers Care Nuclear Waste Management Engineer Name Role Phone Unavailable Primary Care Provider Unavailabl e Encounter Details Date Type Department Care Team (Latest Contact Info) Description 06/22/2019 Abstract [facility] CONVERSIONS Dental, Provider, DDS Social History [...]
--- OUTSIDE RECORDS SUMMARY | 2025-08-02 06:47 | XMS_ITS | Clinical Summary ---
Author Organization [email or web address] Address [address] [place] [address] 7 [place] [address] Care Team Providers Care Electronics Utility Worker Name Role Phone Unavailable Primary Care [...] of 2) 01/27/2004 COVID-19 Vaccine ( - 2024-2 6 season) 2025 Influenza Vaccine (#1) 2025 RSV [...]
--- OUTSIDE RECORDS SUMMARY | 2025-08-02 06:47 | XMS_ITS | Encounter Summary ---
Author Organization [employer] Address [address] [place] [address] 7 [place] [address] Care Team Providers Care Painter Set Name Role Phone Unavailable Primary Care Provider Unavailabl e Encounter Details Date Type Department Care Team (Latest Contact Info) Description 04/19/2021 Abstract [facility] CONVERSIONS Dental, Provider, DDS Social History Tobacco [...]
[2025-08-02 10:05] LABS: MANUAL DIFF FLAG NO
[2025-08-02 10:23] LABS: Hematocrit 38.1 % (37.0-47.0); Hemoglobin 12.6 g/dl (12.0-16.0); Imm Gran Abs Auto 0.06 X10*3/uL (0.00-0.03); Imm Gran Pct Auto 0.7 % (0.0-0.4); Lymphocytes Absolute Auto 3.4 X10*3/uL (1.2-4.9); Mean Corpuscular HGB Conc 33.1 g/dl (31.0-35.0); Mean Corpuscular Hemoglobin 29.9 pg (27.0-33.0); Mean Corpuscular Volume 90.5 fL (80.0-98.0); NRBC Abs Auto 0.000 X10*3/uL (0.0-0.012); NRBC Pct Auto 0.0 /100WBC (0.0-0.2); Platelet Count 354 X10*3/uL (160-400); Red Blood Count 4.21 X10*6/uL (4.20-5.50); White Blood Count 8.4 X10*3/uL (4.8-10.8)
[2025-08-02 10:51] LABS: Alanine Aminotransferase 40 U/L (0-31); Albumin Level 3.8 g/dL (3.5-5.0); Alkaline Phosphatase 66 U/L (39-117); Anion Gap 11 (12-20); Aspartate Amino Transferase 25 U/L (5-31); Blood Urea Nitrogen 18 mg/dL (9-16); Calcium 9.1 mg/dL (8.4-10.2); Carbon Dioxide 28 mmol/L (22-29); Chloride 107 mmol/L (96-108); Estimated Glomerular Filt Rate > 60; Potassium 4.0 mmol/L (3.3-5.1); Sodium 142 mmol/L (135-145); Total Protein 6.9 g/dL (6.5-8.0)
[2025-08-02 11:21] LABS: Erythrocyte Sedimentation Rate 15 MM/HR (0-20)
== END 2025-08-02 06:45 | disposition home or self-care (01) ==
LOC: HO.HMGCLDS 06:44
PROVIDERS: PCP Internal Medicine; Visit Provider Student in an Organized Health Care Education/Training Program
DX: M33.20 Polymyositis, organ involvement unspecified (principal); Z79.899 Other long term (current) drug therapy
CPT/HCPCS: 36415; 80053; 82085; 82550; 85025; 85652; 86140

== ENCOUNTER 2025-08-05 12:40 | Outpatient (AMB) | payer MEDICARE, SELFPAY ==
--- NOTE | 2025-08-05 12:55 | A.OFFVIS_ITS ---
Vital Signs 08/05/25 13:01 Height 4 ft 11 in Weight 109 lb 12.643 oz BMI 22.2 BP 142/90 H Blood Pressure Location Lt brachial Position Sitting Pulse 85 Pulse Source Pulse Oximeter Pulse Oximetry (%) 99 Oxygen Delivery Method Room Air Intake Visit Reasons: 2months Intake Note: Patient presents today for Polymyositis follow up and test results. Line Erector Required: No Accompanied by: Spouse Allergies metronidazole (From FLAGYL) Allergy (Mild, Verified 08/05/25 13:00) METALLIC TASTE/RASH Sulfa (Sulfonamide Antibiotics) (SULFA (SULFONAMIDE ANTIBIOTICS)) Allergy (Mild, Verified 08/05/25 13:00) RASH, rash, SOB [id number] Reductase Inhibitor Adverse Reaction (Severe, Verified 08/05/25 13:00) Rhabdomyolysis Medication List - Last Reconciled 08/05/25 by Clemencia Sheriff MD amlodipine 5 mg PO DAILY 90 days cholecalciferol (vitamin D3) 50 mcg PO DAILY ezetimibe (Zetia) 10 mg PO DAILY fluticasone propionate 50 mcg/actuation (Flonase Allergy Relief) 1 spray intranasal DAILY PRN immune globulin (human) (IgG) 2 grams IV losartan 50 mg PO DAILY 3 months metformin 500 mg PO TID multivitamin 1 tab PO DAILY prednisone 15 mg PO DIRECTED vitamin B complex 1 tab PO DAILY HPI Comments Details: Patient is a 70-year-old female with hypertension complicated by CVA, diabetes, hyperlipidemia and biopsy proven necrotizing autoimmune myopathy here today for follow up Interval History: Patient last seen 06/09/25 with me - On IVIG 2g/kg every 4 weeks and prednisone 20mg - Has not started IVIG, will start next week - Still having difficulty with proximal muscle weakness - Insurance is changing at the end of the year, currently looking at other carriers Today - On IVIG 2g/kg every 4 weeks and prednisone 10mg - Doing well - Improved muscle strength - Has new insurance Rheumatologic History: Dx 04/2025 Biopsy proven IMNM 04/2025: IVIG Initial History: Patient was admitted to [facility] after presenting with myalgias and elevated CK in the setting of statin use. 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 Patient has been on statin for years and patient's provider slowly decrease the dose from 80 mg to 40 mg and finally 20 mg due to complaints of myalgias Over the past several weeks prior to admission she noted heaviness in her arms and legs to the point where she could not get in and out of the car Today she is on 40 mg prednisone daily with improved symptoms Current Rheumatology Medication(s): IVIG 2g/kg every 4 weeks Prednisone 10mg daily [facility] Medical History Statin intolerance Muscle weakness Abscess of buttock Postoperative keloid scar Type 2 diabetes mellitus with microalbuminuria, without long-term current use of insulin Stenosis of right carotid artery Hypertension History of CVA (cerebrovascular accident) Osteopenia of left hip Dyslipidemia Cyst of right breast Surgical History History of cholecystectomy History of dilation and curettage Family History Father No problems noted. Mother No problems noted. Social History Household Members: Spouse Housing: House Do you presently have visiting nurse or other home services: No Alcohol intake: current Alcohol intake frequency: does not drink Patient Tobacco Use Status: Former Tobacco user Tobacco use type: Cigarette e-Cigarette/Vaping Use: Never Used Second Hand Smoke Exposure: No Advance Directives Date on File: 11/29/22 service: No Current occupational status: retired Cognitive needs: No Hearing needs: No Vision needs: Yes Review of Systems Narrative Review of Systems Constitutional: Denies fever, chills, weight loss ENT: Denies vision changes, eye pain or eye redness, dental caries, dry mouth GI: Denies nausea, vomiting, diarrhea, abdominal pain, change in BM Pulm: Denies SOB, RAZA, hemoptysis, wheezing Cards: Denies chest pain, palpitations Skin: Denies Raynaud's, rash, nail changes, photosensitivity, DIRECTOR VISUAL: Denies headaches, weakness, paresthesias, recurrent falls MSK: as per HPI All other systems reviewed and are unremarkable except noted above Physical Exam Exam Exam: Vital signs reviewed Physical Examination CONSTITUITIONAL Patient alert and cooperative. Well appearing and in no apparent painful distress MSK Hands * Right Hand: Able to make a fist. No swelling or tenderness to palpation of the MCPs, PIPs or DIPs. * Left Hand: Able to make a fist. No swelling or tenderness to palpation of the MCPs, PIPs or DIPs. Wrists * Right Wrist: Full ROM to flexion and extension. No swelling or TTP * Left Wrist: Full ROM to flexion and extension. No swelling or TTP Elbows * Right Elbow: Full ROM. No swelling or TTP. No TTP of the medial epicondyle. No TTP of the lateral epicondyle * Left Elbow: Full ROM. No swelling or TTP. No TTP of the medial epicondyle. No TTP of the lateral epicondyle Shoulders * Right shoulder: Full ROM. No swelling noted. No TTP of the AC joint. No TTP of the subacromial bursa. No TTP of the posterior shoulder * Left shoulder: Full ROM. No swelling noted. No TTP of the AC joint. No TTP of the subacromial bursa. No TTP of the posterior shoulder Knees * Right knee: Full ROM. No swelling noted. No TTP of the knee joint line. No TTP of pes anserine bursa * Left knee: Full ROM. No swelling noted. No TTP of the knee joint line. No TTP of pes anserine bursa. * Crepitations felt bilaterally Ankles * Right ankle: Good ankle dorsiflexion and plantar flexion. No swelling. No TTP of the ankle joint * Left ankle: Good ankle dorsiflexion and plantar flexion. No swelling. No TTP of the ankle joint Feet * Right foot: Negative squeeze test * Left foot: Negative squeeze test Tender points? * No tenderness to palpation of the bilateral trapezius, supraspinatus, anterior costochondral junctions, bilateral suboccipital muscle insertions SKIN No rashes Right Left Neck 5 Security Management Specialist strength 5 5 Wrist flexion 5 5 Wrist extension 5 5 Elbow extension 5 5 Elbow flexion 5 5 Shoulder abduction 5 5 Shoulder adduction 5 5 Hip flexion 5 5 Knee extension 5 5 Knee flexion 5 5 Ankle dorsiflexion 5 5 Ankle plantar flexion 5 5 Vital Signs: Last Vital Signs Pulse 85 08/05/25 13:01 BP 142/90 H 08/05/25 13:01 Pulse Ox 99 08/05/25 13:01 Oxygen Delivery Method Room Air 08/05/25 13:01 BMI result Body Mass Index 22.2 Results Reviewed Results Reviewed: Laboratory Tests 06/06/25 08/02/25 07:46 06:56 WBC 8.4 RBC 4.21 Hgb 12.6 Hct 38.1 Plt Count 354 ESR 15 Sodium 142 Potassium 4.0 Chloride 107 Carbon Dioxide 28 BUN 18 H Creatinine 0.63 Total Bilirubin 0.3 AST 35 H 25 ALT 65 H 40 H Total Creatine Kinase 671 H 108 C-Reactive Protein < 0.10 Aldolase 10.8 H Pending Laboratory Tests 03/28/25 08:36 KAYLEE-1 Antibody <11 EJ Antibody <11 OJ Antibody <11 Mi-2-Alpha Ab <11 Mi-2-Beta Ab <11 NXP-2 Ab <11 PL-7 Antibody <11 PL-12 Antibody <11 SRP Ab <11 MDA5 Ab <11 Myos P155/140 TIF1-g Ab <11 NT5C1A IgG Antibody <5 HMGCR IgG Antibody 44 H Muscle biopsy 03/30/25 The muscle shows myopathic histologic changes including the presence of scattered degenerating (necrotic) fibers and basophilic regenerating fibers. No inflammation is present. The muscle fibers also show overexpression of MHC class 1, which suggest a diagnosis of necrotizing autoimmune myopathy possibly associated with prior statin use. 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 Plan - IVIG 2g/kg divided over 2 days every 4 weeks - Prednisone 9mg x 2 weeks then 8mg x 2 weeks then 7mg x 2 weeks then 6mg x 2weeks then 5mg x 4 weeks - Refer to PT - RTC 3 months - Labs before visit: CBC, CMP, ESR, CRP, CK, Aldolase (2) Long-term current use of intravenous immunoglobulin (IVIG): Code(s): Z79.899 - Other director perioperative (current) drug therapy Plan: #Long-term use of IVIG Discussed with this patient the risks and benefits of IVIG use to the management of the rheumatic condition Benefits include improved disease control and maintenance of remission Risks include anaphylaxis, blood clots, transfusion related acute lung injury, hemolytic reaction, fluid overload, heart problems Plan I spent 30 minutes reviewing the record and labs, taking a history, examining the patient, discussing the treatment plan, ordering diagnostic work up, ordering and setting up infusion and documenting in the medical record Orders: Orders Aldolase 3 Months M3. - Polymyositis, organ involvement unspecified Complete Blood Count Auto Diff 3 Months M3.20 - Polymyositis, organ in volvement unspecified Comprehensive Met. Panel 3 Months .20 - Polymyositis, organ involvement unspecified Creatine Kinase Total 3 Months M3.20 - Polymyositis, organ involvement unspecified C Reactive Protein 3 Months Z79.899 - Other half-way (current) drug therapy Erythrocyte Sedimentation Rate 3 Months Z79.899 - Other director perioperative (current) drug therapy PT Evaluation and Treatment Today . - Polymyositis, organ involvement unspecified, M62.81 - Muscle weakness (generalized) Medications: New prednisone 4mg x 2 weeks (to be taken with 5mg tablet for a total of 9mg) then 3mg x 2 weeks (to be taken with 5mg tablet for a total of 8mg) then 2mg x 2 weeks (to be taken with 5mg tablet for a total of 7mg) then 1 mg x 2 weeks (to be taken with 5mg tablet for a total of 6mg) 1 mg PO DAILY 140 tabs 0RF M3.20 - Polymyositis, organ involvement unspecified prednisone 5 mg PO DAILY 90 tabs 1RF M33.20 - Polymyositis, organ involvement unspecified Coding Level of Care Code Est Pt Level 4 (70962) Complex visit Add On G2211 Diagnoses Polymyositis M33.20 Long-term current use of intravenous immunoglobulin (IVIG) Z79.899
[2025-08-05 13:01] VITALS: BP 142/90; PULSE 85; O2SAT 99; BMI 22.2
== END 2025-08-05 13:40 | disposition home or self-care (01) ==
LOC: HO.RHES 12:41
PROVIDERS: PCP Internal Medicine; Visit Provider Student in an Organized Health Care Education/Training Program
DX: M33.20 Polymyositis, organ involvement unspecified (principal); Z79.899 Other long term (current) drug therapy
CPT/HCPCS: 99214; G2211

== ENCOUNTER → 2025-08-05 12:40 | Outpatient (BNVA) | payer MEDICARE, SELFPAY | PROVIDERS: Visit Provider Student in an Organized Health Care Education/Training Program | DX: M33.20 Polymyositis, organ involvement unspecified (principal); Z79.899 Other long term (current) drug therapy; Z87.891 Personal history of nicotine dependence | CPT/HCPCS: 99212 ==

== ENCOUNTER 2025-08-09 09:48 | Outpatient (REF) | payer MEDICARE, SELFPAY ==
--- NOTE | ~2025-08-09 | MM_ITS ---
EXAMINATION: DXA BONE DENSITY AXIAL HISTORY: OSTEOPENIA TECHNIQUE: [employer] Dual energy absorptiometry (DEXA) of the lumbar spine, total left hip, and femoral neck was performed. COMPARISON: Comparison is made with the prior examination most recent dated July 2023. FINDINGS: The bone mineral density of the lumbar spine is 1.301 g/cm2, corresponding to a T-score of 1.0, and a Z-score of 3.2. This is indicative of normal bone mineral density. This represents a BMD change of -0.3% compared to the prior exam. This is not statistically significant. The bone mineral density of the left total hip is 0.891 g/cm2, corresponding to a T-score of -0.9, and a Z-score of 1.0. This is indicative of normal bone mineral density. This represents a BMD change of -0.1% compared to the prior exam. This is not statistically significant. The bone mineral density of the left femoral neck is 0.776 g/cm2, corresponding to a T-score of -1.9, and a Z-score of 0.2. This is indicative of osteopenia. This represents a BMD change of -3.0% compared to the prior exam. This is not statistically significant. FRACTURE RISK: The FRAX index suggests a ten year probability of major osteoporotic fracture of 10.3%, and of hip fracture 2.4%. MM/XR DEXA axial skeleton IMPRESSION: Based on bone mineral density, and according to World Health Organization (WHO) criteria, the diagnosis is consistent with osteopenia based on lowest T score of -1.9 in the left femoral neck. Treatment Recommendations: NOF guidelines recommend consideration for treatment in postmenopausal women and men age 50 and older presenting with the following: -A hip or vertebral (clinical or morphometric) fracture. -T-score less than or equal to -2.5 at the femoral neck or spine after appropriate evaluation to exclude secondary causes. -Low bone mass at the hip or spine and a 10-year fracture probability by FRAX of greater than or equal to 3% for hip fracture or greater than or equal to 20% for major osteoporotic fracture based on the [place] adapted WHO algorithm. Other Recommendations: All treatment decisions require clinical judgment and consideration of individual patient factors, including patient preferences, comorbidities, previous drug use, risk factors not captured in the FRAX model (e.g. frailty, falls, vitamin D deficiency, increased bone turnover, interval significant decline in bone density) and possible under or overestimation of fracture risk by FRAX. Additional medical evaluation for secondary cause of low bone mineral density may be appropriate. FUTURE SCAN RECOMMENDATION: People with diagnosed cases of osteoporosis or at high risk for fracture should have regular bone mineral density tests. For patients eligible for Medicare, routine testing is allowed once every 2 years. The testing frequency can be increased to one year for patients who have rapidly progressing disease, those who are receiving or discontinuing medical therapy to restore bone mass, or have additional risk factors. Statistically, 68% of repeat scans fall within 1 SD (+/- 0.010 g/cm2 for AP spine L1-L4) and 1 SD (+/- 0.012 g/cm2 for femur total) FRAX is a trademark of the [employer]'s [place] for Metabolic Bone Disease, a World Health Organization (WHO) Collaborating Center. Electronically signed by: Diana Almeida MD 08/09/2025 10:35 AM [facility]
--- NOTE | ~2025-08-09 | MM_ITS ---
EXAMINATION: MM SCREENING DIGITAL BREAST TOMOSYNTHESIS, BILATERAL CLINICAL INFORMATION: Screening. Asymptomatic. History of breast surgery with a scar over sternum many many years ago. COMPARISON: Comparison made to multiple prior, most recent July 29, 2023, and most remote May 16, 2017. TECHNIQUE: Digital breast tomosynthesis is performed in mediolateral oblique and craniocaudal views along with computer-aided detection (CAD). Synthesized 2D images are generated from the tomosynthesis. FINDINGS: BREAST COMPOSITION: The breasts are heterogeneously dense, which may obscure small masses. BILATERAL BREASTS: No significant masses, suspicious calcifications or other abnormalities are seen in either breast. MM/MM tomosynthesis screening BI IMPRESSION: BILATERAL BREASTS: Negative, no mammographic evidence of malignancy. Normal interval follow-up is recommended in 12 months. ASSESSMENT: BI-RADS: Category 1: Negative RECOMMENDATION: Routine annual mammography screening. FOLLOW-UP: 1 year F/U This examination should not preclude the clinical evaluation of a suspicious palpable abnormality. This patient's information was entered into a reminder system with a target due date for their next mammogram. Electronically signed by: Miley Reid MD 08/09/2025 05:37 PM [facility]
== END 2025-08-09 09:49 | disposition home or self-care (01) ==
LOC: HO.MAMMO 09:48
PROVIDERS: PCP Internal Medicine; Visit Provider Internal Medicine
DX: Z12.31 Encounter for screening mammogram for malignant neoplasm of breast (principal); M85.852 Other specified disorders of bone density and structure, left thigh; Z78.0 Asymptomatic menopausal state; Z98.890 Other specified postprocedural states
CPT/HCPCS: 77063; 77067; 77080

== ENCOUNTER → 2025-08-09 10:30 | Outpatient (BNV) | payer MEDICARE, SELFPAY | PROVIDERS: PCP Internal Medicine; Visit Provider Radiology Diagnostic Radiology | DX: E28.39 Other primary ovarian failure (principal); Z12.31 Encounter for screening mammogram for malignant neoplasm of breast | CPT/HCPCS: 77063; 77067; 77080 ==

== ENCOUNTER 2025-08-22 15:25 | Outpatient (REF) | payer MEDICARE, SELFPAY ==
--- NOTE | ~2025-08-22 | US_ITS ---
EXAMINATION: US EXTRACRANIAL CAROTID DUPLEX, BILATERAL CLINICAL INFORMATION: Prior CVA, Hypertension, hyperlipidemia, former smoker, diabetes COMPARISON: March 31, 2017 TECHNIQUE: Real-time ultrasound and Doppler techniques (integrating B-mode 2-D vascular images, Doppler spectral analysis and color-flow Doppler imaging) were utilized to interrogate the extracranial carotid arteries, the vertebral arteries and proximal subclavian arteries bilaterally. The degree of stenosis is determined by criteria similar to NASCET. FINDINGS: Right Side: 1. There is mild atherosclerotic plaque seen in the bifurcation/proximal ICA region. 2. The common carotid artery PSV proximally is 72 cm/s and distally 53 cm/s. 3. The proximal internal carotid artery velocities are 54 cm/s systolic and 14 cm/s diastolic. 4. The proximal external carotid artery PSV is 148 cm/s. 5. The vertebral artery shows antegrade flow. 6. The subclavian artery waveforms are triphasic. ICA/CCA ratio 0.8 Left Side: 1. There is mild atherosclerotic plaque seen in the bifurcation/proximal ICA region. 2. The common carotid artery PSV proximally is 87 cm/s and distally 72 cm/s. 3. The proximal internal carotid artery velocities are 49 cm/s systolic and 12 cm/s diastolic. 4. The proximal external carotid artery PSV is 127 cm/s. 5. The vertebral artery shows antegrade flow. 6. The subclavian artery waveforms are triphasic. ICA/CCA ratio 0.6 US/US carotid duplex BI IMPRESSION: 1. RIGHT: No hemodynamically significant stenosis 2. LEFT: No hemodynamically significant stenosis 3. There is no significant change in the category severity of disease when compared to the previous study dated March 31, 2017. Electronically signed by: Wilfrido Turpin MD 08/22/2025 04:15 PM [facility]
--- OUTSIDE RECORDS SUMMARY | 2025-08-22 18:27 | XMS_ITS | Patient Health Record ---
Author Organization [facility] Address [address] [place] [phone] Care Team Providers Care Residential Counselor Name Role Phone Jamee MARTINEZ, Татьяна Primary Care Provider Jean Pierre Montiel Jr Unavailable Allergies Allergen (clinical drug ingredient) Drug/Non Drug Allergy documented on EMR Reaction Allergy Type Onset Date Status metronidazole Flagyl Unknown Drug Allergy Act emanuel Sulfa Unknown Drug Allergy Active Pollen (e.g. tree, grass) Unknown Allergy Active Reason For Referral No Information Medications Medication SIG (Take, Route, Frequency, Duration) Notes Start Date End Date Status Losartan Potassium 25 MG Tablet Oral; Duration: 90 Days Acti ve metFORMIN HCl 500 MG Tablet TAKE 2 TABLE TS BY MOUTH EVERY MORNING WITH BREAKFAST & 1 TABLET EVERY EVENING WITH DINNER Oral; Duration: 90 Days Active Atorvastatin Calcium 20 MG Tablet 1 tablet Orally Once a day Active amLODIPine Besylate 5 MG Tablet 1 tablet Orally Once a day Active Multi Vitamin/Minerals 1 Tablet 1 Orally qd Active Fluticasone Propionate 50 MCG/ACT Suspension 1 spray in each nostril Nasally Once a day Active Vitamin D3 50 MCG (1999) Capsule 1 capsule Orally Once a day Active Vitamin B Complex - Capsule as directed Orally Active Social History Social History Additional Details Category Social Info Options Details Miscellaneous: Marital status: Occupation: unemployed Section Notes: Nonsmoker since 11/2012; no s ig alcohol; from the [facility]. Nonsmoker since 11/2012; no s ig alcohol; from the [facility]. Nonsmoker since 11/2012; no s ig alcohol; from the [facility]. Problems Problem Type SNOMED Code ICD Code Onset Dates Problem Status W/U Status Risk Notes Problem Already on aspirin (620999603) Long-term (current) use of aspirin (V58.66) Active confirmed Problem Colon cancer screening (219940180) Colon cancer screening (V76.51) Active confirmed Problem Already on aspirin (817948715) pen[facility]ent[facility] current use of aspirin (Z79.82) Active confirmed Problem Screening for malignant neoplasm of colon (302139745) Encounter for screening for malignant neoplasm of colon (Z12.11) Active confirmed Problem Long-term current use of drug therapy (844884038) High risk medications (not anticoagulants) long-term use (Z79.899) Active confirmed Vital Signs Blood pressure diastolic 77 mm Hg 03/03/2025 Height 58 in 03/03/2025 Blood pressure systolic 111 mm Hg 03/03/2025 Weight 104 lbs 03/03/2025 BMI 21.73 kg/m2 03/03/2025 Encounters Encounter Location Date Provider Diagnosis [facility] [address] [place] [phone] 03/03/2025 Jean Pierre Gaitan Jr Encounter for screening for malignant neoplasm of colon Z12.11 and High risk medications (not anticoagulants) long-term use Z79.899 [facility] [address] [place] [phone] 03/07/2025 Jean Pierre Gaitan Jr [facility] [address] [place] [phone] 03/17/2025 Jean Pierre Gaitan Jr Assessments Encounter [...] 03/03/2025 Next Appt Details Provider Name:Jean Pierre Andrea Robert vora Jr, 10/03/2025 01:35:00 PM, [address] [facility], [address], [place], [phone], Insurance Providers Payer Name Payer Address Payer Phone Subscriber Number Group Number Insured Name Patient Relationship to Insured Coverage Start Date Coverage End Date [employer] [facility] [address] [place] [address] [phone] [id number] ANDRÉS HUMPHREYS Self - patient is the insured Medical (General) History Medical History History ICD Code CVA in 03/2013--residual weak ness in left side-70% right carotid artery stenosis, Now less than 50% (03/25) and off dual antiplatelet therapy hypertension diabetes II elevated Cholesterol Difficult intubation sciatica Colonoscopy 07/16, unremarkable colon po lyp, 10-year follow-up Surgical History Surgery Date(Month/Year) CCY D & C cyst removal-on right breast
--- OUTSIDE RECORDS SUMMARY | 2025-08-22 18:27 | XMS_ITS | Encounter Summary ---
Author Organization [employer] Address [address] [place] [address] [address] [place] [address] Care Team Providers Care Routeman Name Role Phone Unavailable Primary Care Provider Unavailabl e Encounter Details Date Type Department Care Team (Latest Contact Info) Description 06/22/2019 Abstract [facility] CONVERSIONS Dental, Provider, DDS Social [...]
--- OUTSIDE RECORDS SUMMARY | 2025-08-22 18:27 | XMS_ITS | Clinical Summary ---
Author Organization [employer] Address [address] [place] [address] 7 [place] [address] Care Team Providers Care Supervisor Coal Handling Name Role Phone Unavailable Primary Care Provider [...]
--- OUTSIDE RECORDS SUMMARY | 2025-08-22 18:27 | XMS_ITS | Encounter Summary ---
Author Organization [employer] Address [address] [place] [address] [address] [place] [address] Care Team Providers Care Software Consultant Name Role Phone Unavailable Primary Care Provider Unavailabl e Encounter Details Date Type Department Care Team (Latest Contact Info) Description 04/19/2021 Abstract [facility] CONVERSIONS Dental, Provider, DDS Social [...]
== END 2025-08-22 15:26 | disposition home or self-care (01) ==
LOC: HO.HMGCX 15:25
PROVIDERS: PCP Internal Medicine; Visit Provider Internal Medicine
DX: I65.23 Occlusion and stenosis of bilateral carotid arteries (principal)
CPT/HCPCS: 93880

== ENCOUNTER → 2025-08-22 15:26 | Outpatient (BNV) | payer MEDICARE, SELFPAY | PROVIDERS: PCP Internal Medicine; Visit Provider Radiology Diagnostic Radiology | DX: I10 Essential (primary) hypertension (principal); E78.5 Hyperlipidemia, unspecified; E11.9 Type 2 diabetes mellitus without complications; Z86.73 Personal history of transient ischemic attack (TIA), and cerebral infarction without residual deficits | CPT/HCPCS: 93880 ==